=== PATIENT | male | born 1955 | race Caucasian/White ===

== ENCOUNTER 2020-07-06 06:29 | Inpatient (IN) | payer MEDICARE, MEDICAID, SELFPAY ==
[2020-07-06 06:15] VITALS: BP 159/91; PULSE 96; RESP 20; TEMP 37.2; O2SAT 96
--- NOTE | 2020-07-06 07:17 | PM.HP ---
Providers/Chief Complaint Admitting Physician: Meme Puckett MD Primary Care Provider: [facility] Chief Complaint: Generalized Weakness History of Present Illness David Paulino is a 65 year old male who presented as a transfer from [facility] with concerns of frequent falls in the last week, severe hypokalemia, weakness with difficulty with ambulation, and anemia. Patient reports for that for the last several weeks he has been significantly weak, with frequent falls. He denies any significant injuries. No fever. No blood in his stool or black or tarry stools. He reports he stopped drinking about a month ago, and prior to that had fairly regular alcohol intake. He has had no nausea or vomiting, or diarrhea. He denies any fever, history of Covid, significant cough, exposure to Covid or vaccination for Covid. He does note that he has some hoarseness lately. Previously he had some dysphagia many months ago but it is gone away. He has had weight loss of approximately 45 pounds in the last 2 months. He states he just never is hungry. Screening colonoscopy was done 2 months ago at [facility]. Review of Systems General: Reports: 10 or more systems reviewed and unremarkable except in HPI and below Const: Reports: change in weight and malaise; Denies: fever(s) or chills Eyes: Denies: change in vision ENMT: Reports: hoarseness; Denies: throat pain Card: Denies: chest pain Resp: Denies: dyspnea GI: Denies: abdominal pain, nausea, vomiting, hematochezia or melena : Denies: flank pain Musc: Denies: neck pain Skin/Breast: Denies: rash Neuro: Reports: numbness in extremities, weakness in extremities and dizziness; Denies: headache(s) Psych: Denies: anxiety or depression Endo: Denies: polyuria Jeancarlos/Lymph: Denies: easy bruising All/Imm: Denies: urticaria Medications/Allergies Home Medications Medication Instructions Recorded Confirmed Last Taken Type ferrous sulfate 325 mg PO DAILY 07/06/20 07/06/20 Unknown History lisinopril 20 mg PO DAILY 07/06/20 07/06/20 Unknown History metoprolol tartrate 25 mg PO BID 07/06/20 07/06/20 Unknown History potassium chloride 10 meq PO BID 07/06/20 07/06/20 Unknown History Allergies Allergy/AdvReac Type Severity Reaction Status Date / Time No Known Allergies Allergy Unverified 07/06/20 09:18 PFSH Acute PFSH: Medical History (Updated 07/06/20 @ 10:40 by Vasu Johnson MD) Alcohol use disorder Anemia Hypertension Neuropathy Surgical History (Updated 07/06/20 @ 10:40 by Vasu Johnson MD) History of carpal tunnel surgery History of spinal surgery Family History (Updated 07/06/20 @ 10:35 by Vasu Johnson MD) Other CAD (coronary artery disease) Cancer Social History (Updated 07/06/20 @ 10:35 by Vasu Johnson MD) Smoking and tobacco status: never smoked Alcohol intake: former Physical Exam Narrative: EXAM NARRATIVE: General exam is a white male, with a baseline tremor, in no apparent distress HEENT: Pupils equally round. Oropharynx clear. Neck is supple no lymphadenopathy or thyromegaly Cardiovascular mild tachycardia. No obvious murmur Lungs clear no wheezing or crackles Abdomen is soft with positive bowel sounds. No obvious organomegaly exam is deferred Extremities no cyanosis clubbing or edema, cap refill brisk Skin no rash Neuro no obvious focal deficits. Slight horizontal nystagmus. No vertical nystagmus. Strength adequate. Data : 07/06/20 07:25 Other data: EKG demonstrates sinus tachycardia with a rate of 103, left axis deviation, right bundle branch block. Biphasic P wave in V1 indicates likely left atrial enlargement. No ST elevation is noted. INR is 1.2 White blood cell count 8.2, hemoglobin 8.2, MCV 103, RDW 21, platelets 159 Sodium 138, potassium 2.1, chloride 83, bicarb 14, BUN 9, creatinine 0.81, glucose 154, albumin 4.1, bilirubin 2.6, alk phos 81, AST 57, ALT 23, magnesium 2.1. Anion gap was 41 CT head was performed which was negative TSH 3.84 Alcohol level less than 10 Occult blood negative Initial troponin 44 with 2-hour of 50 and 6-hour 42 Repeat electrolytes from July 06(previous from June demonstrated sodium 135, potassium 2.9, chloride 92, bicarb 29, BUN 11 creatinine 0.7 glucose 111 anion gap 14 A&P Assessment and plan (1) Hypokalemia: Severe hypokalemia. Supplement IV Check magnesium level Status: Acute (2) Anemia: Iron studies, B12 and folate studies. Stool Hemoccult. Had a colonoscopy per patient report 2 months ago. Request records. Secondary to history of hoarseness as well as dysphagia and weight loss may be appropriate for EGD. Status: Acute (3) Alcohol use disorder: Reports he quit using alcohol 1 month ago, although per nursing this may have been more recent. [facility] protocol. Monitor for withdrawal Status: Acute (4) Hypomagnesemia: Supplement magnesium Status: Acute (5) Weakness: Physical therapy consultation Status: Acute (6) Hypertension: Continue home medications Status: Acute Additional A&P Information Full code SCDs for DVT prophylaxis. Secondary to significant anemia hold anticoagulation Will need less than 2 midnights for evaluation of weakness, falls, electrolyte abnormality. If significant withdrawal occurs, or weakness and balance issues do not improve with electrolyte supplementation could require transition to full admission. Attestations Medical Necessity Statement*: See statement above under additional 8 assessment and plan Time Spent in Patient Care: Greater than 35 minutes Coding Level of Care Code Acute Manager Intensive Care Unit for Chg Fwd Diagnoses Hypokalemia E87.6 Anemia D64.9 Alcohol use disorder Hypomagnesemia E83.42 Weakness R53.1 Hypertension I10
[2020-07-06 07:24] VITALS: BMI 25.1
--- NOTE | 2020-07-06 07:41 | XR_ITS ---
WS: [id number] PORTABLE CHEST HISTORY: weight loss COMPARISON: None available. Lung volumes are decreased and radiograph is obtained in lordotic positioning. There is some very mil d interstitial thickening in the central RIGHT lung. No pneumonia or mass identified. No pleural effu richar or pneumothorax. Cardiac size: Normal. Mediastinum/Aorta: Mild atherosclerosis aorta. No osseous abnormality seen. XR/XR chest 1V portable [id number] IMPRESSION: 1. Mild ectasia and atherosclerosis aorta. No pneumonia or mass identified. 2. No cardiomegaly.
[2020-07-06] MEDS: potassium chloride ER 20 mEq Tablet PO (07:46)
--- NOTE | 2020-07-06 07:51 | PC.NURSE ---
Patient arrived from [facility] as a direct admit, he is alert and oriented, here for further testing, arrived at 0615, did not get placed in the system until 0630, vital stable, in room resting, Dr notified of his arrival
[2020-07-06 08:00] VITALS: BP 146/88; PULSE 105; RESP 18; TEMP 37.1; O2SAT 97
[2020-07-06 08:13] LABS: Anion Gap 19.5 (5-19); Blood Urea Nitrogen 11 mg/dL (8-23); C Reactive Protein 16.2 mg/L (0.0-4.9); Calcium 8.5 mg/dL (8.5-10.5); Carbon Dioxide 29 mmol/L (22-29); Chloride 91 mmol/L (98-107); Creatine Phosphokinase 210 U/L (39-308); Glomerular Filtration Rate 112.8 mL/min (90-130); Glucose 95 mg/dL (65-115); Osmolality Calculated 283 mOsm/kg (285-295); Sodium 137 mmol/L (136-145); Thyroid Stimulating Hormone 1.42 uIU/mL (0.27-4.20)
[2020-07-06 08:20] LABS: Potassium 2.5 mmol/L (3.5-5.1)
[2020-07-06] MEDS: dextrose 5%-ns + KCl 20 20 MEQ/1,000 ML BAG 75 MEQ IV ×2 (08:45→22:47)
[2020-07-06] MEDS: pantoprazole DR 40 mg Tablet PO ×2 (08:45→16:49)
[2020-07-06] MEDS: thiamine 100 mg Tablet PO (08:45)
[2020-07-06] MEDS: folic acid 1 mg Tablet PO (08:45)
[2020-07-06 08:51] LABS: Phosphorus 1.5 mg/dL (2.5-4.5)
[2020-07-06 08:52] LABS: Iron 207 ug/dL (59-158); Magnesium 1.6 mg/dL (1.7-2.3)
[2020-07-06] MEDS: lidocaine 1% 5 ML in potassium chloride premix 100 ML 25 ML IV ×2 (09:05→13:20)
[2020-07-06 09:06] LABS: Ferritin 1403 ng/mL (30-400); Percent Saturation 92.4 % (20-50); Total Iron Binding Capacity 224 mcg/dl; Unsaturated Iron Binding < 17 ug/dL (112-347)
[2020-07-06 09:08] LABS: Vitamin B12 699 pg/mL (232-1245)
[2020-07-06 09:15] LABS: Folate Level < 2.0 ng/mL (4.5-32.2)
[2020-07-06 11:08] LABS: NT Pro B Type Natriuretic Pept 590 pg/mL (0-125)
[2020-07-06 11:13] VITALS: BP 126/79; PULSE 111; RESP 18; TEMP 37.2; O2SAT 98
[2020-07-06] MEDS: magnesium sulfate premix 2 GM/50 ML PIGGYBACK IV (11:49)
[2020-07-06 13:21] VITALS: PULSE 108; O2SAT 98
[2020-07-06 15:48] VITALS: BP 143/83; PULSE 99; RESP 17; TEMP 37.4; O2SAT 96
[2020-07-06 20:03] VITALS: BP 148/88; PULSE 109; RESP 18; TEMP 36.7; O2SAT 95
[2020-07-06] MEDS: LORazepam 2 mg Tablet PO (21:28)
[2020-07-07] VITALS (16 sets, daily range): BP systolic 122–154; BP diastolic 66–89; PULSE 69–106; RESP 17–19; TEMP 36.3–37.7; O2SAT 95–100
[2020-07-07] MEDS: LORazepam 2 mg Tablet PO (04:17)
[2020-07-07 06:27] LABS: Basophils % 0.3 %; Eosinophils % 0.3 %; Lymphocytes # 0.7 10^3/uL (0.8-4.8); Lymphocytes % 21.5 %; Mean Corpuscular HGB Conc 33.5 g/dL (30.0-36.0); Mean Corpuscular Hemoglobin 33.5 pg (28.0-34.0); Mean Platelet Volume 10.3 fL (7.4-10.4); Monocytes # 0.2 10^3/uL (0.2-0.9); Monocytes % 6.2 %; Neutrophils % 70.8 %; Nucleated Red Blood Cells % 0.6 %; Platelet Count 99 10^3/cmm (130-400); Red Blood Count 1.91 10^6/uL (4.1-5.3); Red Cell Distribution Width 21.2 % (12.1-15.1); White Blood Count 3.3 10^3/uL (4.0-10.0)
[2020-07-07 06:47] LABS: Alanine Aminotransferase 19 U/L (0-41); Albumin Level 3.9 g/dL (3.5-5.2); Alkaline Phosphatase 61 IU/L (40-130); Anion Gap 13.5 (5-19); Aspartate Amino Transferase 39 U/L (0-40); Blood Urea Nitrogen 10 mg/dL (8-23); Calcium 8.1 mg/dL (8.5-10.5); Carbon Dioxide 32 mmol/L (22-29); Chloride 94 mmol/L (98-107); Globulin 1.7 g/dL (1.3-4.6); Glomerular Filtration Rate 134.8 mL/min (90-130); Glucose 95 mg/dL (65-115); Osmolality Calculated 283 mOsm/kg (285-295); Sodium 137 mmol/L (136-145); Total Bilirubin 2.1 mg/dL (0.15-1.2); Total Protein 5.6 g/dL (6.6-8.7)
[2020-07-07 06:53] LABS: Potassium 2.5 mmol/L (3.5-5.1)
[2020-07-07 06:56] LABS: Hematocrit 19.1 % (42.0-52.0); Hemoglobin 6.4 g/dL (11.7-16.6)
[2020-07-07 07:14] LABS: Phosphorus 0.8 mg/dL (2.5-4.5)
[2020-07-07 08:21] LABS: HIV 1 & 2 Antibody Non-Reactive (Non-Reactiv); HIV 1 & 2 Antigen Non-Reactive (Non-Reactiv)
[2020-07-07] MEDS: metoprolol tartrate 25 mg Tablet PO ×2 (08:31→20:35)
[2020-07-07] MEDS: thiamine 100 mg Tablet PO (08:31)
[2020-07-07] MEDS: folic acid 1 mg Tablet PO (08:31)
[2020-07-07] MEDS: pantoprazole DR 40 mg Tablet PO ×2 (08:31→17:39)
[2020-07-07] MEDS: multivitamin therapeutic Tablet 1 TAB PO (08:31)
[2020-07-07 08:50] LABS: Ammonia 27 umol/L (16-60)
--- NOTE | 2020-07-07 09:09 | PM.PN ---
Subjective Subjective: Interval history: David can answer a few questions this morning but he is obviously confused. He last received Ativan this morning a little bit after 4 AM. No complaints of pain. Medications: Reviewed: Yes Vitals/I&O/Wt Last Vital Signs Temp 98.7 F 07/07/20 08:00 Pulse 88 07/07/20 08:00 Resp 19 H 07/07/20 08:00 BP 149/87 07/07/20 08:00 Pulse Ox 95 07/07/20 08:00 07/06/20 07/07/20 07/07/20 22:59 06:59 14:59 Intake Total 1225 / 1616.25 0 / 0 Output Total 100 / 100 Balance 1125 / 1516.25 0 / 0 Weight last 48 hrs Weight 81.647 kg Physical Exam Narrative: EXAM NARRATIVE: General exam is a white male, with a tremor that appears worse than yesterday. HEENT: Pupils equally round. Oropharynx clear. Neck is supple no lymphadenopathy or thyromegaly Cardiovascular mild tachycardia. No obvious murmur Lungs clear no wheezing or crackles Abdomen is soft with positive bowel sounds. No obvious organomegaly Extremities no cyanosis clubbing or edema, cap refill brisk Neuro no obvious focal deficits. Data : 07/07/20 06:14 07/07/20 06:14 A&P Assessment and plan (1) Hypokalemia: Severe hypokalemia. Supplement IV in the form of potassium phosphate Check magnesium level again today. He received magnesium supplementation on July 06. Status: Acute (2) Anemia: Folate found to be significantly low. Stool Hemoccult at outside hospital negative. Had a colonoscopy per patient report 2 months ago. Request records. Secondary to history of hoarseness as well as dysphagia and weight loss may be appropriate for EGD at some point when stabilized or as an outpatient. Transfuse 1 units packed red blood cells today. Haptoglobin level checked this morning and normal. Has evidence of pancytopenia, which could potentially could be bone marrow suppression from alcohol and/or other condition. No evidence of hemolysis with haptoglobin being normal even though bilirubin is slightly elevated. Status: Acute (3) Alcohol use disorder: Reports he quit using alcohol 1 month ago, although per nursing this may have been more recent. [place] protocol. He has some evidence of acute withdrawal, requiring Ativan Status: Acute (4) Hypomagnesemia: Awaiting level today Status: Acute (5) Weakness: Physical therapy consultation Secondary to tremor, encephalopathy MRI has been ordered but may not be able to be obtained today in the patient's current clinical status. This may have to be delayed. Status: Acute (6) Hypertension: Continue home medications Status: Acute Additional A&P Information Acute encephalopathy. May be secondary to alcohol withdrawal or severe electrolyte abnormality. Check ammonia level Full code SCDs for DVT prophylaxis. Secondary to significant anemia hold anticoagulation Attestations Medical Necessity Statement*: Needs continued hospitalization for continued treatment of acute encephalopathy, severe anemia Coding Level of Care Code Acute Street Light Repairer for Chg Fwd Diagnoses Hypokalemia E87.6 Anemia D64.9 Alcohol use disorder Hypomagnesemia E83.42 Weakness R53.1 Hypertension I10
[2020-07-07] MEDS: potassium chloride ER 20 mEq Tablet 40 MEQ PO (11:17)
[2020-07-07] MEDS: sodium chloride 0.9% (100 ml) 100 ML 50 ML (11:22)
[2020-07-07 11:39] LABS: Magnesium 1.6 mg/dL (1.7-2.3)
--- NOTE | 2020-07-07 12:44 | PC.CHAP ---
Pastoral Care Encounter/Spiritual Assessment Type of Contact [] Declined timber buyer visit [] Patient/Family/Request visit [] Outpatient visit [] Follow-up visit [] Physician referral [] Code/Alert [x] Routine visit [] Staff referral [] Actively dying [] Patient sleeping [] Family support [] [] Out of room [] Palliative care [] [] Receiving care in room [] Pre-surgical visit [] Trauma [] Long length of stay [] ICU visit [] Other: Relational/Emotional Strength [] Patient feels connected with others/family/visitors/staff [] Distress [] Loneliness/isolation [] Abandonment Spirituality of Patient [] Person of [place] [] Attends Mormon of their [place] [] Believes in Prayer [] Reads Bible or Jainism materials [] There are Spiritual issues to be addressed Change Release Manager Interventions [] Prayer [] Active listening [] Non-anxious presence [] Spiritual/emotional support [] Crisis/trauma care [] Spiritual counseling [] Bereavement support [] Provided bereavement packet [] Provided Bible/devotional materials [] Provided toy/stuffed animal, coloring book to patient or family member [] Provided Communion [] Anointing/[place] [] Salvation [] Completed spiritual assessment [] Other: Impact on Illness or Injury [] Angry [] Fearful [] Anxious [] Often cries [] Exhaustion [] Unable to work [] Unable to attend rastafari [] Unable to walk/stand [] Unable to read [] Unable to drive [] Unable to eat/drink [] Unable to sleep [] Unable to be with family [] Patient intubated [] Other: Summary I could not tell if this patient was awake. Certainly seemed to be less than alert, yet was 'fidgeting' with their fingers - while their eyes were closed. Time spent with patient 1 minute
[2020-07-07] MEDS: magnesium sulfate premix 2 GM/50 ML PIGGYBACK IV (15:09)
[2020-07-07 15:37] LABS: Glucose Urine UA Norm (Normal); Ketones Urine 1+ (Negative); Protein Urine 1+ (Negative); Urine Appearance Clear (CLEAR); Urine Color Dark Yellow (Yellow); pH Urine 6.5 (5-7)
[2020-07-07 15:38] LABS: Bacteria Urine TRACE /hpf; Bilirubin Urine 1+ (Negative); Blood Urine 2+ (Negative); Leukocyte Esterase Urine Negative (Negative); Nitrate Urine Negative (Negative); RBC Urine 0-4 /hpf (0-2); Squamous Epithelial Cell Urine 0-4 /hpf (0-5); Urobilinogen Urine 4+ mg/dL (Negative); WBC Urine 0-4 /hpf (0-5)
--- NOTE | 2020-07-07 16:14 | PC.OT ---
OT EVALUATION HELD TODAY DUE TO LOW K AND HGB. WILL ATTEMPT AGAIN TOMORROW.
[2020-07-07 16:59] LABS: Hematocrit 22.3 % (42.0-52.0); Hemoglobin 7.4 g/dL (11.7-16.6)
[2020-07-07] MEDS: dextrose 5%-ns + KCl 20 20 MEQ/1,000 ML BAG 75 MEQ IV (17:38)
[2020-07-07 18:49] LABS: Anion Gap 18.9 (5-19); Blood Urea Nitrogen 9 mg/dL (8-23); Calcium 8.1 mg/dL (8.5-10.5); Carbon Dioxide 27 mmol/L (22-29); Chloride 97 mmol/L (98-107); Glomerular Filtration Rate 134.8 mL/min (90-130); Glucose 99 mg/dL (65-115); Magnesium 1.9 mg/dL (1.7-2.3); Osmolality Calculated 289 mOsm/kg (285-295); Phosphorus 2.2 mg/dL (2.5-4.5); Sodium 140 mmol/L (136-145)
[2020-07-07 19:10] LABS: Potassium 2.9 mmol/L (3.5-5.1)
[2020-07-07] MEDS: lidocaine 1% 5 ML in potassium chloride premix 100 ML 25 ML IV (20:35)
[2020-07-07] MEDS: potassium chloride ER 20 mEq Tablet PO (20:35)
[2020-07-08] VITALS (12 sets, daily range): BP systolic 106–159; BP diastolic 66–97; PULSE 66–107; RESP 16–20; TEMP 36.6–37.6; O2SAT 96–99
[2020-07-08] MEDS: sodium chloride 0.9% (100 ml) 100 ML 125 ML (04:45)
[2020-07-08 06:31] LABS: Basophils % 0.5 %; Eosinophils % 0.8 %; Hematocrit 23.7 % (42.0-52.0); Hemoglobin 7.8 g/dL (11.7-16.6); Lymphocytes # 1.1 10^3/uL (0.8-4.8); Lymphocytes % 27.8 %; Mean Corpuscular HGB Conc 32.9 g/dL (30.0-36.0); Mean Corpuscular Hemoglobin 31.6 pg (28.0-34.0); Mean Platelet Volume 9.9 fL (7.4-10.4); Monocytes # 0.4 10^3/uL (0.2-0.9); Monocytes % 9.7 %; Neutrophils # 2.28 10^3/uL (1.8-7.7); Neutrophils % 59.9 %; Nucleated Red Blood Cells # 0.1 /100WBC; Nucleated Red Blood Cells % 2.1 %; Red Blood Count 2.47 10^6/uL (4.1-5.3); Red Cell Distribution Width 22.2 % (12.1-15.1); White Blood Count 3.8 10^3/uL (4.0-10.0)
[2020-07-08 06:51] LABS: Magnesium 1.7 mg/dL (1.7-2.3)
[2020-07-08 06:53] LABS: Alanine Aminotransferase 15 U/L (0-41); Albumin Level 3.3 g/dL (3.5-5.2); Alkaline Phosphatase 56 IU/L (40-130); Anion Gap 12.1 (5-19); Aspartate Amino Transferase 38 U/L (0-40); Blood Urea Nitrogen 7 mg/dL (8-23); Calcium 7.5 mg/dL (8.5-10.5); Carbon Dioxide 29 mmol/L (22-29); Chloride 101 mmol/L (98-107); Globulin 1.8 g/dL (1.3-4.6); Glomerular Filtration Rate 166.4 mL/min (90-130); Glucose 91 mg/dL (65-115); Osmolality Calculated 286 mOsm/kg (285-295); Potassium 3.1 mmol/L (3.5-5.1); Sodium 139 mmol/L (136-145); Total Bilirubin 1.8 mg/dL (0.15-1.2); Total Protein 5.1 g/dL (6.6-8.7)
[2020-07-08 07:19] LABS: Platelet Count 78 10^3/cmm (130-400); Slide Review Slide Review Perform
[2020-07-08] MEDS: lidocaine 1% 5 ML in potassium chloride premix 100 ML 25 ML IV (08:29)
[2020-07-08] MEDS: potassium chloride ER 20 mEq Tablet 40 MEQ PO (08:30)
[2020-07-08] MEDS: pantoprazole DR 40 mg Tablet PO ×2 (08:30→18:01)
[2020-07-08] MEDS: metoprolol tartrate 25 mg Tablet PO ×2 (08:30→20:46)
[2020-07-08] MEDS: folic acid 1 mg Tablet PO (08:30)
[2020-07-08] MEDS: thiamine 100 mg Tablet PO (08:30)
[2020-07-08] MEDS: multivitamin therapeutic Tablet 1 TAB PO (08:30)
[2020-07-08] MEDS: dextrose 5%-ns + KCl 20 20 MEQ/1,000 ML BAG 75 MEQ IV (08:31)
--- NOTE | 2020-07-08 10:45 | CT_ITS ---
WS: [id number] CT HEAD NONCONTRAST HISTORY: imbalance, falls TECHNIQUE: Contiguous axial imaging performed through the brain in 2.5 mm imaging. Bone and soft tiss ue windows. Sagittal and coronal reformats reviewed. All CT scans at [facility] use at ast one of these dose optimization techniques: automated exposure control; mA and/or kV adjustment pe r patient size (includes targeted exams where dose is matched to clinical indication); or iterative r econstruction. DLP: 957.7 mGy.cm COMPARISON: None available. No acute intracranial hemorrhage, midline shift or mass effect. Moderate atrophy is symmetric. Moderate chronic microvascular ischemic disease. Small prior lacunar i nfarcts in the basal ganglia. Mild bilateral cerebral atrophy. Ventricles: Normal size with no hydrocephalus. Paranasal sinuses: Mild mucoperiosteal thickening in the RIGHT maxillary sinus. Mastoid air cells: Well pneumatized. Calvarium and scalp: Skull is intact with no soft tissue edema or swelling. CT/CT head wo con* [id number] IMPRESSION: 1. No acute intracranial hemorrhage or edema. 2. Moderate atrophy and chronic ischemic disease with lacunar infarcts as desc ribed above.
[2020-07-08 11:43] LABS: Rapid Plasma Reagin Syphilis Nonreactive (Nonreactive)
--- NOTE | 2020-07-08 14:43 | PM.PN ---
Subjective Subjective: Interval history: David reports he feels little bit better today. Still very weak. Still feels very imbalanced when he gets. Medications: Reviewed: Yes Vitals/I&O/Wt Last Vital Signs Temp 97.8 F 07/08/20 12:00 Pulse 73 07/08/20 12:00 Resp 16 07/08/20 12:00 BP 133/87 07/08/20 12:00 Pulse Ox 98 07/08/20 12:00 07/07/20 07/08/20 07/08/20 22:59 06:59 14:59 Intake Total 429.0909 / 1727.8409 1260.0 / 2987.8409 343.75 / 343.75 Balance 429.0909 / 1727.8409 1260.0 / 2987.8409 343.75 / 343.75 Physical Exam Narrative: EXAM NARRATIVE: General exam is a white male, find baseline tremor unchanged Neck is supple no lymphadenopathy or thyromegaly Cardiovascular regular rate and rhythm. No obvious murmur Lungs clear no wheezing or crackles Abdomen is soft with positive bowel sounds. No obvious organomegaly Extremities no cyanosis clubbing or edema, cap refill brisk Neuro no obvious focal deficits. Much more conversive today and less confused. Data : 07/08/20 06:22 07/08/20 06:22 A&P Assessment and plan (1) Hypokalemia: Severe hypokalemia. Associated with low magnesium and low phosphorus which have now been corrected Supplement potassium again today. This is improved from admission Status: Acute (2) Anemia: Folate found to be significantly low. Stool Hemoccult at outside hospital negative. Had a colonoscopy per patient report 2 months ago. Request records. Secondary to history of hoarseness as well as dysphagia and weight loss may be appropriate for EGD at some point when stabilized or as an outpatient. 1 units packed red blood cells transfused July 07 Haptoglobin level checked normal Has evidence of pancytopenia, which could potentially could be bone marrow suppression from alcohol and/or other condition. No evidence of hemolysis with haptoglobin being normal even though bilirubin is slightly elevated. Status: Acute (3) Alcohol use disorder: Reports he quit using alcohol 1 month ago, although per nursing this may have been more recent. [facility] protocol. Status: Acute (4) Hypomagnesemia: Supplemented and normal today Status: Acute (5) Weakness: Associated with imbalance.. May be cerebellar degeneration secondary to alcohol intake. Could also be associated with significant nutritional deficiency. Continue to work with physical therapy He is significantly weak and may require skilled placement Secondary to tremor, encephalopathy MRI has been entertained with patient assures me he cannot have this secondary to severe claustrophobia and we will not allow it to be done currently. We will repeat his CT of head, to look for any stroke. Last CT was done 3 to 4 days ago at an outside hospital. RPR checked and nonreactive. Status: Acute (6) Hypertension: Continue home medications Status: Acute Additional A&P Information Acute encephalopathy. May be secondary to alcohol withdrawal or severe electrolyte abnormality. Ammonia level was normal. He seems to be improved significantly today. Full code SCDs for DVT prophylaxis. Secondary to significant anemia hold anticoagulation Attestations Medical Necessity Statement*: Needs continued hospitalization for supplementation of electrolytes and close follow-up of weakness which impairs his ability to go directly home. Coding Level of Care Code Acute Air Traffic Control Operator for Chg Fwd Diagnoses Hypokalemia E87.6 Anemia D64.9 Alcohol use disorder Hypomagnesemia E83.42 Weakness R53.1 Hypertension I10
[2020-07-09] VITALS (14 sets, daily range): BP systolic 108–191; BP diastolic 69–107; PULSE 70–106; RESP 16–20; TEMP 36.8–37.7; O2SAT 97–100
[2020-07-09] MEDS: dextrose 5%-ns + KCl 20 20 MEQ/1,000 ML BAG 75 MEQ IV (01:41)
[2020-07-09 05:27] LABS: Basophils % 0.8 %; Eosinophils % 1.1 %; Hematocrit 22.1 % (42.0-52.0); Hemoglobin 7.2 g/dL (11.7-16.6); Lymphocytes # 1.2 10^3/uL (0.8-4.8); Lymphocytes % 33.8 %; Mean Corpuscular HGB Conc 32.6 g/dL (30.0-36.0); Mean Corpuscular Hemoglobin 32.4 pg (28.0-34.0); Mean Corpuscular Volume 99.5 fL (80-94); Monocytes # 0.4 10^3/uL (0.2-0.9); Monocytes % 11.3 %; Neutrophils # 1.82 10^3/uL (1.8-7.7); Neutrophils % 51.3 %; Nucleated Red Blood Cells # 0.1 /100WBC; Nucleated Red Blood Cells % 1.4 %; Platelet Count 130 10^3/cmm (130-400); Red Blood Count 2.22 10^6/uL (4.1-5.3); Red Cell Distribution Width 23.4 % (12.1-15.1); White Blood Count 3.6 10^3/uL (4.0-10.0)
[2020-07-09 05:43] LABS: Magnesium 1.6 mg/dL (1.7-2.3); Phosphorus 1.9 mg/dL (2.5-4.5)
[2020-07-09 05:49] LABS: Alanine Aminotransferase 16 U/L (0-41); Albumin Level 3.1 g/dL (3.5-5.2); Alkaline Phosphatase 63 IU/L (40-130); Anion Gap 8.4 (5-19); Aspartate Amino Transferase 39 U/L (0-40); Blood Urea Nitrogen 7 mg/dL (8-23); Calcium 7.6 mg/dL (8.5-10.5); Carbon Dioxide 30 mmol/L (22-29); Chloride 103 mmol/L (98-107); Globulin 2.1 g/dL (1.3-4.6); Glomerular Filtration Rate 112.8 mL/min (90-130); Glucose 102 mg/dL (65-115); Osmolality Calculated 284 mOsm/kg (285-295); Potassium 3.4 mmol/L (3.5-5.1); Sodium 138 mmol/L (136-145); Total Bilirubin 1.4 mg/dL (0.15-1.2); Total Protein 5.2 g/dL (6.6-8.7)
[2020-07-09] MEDS: magnesium sulfate premix 2 GM/50 ML PIGGYBACK IV (08:03)
[2020-07-09] MEDS: pantoprazole DR 40 mg Tablet PO ×2 (08:04→17:17)
[2020-07-09] MEDS: metoprolol tartrate 25 mg Tablet PO ×2 (08:04→22:48)
[2020-07-09] MEDS: folic acid 1 mg Tablet PO (08:04)
[2020-07-09] MEDS: thiamine 100 mg Tablet PO (08:04)
[2020-07-09] MEDS: potassium chloride ER 20 mEq Tablet 40 MEQ PO ×2 (08:04→14:07)
[2020-07-09] MEDS: multivitamin therapeutic Tablet 1 TAB PO (08:04)
--- NOTE | 2020-07-09 11:14 | P.PN_ITS ---
Subjective Subjective: Interval history: David reports he feels little bit better currently but still is profoundly weak. He will consider skilled care. Medications: Reviewed: Yes Vitals/I&O/Wt Last Vital Signs Temp 98.2 F 07/09/20 08:00 Pulse 81 07/09/20 08:00 Resp 20 H 07/09/20 08:00 BP 136/88 07/09/20 08:00 Pulse Ox 97 07/09/20 03:30 07/08/20 07/09/20 07/09/20 22:59 06:59 14:59 Intake Total 1480 / 1823.75 30 / 1853.75 1060 / 1060 Output Total 120 / 120 200 / 320 Balance 1360 / 1703.75 -170 / 1533.75 1060 / 1060 Physical Exam Narrative: EXAM NARRATIVE: General exam is a white male, find baseline tremor unchanged Neck is supple no lymphadenopathy or thyromegaly Cardiovascular regular rate and rhythm. No obvious murmur Lungs clear no wheezing or crackles Abdomen is soft with positive bowel sounds. No obvious organomegaly Extremities no cyanosis clubbing or edema, cap refill brisk Neuro no obvious focal deficits. No obvious confusion Data : 07/09/20 05:15 07/09/20 05:15 A&P Assessment and plan (1) Hypokalemia: Severe hypokalemia. Associated with low magnesium and low phosphorus Supplement magnesium today, potassium orally Status: Acute (2) Anemia: Folate found to be significantly low. Stool Hemoccult at outside hospital negative. Had a colonoscopy per patient report 2 months ago. Request records. Secondary to history of hoarseness as well as dysphagia and weight loss may be appropriate for EGD at some point when stabilized or as an outpatient. 1 units packed red blood cells transfused July 07. With hemoglobin of 7.2 will transfuse one more unit today. Haptoglobin level checked normal Has evidence of pancytopenia, which could potentially could be bone marrow suppression from alcohol and/or other condition. No evidence of hemolysis with haptoglobin being normal even though bilirubin is slightly elevated. White blood cell count, and platelet count are recovering. No evidence of active bleeding Status: Acute (3) Alcohol use disorder: Reports he quit using alcohol 1 month ago, although per nursing this may have been more recent. [facility] protocol was used but can be discontinued today. Status: Acute (4) Hypomagnesemia: Supplement today for low level Status: Acute (5) Weakness: Associated with imbalance.. May be cerebellar degeneration secondary to alcohol intake. Could also be associated with significant nutritional deficiency. Continue to work with physical therapy He is significantly weak and may require skilled placement Secondary to tremor, encephalopathy MRI has been entertained with patient assures me he cannot have this secondary to severe claustrophobia and we will not allow it to be done currently. Repeat CT of his head demonstrated no CVA RPR checked and nonreactive. Outpatient neurology evaluation is appropriate. Status: Acute (6) Hypertension: Continue home medications Status: Acute Additional A&P Information Acute encephalopathy. May be secondary to alcohol withdrawal or severe electrolyte abnormality. Ammonia level was normal. He appears back to baseline today. Full code SCDs for DVT prophylaxis. Secondary to significant anemia hold anticoagulation Likely will need skilled placement. Attestations Medical Necessity Statement*: Needs continued hospitalization for close follow-up of pancytopenia, severe weakness, with transfusion of 1 unit packed red blood cells today. Coding Level of Care Code Acute End Touching Machine Operator for Rosa Daily Diagnoses Hypokalemia E87.6 Anemia D64.9 Alcohol use disorder Hypomagnesemia E83.42 Weakness R53.1 Hypertension I10
[2020-07-09] MEDS: sodium chloride 0.9% (100 ml) 100 ML (11:19)
[2020-07-10] VITALS (8 sets, daily range): BP systolic 112–167; BP diastolic 67–94; PULSE 70–120; RESP 16–18; TEMP 36.6–38.2; O2SAT 97–99
[2020-07-10 06:55] LABS: Basophils % 0.3 %; Eosinophils % 1.2 %; Hematocrit 25.3 % (42.0-52.0); Hemoglobin 8.4 g/dL (11.7-16.6); Lymphocytes # 0.8 10^3/uL (0.8-4.8); Lymphocytes % 23.8 %; Mean Corpuscular HGB Conc 33.2 g/dL (30.0-36.0); Mean Corpuscular Hemoglobin 32.4 pg (28.0-34.0); Mean Corpuscular Volume 97.7 fL (80-94); Mean Platelet Volume 10.5 fL (7.4-10.4); Monocytes # 0.4 10^3/uL (0.2-0.9); Monocytes % 11.1 %; Neutrophils # 2.07 10^3/uL (1.8-7.7); Neutrophils % 62.4 %; Nucleated Red Blood Cells % 0.6 %; Platelet Count 130 10^3/cmm (130-400); Red Blood Count 2.59 10^6/uL (4.1-5.3); Red Cell Distribution Width 22.6 % (12.1-15.1); White Blood Count 3.3 10^3/uL (4.0-10.0)
[2020-07-10 07:07] LABS: Blood Urea Nitrogen 7 mg/dL (8-23); Calcium 7.8 mg/dL (8.5-10.5); Carbon Dioxide 25 mmol/L (22-29); Chloride 101 mmol/L (98-107); Glomerular Filtration Rate 134.8 mL/min (90-130); Glucose 92 mg/dL (65-115); Magnesium 1.6 mg/dL (1.7-2.3); Osmolality Calculated 278 mOsm/kg (285-295); Sodium 135 mmol/L (136-145)
[2020-07-10] MEDS: metoprolol tartrate 25 mg Tablet PO ×2 (08:37→21:15)
[2020-07-10] MEDS: magnesium sulfate premix 2 GM/50 ML PIGGYBACK IV (08:37)
[2020-07-10] MEDS: thiamine 100 mg Tablet PO (08:37)
[2020-07-10] MEDS: pantoprazole DR 40 mg Tablet PO ×2 (08:37→17:35)
[2020-07-10] MEDS: folic acid 1 mg Tablet PO (08:37)
[2020-07-10] MEDS: multivitamin therapeutic Tablet 1 TAB PO (08:37)
--- NOTE | 2020-07-10 09:10 | PC.SOCIAL ---
*IMM UPDATE* Gave patient IMM update. Provided copy of page 2. Verbalized understanding. 07/10/20 @ 0901 Initialed, dated, timed and placed in chart.
--- NOTE | 2020-07-10 14:51 | P.DS_ITS ---
Discharge Providers Date of Admission: 07/07/20 10:45 Date of Discharge: July 10, 2020 Attending Provider at Admission: Meme Puckett MD Attending Provider at Discharge: Vasu Johnson MD Diagnoses at Discharge Discharge Diagnosis (1) Hypokalemia: Status: Acute (2) Anemia: Status: Acute (3) Alcohol use disorder: Status: Acute (4) Hypomagnesemia: Status: Acute (5) Weakness: Status: Acute (6) Hypertension: Status: Acute Reason for Visit Reason for Visit: Generalized Weakness 11507 R53.1 Hospital Course Hospital Course David presented to the hospital with weakness and imbalance. He had a long history of alcohol. He was found to have significant electrolyte abnormalities with low phosphorus, magnesium, and potassium. These were heavily supplemented. He was also found to be anemic, and ultimately required 2 units of packed red blood cells. He underwent some alcohol withdrawal at the hospital requiring Ativan.'s was resolved by July 10 and he was doing much better. He was also significantly stronger. It was thought he could benefit from rehabilitation at a skilled facility but he refused. He was offered alcohol rehab, and ultimately given contacts to pursue this should he wish. He was not interested in inpatient alcohol rehab. By time of discharge on July 10 he was able to walk some with a walker. I discussed with him he would need follow-up with primary care provider in the next 3 to 5 days, and repeat lab work at that time. At the end of the hospital stay a Hemoccult stool did come back positive. EGD should be arranged as an outpatient at the primary's discretion. I have discussed this in detail with the patient. Other diagnostic testing included a CT of head which demonstrated no CVA. Physical Exam Narrative: EXAM NARRATIVE: General exam no apparent distress Cardiovascular regular rate and rhythm without murmur Lungs clear Abdomen is soft with positive bowel sounds Extremities no cyanosis clubbing or edema Discharge Data Data Completed and Pending: Completed Studies During Hospitalization Category Date Time Status CT head wo con* 7 0450 Routine Cat Scan 07/08/20 10:45 Completed XR chest 1V slick ble [id number] Routine Exams 07/06/20 07:41 Completed Labs from last 24 hours 07/10/20 07/10/20 06:18 06:18 WBC 3.3 L RBC 2.59 L Hgb 8.4 L Hct 25.3 L MCV 97.7 H MCH 32.4 MCHC 33.2 RDW 22.6 H Plt Count 130 MPV 10.5 H Neut % (Auto) 62.4 Lymph % (Auto) 23.8 [place] % (Auto) 11.1 Eos % (Auto) 1.2 Baso % (Auto) 0.3 Neut # (Auto) 2.07 Lymph # (Auto) 0.8 [place] # (Auto) 0.4 Eos # (Auto) 0.0 Baso # (Auto) 0.0 Nucleated RBC % (a uto) 0.6 Nucleated RBCs # 0.0 Sodium 135 L Potassium 4.0 Chloride 101 Carbon Dioxide 25 Anion Gap 13.0 BUN 7 L Creatinine 0.6 L GFR Calculation 134.8 H Glucose 92 Calculated Osmolal ity 278 L Calcium 7.8 L Magnesium 1.6 L Vitals: Last Vital Signs Temp 99.2 F 07/10/20 11:30 Pulse 80 07/10/20 11:30 Resp 16 07/10/20 11:30 BP 154/84 07/10/20 11:30 Pulse Ox 98 07/10/20 11:30 Discharge Plan Discharge Patient Disposition: Home Health Service Condition: Stable Prescriptions: New thiamine mononitrate (vit B1) [Vitamin B-1 (mononitrate)] 100 mg Tablet 100 mg PO DAILY Qty: 30 RF: 0 folic acid 1 mg Tablet 1 mg PO DAILY Qty: 30 RF: 0 pantoprazole 40 mg Tablet,Delayed Release (Dr/Ec) 40 mg PO BID Qty: 60 RF: 0 multivitamin with folic acid [Thera] 400 mcg Tablet 1 tab PO DAILY Qty: 30 RF: 0 Continued potassium chloride 10 mEq capsule, extended release 10 meq PO BID RF: 0 lisinopril 20 mg tablet 20 mg PO DAILY RF: 0 ferrous sulfate 325 mg (65 mg iron) tablet 325 mg PO DAILY RF: 0 metoprolol tartrate 25 mg tablet 25 mg PO BID RF: 0 Discharge Orders: Discharge Order (Routine); Ordered 07/10/20 Ordered By: Vasu Johnson Referrals: Ernie Pena [Referring] - 4-7 days Discharge Diet: Cardiac Discharge Activity: Increase activity as tolerated Patient Instructions: Opioid Safety Activity Restrictions/Additional Instructions: Follow-up with primary care provider at [place], in the next 3 to 5 days. BMP and CBC on follow-up. Primary care provider to arrange/consider EGD as an outpatient. Avoid all alcohol Home health to be set up prior to discharge Discharge Attestations Time Spent in Discharge Care*: greater than 30 min Quality Metrics Clinical Quality Measures During this hospital stay, did patient experience: None Coding Level of Care Code Acute [facility] note Diagnoses Hypokalemia E87.6 Anemia D64.9 Alcohol use disorder Hypomagnesemia E83.42 Weakness R53.1 Hypertension I10
--- NOTE | 2020-07-10 16:49 | XRR_ITS ---
PROCEDURE INFORMATION: Exam: XR Chest Exam date and time: 07/10/2020 5:32 PM Age: 65 years old Clinical indication: Cough; Additional info: Temp, cough TECHNIQUE: Imaging protocol: XR of the chest. Views: 1 view. Total images: 1 COMPARISON: No relevant prior studies available. FINDINGS: Lungs: No visible active interstitial or alveolar airspace disease. Pleural spaces: No pleural effusion. No pneumothorax. Heart/Mediastinum: Cardiac structures and configuration with left ventricular prominence and arteriosclerosis. Tortuous thoracic aorta which can be seen in hypertensive cardiovascular disease. Bones/joints: Scoliosis. XR/XR chest 1V portable [id number] IMPRESSION: Nonacute.
[2020-07-10] MEDS: acetaminophen 325 mg Tablet 650 MG PO (17:35)
[2020-07-10 18:05] LABS: Urine Appearance Clear (CLEAR); Urine Color Yellow (Yellow); pH Urine 8 (5-7)
[2020-07-10 18:06] LABS: Add Urine Microscopic? YES; Bilirubin Urine Neg (Negative); Blood Urine 3+ (Negative); Glucose Urine UA Norm (Normal); Ketones Urine Negative (Negative); Leukocyte Esterase Urine Negative (Negative); Nitrate Urine Negative (Negative); Protein Urine Neg (Negative); Sulfosalicylic Acid Urine Positive (Negative); Urobilinogen Urine 8 mg/dL (Negative)
[2020-07-10 18:07] LABS: Add Urine Culture? Yes; Amorphous Sediment Urine 3+ /hpf; Bacteria Urine TRACE /hpf; Squamous Epithelial Cell Urine 0-4 /hpf (0-5)
[2020-07-11] VITALS (8 sets, daily range): BP systolic 120–161; BP diastolic 64–91; PULSE 66–91; RESP 17–19; TEMP 36.6–37.7; O2SAT 95–99
[2020-07-11 05:02] LABS: Basophils % 0.5 %; Eosinophils % 0.2 %; Hematocrit 26.5 % (42.0-52.0); Hemoglobin 8.4 g/dL (11.7-16.6); Lymphocytes # 0.6 10^3/uL (0.8-4.8); Mean Corpuscular HGB Conc 31.7 g/dL (30.0-36.0); Mean Corpuscular Hemoglobin 31.6 pg (28.0-34.0); Mean Corpuscular Volume 99.6 fL (80-94); Mean Platelet Volume 10.5 fL (7.4-10.4); Monocytes # 0.5 10^3/uL (0.2-0.9); Monocytes % 10.2 %; Neutrophils # 3.29 10^3/uL (1.8-7.7); Neutrophils % 74.2 %; Nucleated Red Blood Cells % 0 %; Platelet Count 149 10^3/cmm (130-400); Red Blood Count 2.66 10^6/uL (4.1-5.3); Red Cell Distribution Width 22.5 % (12.1-15.1); White Blood Count 4.4 10^3/uL (4.0-10.0)
[2020-07-11 05:28] LABS: Anion Gap 12.2 (5-19); Blood Urea Nitrogen 7 mg/dL (8-23); Carbon Dioxide 25 mmol/L (22-29); Chloride 102 mmol/L (98-107); Glomerular Filtration Rate 96.7 mL/min (90-130); Glucose 96 mg/dL (65-115); Magnesium 1.8 mg/dL (1.7-2.3); Osmolality Calculated 278 mOsm/kg (285-295); Phosphorus 2.6 mg/dL (2.5-4.5); Potassium 4.2 mmol/L (3.5-5.1); Sodium 135 mmol/L (136-145)
[2020-07-11] MEDS: metoprolol tartrate 25 mg Tablet PO ×2 (08:16→20:41)
[2020-07-11] MEDS: thiamine 100 mg Tablet PO (08:16)
[2020-07-11] MEDS: lisinopril 10 mg Tablet PO (08:16)
[2020-07-11] MEDS: pantoprazole DR 40 mg Tablet PO ×2 (08:16→17:45)
[2020-07-11] MEDS: folic acid 1 mg Tablet PO (08:16)
[2020-07-11] MEDS: multivitamin therapeutic Tablet 1 TAB PO (08:16)
--- NOTE | 2020-07-11 19:38 | P.PN_ITS ---
Subjective Subjective: Interval history: Patient was seen and examined this morning, T- max noted to be 100.7, denies any cough shortness of breath, abdominal pain nausea vomiting, difficulty passing urine. Currently saturating well on room air, he is not tachycardic, tachypneic, has maintained good MAP.Tolerating p.o. intake. We will continue to monitor the elevated temperature. We will hold off on antibiotics, will order repeat blood culture, lactic acid pro-Feng, x-ray chest. Medications: Reviewed: Yes Vitals/I&O/Wt Last Vital Signs Temp 99.4 F 07/11/20 16:00 Pulse 69 07/11/20 16:00 Resp 18 07/11/20 16:00 BP 136/64 07/11/20 16:00 Pulse Ox 97 07/11/20 16:00 07/11/20 07/11/20 07/11/20 06:59 14:59 22:59 Intake Total 720 / 720 240 / 960 Output Total 550 / 825 250 / 250 400 / 650 Balance -550 / 185 470 / 470 -160 / 310 Physical Exam Const: COMMON NORMALS: patient oriented x3 HENMT: COMMON NORMALS: normocephalic and atraumatic HEAD & SCALP: normocephalic and atraumatic Chest: CHEST: Yes Symmetrical chest wall rise Resp: COMMON NORMALS: normal respiratory effort and clear to auscultation bilaterally EFFORT & INSPECTION: Yes symmetric chest movement AUSCULTATION: clear to auscultation bilaterally Cardio: COMMON NORMALS: regular rate, regular rhythm, S1 normal heart sound present, S2 normal heart sound present, No gallops present (Cardio), No murmurs present (Cardio), No rub (Cardio) and Peripheral pulses 2+ throughout RATE: regular rate RHYTHM: regular rhythm HEART SOUNDS: S1 normal heart sound present and S2 normal heart sound present PERIPHERAL PULSES: Peripheral pulses 2+ throughout GI: COMMON NORMALS: Normal to inspection, nondistended, normoactive bowel sounds present, Soft to palpation, non-tender, No hepatosplenomegaly present and no masses AUSCULTATION: Yes normoactive bowel sounds PALPATION: Yes Soft to palpation and Yes No hepatosplenomegaly present RECTAL EXAM: Yes deferred Extremity: COMMON NORMALS: no clubbing, cyanosis or edema and no pedal edema Neuro: COMMON NORMALS: patient oriented x3 Data : 07/11/20 04:50 07/11/20 04:50 Micro: Microbiology 07/10/20 20:10 Blood Culture - Preliminary Blood SPECIMEN COLLECTED 07/10/20 20:07 Blood Culture - Preliminary Blood SPECIMEN COLLECTED A&P Assessment and plan (1) Fever: T-max noted to be 100.7, denies any cough shortness of breath, abdominal pain nausea vomiting, difficulty passing urine. Currently saturating well on room air, he is not tachycardic, tachypneic, has maintained good MAP.Tolerating p.o. intake. We will continue to monitor the elevated temperature. We will hold off on antibiotics, will order repeat blood culture, lactic acid pro-Feng, x-ray chest. Status: Acute (2) Hypokalemia: Severe hypokalemia. Associated with low magnesium and low phosphorus Supplement magnesium today, potassium orally Status: Acute (3) Anemia: Folate found to be significantly low.Stool Hemoccult at outside hospital negative. Had a colonoscopy per patient report 2 months ago. Request records. Secondary to history of hoarseness as well as dysphagia and weight loss may be appropriate for EGD at some point when stabilized or as an outpatient. 1 units packed red blood cells transfused July 07. With hemoglobin of 7.2 will transfuse one more unit today. Haptoglobin level checked normal Has evidence of pancytopenia, which could potentially could be bone marrow sup pression from alcohol and/or other condition. No evidence of hemolysis with haptoglobin being normal even though bilirubin is slightly elevated. White blood cell count, and platelet count are recovering. No evidence of active bleeding Status: Acute (4) Alcohol use disorder: Reports he quit using alcohol 1 month ago, although per nursing this may have been more recent. CIWA protocol was used but can be discontinued today. Status: Acute (5) Hypomagnesemia: Supplement today for low level Status: Acute (6) Weakness: Associated with imbalance.. May be cerebellar degeneration secondary to alcohol intake. Could also be associated with significant nutritional deficiency. Continue to work with physical therapy He is significantly weak and may require skilled placement Secondary to tremor, encephalopathy MRI has been entertained with patient assures me he cannot have this secondary to severe claustrophobia and we will not allow it to be done currently. Repeat CT of his head demonstrated no CVA RPR checked and nonreactive. Outpatient neurology evaluation is appropriate. Status: Acute (7) Hypertension: Continue home medications Status: Acute Additional A&P Information Acute encephalopathy. May be secondary to alcohol withdrawal or severe electrolyte abnormality. Ammonia level was normal. He appears back to baseline today. Full code SCDs for DVT prophylaxis. Secondary to significant anemia hold anticoagulation Likely will need skilled placement. Attestations Medical Necessity Statement*: Patient needs to be in hospital for management of above defined problem,and the need for placement to long term. Coding Level of Care Code Acute Excellence Coach for Chg Fwd Diagnoses Fever R50.9 Hypokalemia E87.6 Anemia D64.9 Alcohol use disorder Hypomagnesemia E83.42 Weakness R53.1 Hypertension I10
[2020-07-12] VITALS (8 sets, daily range): BP systolic 97–169; BP diastolic 59–95; PULSE 63–86; RESP 16–20; TEMP 36.6–37.6; O2SAT 97–99
[2020-07-12 00:58] LABS: Bilirubin Urine Neg (Negative); Blood Urine 3+ (Negative); Glucose Urine UA Norm (Normal); Ketones Urine Negative (Negative); Nitrate Urine Positive (Negative); Protein Urine Neg (Negative); Urine Appearance Clear (CLEAR); Urine Color Yellow (Yellow); Urobilinogen Urine 4 mg/dL (Negative); pH Urine 6.5 (5-7)
[2020-07-12 01:00] LABS: Add Urine Microscopic? YES; Leukocyte Esterase Urine Negative (Negative)
[2020-07-12 01:02] LABS: WBC Urine 0-4 /hpf (0-5)
[2020-07-12 01:04] LABS: Add Urine Culture? No; Amorphous Sediment Urine 2+ /hpf; Bacteria Urine 1+ /hpf; Squamous Epithelial Cell Urine 0-4 /hpf (0-5)
[2020-07-12 05:36] LABS: Lactate (Lactic Acid level) 0.8 mmol/L (0.5-2.2)
[2020-07-12 05:46] LABS: Procalcitonin 0.21 ng/mL (0-0.5)
--- NOTE | 2020-07-12 06:00 | XRR_ITS ---
PROCEDURE INFORMATION: Exam: XR Chest Exam date and time: 07/12/2020 7:35 AM Age: 65 years old Clinical indication: Fever TECHNIQUE: Imaging protocol: XR of the chest. Views: 1 view. COMPARISON: CR XR chest 1V portable [id number] 07/10/2020 5:28 PM FINDINGS: Lungs: Streaky left basilar atelectasis noted. Pneumonia should be excluded clinically. Pleural spaces: Unremarkable. No pleural effusion. No pneumothorax. Heart/Mediastinum: Mitral annulus calcification noted. Stable cardiomediastinal silhouette. Vasculature: Aortic arch atherosclerotic calcifications seen. Bones/joints: Degenerative changes of the spine seen. XR/XR chest 1V portable [id number] IMPRESSION: Minimal left basilar atelectasis. Pneumonia should be excluded clinically.
[2020-07-12] MEDS: metoprolol tartrate 25 mg Tablet PO ×2 (08:13→20:37)
[2020-07-12] MEDS: multivitamin therapeutic Tablet 1 TAB PO (08:13)
[2020-07-12] MEDS: folic acid 1 mg Tablet PO (08:13)
[2020-07-12] MEDS: thiamine 100 mg Tablet PO (08:13)
[2020-07-12] MEDS: pantoprazole DR 40 mg Tablet PO ×2 (08:13→17:32)
[2020-07-12] MEDS: lisinopril 10 mg Tablet PO (08:13)
[2020-07-12] MEDS: levoFLOXacin 750 mg Tablet PO (10:25)
--- NOTE | 2020-07-12 10:58 | PC.SOCIAL ---
IMM Updated Updated pt on Pg 2 IMM. No questions voiced. Provided pt a copy. Signed, dated, & timed copy in chart.
--- NOTE | 2020-07-12 14:26 | P.PN_ITS ---
Subjective Subjective: Interval history: No acute event overnight. TMax: Normal.Urine Culture:GNR.Started on PO Levofloxacin . Medications: Reviewed: Yes Vitals/I&O/Wt Last Vital Signs Temp 98.5 F 07/12/20 11:06 Pulse 63 07/12/20 11:06 Resp 18 07/12/20 11:06 BP 97/59 07/12/20 11:06 Pulse Ox 99 07/12/20 11:06 07/11/20 07/12/20 07/12/20 22:59 06:59 14:59 Intake Total 300 / 1020 440 / 1460 Output Total 900 / 1150 600 / 1750 500 / 500 Balance -600 / -130 -160 / -290 -500 / -500 Weight last 48 hrs Weight 86.5 kg Physical Exam Const: COMMON NORMALS: patient oriented x3 HENMT: COMMON NORMALS: normocephalic and atraumatic HEAD & SCALP: normocephalic and atraumatic Chest: CHEST: Yes Symmetrical chest wall rise Resp: COMMON NORMALS: normal respiratory effort and clear to auscultation bilaterally EFFORT & INSPECTION: Yes symmetric chest movement AUSCULTATION: clear to auscultation bilaterally Cardio: COMMON NORMALS: regular rate, regular rhythm, S1 normal heart sound present, S2 normal heart sound present, No gallops present (Cardio), No murmurs present (Cardio), No rub (Cardio) and Peripheral pulses 2+ throughout RATE: regular rate RHYTHM: regular rhythm HEART SOUNDS: S1 normal heart sound present and S2 normal heart sound present PERIPHERAL PULSES: Peripheral pulses 2+ throughout GI: COMMON NORMALS: Normal to inspection, nondistended, normoactive bowel sounds present, Soft to palpation, non-tender, No hepatosplenomegaly present and no masses AUSCULTATION: Yes normoactive bowel sounds PALPATION: Yes Soft to palpation and Yes No hepatosplenomegaly present RECTAL EXAM: Yes deferred Extremity: COMMON NORMALS: no clubbing, cyanosis or edema and no pedal edema Neuro: COMMON NORMALS: patient oriented x3 Data : 07/11/20 04:50 07/11/20 04:50 Micro: Microbiology 07/10/20 17:25 Urine Culture - Preliminary Urine,Clean Catch Gram Negative Rods 07/10/20 20:07 Blood Culture - Preliminary Blood NEGATIVE TO DATE 07/10/20 20:10 Blood Culture - Preliminary Blood NEGATIVE TO DATE A&P Assessment and plan (1) UTI (urinary tract infection): Urine Culture Has grown GNR: Started on Levofloxacin 750 mg po daily Follow Final Culture. Status: Acute (2) Fever: T-max was noted to be 100.7, denies any cough shortness of breath, abdominal pain nausea vomiting, difficulty passing urine. Currently saturating well on room air, he is not tachycardic, tachypneic, has maintained good MAP.Tolerating p.o. intake. We will continue to monitor the elevated temperature. Repeat blood culture:Neagtive Urine Culture :GNR X-ray chest:Normal lactic acid: 0.8 pro-Feng :0.21 Status: Acute (3) Hypokalemia: Severe hypokalemia. Associated with low magnesium and low phosphorus Supplement magnesium today, potassium orally Status: Acute (4) Anemia: Folate found to be significantly low.Stool Hemoccult at outside hospital negative. Had a colonoscopy per patient report 2 months ago. Request records. Secondary to history of hoarseness as well as dysphagia and weight loss may be appropriate for EGD at some point when stabilized or as an outpatient. 1 units packed red blood cells transfused July 07. With hemoglobin of 7.2 will transfuse one more unit today. Haptoglobin level checked normal Has evidence of pancytopenia, which could potentially could be bone marrow suppression from alcohol and/or other condition. No evidence of hemolysis with haptoglobin being normal even though bilirubin is slightly elevated. White blood cell count, and platelet count are recovering. No evidence of active bleeding Status: Acute (5) Alcohol use disorder: Reports he quit using alcohol 1 month ago, although per nursing this may have been more recent. CIWA protocol was used but can be discontinued today. Status: Acute (6) Hypomagnesemia: Supplement today for low level Status: Acute (7) Weakness: Associated with imbalance.. May be cerebellar degeneration secondary to alcohol intake. Could also be associated with significant nutritional deficiency. Continue to work with physical therapy He is significantly weak and may require skilled placement Secondary to tremor, encephalopathy MRI has been entertained with patient assures me he cannot have this secondary to severe claustrophobia and we will not allow it to be done currently. Repeat CT of his head demonstrated no CVA RPR checked and nonreactive. Outpatient neurology evaluation is appropriate. Status: Acute (8) Hypertension: Continue home medications Status: Acute Additional A&P Information Acute encephalopathy. May be secondary to alcohol withdrawal or severe electrolyte abnormality. Ammonia level was normal. He appears back to baseline today. Full code SCDs for DVT prophylaxis. Secondary to significant anemia hold anticoagulation Likely will need skilled placement. Attestations Medical Necessity Statement*: Patient needs to be in hospital for management of above defined problem,and the need for placement to SNF . Coding Level of Care Code Acute Death Claim Examiner for Chg Fwd Diagnoses UTI (urinary tract infection) N39.0 Fever R50.9 Hypokalemia E87.6 Anemia D64.9 Alcohol use disorder Hypomagnesemia E83.42 Weakness R53.1 Hypertension I10
[2020-07-13] VITALS (8 sets, daily range): BP systolic 118–148; BP diastolic 70–80; PULSE 56–88; RESP 16–18; TEMP 36.7–37.6; O2SAT 94–99
[2020-07-13] MEDS: levoFLOXacin 750 mg Tablet PO (05:36)
[2020-07-13 05:52] LABS: Basophils % 0.5 %; Eosinophils % 0.5 %; Hemoglobin 8.5 g/dL (11.7-16.6); Lymphocytes # 0.8 10^3/uL (0.8-4.8); Mean Corpuscular HGB Conc 32.7 g/dL (30.0-36.0); Mean Corpuscular Hemoglobin 32.8 pg (28.0-34.0); Mean Corpuscular Volume 100.4 fL (80-94); Mean Platelet Volume 10.5 fL (7.4-10.4); Monocytes # 0.4 10^3/uL (0.2-0.9); Monocytes % 10.4 %; Neutrophils # 2.92 10^3/uL (1.8-7.7); Neutrophils % 69.1 %; Nucleated Red Blood Cells % 0 %; Platelet Count 175 10^3/cmm (130-400); Red Blood Count 2.59 10^6/uL (4.1-5.3); Red Cell Distribution Width 21.4 % (12.1-15.1); White Blood Count 4.2 10^3/uL (4.0-10.0)
[2020-07-13 06:07] LABS: Anion Gap 12.3 (5-19); Blood Urea Nitrogen 7 mg/dL (8-23); Calcium 8.1 mg/dL (8.5-10.5); Carbon Dioxide 25 mmol/L (22-29); Chloride 102 mmol/L (98-107); Glomerular Filtration Rate 112.8 mL/min (90-130); Glucose 90 mg/dL (65-115); Osmolality Calculated 280 mOsm/kg (285-295); Potassium 3.3 mmol/L (3.5-5.1); Sodium 136 mmol/L (136-145)
[2020-07-13] MEDS: folic acid 1 mg Tablet PO (09:03)
[2020-07-13] MEDS: multivitamin therapeutic Tablet 1 TAB PO (09:03)
[2020-07-13] MEDS: pantoprazole DR 40 mg Tablet PO ×2 (09:03→18:25)
[2020-07-13] MEDS: lisinopril 10 mg Tablet PO (09:03)
[2020-07-13] MEDS: thiamine 100 mg Tablet PO (09:03)
[2020-07-13] MEDS: metoprolol tartrate 25 mg Tablet PO ×2 (09:03→21:50)
--- NOTE | 2020-07-13 18:07 | P.PN_ITS ---
Subjective Subjective: Interval history: No acute interim events. Hemoglobin is stable at 8.5. T-max 99 Fahrenheit. Medications: Reviewed: Yes Vitals/I&O/Wt Last Vital Signs Temp 99.0 F 07/13/20 15:59 Pulse 65 07/13/20 15:59 Resp 17 07/13/20 15:59 BP 118/71 07/13/20 15:59 Pulse Ox 99 07/13/20 15:59 07/13/20 07/13/20 07/13/20 06:59 14:59 22:59 Intake Total 480 / 1220 960 / 960 Output Total 900 / 1725 Balance -420 / -505 960 / 960 Weight last 48 hrs Weight 86.5 kg Physical Exam Narrative: EXAM NARRATIVE: GEN: Awake, alert and oriented, no acute distress CVS: S1S2 N RS: CTA B/L Abd: Soft, nt/nd , bs+ VIDEOTAPE OPERATOR: no focal neuro deficits Data : 07/13/20 05:00 07/13/20 05:00 Micro: Microbiology 07/10/20 17:25 Urine Culture - Final Urine,Clean Catch Escherichia coli A&P Assessment and plan (1) UTI (urinary tract infection): Urine Culture identifies E. coli, susceptible to oral cephalosporins, change antibiotics from levofloxacin to cefuroxime to narrow spectrum. Status: Acute (2) Fever: T-max was noted to be 100.7, denies any cough shortness of breath, abdominal pain nausea vomiting, difficulty passing urine. Currently saturating well on room air, he is not tachycardic, tachypneic, has maintained good MAP.Tolerating p.o. intake. Repeat blood culture:Neagtive Urine Culture :E coli, currently appropriately covered X-ray chest: left basilar atelactasis, encourage spirometry lactic acid: 0.8 pro-Feng :0.21 Status: Acute (3) Hypokalemia: Severe hypokalemia. Associated with low magnesium and low phosphorus Supplement magnesium today, potassium orally Status: Acute (4) Anemia: Folate found to be significantly low.Stool Hemoccult at outside hospital negative. Had a colonoscopy per patient report 2 months ago. Request records. Secondary to history of hoarseness as well as dysphagia and weight loss may be appropriate for EGD at some point when stabilized or as an outpatient. 1 units packed red blood cells transfused July 07. With hemoglobin of 7.2 will transfuse one more unit today. Haptoglobin level checked normal Has evidence of pancytopenia, which could potentially could be bone marrow suppression from alcohol and/or other condition. No evidence of hemolysis with haptoglobin being normal even though bilirubin is slightly elevated. White blood cell count, and platelet count are recovering. No evidence of active bleeding Status: Acute (5) Alcohol use disorder: Reports he quit using alcohol 1 month ago, although per nursing this may have been more recent. CIWA protocol was used but can be discontinued today. Status: Acute (6) Hypomagnesemia: Supplement today for low level Status: Acute (7) Weakness: Associated with imbalance.. May be cerebellar degeneration secondary to alcohol intake. Could also be associated with significant nutritional deficiency. Continue to work with physical therapy He is significantly weak and may require skilled placement Secondary to tremor, encephalopathy MRI has been entertained with patient assures me he cannot have this secondary to severe claustrophobia and we will not allow it to be done currently. Repeat CT of his head demonstrated no CVA RPR checked and nonreactive. Outpatient neurology evaluation is appropriate. Status: Acute (8) Hypertension: Continue home medications Status: Acute Additional A&P Information Acute encephalopathy. May be secondary to alcohol withdrawal or severe electrolyte abnormality. Ammonia level was normal. He appears back to baseline today. Full code SCDs for DVT prophylaxis. Secondary to significant anemia hold anticoagulation Disposition planning ongoing Attestations Medical Necessity Statement*: Change abx from levaquin to cefuroxime to narrow spectrum, monitor for any clincial deterioration , ongoing disposition planning Coding Level of Care Code Acute Tax Compliance Officer for Chg Fwd Diagnoses UTI (urinary tract infection) N39.0 Fever R50.9 Hypokalemia E87.6 Anemia D64.9 Alcohol use disorder Hypomagnesemia E83.42 Weakness R53.1 Hypertension I10
[2020-07-14 00:12] VITALS: BP 122/73; PULSE 60; RESP 20; TEMP 37.9; O2SAT 99
[2020-07-14 05:12] VITALS: BP 153/87; PULSE 66; RESP 18; TEMP 37; O2SAT 99
[2020-07-14 05:39] LABS: Basophils % 0.9 %; Eosinophils % 0.2 %; Hematocrit 28.2 % (42.0-52.0); Lymphocytes # 0.9 10^3/uL (0.8-4.8); Lymphocytes % 20.5 %; Mean Corpuscular HGB Conc 31.9 g/dL (30.0-36.0); Mean Corpuscular Hemoglobin 32.5 pg (28.0-34.0); Mean Corpuscular Volume 101.8 fL (80-94); Mean Platelet Volume 10.6 fL (7.4-10.4); Monocytes # 0.4 10^3/uL (0.2-0.9); Monocytes % 7.9 %; Neutrophils # 3.17 10^3/uL (1.8-7.7); Neutrophils % 69.8 %; Nucleated Red Blood Cells % 0 %; Platelet Count 208 10^3/cmm (130-400); Red Blood Count 2.77 10^6/uL (4.1-5.3); Red Cell Distribution Width 21.2 % (12.1-15.1); White Blood Count 4.5 10^3/uL (4.0-10.0)
[2020-07-14 06:01] LABS: Anion Gap 13.4 (5-19); Blood Urea Nitrogen 7 mg/dL (8-23); Calcium 8.3 mg/dL (8.5-10.5); Carbon Dioxide 25 mmol/L (22-29); Chloride 103 mmol/L (98-107); Glomerular Filtration Rate 96.7 mL/min (90-130); Glucose 93 mg/dL (65-115); Osmolality Calculated 284 mOsm/kg (285-295); Potassium 3.4 mmol/L (3.5-5.1); Sodium 138 mmol/L (136-145)
[2020-07-14 08:00] VITALS: BP 120/74; BP 126/73; BP 127/82; BP 156/78; PULSE 63; PULSE 64; PULSE 70; PULSE 78; RESP 16; TEMP 36.6; O2SAT 95
[2020-07-14] MEDS: cefUROXime 250 mg Tablet 500 MG PO ×2 (09:04→18:07)
[2020-07-14] MEDS: multivitamin therapeutic Tablet 1 TAB PO (09:04)
[2020-07-14] MEDS: pantoprazole DR 40 mg Tablet PO ×2 (09:04→18:08)
[2020-07-14] MEDS: thiamine 100 mg Tablet PO (09:04)
[2020-07-14] MEDS: lisinopril 10 mg Tablet PO (09:04)
[2020-07-14] MEDS: folic acid 1 mg Tablet PO (09:04)
[2020-07-14] MEDS: metoprolol tartrate 25 mg Tablet PO (09:04)
[2020-07-14 11:08] VITALS: BP 118/64; PULSE 64; RESP 18; TEMP 36.9; O2SAT 99
[2020-07-14 11:20] VITALS: PULSE 77; RESP 18; O2SAT 94
--- NOTE | 2020-07-14 15:18 | PM.DCS ---
Discharge Providers Date of Admission: 07/07/20 10:45 Date of Discharge: July 14, 2020 Attending Provider at Admission: Meme Puckett MD Attending Provider at Discharge: Callie Acuña MD Diagnoses at Discharge Discharge Diagnosis (1) UTI (urinary tract infection): Status: Acute (2) Fever: Status: Acute (3) Hypokalemia: Status: Acute (4) Anemia: Status: Acute (5) Alcohol use disorder: Status: Acute (6) Hypomagnesemia: Status: Acute (7) Weakness: Status: Acute (8) Hypertension: Status: Acute Reason for Visit Reason for Visit: Generalized Weakness 83433 R53.1 Hospital Course Hospital Course David presented to the hospital with weakness and imbalance. He had a long history of alcohol. He was found to have significant electrolyte abnormalities with low phosphorus, magnesium, and potassium. These were heavily supplemented. He was also found to be anemic, and ultimately required 2 units of packed red blood cells. He underwent some alcohol withdrawal at the hospital requiring Ativan.'s was resolved by July 10 and he was doing much better. He was also significantly stronger. It was thought he could benefit from rehabilitation at a skilled facility but he refused intially, then subsequently agreed on July 10. He was offered alcohol rehab, and ultimately given contacts to pursue this should he wish. He was not interested in inpatient alcohol rehab. By time of discharge he is able to walk some with a walker. At the end of the hospital stay a Hemoccult stool did come back positive. Hb is currently stable. EGD should be arranged as an outpatient at the primary's discretion. This was discussed this in detail with the patient. Other diagnostic testing included a CT of head which demonstrated no CVA. On July 11 he developed a low-grade fever, T-max of 0.7, possible sources include UTI, urine culture showed E. coli for which she is currently on treatment with cefuroxime. X-ray chest showed atelectasis which improved with incentive spirometry. He is afebrile for over 24 hours at the time of discharge. Recommend to continue antibiotic for 5 days. Physical Exam Narrative: EXAM NARRATIVE: GEN: Awake, alert and oriented, no acute distress CVS: S1S2 N RS: CTA B/L Abd: Soft, nt/nd , bs+ TECHNICAL ADJUSTER: no focal neuro deficits Discharge Data Data Completed and Pending: Completed Studies During Hospitalization Category Date Time Status CT head wo con* 7 0450 Routine Cat Scan 07/08/20 10:45 Completed XR chest 1V slick ble [id number] Routine Exams 07/06/20 07:41 Completed XR chest 1V slick ble [id number] Routine Exams 07/10/20 16:49 Completed XR chest 1V slikc ble [id number] Routine Exams 07/12/20 06:00 Completed Pending at discharge Category Date Time Status Blood Culture Sta t Lab 07/10/20 20:10 Results SARS Covid-2 Anti gen Stat Lab 07/14/20 14:50 Received Labs from last 24 hours 07/14/20 07/14/20 07/14/20 14:50 05:30 05:30 WBC 4.5 RBC 2.77 L Hgb 9.0 L Hct 28.2 L MCV 101.8 H MCH 32.5 MCHC 31.9 RDW 21.2 H Plt Count 208 MPV 10.6 H Neut % (Auto) 69.8 Lymph % (Auto) 20.5 [place] % (Auto) 7.9 Eos % (Auto) 0.2 Baso % (Auto) 0.9 Neut # (Auto) 3.17 Lymph # (Auto) 0.9 [place] # (Auto) 0.4 Eos # (Auto) 0.0 Baso # (Auto) 0.0 Nucleated RBC % (a uto) 0 Nucleated RBCs # 0.0 Sodium 138 Potassium 3.4 L Chloride 103 Carbon Dioxide 25 Anion Gap 13.4 BUN 7 L Creatinine 0.8 GFR Calculation 96.7 Glucose 93 Calculated Osmolal ity 284 L Calcium 8.3 L SARS-CoV-2 Ag (Rap id) Pending Vitals: Last Vital Signs Temp 98.4 F 07/14/20 11:08 Pulse 77 07/14/20 11:20 Resp 18 07/14/20 11:20 BP 118/64 07/14/20 11:08 Pulse Ox 94 07/14/20 11:20 Discharge Plan Discharge Patient Disposition: Xfer SNF Condition: Stable Prescriptions: New thiamine mononitrate (vit B1) [Vitamin B-1 (mononitrate)] 100 mg Tablet 100 mg PO DAILY Qty: 30 RF: 0 folic acid 1 mg Tablet 1 mg PO DAILY Qty: 30 RF: 0 pantoprazole 40 mg Tablet,Delayed Release (Dr/Ec) 40 mg PO BID Qty: 60 RF: 0 multivitamin with folic acid [Thera] 400 mcg Tablet 1 tab PO DAILY Qty: 30 RF: 0 cefuroxime axetil 250 mg Tablet 500 mg PO BID 5 Days Qty: 20 RF: 0 Continued potassium chloride 10 mEq capsule, extended release 10 meq PO BID RF: 0 lisinopril 20 mg tablet 20 mg PO DAILY RF: 0 ferrous sulfate 325 mg (65 mg iron) tablet 325 mg PO DAILY RF: 0 metoprolol tartrate 25 mg tablet 25 mg PO BID RF: 0 Discharge Orders: Discharge Order (Routine); Ordered 07/14/20 Ordered By: Callie Acuña Referrals: Ernie Pena [Referring] - 07/15/20 8:20 am Discharge Diet: Cardiac Discharge Activity: Increase activity as tolerated Activity Restrictions/Additional Instructions: Follow-up with primary care provider at [facility], in the next 3 to 5 days. BMP and CBC on follow-up. Primary care provider to arrange/consider EGD as an outpatient. Avoid all alcohol Discharge Attestations Time Spent in Discharge Care*: less than 30 min Quality Metrics Clinical Quality Measures During this hospital stay, did patient experience: None Coding Level of Care Code Acute Chg FW DC note Diagnoses UTI (urinary tract infection) N39.0 Fever R50.9 Hypokalemia E87.6 Anemia D64.9 Alcohol use disorder Hypomagnesemia E83.42 Weakness R53.1 Hypertension I10
[2020-07-14 15:43] VITALS: BP 131/83; PULSE 80; RESP 17; TEMP 37.2; O2SAT 98
[2020-07-14 15:59] LABS: SARS Covid-2 Antigen Negative (Negative)
--- NOTE | 2020-07-14 17:10 | DCPLANNER ---
Pg 2 of IM updated and reviewed with pt. He is being d/c'd today and he is ready. Copy provided.
[2020-07-15 01:16] VITALS: BP 131/83; PULSE 80; RESP 17; TEMP 37.2; O2SAT 98
== END 2020-07-14 19:30 | disposition home or self-care (01) | DRG 812 ==
PROVIDERS: Internal Medicine; Admitting Provider Internal Medicine; Visit Provider Student in an Organized Health Care Education/Training Program
DX: D64.9 Anemia, unspecified (principal); G93.40 Encephalopathy, unspecified; F10.139 Alcohol abuse with withdrawal, unspecified; N39.0 Urinary tract infection, site not specified; E87.6 Hypokalemia; D61.818 Other pancytopenia; I10 Essential (primary) hypertension; G62.9 Polyneuropathy, unspecified; R13.10 Dysphagia, unspecified; E83.42 Hypomagnesemia; F40.240 Claustrophobia; B96.20 Unspecified Escherichia coli [E. coli] as the cause of diseases classified elsewhere; R53.1 Weakness; R19.5 Other fecal abnormalities
CPT/HCPCS: 36415; 36430; 70450; 71045; 80048; 80053; 81001; 82140; 82274; 82550; 82607; 82728; 82746; 83010; 83540; 83550; 83605; 83735; 83880; 84100; 84145; 84443; 85014; 85018; 85025; 86140; 86592; 86850; 86900; 86920; 87040; 87077; 87086; 87186; 87426; 87806; 97110; 97116; 97162; 97167; 97530; 97535; G0378; G0379; J3475; J3480; P9016; P9040

== ENCOUNTER 2020-10-27 15:13 | Inpatient (IN) | payer MEDICARE, MEDICAID, SELFPAY ==
[2020-10-27] VITALS (10 sets, daily range): BP systolic 135–192; BP diastolic 91–119; PULSE 98–125; RESP 20–27; TEMP 37.2–38.1; O2SAT 97–100; BMI 26.6
--- NOTE | 2020-10-27 15:30 | XRR_ITS ---
PROCEDURE INFORMATION: Exam: XR Chest Exam date and time: 10/27/2020 3:30 PM Age: 65 years old Clinical indication: Pain; Angina pectoris; Additional info: Chest pain TECHNIQUE: Imaging protocol: XR of the chest. Views: 1 view. Total images: 1 COMPARISON: CR (CHEST, ) 07/12/2020 8:16 AM FINDINGS: Lungs: No visible active interstitial or alveolar airspace disease. Pleural spaces: Unremarkable. No pleural effusion. No pneumothorax. Heart/Mediastinum: Cardiac structures and configuration with arteriosclerosis. Tortuous thoracic aorta which is often seen in hypertensive cardiovascular disease. Calcified mitral annulus. Left ventricular prominence. Bones/joints: Scoliosis. XR/XR chest 1V portable [id number] IMPRESSION: Nonacute.
--- NOTE | 2020-10-27 15:30 | ECG_ITS ---
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1955 Requested By: Ronald Bonilla Order Number: [id number] Reading MD: MICHAELA CHONG Measurements Intervals [place] Rate: 125 P: 226 DC: 229 QRS: -82 QRSD: 134 T: 34 QT: 347 QTc: 500 Interpretive Statements ECTOPIC ATRIAL TACHYCARDIA WITH FIRST DEGREE AV BLOCK WITH OCCASIONAL VENTRICULAR PREMATURE COMPLEXES RIGHT BUNDLE BRANCH BLOCK [120+ ms QRS DURATION, UPRIGHT V1, 40+ ms S IN I/aVL/V4/V5/V6] LEFT ANTERIOR FASCICULAR BLOCK [QRS AXIS <= -45, QR IN I, RS IN II] No previous ECG available for comparison Electronically Signed On 10-27-2020 21:01:26 CDT by MICHAELA CHONG [id number]
[2020-10-27 15:39] LABS: Basophils % 0.3 %; Hematocrit 38.5 % (42.0-52.0); Hemoglobin 13.5 g/dL (11.7-16.6); Lymphocytes # 0.4 10^3/uL (0.8-4.8); Lymphocytes % 5.8 %; Mean Corpuscular HGB Conc 35.1 g/dL (30.0-36.0); Mean Corpuscular Volume 99.7 fl (80-94); Monocytes # 0.5 10^3/uL (0.2-0.9); Monocytes % 7.5 %; Neutrophils # 6.16 10^3/uL (1.8-7.7); Neutrophils % 85.6 %; Nucleated Red Blood Cells % 0 %; Platelet Count 147 10^3/cmm (130-400); Red Blood Count 3.86 10^6/uL (4.1-5.3); Red Cell Distribution Width 14.6 % (12.1-15.1); White Blood Count 7.2 10^3/uL (4.0-10.0)
[2020-10-27 15:52] LABS: Anion Gap 31.4 (5-19); Blood Urea Nitrogen 7 mg/dL (8-23); Calcium 9.8 mg/dL (8.5-10.5); Carbon Dioxide 20 mmol/L (22-29); Chloride 91 mmol/L (98-107); Glomerular Filtration Rate 96.7 mL/min (90-130); Glucose 101 mg/dL (65-115); Osmolality Calculated 286 mOsm/kg (285-295); Potassium 3.4 mmol/L (3.5-5.1); Sodium 139 mmol/L (136-145)
[2020-10-27 15:53] LABS: Troponin(5th) Baseline 46 ng/L (0-15)
--- NOTE | 2020-10-27 15:53 | ED_ITS ---
HPI - Seizure General: Chief Complaint: Seizure Stated Complaint: SEIZURE Time Seen by Provider: 10/27/20 15:14 History of Present Illness: HPI Narrative: 65-year-old male presents emergency room reporting that he had 2-3 seizures at home today. He is tachycardic and in atrial fibrillation on arrival here EMS reported when I first encountered him he was postictal. He was able to recognize where he was at. He denies any chest pain, denies any chest pain or abdominal pain. MD complaint: possible seizure Onset (ago): minute(s) Description of Episode: loss of consciousness and tonic-clonic movement Witnessed: Yes - by Bystander Trauma: No Seizure History: No Place: Home Possible Precipitating Event: none Associated symptoms: Deny chest pain, chills, confusion, cough, diaphoresis, fever(s), anorexia, malaise, rash, short of breath, syncope or weakness Treatments prior to arrival: none Review of Systems Const: Denies: fever(s), chills, malaise or diaphoresis ENMT: Denies: throat pain, ear or mastoid pain, nasal discharge or nasal congestion Card: Denies: chest pain or syncope Resp: Denies: dyspnea, productive cough or non-productive cough GI: Denies: abdominal pain, nausea, vomiting, hematemesis, coffee ground emesis, diarrhea, constipation, bloating, hematochezia or melena : Denies: flank pain, dysuria, urinary frequency or urinary urgency Skin/Breast: Denies: rash or pruritus Neuro: Denies: confusion PFSH ED PFSH: Medical History Alcohol use disorder Anemia Atrial fibrillation GERD (gastroesophageal reflux disease) Hypertension Hypokalemia Hypomagnesemia Neuropathy Happened after my back surgery Surgical History History of carpal tunnel surgery Bilateral History of spinal surgery x 2 Hx of cataract surgery Bilateral Family History Other CAD (coronary artery disease) Cancer Social History Smoking and tobacco status: never smoked Alcohol intake: former Year of sobriety/quit date alcohol: 2020 Former alcohol use details: Has drank wine for years, quit between 1990, quit 2020 Physical Exam 2 Const: COMMON NORMALS: no acute distress GENERAL APPEARANCE: cooperative and comfortable ORIENTATION/CONSCIOUSNESS: Yes awake, Yes oriented to person, Yes oriented to place and Yes oriented to time HENMT: COMMON NORMALS: normocephalic, atraumatic and hearing grossly normal bilaterally HEAD & SCALP: normocephalic and atraumatic Neck/C-Spine: COMMON NORMALS: no JVD Resp: COMMON NORMALS: normal respiratory effort, No retractions, No use of accessory muscles and clear to auscultation bilaterally AUSCULTATION: clear to auscultation bilaterally Cardio: COMMON NORMALS: no JVD, regular rate, regular rhythm and No murmurs present (Cardio) RATE: regular rate RHYTHM: regular rhythm GI: COMMON NORMALS: Soft to palpation and No hepatosplenomegaly present AUSCULTATION: Yes normoactive bowel sounds PALPATION: Yes Soft to palpation, No Tenderness to palpation present (GI), No Guarding due to palpation present (GI) and Yes No hepatosplenomegaly present Extremity: COMMON NORMALS: normal to inspection, capillary refill normal, no clubbing, cyanosis or edema, no calf tenderness and no pedal edema Neuro: SENSORIUM/ORIENTATION: Yes oriented to person, Yes oriented to place and Yes oriented to time Skin: COMMON NORMALS: no rashes or lesions noted GENERAL SKIN EXAM: no rashes or lesions noted Course Vital Signs: Vital signs: Vital Signs Temperature 98.3 F 11/04/20 13:42 Pulse Rate 18 L 11/04/20 13:42 Respiratory Rate 18 11/04/20 13:42 Blood Pressure 135/70 11/04/20 13:42 Pulse Oximetry 100 11/04/20 13:42 MDM - Seizure MDM Narrative: Medical decision making narrative: Started on a Cardizem drip. His troponin is elevated as his seizure. Discussed with hospitalist will admit. Reviewed labs and imaging in the chart. Lab Data: Labs: Lab Results 10/27/20 10/27/20 10/27/20 Range/Units 15:20 15:20 15:20 WBC 7.2 (4.0-10.0) 10^3/ uL RBC 3.86 L (4.1-5.3) 10^6/u L Hgb 13.5 (11.7-16.6) g/dL Hct 38.5 L (42.0-52.0) % MCV 99.7 H (80-94) fl MCH 35.0 H (28.0-34.0) pg MCHC 35.1 (30.0-36.0) g/dL RDW 14.6 (12.1-15.1) % Plt Count 147 (130-400) 10^3/c mm MPV 10.0 (7.4-10.4) fL Neut % (Auto) 85.6 % Lymph % (Auto) 5.8 % [place] % (Auto) 7.5 % Eos % (Auto) 0.0 % Baso % (Auto) 0.3 % Neut # (Auto) 6.16 (1.8-7.7) 10^3/u L Lymph # (Auto) 0.4 L (0.8-4.8) 10^3/u L [place] # (Auto) 0.5 (0.2-0.9) 10^3/u L Eos # (Auto) 0.0 (0.0-0.8) 10^3/u L Baso # (Auto) 0.0 (0.0-0.1) 10^3/u L Nucleated RBC % (a uto) 0 % Nucleated RBCs # 0.0 /100WBC Sodium 139 (136-145) mmol/L Potassium 3.4 L (3.5-5.1) mmol/L Chloride 91 L (98-107) mmol/L Carbon Dioxide 20 L (22-29) mmol/L Anion Gap 31.4 H (5-19) BUN 7 L (8-23) mg/dL Creatinine 0.8 (0.7-1.2) mg/dL GFR Calculation 96.7 (90-130) mL/min Glucose 101 (65-115) mg/dL POC Glucose (70-110) mg/dL Calculated Osmolal ity 286 (285-295) mOsm/k g Lactate (0.5-2.2) mmol/L Calcium 9.8 (8.5-10.5) mg/dL Creatine Kinase 581 H* (39-308) U/L Troponin T Baselin e 46 H (0-15) ng/L Ethyl Alcohol < 10 (0-10) mg/dL 10/27/20 10/27/20 Range/Units 15:20 17:16 WBC (4.0-10.0) 10^3/ uL RBC (4.1-5.3) 10^6/u L Hgb (11.7-16.6) g/dL Hct (42.0-52.0) % MCV (80-94) fl MCH (28.0-34.0) pg MCHC (30.0-36.0) g/dL RDW (12.1-15.1) % Plt Count (130-400) 10^3/c mm MPV (7.4-10.4) fL Neut % (Auto) % Lymph % (Auto) % [place] % (Auto) % Eos % (Auto) % Baso % (Auto) % Neut # (Auto) (1.8-7.7) 10^3/u L Lymph # (Auto) (0.8-4.8) 10^3/u L [place] # (Auto) (0.2-0.9) 10^3/u L Eos # (Auto) (0.0-0.8) 10^3/u L Baso # (Auto) (0.0-0.1) 10^3/u L Nucleated RBC % (a uto) % Nucleated RBCs # /100WBC Sodium (136-145) mmol/L Potassium (3.5-5.1) mmol/L Chloride (98-107) mmol/L Carbon Dioxide (22-29) mmol/L Anion Gap (5-19) BUN (8-23) mg/dL Creatinine (0.7-1.2) mg/dL GFR Calculation (90-130) mL/min Glucose (65-115) mg/dL POC Glucose 119 H (70-110) mg/dL Calculated Osmolal ity (285-295) mOsm/k g Lactate 10.0 H* (0.5-2.2) mmol/L Calcium (8.5-10.5) mg/dL Creatine Kinase (39-308) U/L Troponin T Baselin e (0-15) ng/L Ethyl Alcohol (0-10) mg/dL Discharge Plan Discharge Patient Disposition: Admitted As Inpatient Admit Provider: Usha Morrison Clinical Impression: New onset seizure, Alcohol use disorder, Acute hypokalemia, Rhabdomyolysis, Atrial fibrillation with rapid ventricular response Condition: Stable Coding Level of Care Code ED Forming Yardage Control Operator for Rosa Daily
--- NOTE | 2020-10-27 15:54 | PC.PHAR ---
PT IS UNABLE TO CONFIRM HIS MEDICATIONS. HE STATES THE ONLY THINK HE TAKES IS DILANTIN, BUT IT IS NOT ON HIS PHARMACY LIST OF HIS MEDICATION HISTORY. PT STATES HE HAS BEEN OUT OF ALL OF HIS MEDICATIONS FOR ABOUT 2 WEEKS. HE COULDN'T CONFIRM ANY OF THE MEDICATION AND I ASKED HIM ABOUT EACH ONE.
[2020-10-27 16:07] LABS: Alcohol Level < 10 mg/dL (0-10); Creatine Phosphokinase 581 U/L (39-308)
--- NOTE | 2020-10-27 16:09 | PC.NURSE ---
CK [address] Gonzalez, no new orders received.
[2020-10-27] MEDS: sodium chloride 0.9% 500 ML 999 ML IV (16:16)
[2020-10-27] MEDS: LORazepam 2 mg/mL INJ 1 mL IVP ×3 (17:09→21:59)
--- NOTE | 2020-10-27 17:13 | CTR_ITS ---
PROCEDURE INFORMATION: Exam: CT Head Without Contrast Exam date and time: 10/27/2020 5:13 PM Age: 65 years old Clinical indication: Condition or disease; Convulsions or seizures; Additional info: Ams/ fever TECHNIQUE: Imaging protocol: Computed tomography of the head without contrast. Total images: 208 Radiation optimization: All CT scans at this facility use at least one of these dose optimization techniques: automated exposure control; mA and/or kV adjustment per patient size (includes targeted exams where dose is matched to clinical indication); or iterative reconstruction. COMPARISON: CT head wo con* [id number] 07/08/2020 2:40 PM RADIATION DOSE METRICS: Total DLP (mGy-cm): 755.68 FINDINGS: Brain: No evidence of active or acute intracranial pathologic process, hemorrhage, or trauma. No visible evidence of diffuse cerebral edema or generalized demyelination. No hyperdense MCA or insular ribbon sign. Mild small vessel ischemic disease with senile periventricular leukomalacia. Cerebral arteriosclerosis. No mass effect. No midline shift. Atrophic changes considered greater than that anticipated for patient's chronological age. Cerebral ventricles: No ventriculomegaly. Paranasal sinuses: No visible evidence of active paranasal sinus disease. Mild chronic right maxillary sinusitis. Mastoid air cells: Visualized mastoid air cells are well aerated. Bones/joints: Unremarkable. No acute fracture. Soft tissues: Unremarkable. CT/CT head wo con* [id number] IMPRESSION: No evidence of active or acute intracranial pathologic process, hemorrhage, or trauma. Radiation Dose CTDIVOL = (mGy): DLP = 755.68 (mGy-cm)
--- NOTE | 2020-10-27 17:16 | PM.HP ---
Providers/Chief Complaint Chief Complaint: SEIZURE History of Present Illness David Paulino is a 65 year old male presented to the emergency room with 2-3 seizures at home today. Patient has a history of alcohol use. On arrival he was noted to be postictal. Also was in A. fib with RVR. Patient was also found to have fever. In the ER he was started on Cardizem drip. A CT of the head was ordered. Patient was also cultured. Noted to be on metoprolol at home. He reports that he has taken Phenytoin in the past ETOH intake 1 pint per day reported Review of Systems General: Reports: 10 or more systems reviewed and unremarkable except in HPI and below Const: Reports: fever(s) ENMT: Denies: throat pain Card: Reports: palpitations; Denies: chest pain Neuro: Reports: lack of coordination Medications/Allergies Home Medications Medication Instructions Recorded Confirmed Last Taken Type ferrous sulfate 325 mg PO DAILY 07/06/20 10/27/20 Unknown History lisinopril 20 mg PO DAILY 07/06/20 10/27/20 Unknown History potassium chloride 10 meq PO BID 07/06/20 10/27/20 Unknown History folic acid 1 mg PO DAILY #30 tab 07/10/20 10/27/20 Unknown Rx pantoprazole 40 mg PO BID #60 tab 07/10/20 10/27/20 Unknown Rx metoprolol tartrate 50 mg PO BID 10/27/20 10/27/20 Unknown History Allergies Allergy/AdvReac Type Severity Reaction Status Date / Time No Known Allergies Allergy Unverified 07/06/20 09:18 PFSH Acute PFSH: Medical History (Updated 10/28/20 @ 02:15 by Nissa Haas MD) Alcohol use disorder Anemia Hypertension Neuropathy Surgical History (Updated 07/06/20 @ 10:40 by Vasu Johnson MD) History of carpal tunnel surgery History of spinal surgery Family History (Updated 07/06/20 @ 10:35 by Vasu Johnson MD) Other CAD (coronary artery disease) Cancer Social History (Updated 07/06/20 @ 10:35 by Vasu Johnson MD) Smoking and tobacco status: never smoked Alcohol intake: former Vitals/I&O/Wt Last Vital Signs Temp 99.0 F 10/27/20 15:20 Pulse 125 H 10/27/20 15:20 Resp 20 H 10/27/20 15:20 BP 192/119 10/27/20 15:20 Pulse Ox 97 10/27/20 15:20 Weight last 48 hrs Weight 186 lb Physical Exam Const: GENERAL APPEARANCE: disheveled and ill appearing Chest: COMMONS NORMALS: normal inspection of the chest Resp: COMMON NORMALS: normal respiratory effort, No retractions and clear to auscultation bilaterally Cardio: RATE: tachycardic and Other GI: COMMON NORMALS: Soft to palpation and non-tender Extremity: OTHER: no swelling, tremor Neuro: COMMON NORMALS: moves all extremities OTHER: tremor slightly delayed speech follows commands Psych: COMMON NORMALS: cooperative Data : 10/28/20 05:25 10/28/20 05:25 A&P Assessment and plan (1) Alcohol use disorder: Status: Acute (2) Hypokalemia: Status: Acute (3) Seizure: Status: Acute (4) Elevated CPK: Status: Acute (5) Troponin level elevated: Status: Acute (6) Atrial fibrillation: Status: Acute Additional A&P Information #seizures --seizure precuations --check EEG --load with Keppra --reports he has taken Phenytoin in the past #ETOH abuse --place on [facility] protocol --check UDS #Atrial fibrillation with RVR --continue cardizem gtt --check ECHO --not on anticoagulation #elevated troponin --trend --check ECHO #high CK --IVF, repeat #HTN --continue cardizem gtt --PRN hyralyzine #fevers --cuevas culture --levaquin given in ED #diarrhea --check stool studies DVT: Lovenox Attestations Medical Necessity Statement*: David Paulino's hospital stay will require greater than 2 midnights for afib Coding Level of Care Code Acute Auto Body Repair Teacher for Chg Fwd Exam Detailed Diagnoses Alcohol use disorder Hypokalemia E87.6 Seizure R56.9 Elevated CPK R74.8 Troponin level elevated R77.8 Atrial fibrillation I48.91
[2020-10-27 17:19] LABS: Glucose Point of Care 119 mg/dL (70-110)
--- NOTE | 2020-10-27 17:30 | ECG_ITS ---
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1955 Requested By: Ronald Bonilla Order Number: [id number] Reading MD: MICHAELA CHONG Measurements Intervals [place] Rate: 115 P: 47 TN: 143 QRS: -72 QRSD: 134 T: 31 QT: 349 QTc: 483 Interpretive Statements SINUS TACHYCARDIA POSSIBLE LEFT ATRIAL ENLARGEMENT [-0.1mV P-WAVE IN V1/V2] RIGHT BUNDLE BRANCH BLOCK [120+ ms QRS DURATION, UPRIGHT V1, 40+ ms S IN I/aVL/V4/V5/V6] LEFT ANTERIOR FASCICULAR BLOCK [QRS AXIS <= -45, QR IN I, RS IN II] Compared to ECG 10/27/2020 15:23:00 First degree AV block no longer present Ventricular premature complex(es) no longer present Electronically Signed On 10-27-2020 21:12:18 CDT by MICHAELA CHONG [id number]
[2020-10-27] MEDS: sodium chloride 0.9% 1,000 ML 999 ML IV ×2 (17:34→18:54)
[2020-10-27] MEDS: ketorolac 30 mg/mL INJ 15 MG IVP (17:35)
[2020-10-27 17:52] LABS: Troponin 5 2HR 46.08 ng/L (0-15); Troponin 5 2HR Delta 0.08 ABS# (0-10)
[2020-10-27 17:54] LABS: Magnesium 1.4 mg/dL (1.7-2.3)
--- NOTE | 2020-10-27 17:54 | PC.NURSE ---
Lactic acid [address] Gonzalez, no orders received.
[2020-10-27] MEDS: levofloxacin-dextrose 5 % 750 MG/150 ML PREMIX 100 MG IV (17:57)
[2020-10-27 18:17] LABS: Phosphorus 1.8 mg/dL (2.5-4.5)
--- NOTE | 2020-10-27 18:34 | PC.NURSE ---
Rate below 100, Cardizem paused. Pt appears to be getting restless again, Dr. Valero notified, order received for 2mg Ativan.
[2020-10-27 19:07] LABS: Amphetamines Screen Urine Negative (Negative); Barbiturates Screen Urine Negative (Negative); Benzodiazepines Screen Urine Negative (Negative); Cocaine Screen Urine Negative (Negative); Opiate Screen Urine Negative (Negative); PCP Screen Urine Negative (Negative); THC Screen Urine Negative (Negative)
[2020-10-27] MEDS: acetaminophen 1,000 MG/100 ML PIGGYBACK 400 MG IV (19:19)
--- NOTE | 2020-10-27 20:19 | PC.NURSE ---
patient bedding and clothes changed due to being soiled.
--- NOTE | 2020-10-27 21:05 | ECG_ITS ---
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 Measurements Intervals [place] Rate: 103 P: 37 TX: 134 QRS: -64 QRSD: 143 T: 22 QT: 404 QTc: 530 Interpretive Statements SINUS TACHYCARDIA RIGHT BUNDLE BRANCH BLOCK [120+ ms QRS DURATION, UPRIGHT V1, 40+ ms S IN I/aVL/V4/V5/V6] LEFT ANTERIOR FASCICULAR BLOCK [QRS AXIS <= -45, QR IN I, RS IN II] Compared to ECG 10/27/2020 17:12:59 No significant changes Electronically Signed On 10-28-2020 19:40:57 CDT by Pallavi Mendez M.D. [id number]
[2020-10-27 21:30] LABS: Troponin 5 6HR 46.62 ng/L (0-15); Troponin 5 6HR Delta 0.62 ng/L (0-12)
[2020-10-27] MEDS: enoxaparin 40 mg/0.4 mL Syringe SUBCUT (21:43)
[2020-10-27] MEDS: sodium chloride 0.9% 1,000 ML 75 ML IV (21:46)
[2020-10-28] VITALS (26 sets, daily range): BP systolic 95–151; BP diastolic 60–92; PULSE 65–97; RESP 12–33; TEMP 36.9–37.1; O2SAT 76–100
[2020-10-28] MEDS: LORazepam 2 mg/mL INJ 1 mL IVP ×7 (01:26→23:20)
[2020-10-28] MEDS: magnesium sulfate premix 2 GM/50 ML PIGGYBACK IV (02:35)
[2020-10-28] MEDS: PHENobarbital 130 mg/mL SDV 1 mL 60 MG IV (02:36)
[2020-10-28 03:11] LABS: Add Urine Microscopic? YES; Bilirubin Urine 1+ (Negative); Blood Urine 3+ (Negative); Glucose Urine UA Norm (Normal); Ketones Urine 1+ (Negative); Leukocyte Esterase Urine Negative (Negative); Nitrate Urine Negative (Negative); Protein Urine 1+ (Negative); RBC Urine 50-80 /hpf (0-2); Urine Appearance Clear (CLEAR); Urine Color Amber (Yellow); Urobilinogen Urine 1 mg/dL (Negative); WBC Urine 0-4 /hpf (0-5); pH Urine 6 (5-7)
[2020-10-28 03:12] LABS: Add Urine Culture? Yes; Bacteria Urine TRACE /hpf; Mucus Urine 1+ /hpf; Squamous Epithelial Cell Urine 0-4 /hpf (0-5)
[2020-10-28 04:53] LABS: ABG PCO2 31.9 mmHg (35-45); Arterial Blood Gas Hematocrit 33.9 % (42-52); Base Excess ABG 1.7 mmol/L (-2.0-2.0); Blood Gas Allen Test Pos; Blood Gas Sample Type Arterial; HCO3 ABG 24.6 mmol/L (22-26)
[2020-10-28 04:54] LABS: Blood Gas Operator Identificat HARKR; Blood Gas Sample Site Brachial, right; Oxygen Device ROOM AIR
[2020-10-28 05:47] LABS: Basophils % 0.5 %; Eosinophils % 0.2 %; Hematocrit 32.1 % (42.0-52.0); Hemoglobin 11.1 g/dL (11.7-16.6); Lymphocytes # 1.5 10^3/uL (0.8-4.8); Lymphocytes % 26.1 %; Mean Corpuscular HGB Conc 34.6 g/dL (30.0-36.0); Mean Corpuscular Hemoglobin 34.7 pg (28.0-34.0); Mean Corpuscular Volume 100.3 fl (80-94); Monocytes # 0.7 10^3/uL (0.2-0.9); Monocytes % 13.3 %; Neutrophils # 3.32 10^3/uL (1.8-7.7); Neutrophils % 59.7 %; Nucleated Red Blood Cells % 0 %; Platelet Count 106 10^3/cmm (130-400); Red Cell Distribution Width 14.6 % (12.1-15.1); White Blood Count 5.6 10^3/uL (4.0-10.0)
[2020-10-28 06:05] LABS: Lactate (Lactic Acid level) 1.1 mmol/L (0.5-2.2)
[2020-10-28 06:06] LABS: Chol HDL Ratio 1.79 mg/dL (1.0-5.00); Cholesterol 192 mg/dL (0-200); HDL Cholesterol 107 mg/dL (60-100); LDL Cholesterol Calculated 60 mg/dL (50-129); LDL HDL Ratio 0.56 RATIO (0.00-3.22); Magnesium 1.6 mg/dL (1.7-2.3); Phosphorus 1.6 mg/dL (2.5-4.5); Triglycerides 127 mg/dL (0-150)
[2020-10-28 06:14] LABS: Alanine Aminotransferase 40 U/L (0-41); Albumin Level 3.7 g/dL (3.5-5.2); Alkaline Phosphatase 63 IU/L (40-130); Aspartate Amino Transferase 68 U/L (0-40); Blood Urea Nitrogen 11 mg/dL (8-23); Carbon Dioxide 23 mmol/L (22-29); Chloride 98 mmol/L (98-107); Globulin 2.5 g/dL (1.3-4.6); Glomerular Filtration Rate 112.8 mL/min (90-130); Glucose 68 mg/dL (65-115); Osmolality Calculated 282 mOsm/kg (285-295); Sodium 137 mmol/L (136-145); Thyroid Stimulating Hormone 2.77 uIU/mL (0.27-4.20); Total Protein 6.2 g/dL (6.6-8.7)
[2020-10-28 07:38] LABS: Glucose Point of Care 77 mg/dL (70-110)
[2020-10-28] MEDS: multivitamin therapeutic Tablet 1 TAB PO (08:42)
[2020-10-28] MEDS: folic acid 1 mg Tablet PO (08:42)
[2020-10-28] MEDS: thiamine 100 mg Tablet PO (08:42)
[2020-10-28] MEDS: magnesium oxide 400 mg tablet PO ×2 (08:42→18:29)
--- NOTE | 2020-10-28 08:55 | PC.CHAP ---
Pastoral Care Encounter/Spiritual Assessment Type of Contact [] Declined load manager visit [] Patient/Family/Request visit [] Outpatient visit [] Follow-up visit [] Physician referral [] Code/Alert [x] Routine visit [] Staff referral [] Actively dying [] Patient sleeping [] Family support [] [] Out of room [] Palliative care [] [] Receiving care in room [] Pre-surgical visit [] Trauma [] Long length of stay [x] ICU visit [] Other: Relational/Emotional Strength [] Patient feels connected with others/family/visitors/staff [] Distress [] Loneliness/isolation [] Abandonment Spirituality of Patient [] Person of [place] [] Attends Religion of their [place] [] Believes in Prayer [] Reads Bible or Gnosticist materials [] There are Spiritual issues to be addressed Fitness Assistant Interventions [x] Prayer [] Active listening [] Non-anxious presence [] Spiritual/emotional support [] Crisis/trauma care [] Spiritual counseling [] Bereavement support [] Provided bereavement packet [] Provided Bible/devotional materials [] Provided toy/stuffed animal, coloring book to patient or family member [] Provided Communion [] Anointing/[place] [] Salvation [x] Completed spiritual assessment [] Other: Impact on Illness or Injury [] Angry [] Fearful [] Anxious [] Often cries [] Exhaustion [] Unable to work [] Unable to attend adventism [] Unable to walk/stand [] Unable to read [] Unable to drive [] Unable to eat/drink [] Unable to sleep [] Unable to be with family [] Patient intubated [] Other: Summary Time spent with patient
[2020-10-28] MEDS: cefTRIAXone 2,000 MG in sodium chloride 0.9% (plus) 100 ML 100 MG IV (10:03)
[2020-10-28] MEDS: sodium chloride 0.9% 1,000 ML 75 ML IV ×2 (10:03→21:58)
--- NOTE | 2020-10-28 14:36 | P.PN_ITS ---
Subjective Subjective: Interval history: This is a 65-year-old male who presented to the emergency room with 2-3 seizures at home. He has a history of alcohol abuse. He reports previously on phenytoin. Not on his current med list. On arrival he was noted to be postictal. Patient also had A. fib with RVR. Cardizem drip was initiated. A CT of the head was also completed. His alcohol intake he reports as 1 pint per day. The patient will also had fevers. He has been incontinent. He was given Levaquin in the ER. Overnight patient increasingly agitated. A dose of phenobarbital was given. Heart rate has been better. Continues to be showing signs of withdrawal. No seizures. Medications: Reviewed: Yes Vitals/I&O/Wt Last Vital Signs Temp 98.7 F 10/28/20 11:30 Pulse 69 10/28/20 14:00 Resp 14 10/28/20 14:00 BP 95/60 10/28/20 14:00 Pulse Ox 90 10/28/20 11:30 10/27/20 10/28/20 10/28/20 22:59 06:59 14:59 Intake Total 2785.083 / 2785.083 249.917 / 3035.000 1676.25 / 1676.25 Output Total 3 / 3 Balance 2785.083 / 2785.083 246.917 / 3032.000 1676.25 / 1676.25 Weight last 48 hrs Weight 186 lb Physical Exam Const: GENERAL APPEARANCE: disheveled and lethargic ORIENTATION/CONSCIOU SNESS: Yes lethargic Chest: COMMONS NORMALS: normal inspection of the chest Resp: COMMON NORMALS: No retractions, No use of accessory muscles and clear to auscultation bilaterally AUSCULTATION: clear to auscultation bilaterally Cardio: COMMON NORMALS: regular rate RATE: regular rate GI: COMMON NORMALS: Soft to palpation and non-tender PALPATION: Yes Soft to palpation Extremity: COMMON NORMALS: no pedal edema OTHER: No edema Neuro: SENSORIUM/ORIENTATION: Yes lethargic OTHER: moves all extremities, tremor Data : 10/28/20 05:25 10/28/20 05:25 Micro: Microbiology 10/27/20 17:30 Blood Culture - Preliminary Blood SPECIMEN COLLECTED 08/31/21 17:15 Blood Culture - Preliminary Blood SPECIMEN COLLECTED A&P Assessment and plan (1) Atrial fibrillation: Status: Acute (2) Troponin level elevated: Status: Acute (3) Elevated CPK: Status: Acute (4) Seizure: Status: Acute (5) Fever: Status: Acute (6) Weakness: Status: Acute (7) Hypomagnesemia: Status: Acute (8) Lactic acidosis: Status: Acute (9) Hypokalemia: Status: Acute (10) Alcohol use disorder: Status: Acute (11) Thrombocytopenia: Status: Acute Additional A&P Information #seizures --?ETOH induced --seizure precautions --EEG ordered but unable to complete this week. will need to to do as outpatient, limited beds to transfer due to panedemic --CT head negative --loaded with Keppra, and now 500mg BID --reports he has taken Phenytoin in the past #ETOH abuse --place on [facility] protocol --check UDS pending --continue PRN ativan, add Librium --phenobarb given overnight --continue nutrition supplementation thiamine #Atrial fibrillation with RVR --rate controlled --check ECHO , report pending --not on anticoagulation --dc cardizem gtt, start PO #elevated troponin --trend --check ECHO #high CK --IVF, repeat #HTN --BP on lower end now --continue cardizem --PRN hyralyzine #fevers --cuevas culture --levaquin given in ED --start Rocephin --UA and stool studies pending #diarrhea --check stool studies DVT: Lovenox Attestations Medical Necessity Statement*: David Paulino's hospital stay will require greater than 2 midnights for atrial fibrillation Coding Level of Care Code Acute Substance Addiction Coordinator for Chg Fwd Diagnoses Atrial fibrillation I48.91 Troponin level elevated R77.8 Elevated CPK R74.8 Seizure R56.9 Fever R50.9 Weakness R53.1 Hypomagnesemia E83.42 Lactic acidosis E87.2 Hypokalemia E87.6 Alcohol use disorder Thrombocytopenia D69.6
[2020-10-28] MEDS: potassium chloride premix 100 ML 50 MEQ IV (15:03)
[2020-10-28 15:18] LABS: Creatine Phosphokinase 716 U/L (39-308)
[2020-10-28] MEDS: potassium chloride oral liq 20 mEq/15 mL UDC 40 MEQ PO (16:49)
[2020-10-28] MEDS: phosphorus 250 mg Tablet PO (18:28)
[2020-10-28 18:37] LABS: Troponin T (5th) Once 31 ng/L (0-15)
[2020-10-28 18:38] LABS: Blood Urea Nitrogen 13 mg/dL (8-23); Calcium 7.9 mg/dL (8.5-10.5); Carbon Dioxide 21 mmol/L (22-29); Chloride 99 mmol/L (98-107); Glomerular Filtration Rate 134.8 mL/min (90-130); Glucose 78 mg/dL (65-115); Osmolality Calculated 281 mOsm/kg (285-295); Sodium 136 mmol/L (136-145)
[2020-10-28 18:40] LABS: Ammonia 39 umol/L (16-60)
[2020-10-28 18:42] LABS: Anion Gap 19.7 (5-19); Potassium 3.7 mmol/L (3.5-5.1)
--- NOTE | 2020-10-28 19:03 | PC.NURSE ---
1100 Reported K level to Dr. Morrison [address] Morrison to report increased agitation. Orders for PRN Ativan 1350 Clarified order for Cardizem gtt. Reported vital signs and K level. 1510 Reported that patient was unable to swallow K pills, orders to change to liquid. Reported elevated CK level. Orders to increase IVF rate and repeat labs at 1800
--- NOTE | 2020-10-28 19:09 | PC.NURSE ---
[address] Morrison that patient is incontinent and was are unable to collect UA. Patient had UA collectd this AM.
[2020-10-28] MEDS: dilTIAZem ER (12HR) 60 mg Capsule PO (19:27)
--- NOTE | 2020-10-28 21:05 | USCV_ITS ---
David Paulino Age: 65 Gender: M : 1955 Exam Date: 10/28/2020 06:36 Ordering Phys: Usha Morrison MD Technologist: Exam Location: [facility] [place] Indication: SOB BP: 132 / 82 HR: 104 Rhythm: Sinus Technical Quality: Adequate MEASUREMENTS (Male / Female) Normal Values 2D ECHO LV Diastolic Diameter PLAX 4.4 cm 4.2 - 5.9 / 3.9 - 5.3 cm LV Systolic Diameter PLAX 2.9 cm IVS Diastolic Thickness 1.3 cm 0.6 - 1.0 / 0.6 - 0.9 cm IVS Systolic Thickness 1.4 cm LVPW Diastolic Thickness 1.2 cm 0.6 - 1.0 / 0.6 - 0.9 cm LVPW Systolic Thickness 1.2 cm LVOT Diameter 2.0 cm LV Ejection Fraction 2D Teich 64.2 % LV Ejection Fraction MOD 2C 60.8 % LV Ejection Fraction 2C AL 61.1 % LA Diameter 3.0 cm LA Width 4.2 cm LA Height 5.2 cm RA Width 3.8 cm RA Height 4.4 cm M-MODE MV E Point Septal Separation 3.1 cm DOPPLER AV Peak Velocity 288.7 cm/s LVOT Peak Velocity 129.0 cm/s AV Area Cont Eq vti 1.6 cm squared AV Area Cont Eq pk 1.4 cm squared MV Area PHT 5.0 cm squared Mitral E to A Ratio 0.8 MV E' Velocity 98.0 cm/s TR Peak Velocity 227.7 cm/s TR Peak Gradient 20.7 mmHg TV Peak E Velocity 93.0 cm/s Right Atrial Pressure 3.0 mmHg Pulmonary Artery Systolic Pressu 23.7 mmHg FINDINGS Left Ventricle Normal left ventricular size, systolic function and increased wall thickness, with no regional wall motion abnormalities. Mild concentric left ventricular hypertrophy. Left ventricular ejection fraction is estimated at 70 %. Grade I diastolic dysfunction (abnormal relaxation filling pattern), normal to mildly elevated filling pressures. Right Ventricle Normal right ventricular size and systolic function. Right ventricular systolic pressure 27 mmHg. Right Atrium Normal right atrial size. Aneurysmal interatrial septum. Left Atrium Mildly increased left atrial size. Mitral Valve Moderate mitral annular calcification. Moderately thickened mitral valve. No mitral valve stenosis. Trace mitral valve regurgitation. Aortic Valve Markedly thickened and calcified aortic valve. Aortic valve visually appears to be at least moderately stenotic. Mild aortic valve stenosis, peak velocity 2.9 m/s, peak gradient 34 mmHg, mean gradient 16.2 mmHg, ALICIA 1.6 cm squared by continuity equation. No aortic valve regurgitation. Tricuspid Valve Structurally normal tricuspid valve. Mild tricuspid valve regurgitation. Pulmonic Valve Structurally normal pulmonic valve. No pulmonary valve stenosis. No pulmonary valve stenosis. Pericardium No pericardial effusion. Aorta Normal-sized aortic root. CONCLUSIONS 1. Normal left ventricular size, systolic function and increased wall thickness, with no regional wall motion abnormalities. Mild concentric left ventricular hypertrophy. Left ventricular ejection fraction is estimated at 70 %. Grade I diastolic dysfunction (abnormal relaxation filling pattern), normal to mildly elevated filling pressures. 2. Normal right ventricular size and systolic function. 3. Markedly thickened and calcified aortic valve. Aortic valve visually appears to be at least moderately stenotic. Mild aortic valve stenosis, peak velocity 2.9 m/s, peak gradient 34 mmHg, mean gradient 16.2 mmHg, ALICIA 1.6 cm squared by continuity equation. 4. Mild tricuspid valve regurgitation. 5. No prior similar studies to compare. Aleah Bonilla MD (Electronically Signed) Final Date: 28 October 2020 18:51 S
[2020-10-28] MEDS: enoxaparin 40 mg/0.4 mL Syringe SUBCUT (21:57)
[2020-10-29] VITALS (26 sets, daily range): BP systolic 109–162; BP diastolic 64–109; PULSE 63–132; RESP 13–29; TEMP 37–37.6; O2SAT 90–100
[2020-10-29] MEDS: LORazepam 2 mg/mL INJ 1 mL IVP (03:20)
[2020-10-29 05:16] LABS: Basophils % 0.5 %; Eosinophils % 0.5 %; Hematocrit 27.6 % (42.0-52.0); Hemoglobin 9.5 g/dL (11.7-16.6); Lymphocytes # 1.2 10^3/uL (0.8-4.8); Lymphocytes % 29.3 %; Mean Corpuscular HGB Conc 34.4 g/dL (30.0-36.0); Mean Corpuscular Hemoglobin 35.7 pg (28.0-34.0); Mean Corpuscular Volume 103.8 fl (80-94); Mean Platelet Volume 10.7 fL (7.4-10.4); Monocytes # 0.4 10^3/uL (0.2-0.9); Neutrophils # 2.29 10^3/uL (1.8-7.7); Neutrophils % 58.4 %; Nucleated Red Blood Cells % 0 %; Platelet Count 83 10^3/cmm (130-400); Red Blood Count 2.66 10^6/uL (4.1-5.3); Red Cell Distribution Width 14.6 % (12.1-15.1); White Blood Count 3.9 10^3/uL (4.0-10.0)
[2020-10-29 05:52] LABS: Alanine Aminotransferase 31 U/L (0-41); Albumin Level 3.3 g/dL (3.5-5.2); Alkaline Phosphatase 54 IU/L (40-130); Aspartate Amino Transferase 50 U/L (0-40); Blood Urea Nitrogen 11 mg/dL (8-23); Carbon Dioxide 20 mmol/L (22-29); Chloride 100 mmol/L (98-107); Globulin 2.1 g/dL (1.3-4.6); Glomerular Filtration Rate 134.8 mL/min (90-130); Glucose 62 mg/dL (65-115); Magnesium 1.5 mg/dL (1.7-2.3); Osmolality Calculated 281 mOsm/kg (285-295); Phosphorus 1.6 mg/dL (2.5-4.5); Sodium 137 mmol/L (136-145); Total Bilirubin 1.2 mg/dL (0.15-1.2); Total Protein 5.4 g/dL (6.6-8.7)
[2020-10-29 06:14] LABS: Troponin T (5th) Once 29 ng/L (0-15)
[2020-10-29 06:23] LABS: Creatine Phosphokinase 493 U/L (39-308)
--- NOTE | 2020-10-29 06:38 | PC.NURSE ---
Shift Note Frequent safety and comfort rounds continue. Orders and/or nursing care completed as indicated. Patient monitored for response to intervention and treatment(s). Education provided includes[]. Patient and/or medical service representative [ResponseToTeaching]. Will continue to monitor. Patient during the shift was constantly anxious and moving around in his bed. He pulled off his oxygen saturation probe about 4 times and was given his prn Ativan 2mg, twice during the shift. He is alert and only oriented to self and place. His vitals remained within normal limits during the shift. The patient is on room air and oxygenating in the mid to upper 90's. The patient has voided about 4 times. The brown urine has a foul and strong order. The IV's bilaterally remain in place.
[2020-10-29] MEDS: magnesium sulfate premix 2 GM/50 ML PIGGYBACK IV (07:13)
[2020-10-29] MEDS: magnesium oxide 400 mg tablet PO ×2 (08:38→17:27)
[2020-10-29] MEDS: phosphorus 250 mg Tablet PO ×2 (08:38→17:27)
[2020-10-29] MEDS: multivitamin therapeutic Tablet 1 TAB PO (08:38)
[2020-10-29] MEDS: dilTIAZem ER (12HR) 60 mg Capsule PO ×2 (08:38→17:27)
[2020-10-29] MEDS: folic acid 1 mg Tablet PO (08:39)
[2020-10-29] MEDS: thiamine 100 mg Tablet PO (08:39)
[2020-10-29] MEDS: cefTRIAXone 2,000 MG in sodium chloride 0.9% (plus) 50 ML 100 MG IV (09:27)
--- NOTE | 2020-10-29 11:57 | P.PN_ITS ---
Subjective Subjective: Interval history: No new clinical events. patient remained agitated. req sitter. Medications: Reviewed: Yes Vitals/I&O/Wt Last Vital Signs Temp 99.0 F 10/29/20 16:00 Pulse 79 10/29/20 16:00 Resp 23 H 10/29/20 16:00 BP 147/89 10/29/20 16:00 Pulse Ox 95 10/29/20 16:00 10/29/20 10/29/20 10/29/20 06:59 14:59 22:59 Intake Total 200 / 3209.417 1435 / 1435 Balance 200 / 3209.417 1435 / 1435 Physical Exam Const: GENERAL APPEARANCE: disheveled Chest: COMMONS NORMALS: normal inspection of the chest Resp: COMMON NORMALS: clear to auscultation bilaterally AUSCULTATION: clear to auscultation bilaterally GI: COMMON NORMALS: Soft to palpation and non-tender PALPATION: Yes Soft to palpation Extremity: OTHER: no swelling, tremor Neuro: OTHER: tremor slightly delayed speech follows commands Data : 10/29/20 04:10 10/29/20 04:10 Micro: Microbiology 10/28/20 02:45 Urine Culture - Preliminary Urine,Clean Catch 10/27/20 17:30 Blood Culture - Preliminary Blood NEGATIVE TO DATE 10/27/20 17:15 Blood Culture - Preliminary Blood NEGATIVE TO DATE A&P Assessment and plan (1) Atrial fibrillation: Status: Acute (2) Troponin level elevated: Status: Acute (3) Elevated CPK: Status: Acute (4) Seizure: Status: Acute (5) Fever: Status: Acute (6) Weakness: Status: Acute (7) Hypomagnesemia: Status: Acute (8) Lactic acidosis: Status: Acute (9) Hypokalemia: Status: Acute (10) Alcohol use disorder: Status: Acute (11) Thrombocytopenia: Status: Acute Additional A&P Information #seizures --?ETOH induced --seizure precautions --EEG ordered but unable to complete this week. will need to to do as outpatient, limited beds to transfer due to panedemic --CT head negative --loaded with Keppra, and now 500mg BID --reports he has taken Phenytoin in the past --No further seizures #ETOH abuse --place on [facility] protocol --continue PRN ativan, add Librium --continue nutrition supplementation thiamine --seizures precautions #Atrial fibrillation with RVR --rate controlled --echo pending --not on anticoagulation --cardizem #elevated troponin --trend --echo pending #high CK --IVF, repeat --labs in am #HTN --BP on lower end now --continue cardizem --PRN hyralyzine #fevers --cuevas culture --levaquin given in ED --continuieRocephin #hypokalemia --K3.0- replace. --bmp aleksandra #diarrhea --f/u stool studies DVT: Lovenox Attestations Medical Necessity Statement*: continue hospitalization for management of withdrawal seizures Time Spent in Patient Care: Greater than 35 minutes (>than 50% of time s pent in counselling and/or direct pt care on unit) . Coding Level of Care Code Acute Intelligence Engineer for g Fwd Diagnoses Atrial fibrillation I48.91 Troponin level elevated R77.8 Elevated CPK R74.8 Seizure R56.9 Fever R50.9 Weakness R53.1 Hypomagnesemia E83.42 Lactic acidosis E87.2 Hypokalemia E87.6 Alcohol use disorder Thrombocytopenia D69.6
--- NOTE | 2020-10-29 14:11 | PC.NURSE ---
Pt does have tremors, documented as none because this is patient's baseline per patient.
[2020-10-29] MEDS: sodium chloride 0.9% 1,000 ML 75 ML IV (14:31)
[2020-10-29 15:38] LABS: Osmolality Serum 281 mOsm/kg (278-305)
--- NOTE | 2020-10-29 18:05 | PC.NURSE ---
Shift Note Frequent safety and comfort rounds continue. Orders and nursing care completed as indicated. Patient noted to have increased confusion this shift, pulling Rrght AC 18g IV out and spilling drink all over self, and stating he was in [place]. A bedside sitter order was placed per Dr. Khan. Pt has orders to be transferred to [facility], currently no rooms are available. Patient monitored for response to intervention and treatments. Unable to educate patient at this time due to pt being oriented only to self. Pt continued to pull off pulse ox and scratch at skin. Patient received bed bath from this nurse and with the help of other ICU staff members. Pt received multiple bed changes due to incontinence. This nurse updated patient's family on patient status. Patient's son came to visit this evening. Will continue to monitor.
[2020-10-29] MEDS: enoxaparin 40 mg/0.4 mL Syringe SUBCUT (20:54)
[2020-10-30] VITALS (11 sets, daily range): BP systolic 132–178; BP diastolic 84–116; PULSE 85–137; RESP 13–25; TEMP 37.1–37.6; O2SAT 91–98
[2020-10-30] MEDS: LORazepam 2 mg/mL INJ 1 mL IVP ×2 (00:50→21:37)
--- NOTE | 2020-10-30 06:16 | PC.NURSE ---
Addendum entered by Partha Fowler RN 10/30/20 07:00: Sinai was the nurse who I gave shift report to. Original Note: Shift report given to the CSU nurse at 0614.
--- NOTE | 2020-10-30 07:01 | PC.NURSE ---
After shift report at 0614, the patient pulled out his right forearm IV and was refusing to take and medications to help calm him down. After about 15 minutes he slowly calmed down and we were able to clean him up and get him ready to be transferred. The patient was transferred with a die presser. I left the patient in the care of Julien at 0645. There were no complications in the transfer and the patient seemed to be more compliant before leaving.
[2020-10-30] MEDS: magnesium oxide 400 mg tablet PO ×2 (09:16→18:50)
[2020-10-30] MEDS: multivitamin therapeutic Tablet 1 TAB PO (09:16)
[2020-10-30] MEDS: phosphorus 250 mg Tablet PO ×2 (09:16→18:50)
[2020-10-30] MEDS: folic acid 1 mg Tablet PO (09:16)
[2020-10-30] MEDS: dilTIAZem ER (12HR) 60 mg Capsule PO ×2 (09:16→18:50)
[2020-10-30] MEDS: thiamine 100 mg Tablet PO (09:16)
--- NOTE | 2020-10-30 09:27 | PC.SOCIAL ---
IMM Update Discussed medicare rights with patient. Verbalized understanding. Provided pt with a copy and placed initialed, dated, timed copy in pt's chart.
[2020-10-30] MEDS: cefTRIAXone 2,000 MG in sodium chloride 0.9% (plus) 50 ML 100 MG IV (11:30)
--- NOTE | 2020-10-30 14:43 | PC.CHAP ---
Pastoral Care Encounter/Spiritual Assessment Type of Contact [] Declined dog show judge visit [] Patient/Family/Request visit [] Outpatient visit [XX] Follow-up visit [] Physician referral [] Code/Alert [] Routine visit [] Staff referral [] Actively dying [XX] Patient sleeping [] Family support [] [] Out of room [] Palliative care [] [] Receiving care in room [] Pre-surgical visit [] Trauma [] Long length of stay [] ICU visit [] Other: Relational/Emotional Strength [] Patient feels connected with others/family/visitors/staff [] Distress [] Loneliness/isolation [] Abandonment Spirituality of Patient [] Person of [place] [] Attends Spiritism of their [place] [] Believes in Prayer [] Reads Bible or Hinduism materials [] There are Spiritual issues to be addressed [employer] Interventions [] Prayer [] Active listening [] Non-anxious presence [] Spiritual/emotional support [] Crisis/trauma care [] Spiritual counseling [] Bereavement support [] Provided bereavement packet [] Provided Bible/devotional materials [] Provided toy/stuffed animal, coloring book to patient or family member [] Provided Communion [] Anointing/[place] [] Salvation [] Completed spiritual assessment [] Other: Impact on Illness or Injury [] Angry [] Fearful [] Anxious [] Often cries [] Exhaustion [] Unable to work [] Unable to attend uatsdin [] Unable to walk/stand [] Unable to read [] Unable to drive [] Unable to eat/drink [] Unable to sleep [] Unable to be with family [] Patient intubated [] Other: Summary Follow up needed later. Time spent with patient
--- NOTE | 2020-10-30 16:24 | PC.NURSE ---
Shift Note Frequent safety and comfort rounds continue. Orders and/or nursing care completed as indicated. Patient monitored for response to intervention and treatment(s). Education provided includes medications and monitoring. Patient and/or abrasives sales representative resistant to learning. Will continue to monitor.
--- NOTE | 2020-10-30 17:01 | PM.PN ---
Subjective Subjective: Interval history: Patient was not in any distress at the time of my evaluation. No seizure-like activity overnight. Medications: Reviewed: Yes Vitals/I&O/Wt Last Vital Signs Temp 99.7 F H 10/30/20 04:00 Pulse 92 10/30/20 14:00 Resp 15 10/30/20 14:00 BP 132/84 10/30/20 14:00 Pulse Ox 98 10/30/20 03:00 10/30/20 10/30/20 10/30/20 06:59 14:59 22:59 Intake Total 200 / 1740 815 / 815 Balance 200 / 1740 815 / 815 Physical Exam Const: GENERAL APPEARANCE: disheveled Chest: COMMONS NORMALS: normal inspection of the chest Resp: COMMON NORMALS: clear to auscultation bilaterally AUSCULTATION: clear to auscultation bilaterally GI: COMMON NORMALS: Soft to palpation and non-tender PALPATION: Yes Soft to palpation Extremity: OTHER: no swelling, tremor Neuro: OTHER: Moving all extremities Data : 10/29/20 04:10 10/29/20 04:10 Micro: Microbiology 10/28/20 02:45 Urine Culture - Final Urine,Clean Catch A&P Assessment and plan (1) Atrial fibrillation: Status: Acute (2) Troponin level elevated: Status: Acute (3) Elevated CPK: Status: Acute (4) Seizure: Status: Acute (5) Fever: Status: Acute (6) Weakness: Status: Acute (7) Hypomagnesemia: Status: Acute (8) Lactic acidosis: Status: Acute (9) Hypokalemia: Status: Acute (10) Alcohol use disorder: Status: Acute (11) Thrombocytopenia: Status: Acute Additional A&P Information #seizures --?ETOH induced --seizure precautions --EEG ordered but unable to complete this week. will need to to do as outpatient, limited beds to transfer due to panedemic --CT head negative --loaded with Keppra, and now Keppra 500mg BID --reports he has taken Phenytoin in the past --No further seizures #ETOH abuse --place on [facility] protocol --continue PRN ativan, add Librium --continue nutrition supplementation thiamine --seizures precautions #Atrial fibrillation --rate controlled --echo 70%, grade 1 DD, mild --not on anticoagulation --cardizem #elevated troponin --trend --echo - no regional wall motion abnormality #high CK --IVF, repeat --labs in am #HTN --BP on lower end now --continue cardizem --PRN hyralyzine #fevers --cuevas culture - negative --chest xray -negative --levaquin given in ED --d/c rocephin --monitor off abx #hypokalemia --K3.0- replace. --check k now #diarrhea --resolved. --f/u stool studies DVT: Lovenox Attestations Medical Necessity Statement*: Continue hospitalization for management of alcohol withdrawal seizures Time Spent in Patient Care: Greater than 35 minutes (>than 50% of time spent in counselling and/or direct pt care on unit). Coding Level of Care Code Acute Air Force Senior Officer for [facility] Fwd Diagnoses Atrial fibrillation I48.91 Troponin level elevated R77.8 Elevated CPK R74.8 Seizure R56.9 Fever R50.9 Weakness R53.1 Hypomagnesemia E83.42 Lactic acidosis E87.2 Hypokalemia E87.6 Alcohol use disorder Thrombocytopenia D69.6
[2020-10-30 19:17] LABS: Potassium 2.8 mmol/L (3.5-5.1)
--- NOTE | 2020-10-30 20:12 | PC.NURSE ---
Received bedside report from SREE Corado. Patient resting in bed. Cleaned patient x2 assist due to incontinence. Patient tolerated well. Denies pain or other needs presently. No distress observed.
--- NOTE | 2020-10-30 20:13 | PC.NURSE ---
19:50 Patient bed alarm sounding. Observed patient attempting to get out of bed. Patient stated, I need to use the bathroom. Assisted patient with max assist to ambulate to bathroom. Patient has brief in place and was noted patient to have spell of incontinence. Assisted patient back to bed. Patient weak, minimally shaky but tolerated ambulation well. Patient assisted back to bed, cleaned, positioned for comfort. Patient resting with eyes closed at this time. No distress observed.
[2020-10-30] MEDS: enoxaparin 40 mg/0.4 mL Syringe SUBCUT (21:03)
[2020-10-30] MEDS: lidocaine 1% 5 ML in potassium chloride premix 100 ML 25 ML IV (21:04)
--- NOTE | 2020-10-30 23:08 | PC.NURSE ---
Found patient's IV removed intact lying in his bed. Patient reports getting restless while sleeping due to night terrors . No bleeding observed to site. Obtained new IV access per protocol to left inner forearm. Patient tolerated very well. Patient is pleasant and cooperative at this time. Tremors of earlier CIWA assessment appear to be improved presently.
[2020-10-31] VITALS (9 sets, daily range): BP systolic 118–140; BP diastolic 80–89; PULSE 76–107; RESP 15–28; TEMP 37.1; O2SAT 98
[2020-10-31 05:58] LABS: Basophils % 0.9 %; Eosinophils # 0.1 10^3/uL (0.0-0.8); Eosinophils % 1.7 %; Hematocrit 32.5 % (42.0-52.0); Hemoglobin 11.3 g/dL (11.7-16.6); Lymphocytes # 1.1 10^3/uL (0.8-4.8); Lymphocytes % 24.5 %; Mean Corpuscular HGB Conc 34.8 g/dL (30.0-36.0); Mean Corpuscular Hemoglobin 35.6 pg (28.0-34.0); Mean Corpuscular Volume 102.5 fl (80-94); Mean Platelet Volume 9.9 fL (7.4-10.4); Monocytes # 0.6 10^3/uL (0.2-0.9); Monocytes % 12.9 %; Neutrophils # 2.75 10^3/uL (1.8-7.7); Neutrophils % 59.1 %; Nucleated Red Blood Cells % 0 %; Platelet Count 121 10^3/cmm (130-400); Red Blood Count 3.17 10^6/uL (4.1-5.3); Red Cell Distribution Width 14.6 % (12.1-15.1); White Blood Count 4.7 10^3/uL (4.0-10.0)
--- NOTE | 2020-10-31 06:45 | PC.NURSE ---
Shift Note Frequent safety and comfort rounds continue. Orders and/or nursing care completed as indicated. Patient monitored for response to intervention and treatment(s). Education provided includes potassium. Patient patient expressed understanding however will need reinforcement. Assisted patient up to bathroom a couple times this night with max contact assist. Patient weak but tolerated well. Patient's mentation continues to improve slightly. Is more aware of time and place. Will continue to monitor.
[2020-10-31 07:05] LABS: Alanine Aminotransferase 26 U/L (0-41); Albumin Level 3.5 g/dL (3.5-5.2); Alkaline Phosphatase 82 IU/L (40-130); Anion Gap 13.8 (5-19); Aspartate Amino Transferase 34 U/L (0-40); Blood Urea Nitrogen 11 mg/dL (8-23); Calcium 8.6 mg/dL (8.5-10.5); Carbon Dioxide 29 mmol/L (22-29); Chloride 100 mmol/L (98-107); Globulin 2.5 g/dL (1.3-4.6); Glomerular Filtration Rate 112.8 mL/min (90-130); Glucose 95 mg/dL (65-115); Magnesium 1.8 mg/dL (1.7-2.3); Osmolality Calculated 289 mOsm/kg (285-295); Sodium 140 mmol/L (136-145); Total Bilirubin 0.8 mg/dL (0.15-1.2)
[2020-10-31 07:22] LABS: Potassium 2.8 mmol/L (3.5-5.1)
[2020-10-31 08:18] LABS: Procalcitonin 0.22 ng/mL (0-0.5)
[2020-10-31] MEDS: dilTIAZem ER (12HR) 60 mg Capsule PO ×2 (10:04→18:15)
[2020-10-31] MEDS: thiamine 100 mg Tablet PO (10:04)
[2020-10-31] MEDS: phosphorus 250 mg Tablet PO ×2 (10:04→18:15)
[2020-10-31] MEDS: magnesium oxide 400 mg tablet PO ×2 (10:04→18:15)
[2020-10-31] MEDS: folic acid 1 mg Tablet PO (10:04)
[2020-10-31] MEDS: multivitamin therapeutic Tablet 1 TAB PO (10:04)
--- NOTE | 2020-10-31 10:40 | PC.NURSE ---
upon Dr. Khan's rounding with patient notified him of Patient's Potassium level of 2.8 this am verbal instructions to give 40 meq IVPB potassium x 1 now
[2020-10-31] MEDS: lidocaine 1% 5 ML in potassium chloride premix 100 ML 25 ML IV (11:35)
--- NOTE | 2020-10-31 12:52 | PM.PN ---
Subjective Subjective: Interval history: No new clinical events overnight Awake alert tolerating oral intake Medications: Reviewed: Yes Vitals/I&O/Wt Last Vital Signs Temp 99.1 F 10/30/20 19:07 Pulse 84 10/31/20 06:31 Resp 15 10/31/20 06:31 BP 140/89 10/31/20 06:31 Pulse Ox 98 10/30/20 03:00 10/30/20 10/31/20 10/31/20 22:59 06:59 14:59 Intake Total 110 / 1919 465 / 465 Balance 110 / 1919 465 / 465 Physical Exam Const: GENERAL APPEARANCE: disheveled Chest: COMMONS NORMALS: normal inspection of the chest Resp: COMMON NORMALS: clear to auscultation bilaterally AUSCULTATION: clear to auscultation bilaterally GI: COMMON NORMALS: Soft to palpation and non-tender PALPATION: Yes Soft to palpation Extremity: OTHER: no swelling, tremor Neuro: OTHER: Moving all extremities Data : 10/31/20 05:38 10/31/20 05:38 Micro: Microbiology 10/28/20 02:45 Urine Culture - Final Urine,Clean Catch A&P Assessment and plan (1) Atrial fibrillation: Status: Acute (2) Troponin level elevated: Status: Acute (3) Elevated CPK: Status: Acute (4) Seizure: Status: Acute (5) Fever: Status: Acute (6) Weakness: Status: Acute (7) Hypomagnesemia: Status: Acute (8) Lactic acidosis: Status: Acute (9) Hypokalemia: Status: Acute (10) Alcohol use disorder: Status: Acute (11) Thrombocytopenia: Status: Acute Additional A&P Information #Hypokalemia --K2.8 --KCL 40 Meq IV x 1 --Repeat in am #seizures --?ETOH induced --seizure precautions --EEG ordered but unable to complete this week. will need to to do as outpatient, limited beds to transfer due to panedemic --CT head negative --loaded with Keppra, and now Keppra 500mg BID --reports he has taken Phenytoin in the past --No further seizures #ETOH abuse --place on [facility] protocol --continue PRN ativan, add Librium --continue nutrition supplementation thiamine --seizures precautions #Atrial fibrillation --rate controlled --echo 70%, grade 1 DD, mild --not on anticoagulation --cardizem #elevated troponin --trend --echo - no regional wall motion abnormality #high CK --IVF, repeat --labs in am #HTN --BP on lower end now --continue cardizem --PRN hyralyzine #fevers - resolved --cuevas culture - negative --chest xray -negative --levaquin given in ED --d/c rocephin --monitor off abx #diarrhea --resolved. --f/u stool studies DVT: Lovenox Attestations Medical Necessity Statement*: Require further hospitalization for management of ETOH withdrawal seizures, hypokalemia requiring IV replacement and placement arrangement Time Spent in Patient Care: Greater than 35 minutes (>than 50% of time spent in counselling and/or direct pt care on unit). Coding Level of Care Code Acute Library Services Assistant for uziel Daily Diagnoses Atrial fibrillation I48.91 Troponin level elevated R77.8 Elevated CPK R74.8 Seizure R56.9 Fever R50.9 Weakness R53.1 Hypomagnesemia E83.42 Lactic acidosis E87.2 Hypokalemia E87.6 Alcohol use disorder Thrombocytopenia D69.6
--- NOTE | 2020-10-31 19:29 | PC.NURSE ---
Shift Note Frequent safety and comfort rounds continue. Orders and/or nursing care completed as indicated. Patient monitored for response to intervention and treatment(s). Education provided includes use of urinal incontinence care. Patient and/or community health representative verbalized understanding although reinforcement needed. Will continue to monitor.
[2020-10-31] MEDS: enoxaparin 40 mg/0.4 mL Syringe SUBCUT (19:56)
[2020-11-01] VITALS (10 sets, daily range): BP systolic 122–151; BP diastolic 75–93; PULSE 66–90; RESP 16–22; TEMP 36.6–37.6; O2SAT 96–98
--- NOTE | 2020-11-01 06:30 | PC.NURSE ---
Patient's linens are currently clean and dry. Patient had one incontinent episode last night and got up to bedside commode with assist once and used the urinal once.
--- NOTE | 2020-11-01 06:31 | PC.NURSE ---
Shift Note Frequent safety and comfort rounds continue. Orders and/or nursing care completed as indicated. Patient monitored for response to intervention and treatment(s). Education provided includes fall risk and call light. Patient and/or outside sales representative verbalized understanding, but needs reinforcement. Will continue to monitor.
[2020-11-01 07:02] LABS: Basophils % 0.6 %; Eosinophils # 0.1 10^3/uL (0.0-0.8); Eosinophils % 2.4 %; Hematocrit 33.5 % (42.0-52.0); Hemoglobin 11.3 g/dL (11.7-16.6); Lymphocytes # 1.7 10^3/uL (0.8-4.8); Lymphocytes % 30.5 %; Mean Corpuscular HGB Conc 33.7 g/dL (30.0-36.0); Mean Corpuscular Hemoglobin 35.4 pg (28.0-34.0); Monocytes # 0.7 10^3/uL (0.2-0.9); Monocytes % 13.4 %; Neutrophils # 2.85 10^3/uL (1.8-7.7); Neutrophils % 52.2 %; Nucleated Red Blood Cells % 0 %; Platelet Count 149 10^3/cmm (130-400); Red Blood Count 3.19 10^6/uL (4.1-5.3); Red Cell Distribution Width 15.1 % (12.1-15.1); White Blood Count 5.5 10^3/uL (4.0-10.0)
[2020-11-01 07:38] LABS: Alanine Aminotransferase 22 U/L (0-41); Albumin Level 3.3 g/dL (3.5-5.2); Alkaline Phosphatase 83 IU/L (40-130); Anion Gap 12.1 (5-19); Aspartate Amino Transferase 28 U/L (0-40); Blood Urea Nitrogen 10 mg/dL (8-23); Carbon Dioxide 30 mmol/L (22-29); Chloride 100 mmol/L (98-107); Creatine Phosphokinase 135 U/L (39-308); Globulin 2.5 g/dL (1.3-4.6); Glomerular Filtration Rate 112.8 mL/min (90-130); Glucose 95 mg/dL (65-115); Osmolality Calculated 287 mOsm/kg (285-295); Potassium 3.1 mmol/L (3.5-5.1); Sodium 139 mmol/L (136-145); Total Bilirubin 0.9 mg/dL (0.15-1.2); Total Protein 5.8 g/dL (6.6-8.7)
[2020-11-01 07:46] LABS: Procalcitonin 0.13 ng/mL (0-0.5)
[2020-11-01] MEDS: magnesium oxide 400 mg tablet PO ×2 (08:27→18:01)
[2020-11-01] MEDS: phosphorus 250 mg Tablet PO ×2 (08:27→18:00)
[2020-11-01] MEDS: dilTIAZem ER (12HR) 60 mg Capsule PO ×2 (08:27→18:01)
[2020-11-01] MEDS: thiamine 100 mg Tablet PO (08:27)
[2020-11-01] MEDS: folic acid 1 mg Tablet PO (08:27)
[2020-11-01] MEDS: multivitamin therapeutic Tablet 1 TAB PO (08:28)
--- NOTE | 2020-11-01 09:00 | PC.NURSE ---
call placed to Dr. hu in regards to patients Keppra IV dosing instructions to change route to po Keppra 500mg PO BID
[2020-11-01] MEDS: levETIRAcetam 500 mg Tablet PO ×2 (09:10→18:01)
--- NOTE | 2020-11-01 09:20 | PC.SOCIAL ---
IMM Update Pg. 2 of IMM updated and reviewed with patient, who verbalized understanding. Copy provided. Initialed, dated, and timed copy in chart.
[2020-11-01 11:45] LABS: Add Urine Microscopic? YES; Bacteria Urine 1+ /hpf; Bilirubin Urine 1+ (Negative); Blood Urine 3+ (Negative); Glucose Urine UA Norm (Normal); Ketones Urine Negative (Negative); Leukocyte Esterase Urine Negative (Negative); Mucus Urine 1+ /hpf; Nitrate Urine Negative (Negative); Protein Urine Trace (Negative); Urine Appearance Clear (CLEAR); Urine Color Yellow (Yellow); Urobilinogen Urine 4 mg/dL (Negative); WBC Urine 0-4 /hpf (0-5); pH Urine 5 (5-7)
[2020-11-01 11:46] LABS: Add Urine Culture? No
--- NOTE | 2020-11-01 13:58 | PC.CHAP ---
Pastoral Care Encounter/Spiritual Assessment Type of Contact [] Declined oven stripper visit [] Patient/Family/Request visit [] Outpatient visit [] Follow-up visit [] Physician referral [] Code/Alert [XX] Routine visit [] Staff referral [] Actively dying [] Patient sleeping [] Family support [] [] Out of room [] Palliative care [] [] Receiving care in room [] Pre-surgical visit [] Trauma [] Long length of stay [] ICU visit [] Other: Relational/Emotional Strength [XX] Patient feels connected with others/family/visitors/staff [XX] Distress [] Loneliness/isolation [] Abandonment Spirituality of Patient [] Person of [place] [] Attends Sikh of their [place] [] Believes in Prayer [] Reads Bible or Sikhism materials [XX] There are Spiritual issues to be addressed Candle Molder Hand Interventions [] Prayer [XX] Active listening [XX] Non-anxious presence [] Spiritual/emotional support [] Crisis/trauma care [] Spiritual counseling [] Bereavement support [] Provided bereavement packet [] Provided Bible/devotional materials [] Provided toy/stuffed animal, coloring book to patient or family member [] Provided Communion [] Anointing/[place] [] Salvation [XX] Completed spiritual assessment [] Other: Impact on Illness or Injury [] Angry [] Fearful [] Anxious [] Often cries [] Exhaustion [XX] Unable to work [] Unable to attend christian [] Unable to walk/stand [] Unable to read [] Unable to drive [] Unable to eat/drink [] Unable to sleep [] Unable to be with family [] Patient intubated [] Other: Summary: Pt welcomed oven stripper visit but declined prayer. Pt has no information yet on underlying cause of the seizure / passing out episode. Pt works at [employer] to supplement [email or web address] income, but may not be able to return to work given neuropathy in his feet and whatever is going on neurologically. Pt has girlfriend of 35 years. Time spent with patient: 7 mins
--- NOTE | 2020-11-01 14:18 | P.PN_ITS ---
Subjective Subjective: Interval history: 65-year-old with a past medical history significant for hypertension, peripheral neuropathy, folate deficiency, cerebellar ataxia, anemia, EtOH abuse drinking up to 1 pt of alcohol per day who presented to ER after multiple seizure episodes. Suspected to be due to Etoh withdrawal however it appear patient was previously on phenytoin.Laboratory workup arrival showed a WBC of 7.2, hemoglobin of 13.5, hematocrit of 38.5 and a platelet count of 175. Sodium 136, potassium 3.3, chloride 102, bicarb 25, BUN 7 and creatinine 0.7. COVID-19 negative. Chest x-ray showed non-acute. CT Head w/o contrast was negative. Patient was admitted to the hospital and started on CIWA protocol with PRN Ativan in addition Librium. Also started on folate plus thiamine. Mental status returned to baseline. Patient was loaded with Keppra and continued on Keppra 500 mg IV BID. Transitioned to PO. Patient was also found to have atrial fibrillation with RVR for which he was started on Cardizem gtt. Which was transitioned to Diltiazem 60 mg PO BID. Echocardiogram showed EF 70%, Grade 1 diastolic dysfunction and aneurysmal intraatrial septum, mild aortic stenosis. 11/01/2020 No reported seizure since admission. Tolerating oral intake. C/o difficulty ambulation due to b/l lower extremity neuropathy leading to decrease sensation and ataxia. Not a new complaint however acutely worsening. PT consulted. Patient is awaiting placement to fdc facility. Medications: Reviewed: Yes Vitals/I&O/Wt Last Vital Signs Temp 99.7 F H 11/01/20 19:16 Pulse 80 11/01/20 19:16 Resp 18 11/01/20 19:16 BP 124/75 11/01/20 19:16 Pulse Ox 97 11/01/20 19:16 11/01/20 11/01/20 11/01/20 06:59 14:59 22:59 Intake Total 200 / 2195 720 / 720 120 / 840 Output Total 125 / 250 300 / 300 Balance 75 / 1945 420 / 420 120 / 540 Physical Exam Narrative: EXAM NARRATIVE: General : Alert, Awake, oriented x 3 HEENT: Grossly Unremarkable CVS: NSR Chest: Non-Labored respiration Abd: Non-distended Ext: No edema, decrease sensation, MS 5/5 Data : 11/01/20 06:35 11/01/20 06:35 Micro: Microbiology 10/27/20 17:30 Blood Culture - Final Blood NO GROWTH AFTER 5 DAYS 10/27/20 17:15 Blood Culture - Final Blood NO GROWTH AFTER 5 DAYS A&P Assessment and plan (1) Atrial fibrillation: Status: Acute (2) Troponin level elevated: Status: Acute (3) Elevated CPK: Status: Acute (4) Seizure: Status: Acute (5) Fever: Status: Acute (6) Weakness: Status: Acute (7) Hypomagnesemia: Status: Acute (8) Lactic acidosis: Status: Acute (9) Hypokalemia: Status: Acute (10) Alcohol use disorder: Status: Acute (11) Thrombocytopenia: Status: Acute Additional A&P Information #Hypokalemia --K 3.2 --KCL replaced. --Repeat in am #Seizures --Likely ETOH induced --Seizure precautions --EEG ordered but unable to complete this week. will need to to do as outpatient, limited beds to transfer due to panedemic --CT head negative --Keppra 500mg BID --Reports he has taken Phenytoin in the past --No further seizures #ETOH abuse --Place on CIWA protocol --Continue PRN ativan --Continue nutrition supplementation thiamine --Seizures precautions #Atrial fibrillation --Rate controlled --Echo 70%, grade 1 DD, mild --Not on anticoagulation - risk of bleeding --Diltizem 60 mg PO BID #Elevated Troponin --Echo - no regional wall motion abnormality --Not consistent with acute ischemia --Outpatient nuclear stress #Mild Rhabdomyolysis --Improved #HTN --BP on lower end now --continue cardizem --PRN hyralyzine #Fevers - resolved --[place] culture - negative --Chest xray -negative --Levaquin given in ED --Monitor off abx #Peripheral Neuropathy / Gait Ataxia --PT consult --Plan for d/c to SNF DVT: Lovenox Attestations Medical Necessity Statement*: Continued hospitalization for placement arrangement. Time Spent in Patient Care: Greater than 35 minutes (>than 50% of time spent in counselling and/or direct pt care on unit) . Coding Level of Care Code Acute Air Conditioning Service Technician for [facility] Diagnoses Atrial fibrillation I48.91 Troponin level elevated R77.8 Elevated CPK R74.8 Seizure R56.9 Fever R50.9 Weakness R53.1 Hypomagnesemia E83.42 Lactic acidosis E87.2 Hypokalemia E87.6 Alcohol use disorder Thrombocytopenia D69.6
[2020-11-01] MEDS: potassium chloride ER 20 mEq Tablet 40 MEQ PO (14:58)
--- NOTE | 2020-11-01 18:00 | PC.NURSE ---
Shift Note Frequent safety and comfort rounds continue. Orders and/or nursing care completed as indicated. Patient monitored for response to intervention and treatment(s). Education provided includes[]. Patient and/or sales and marketing representative [ResponseToTeaching]. Will continue to monitor.
[2020-11-01] MEDS: enoxaparin 40 mg/0.4 mL Syringe SUBCUT (19:22)
[2020-11-02] VITALS (9 sets, daily range): BP systolic 113–164; BP diastolic 64–91; PULSE 59–82; RESP 14–26; TEMP 36.6–37; O2SAT 96–100
--- NOTE | 2020-11-02 04:11 | PC.NURSE ---
Shift Note Frequent safety and comfort rounds continue. Orders and/or nursing care completed as indicated. Patient monitored for response to intervention and treatment(s). Will continue to monitor.
--- NOTE | 2020-11-02 04:12 | PC.NURSE ---
Patient did not have any incontinent episodes throughout shift. Patient used urinal x2 and BSC x1 with assist. Bed alarm is set, however patient has used call light each time.
[2020-11-02 05:22] LABS: Basophils % 0.9 %; Eosinophils # 0.1 10^3/uL (0.0-0.8); Eosinophils % 2.6 %; Hematocrit 30.1 % (42.0-52.0); Hemoglobin 10.2 g/dL (11.7-16.6); Lymphocytes # 1.4 10^3/uL (0.8-4.8); Lymphocytes % 30.6 %; Mean Corpuscular HGB Conc 33.9 g/dL (30.0-36.0); Mean Corpuscular Hemoglobin 35.1 pg (28.0-34.0); Mean Corpuscular Volume 103.4 fl (80-94); Mean Platelet Volume 10.1 fL (7.4-10.4); Monocytes # 0.7 10^3/uL (0.2-0.9); Monocytes % 14.8 %; Neutrophils # 2.32 10^3/uL (1.8-7.7); Neutrophils % 50.2 %; Nucleated Red Blood Cells % 0 %; Platelet Count 149 10^3/cmm (130-400); Red Blood Count 2.91 10^6/uL (4.1-5.3); Red Cell Distribution Width 14.6 % (12.1-15.1); White Blood Count 4.6 10^3/uL (4.0-10.0)
[2020-11-02 05:48] LABS: Anion Gap 11.5 (5-19); Blood Urea Nitrogen 11 mg/dL (8-23); Calcium 8.6 mg/dL (8.5-10.5); Carbon Dioxide 29 mmol/L (22-29); Chloride 102 mmol/L (98-107); Glomerular Filtration Rate 112.8 mL/min (90-130); Glucose 92 mg/dL (65-115); Magnesium 1.9 mg/dL (1.7-2.3); Osmolality Calculated 287 mOsm/kg (285-295); Potassium 3.5 mmol/L (3.5-5.1); Sodium 139 mmol/L (136-145)
--- NOTE | 2020-11-02 08:22 | PM.PN ---
Subjective Subjective: Interval history: Hospital course, labs appreciated. Exam patient lying comfortably in bed. Denies any active complaints. Denies any nausea, vomiting, headache, dizziness, hallucination, headache. States lower limb pain is better now. Medications: Reviewed: Yes Vitals/I&O/Wt Last Vital Signs Temp 98.4 F 11/02/20 07:46 Pulse 59 L 11/02/20 07:46 Resp 14 11/02/20 07:46 BP 136/91 11/02/20 07:46 Pulse Ox 98 11/02/20 07:46 11/01/20 11/02/20 11/02/20 22:59 06:59 14:59 Intake Total 120 / 840 200 / 1040 Output Total 450 / 750 180 / 180 Balance 120 / 540 -250 / 290 -180 / -180 Physical Exam Narrative: EXAM NARRATIVE: General: No acute distress, AO x3 HEENT: PERRLA, pupils bilaterally equal and reactive Chest: Normal vesicular breath sounds, no added sounds, equal good air entry bilaterally CVS: S1-S2 regular, no murmurs, no tachycardia, no gallops, no rubs Abdomen: Soft, nontender, no organomegaly, bowel sounds present Neuro: No focal deficits, no facial deformity, AO x3, power 5/5 in all limbs, decrease sensation in lower limbs bilaterally. Data : 11/02/20 05:10 11/02/20 04:26 Micro: Microbiology 10/27/20 17:30 Blood Culture - Final Blood NO GROWTH AFTER 5 DAYS 10/27/20 17:15 Blood Culture - Final Blood NO GROWTH AFTER 5 DAYS A&P Assessment and plan (1) Atrial fibrillation: Status: Acute (2) Troponin level elevated: Status: Acute (3) Elevated CPK: Status: Acute (4) Seizure: Status: Acute (5) Fever: Status: Acute (6) Weakness: Status: Acute (7) Hypomagnesemia: Status: Acute (8) Lactic acidosis: Status: Acute (9) Hypokalemia: Status: Acute (10) Alcohol use disorder: Status: Acute (11) Thrombocytopenia: Status: Acute Additional A&P Information Atrial fibrillation: Rate controlled. Continue with Cardizem 60 mg twice daily. For now hold off on home dose of metoprolol. Echocardiogram done earlier in the admission shows an EF of 70% with grade 1 diastolic dysfunction, mild . Currently not on antiplatelet because of history of GI bleed. No EGD in the system. Anemia: Chronic. Most likely could be because of alcohol abuse. Patient does have history of positive occult blood. Continue with Protonix 40 mg twice daily. Continue with oral folic acid. Folate level. Vitamin B12 and iron panel recently done 4 months ago within normal limits. Seizures: Most likely secondary to alcohol intoxication. Seizure precautions. CT head negative. Continue with Keppra 500 mg twice daily. Does have history of being on phenytoin in the past. ETOH abuse: Continue with CIWA protocol Ativan. Oral thiamine and folic acid. #Mild Rhabdomyolysis --Improved #HTN --BP on lower end now --continue cardizem --PRN hyralyzine #Fevers - resolved --[place] culture - negative --Chest xray -negative --Levaquin given in ED --Monitor off abx #Peripheral Neuropathy / Gait Ataxia Cardiac diet. Lovenox for DVT prophylaxis Protonix for PUD prophylaxis Discharge planning: Plan to discharge to SNF given severe physical deconditioning. PT evaluation appreciated. Attestations Medical Necessity Statement*: Patient requires further hospitalization for evaluation of ongoing anemia, management of atrial fibrillation with anticoagulation, seizure disorder and history of alcohol abuse while safe discharge planning is sought. Time Spent in Patient Care: Greater than 35 minutes (>than 50% of time spent in counselling and/or direct pt care on unit). Coding Level of Care Code Acute Oil Burner for [facility] Fwd Diagnoses Atrial fibrillation I48.91 Troponin level elevated R77.8 Elevated CPK R74.8 Seizure R56.9 Fever R50.9 Weakness R53.1 Hypomagnesemia E83.42 Lactic acidosis E87.2 Hypokalemia E87.6 Alcohol use disorder Thrombocytopenia D69.6
[2020-11-02] MEDS: dilTIAZem ER (12HR) 60 mg Capsule PO ×2 (09:17→17:35)
[2020-11-02] MEDS: levETIRAcetam 500 mg Tablet PO ×2 (09:18→17:35)
[2020-11-02] MEDS: multivitamin therapeutic Tablet 1 TAB PO (09:18)
[2020-11-02] MEDS: folic acid 1 mg Tablet PO (09:18)
[2020-11-02] MEDS: magnesium oxide 400 mg tablet PO ×2 (09:18→17:36)
[2020-11-02] MEDS: phosphorus 250 mg Tablet PO ×2 (09:18→17:35)
[2020-11-02] MEDS: thiamine 100 mg Tablet PO (09:18)
[2020-11-02] MEDS: potassium chloride ER 10 mEq Tablet PO ×2 (09:18→17:36)
[2020-11-02] MEDS: pantoprazole DR 40 mg Tablet PO ×2 (09:18→17:36)
[2020-11-02] MEDS: lisinopril 10 mg Tablet PO (09:18)
[2020-11-02 09:25] LABS: Iron 60 ug/dL (59-158); Percent Saturation 34.6 % (20-50); Total Iron Binding Capacity 173 mcg/dl; Unsaturated Iron Binding 113 ug/dL (112-347)
[2020-11-02 12:00] LABS: Folate Level 11.5 ng/mL (4.5-32.2)
--- NOTE | 2020-11-02 18:08 | PC.NURSE ---
Shift Note Frequent safety and comfort rounds continue. Orders and/or nursing care completed as indicated. Patient monitored for response to intervention and treatment(s). Education provided includes[medicine regimen, activity level, bed alram and safety measures.]. Patient and/or ambulatory service representative [states understanding]. Will continue to monitor.
--- NOTE | 2020-11-02 19:13 | PM.CONSULT ---
Providers/Reason For Consult Consulting Physician/Specialty*: Chinmay Rincon, DO- General Surgery- [facility] Reason for Consult*: need for colonoscopy and EGD Attending Physician: Yinka Payne MD History of Present Illness History of Present Illness David Paulino is a 65 year old male who presented to the ER on 27 October status post seizure at home. Patient has a long history of alcohol abuse. He was also found to be in A. fib with RVR. It is now well controlled with Cardizem. Patient does have a history of a GI bleed without an EGD or colonoscopy. Patient also has history of anemia which is more likely related to his alcohol abuse however he has had a history of occult blood positive stools. I have been consulted for evaluation for possible EGD and colonoscopy to rule out any source of bleeding prior to initiation of patient on anticoagulation. Patient notes a 70 pound weight loss over the last 2 and half years. He denies blood in his stools however he does have black tarry stools occasionally. He denies a family history of colon cancer or any GI cancers. He has not had any issues with anesthesia in the past. Review of Systems General: Reports: 10 or more systems reviewed and unremarkable except in HPI and below Meds/Allergies Home Medications and Allergies Home Medications Medication Instructions Recorded Confirmed Last Taken Type ferrous sulfate 325 mg PO DAILY 07/06/20 10/27/20 Unknown History lisinopril 20 mg PO DAILY 07/06/20 10/27/20 Unknown History potassium chloride 10 meq PO BID 07/06/20 10/27/20 Unknown History folic acid 1 mg PO DAILY #30 tab 07/10/20 10/27/20 Unknown Rx pantoprazole 40 mg PO BID #60 tab 07/10/20 10/27/20 Unknown Rx metoprolol tartrate 50 mg PO BID 10/27/20 10/27/20 Unknown History Allergies Allergy/AdvReac Type Severity Reaction Status Date / Time No Known Allergies Allergy Unverified 07/06/20 09:18 Current Medications Current Medications Generic Name Dose Route Start Last Admin Trade Name Freq PRN Reason Stop Dose Admin Diltiazem HCl 60 mg 10/28/20 18:00 11/02/20 17:35 Diltiazem Er (12hr) 60 Mg Capsule PO 60 mg BID GERONIMO Administration Enoxaparin Sodium 40 mg 10/27/20 21:05 11/01/20 19:22 Enoxaparin 40 Mg/0.4 Ml Syringe SUBCUT 40 mg Q24H GERONIMO Administration Folic Acid 1 mg 10/28/20 09:00 11/02/20 09:18 Folic Acid 1 Mg Tablet PO 1 mg DAILY GERONIMO Administration Levetiracetam 500 mg 11/01/20 09:00 11/02/20 17:35 Levetiracetam 500 Mg Tablet PO 500 mg BID GERONIMO Administration Lisinopril 10 mg 11/02/20 09:00 11/02/20 09:18 Lisinopril 10 Mg Tablet PO 10 mg DAILY GERONIMO Administration Magnesium Oxide 400 mg 10/28/20 09:00 11/02/20 17:36 Magnesium Oxide 400 Mg Tablet PO 400 mg BID GERONIMO Administration Multivitamins Therapeutic 1 tab 10/28/20 09:00 11/02/20 09:18 Multivitamin Therapeutic Tablet PO 1 tab DAILY GERONIMO Administration Pantoprazole Sodium 40 mg 11/02/20 09:00 11/02/20 17:[address] 40 Mg Tablet PO 40 mg BID GERONIMO Administration Potassium Chloride 10 meq 11/02/20 09:00 11/02/20 17:36 Potassium Chloride Er 10 Meq Tablet PO 10 meq BID GERONIMO Administration Potassium Phosphate 250 mg 10/28/20 18:00 11/02/20 17:35 Phosphorus 250 Mg Tablet PO 250 mg BID GERONIMO Administration Thiamine Mononitrate 100 mg 10/28/20 09:00 11/02/20 09:18 Thiamine 100 Mg Tablet PO 100 mg DAILY GERONIMO Administration PFSH Acute PFSH: Medical History (Updated 10/28/20 @ 14:47 by Usha Morrison MD) Alcohol use disorder Anemia Hypertension Neuropathy Surgical History (Updated 07/06/20 @ 10:40 by Vasu Johnson MD) History of carpal tunnel surgery History of spinal surgery Family History (Updated 07/06/20 @ 10:35 by aVsu Johnson MD) Other CAD (coronary artery disease) Cancer Social History (Updated 07/06/20 @ 10:35 by Vasu Johnson MD) Smoking and tobacco status: never smoked Alcohol intake: former Vitals/I&O/Wt Last Vital Signs Temp 98.6 F 11/02/20 15:56 Pulse 82 11/02/20 15:56 Resp 20 H 11/02/20 15:56 BP 146/83 09/06/21 15:56 Pulse Ox 100 11/02/20 15:56 11/02/20 11/02/20 11/02/20 06:59 14:59 22:59 Intake Total 200 / 1040 350 / 350 240 / 590 Output Total 450 / 750 320 / 320 640 / 960 Balance -250 / 290 30 / 30 -400 / -370 Physical Exam Const: COMMON NORMALS: no acute distress and patient oriented x3 Eye: COMMON NORMALS: conjunctivae normal and no scleral icterus CONJUNCTIVA: Yes conjunctivae normal Chest: COMMONS NORMALS: normal inspection of the chest Resp: COMMON NORMALS: normal respiratory effort Cardio: COMMON NORMALS: regular rate and regular rhythm RATE: regular rate RHYTHM: regular rhythm GI: COMMON NORMALS: Normal to inspection, nondistended, normoactive bowel sounds present RECTAL EXAM: Yes deferred : COMMON NORMALS: Yes no CVA tenderness BLADDER/KIDNEY EXAM: Yes no CVA tenderness Back/Pelvis: COMMON NORMALS: no CVA tenderness Extremity: COMMON NORMALS: normal to inspection Neuro: COMMON NORMALS: patient oriented x3 Psych: COMMON NORMALS: mental status grossly normal and Normal thought process present THOUGHT PROCESS: Normal thought process present Data Micro: Micro: Microbiology 10/27/20 17:30 Blood Culture - Fi nal Blood NO GROWTH AFTER 5 DAYS 10/27/20 17:15 Blood Culture - Fi nal Blood NO GROWTH AFTER 5 DAYS A&P Assessment and plan (1) Anemia: 65year-old male with anemia and atrial fibrillation with need for anticoagulation. Need to rule out possible GI bleed source prior to initiation of therapy. We will plan to do colonoscopy and EGD sometime this week. I am going off service and will handoff to the oncoming doctor tomorrow. Status: Acute Coding Level of Care Code Acute Embedded Software Design Engineer for [facility] Fwd Diagnoses Anemia D64.9
[2020-11-02] MEDS: enoxaparin 40 mg/0.4 mL Syringe SUBCUT (19:27)
--- NOTE | 2020-11-02 23:31 | PC.NURSE ---
Patient has skin tear x2 to right forearm and skin tear x1 to left forearm. Old optifoams removed and new applied.
[2020-11-03] VITALS (11 sets, daily range): BP systolic 89–147; BP diastolic 47–86; PULSE 55–89; RESP 14–24; TEMP 36.1–36.8; O2SAT 95–100
--- NOTE | 2020-11-03 00:51 | PC.NURSE ---
Patient c/o urinary frequency and still feeling the need to go after voiding. Patient voids 100-200 mL at a time, typically. Bladder scan showed 70 mL after voided. Will continue to monitor.
[2020-11-03 04:52] LABS: Basophils % 0.4 %; Eosinophils # 0.1 10^3/uL (0.0-0.8); Eosinophils % 2.2 %; Hemoglobin 10.1 g/dL (11.7-16.6); Lymphocytes # 1.2 10^3/uL (0.8-4.8); Mean Corpuscular HGB Conc 33.7 g/dL (30.0-36.0); Mean Corpuscular Hemoglobin 35.9 pg (28.0-34.0); Mean Corpuscular Volume 106.8 fl (80-94); Mean Platelet Volume 10.5 fL (7.4-10.4); Monocytes # 0.7 10^3/uL (0.2-0.9); Monocytes % 15.3 %; Neutrophils # 2.46 10^3/uL (1.8-7.7); Neutrophils % 54.4 %; Nucleated Red Blood Cells % 0 %; Platelet Count 163 10^3/cmm (130-400); Red Blood Count 2.81 10^6/uL (4.1-5.3); Red Cell Distribution Width 14.6 % (12.1-15.1); White Blood Count 4.5 10^3/uL (4.0-10.0)
[2020-11-03 05:11] LABS: Alanine Aminotransferase 19 U/L (0-41); Alkaline Phosphatase 82 IU/L (40-130); Anion Gap 10.5 (5-19); Aspartate Amino Transferase 22 U/L (0-40); Blood Urea Nitrogen 10 mg/dL (8-23); Calcium 8.5 mg/dL (8.5-10.5); Carbon Dioxide 28 mmol/L (22-29); Chloride 102 mmol/L (98-107); Globulin 2.5 g/dL (1.3-4.6); Glomerular Filtration Rate 96.7 mL/min (90-130); Glucose 105 mg/dL (65-115); Osmolality Calculated 283 mOsm/kg (285-295); Potassium 3.5 mmol/L (3.5-5.1); Sodium 137 mmol/L (136-145); Total Bilirubin 0.6 mg/dL (0.15-1.2); Total Protein 5.5 g/dL (6.6-8.7)
[2020-11-03] MEDS: multivitamin therapeutic Tablet 1 TAB PO (08:18)
[2020-11-03] MEDS: pantoprazole DR 40 mg Tablet PO ×2 (08:18→17:39)
[2020-11-03] MEDS: thiamine 100 mg Tablet PO (08:19)
[2020-11-03] MEDS: folic acid 1 mg Tablet PO (08:19)
[2020-11-03] MEDS: lisinopril 10 mg Tablet PO (08:19)
[2020-11-03] MEDS: potassium chloride ER 10 mEq Tablet PO ×2 (08:20→17:39)
[2020-11-03] MEDS: dilTIAZem ER (12HR) 60 mg Capsule PO ×2 (08:20→17:39)
[2020-11-03] MEDS: levETIRAcetam 500 mg Tablet PO ×2 (08:22→17:38)
[2020-11-03] MEDS: magnesium oxide 400 mg tablet PO ×2 (08:22→17:39)
[2020-11-03] MEDS: phosphorus 250 mg Tablet PO ×2 (08:22→17:39)
--- NOTE | 2020-11-03 09:55 | PC.SOCIAL ---
IMM update: pg 2 of IMM updated and reviewed w/ patient. Copy provided.
--- NOTE | 2020-11-03 13:01 | PM.PN ---
Subjective Subjective: Interval history: No acute events overnight. Denies any new symptoms. On room air, hemodynamically stable. Working with PT Medications: Reviewed: Yes Vitals/I&O/Wt Last Vital Signs Temp 97.9 F 11/03/20 03:45 Pulse 66 11/03/20 08:00 Resp 18 11/03/20 08:00 BP 122/73 11/03/20 08:00 Pulse Ox 95 11/03/20 08:00 11/02/20 11/03/20 11/03/20 22:59 06:59 14:59 Intake Total 240 / 590 200 / 790 360 / 360 Output Total 940 / 1260 450 / 1710 140 / 140 Balance -700 / -670 -250 / -920 220 / 220 Physical Exam Narrative: EXAM NARRATIVE: General: No acute distress, AO x3 HEENT: PERRLA, pupils bilaterally equal and reactive Chest: Normal vesicular breath sounds, no added sounds, equal good air entry bilaterally CVS: S1-S2 regular, no murmurs, no tachycardia, no gallops, no rubs Abdomen: Soft, nontender, no organomegaly, bowel sounds present Neuro: No focal deficits, no facial deformity, AO x3, power 5/5 in all limbs, decrease sensation in lower limbs bilaterally. Data : 11/03/20 04:10 11/03/20 04:10 A&P Assessment and plan (1) Atrial fibrillation: Status: Acute (2) Troponin level elevated: Status: Acute (3) Elevated CPK: Status: Acute (4) Seizure: Status: Acute (5) Fever: Status: Acute (6) Weakness: Status: Acute (7) Hypomagnesemia: Status: Acute (8) Lactic acidosis: Status: Acute (9) Hypokalemia: Status: Acute (10) Alcohol use disorder: Status: Acute (11) Thrombocytopenia: Status: Acute Additional A&P Information Atrial fibrillation: Rate controlled. Continue with Cardizem 60 mg twice daily. For now hold off on home dose of metoprolol. Echocardiogram done earlier in the admission shows an EF of 70% with grade 1 diastolic dysfunction, mild . Currently not on AC because of history of GI bleed. No EGD in the system. Anemia: Chronic. Most likely could be because of alcohol abuse. Patient does have history of positive occult blood. Continue with Protonix 40 mg twice daily. Continue with oral folic acid. Folate level. Vitamin B12 and iron panel recently done 4 months ago within normal limits. Surgery consulted. Plan for EGD/colonoscopy. Started on colon prep. Seizures: Most likely secondary to alcohol intoxication. Seizure precautions. CT head negative. Continue with Keppra 500 mg twice daily. Does have history of being on phenytoin in the past. ETOH abuse: Continue with CIWA protocol Ativan. Oral thiamine and folic acid. Mild Rhabdomyolysis --Improved #HTN --BP on lower end now --continue cardizem --PRN hyralyzine #Fevers - resolved --[place] culture - negative --Chest xray -negative --Levaquin given in ED --Monitor off abx #Peripheral Neuropathy / Gait Ataxia Cardiac diet. Lovenox for DVT prophylaxis Protonix for PUD prophylaxis Discharge planning: Plan to discharge to SNF given severe physical deconditioning. PT evaluation appreciated. Attestations Medical Necessity Statement*: Requires further hospitalization for management of afib, chronic anemia due to GI bleed, physical de conditioning while safe dc planing is sought. Time Spent in Patient Care: Greater than 35 minutes (>than 50% of time spent in counselling and/or direct pt care on unit). Coding Level of Care Code Acute Traffic Personnel Supervisor for [facility] Fwd Diagnoses Atrial fibrillation I48.91 Troponin level elevated R77.8 Elevated CPK R74.8 Seizure R56.9 Fever R50.9 Weakness R53.1 Hypomagnesemia E83.42 Lactic acidosis E87.2 Hypokalemia E87.6 Alcohol use disorder Thrombocytopenia D69.6
[2020-11-03] MEDS: peg /e-lyte soln 4,000 mL Btl 1500 ML PO (13:12)
--- NOTE | 2020-11-03 17:01 | PM.CONSULT ---
Providers/Reason For Consult Consulting Physician/Specialty*: General Surgery Aquilino Dempsey MD Reason for Consult*: Anemia, in need of chronic anticoagulation. Attending Physician: Yinka Payne MD History of Present Illness History of Present Illness David Paulino is a 65 year old male admitted recently following some type of a seizure episode at home. He was found to be in atrial fibrillation with RVR. His heart rate is now well controlled. He has a history of anemia and was apparently scheduled to follow-up for endoscopy as an outpatient, but lives a good distance away from [place] and never did do this. He denies any evidence of hematochezia. He says his stool turned dark in color but only after he was started on iron tablets for his anemia. He has had a significant weight loss of 70 pounds over the last 2 to 3 years. He denies any history of peptic ulcer disease, but does mention a history of GERD which does not really bother me much anymore. I see that he has Protonix listed on his home medications, however. He denies any family history of upper or lower GI neoplasia. He has never had upper or lower endoscopy in the past. The patient was seen in consultation by Dr. Rincon yesterday, who had the intention of turning the patient over to someone this week for endoscopy. Dr. Augustine called me this morning and asked if I would be involved. Review of Systems General: Reports: 10 or more systems reviewed and unremarkable except in HPI and below Const: Denies: fever(s) GI: Reports: melena ( Only after I started taking iron ); Denies: abdominal pain, vomiting or change in bowel habits Meds/Allergies Home Medications and Allergies Home Medications Medication Instructions Recorded Confirmed Last Taken Type ferrous sulfate 325 mg PO DAILY 07/06/20 10/27/20 Unknown History lisinopril 20 mg PO DAILY 07/06/20 10/27/20 Unknown History potassium chloride 10 meq PO BID 07/06/20 10/27/20 Unknown History folic acid 1 mg PO DAILY #30 tab 07/10/20 10/27/20 Unknown Rx pantoprazole 40 mg PO BID #60 tab 07/10/20 10/27/20 Unknown Rx metoprolol tartrate 50 mg PO BID 10/27/20 10/27/20 Unknown History Allergies Allergy/AdvReac Type Severity Reaction Status Date / Time No Known Allergies Allergy Unverified 07/06/20 09:18 Current Medications Current Medications Generic Name Dose Route Start Last Admin Trade Name Billq PRN Reason Stop Dose Admin Diltiazem HCl 60 mg 10/28/20 18:00 11/03/20 08:20 Diltiazem Er (12hr) 60 Mg Capsule PO 60 mg BID GERONIMO Administration Enoxaparin Sodium 40 mg 10/27/20 21:05 11/02/20 19:27 Enoxaparin 40 Mg/0.4 Ml Syringe SUBCUT 40 mg Q24H GERONIMO Administration Folic Acid 1 mg 10/28/20 09:00 11/03/20 08:19 Folic Acid 1 Mg Tablet PO 1 mg DAILY GERONIMO Administration Levetiracetam 500 mg 11/01/20 09:00 11/03/20 08:22 Levetiracetam 500 Mg Tablet PO 500 mg BID GERONIMO Administration Lisinopril 10 mg 11/02/20 09:00 11/03/20 08:19 Lisinopril 10 Mg Tablet PO 10 mg DAILY GERONIMO Administration Magnesium Oxide 400 mg 10/28/20 09:00 11/03/20 08:22 Magnesium Oxide 400 Mg Tablet PO 400 mg BID GERONIMO Administration Multivitamins Therapeutic 1 tab 10/28/20 09:00 11/03/20 08:18 Multivitamin Therapeutic Tablet PO 1 tab DAILY GERONIMO Administration Pantoprazole Sodium 40 mg 11/02/20 09:00 11/03/20 08:[address] 40 Mg Tablet PO 40 mg BID GERONIMO Administration Potassium Chloride 10 meq 11/02/20 09:00 11/03/20 08:20 Potassium Chloride Er 10 Meq Tablet PO 10 meq BID GERONIMO Administration Potassium Phosphate 250 mg 10/28/20 18:00 11/03/20 08:22 Phosphorus 250 Mg Tablet PO 250 mg BID GERONIMO Administration Thiamine Mononitrate 100 mg 10/28/20 09:00 11/03/20 08:19 Thiamine 100 Mg Tablet PO 100 mg DAILY GERONIMO Administration PFSH Acute PFSH: Medical History (Updated 11/03/20 @ 17:10 by Aquilino Dempsey MD) Alcohol use disorder Anemia Atrial fibrillation GERD (gastroesophageal reflux disease) Hypertension Neuropathy Happened after my back surgery Surgical History (Updated 11/03/20 @ 17:05 by Aquilino Dempsey MD) History of carpal tunnel surgery Bilateral History of spinal surgery x 2 Hx of cataract surgery Bilateral Family History Other CAD (coronary artery disease) Cancer Social History (Updated 11/03/20 @ 17:06 by Aquilino Dempsey MD) Smoking and tobacco status: never smoked Alcohol intake: former Year of sobriety/quit date alcohol: 2020 Former alcohol use details: Has drank wine for years, quit between 1990 - 1996, quit 2020 Vitals/I&O/Wt Last Vital Signs Temp 98.1 F 11/03/20 12:00 Pulse 65 11/03/20 14:00 Resp 15 11/03/20 12:00 BP 123/79 11/03/20 12:00 Pulse Ox 97 11/03/20 12:00 11/03/20 11/03/20 11/03/20 06:59 14:59 22:59 Intake Total 200 / 790 360 / 360 Output Total 450 / 1710 140 / 140 Balance -250 / -920 220 / 220 Physical Exam Narrative: EXAM NARRATIVE: The patient was encountered in his hospital room. He does not appear to be in any distress. He is started his GoLYTELY prep and says he has had a couple bowel movement so far. His pupils are equal. No carotid bruits are heard. The lungs are clear anteriorly. The heart seems regular. The abdomen reveals bowel sounds and is soft. He is mildly obese but has no obvious masses or areas of tenderness. The extremities reveal no edema. Neurologically the patient appears to be grossly intact. A&P Assessment and plan (1) Anemia: This is a patient with a history of anemia and now with atrial fibrillation and recent RVR. The patient is in need of chronic anticoagulation and an upper and lower endoscopy have been requested. The patient has already started his GoLYTELY prep. I discussed the procedures with him in some detail this afternoon including the rare risks of bleeding, perforation, possible need for surgical intervention, etc. The patient seems to understand and is agreeable to proceeding. I see that the patient is on Lovenox, and is due to get this around 9 PM this tonight. His procedures probably will not occur until early afternoon tomorrow by all indications from the GI lab the day, so I am going to leave him on his scheduled Lovenox. He is on a clear liquid diet and will be kept on this until midnight, at which time we will make him n.p.o., just in case we are able to do his procedures a little earlier tomorrow. Status: Acute Consult Attestations Medical Necessity Statement: See admitting service's notation. Coding Level of Care Code Acute Diamond Selector for [facility] Daily Diagnoses Anemia D64.9
--- NOTE | 2020-11-03 18:31 | PC.NURSE ---
Shift Note Frequent safety and comfort rounds continue. Orders and/or nursing care completed as indicated. Patient monitored for response to intervention and treatment(s). Education provided includes[colonoscopy, go-lytely, ]. Patient and/or customer loyalty representative [states understanding]. Will continue to monitor.
--- NOTE | 2020-11-03 19:53 | PC.NURSE ---
Received report from SREE Christine. Patient resting in bed watching tv. Patient denies pain at this time. Discussed plan for EGD/colonoscopy scheduled for 11/04/20. Patient has Golytely at bedside. Refilled patient's cup per his request. Patient acknowledge need to have 1/2 of his Golytely done overnight and completing second have tomorrow before procedure. Patient verbalized complete understanding. Ice refilled per patient request. Denies other needs presently. No distress observed. Will continue to monitor.
[2020-11-03] MEDS: enoxaparin 40 mg/0.4 mL Syringe SUBCUT (22:04)
[2020-11-04 03:27] VITALS: BP 123/64; PULSE 63; RESP 17; TEMP 36.8; O2SAT 98
[2020-11-04 06:00] VITALS: PULSE 64
--- NOTE | 2020-11-04 06:16 | PC.NURSE ---
Shift Note Frequent safety and comfort rounds continue. Orders and/or nursing care completed as indicated. Patient monitored for response to intervention and treatment(s). Education provided includes Golytely. Patient verbalized understanding. Patient is currently working on . Tolerating fair. Patient denies pain or needs presently. No distress observed. Will continue to monitor.
--- NOTE | 2020-11-04 08:25 | P.PN_ITS ---
Subjective Subjective: Interval history: The patient says he got a little over half of his GoLYTELY down yesterday. His bowel movements have been very watery and have very little color to them. Vitals/I&O/Wt Last Vital Signs Temp 98.3 F 11/04/20 03:27 Pulse 64 11/04/20 06:00 Resp 17 11/04/20 03:27 BP 123/64 11/04/20 03:27 Pulse Ox 98 11/04/20 03:27 11/03/20 11/04/20 11/04/20 22:59 06:59 14:59 Intake Total 680 / 1040 Output Total 592 / 952 Balance 88 / 88 Physical Exam Narrative: EXAM NARRATIVE: Abdomen remains soft. Data : 11/03/20 04:10 11/03/20 04:10 A&P Assessment and plan (1) Anemia: Scheduled for EGD and colonoscopy later today. I have instructed the patient to remain n.p.o. until after his procedures. Status: Acute Attestations Medical Necessity Statement*: See admitting service's notation. Coding Level of Care Code Acute Research Instructor for [facility] Daily Diagnoses Anemia D64.9
[2020-11-04] MEDS: multivitamin therapeutic Tablet 1 TAB PO (09:48)
[2020-11-04] MEDS: potassium chloride ER 10 mEq Tablet PO ×2 (09:48→17:33)
[2020-11-04] MEDS: folic acid 1 mg Tablet PO (09:48)
[2020-11-04] MEDS: lisinopril 10 mg Tablet PO (09:48)
[2020-11-04] MEDS: levETIRAcetam 500 mg Tablet PO ×2 (09:48→17:33)
[2020-11-04] MEDS: pantoprazole DR 40 mg Tablet PO ×2 (09:48→17:33)
[2020-11-04] MEDS: magnesium oxide 400 mg tablet PO ×2 (09:48→17:33)
[2020-11-04] MEDS: phosphorus 250 mg Tablet PO ×2 (09:48→17:33)
[2020-11-04] MEDS: thiamine 100 mg Tablet PO (09:48)
[2020-11-04] MEDS: dilTIAZem ER (12HR) 60 mg Capsule PO ×2 (09:49→17:33)
--- NOTE | 2020-11-04 13:00 | P.ANESASSM_ITS ---
Pre-Anesthetic Assessment Pre-Anesthetic Assessment: Height/Weight: Height 1.78 m Weight 84.368 kg Temp Pulse Resp BP Pulse Ox 98.3 F 64 17 123/64 98 11/04/20 03:27 11/04/20 06:00 11/04/20 03:27 11/04/20 03:27 11/04/20 03:27 Preop Diagnosis: anemia Proposed Procedure: Operation Date: 11/04/20 14:00 Proposed Procedures p EGD(Not Applicable) - Aquilino Dempsey MD s Colonoscopy(Not Applicable) - Aquilino Dempsey MD Familial anesthetic complications: None Was Beta Sharon taken within 24 hours: N/A Was Clonidine taken within 24 hours: N/A Last intake: > 8 hrs Social: Social History: No alcohol and No tobacco Comment: former ETOH - quit 2020 Exam: Pre-Anes Outpt Exam: alert, oriented x 3, clear to auscultation bila terally and regular rate & rhythm Airway: MP: 3 Dentition: Chipped and Loose CV/HEM: CV/HEM: Afib, Anemia and HTN GI: GI: GERD and PUD Anesthetic Plan: ASA status: 3 Anesthesia: MAC Risk of > 500 ml blood loss (7ml/kg in children): No Meds/Allergies Current Medications: Current Medications Generic Name Dose Route Start Last Admin Trade Name Billq PRN Reason Stop Dose Admin Diltiazem HCl 60 mg 10/28/20 18:00 11/04/20 09:49 Diltiazem Er (12 hr) 60 Mg Capsule PO 60 mg BID GERONIMO Administration Enoxaparin Sodium 40 mg 10/27/20 21:05 11/03/20 22:04 Enoxaparin 40 Mg /0.4 Ml Syringe SUBCUT 40 mg Q24H GERONIMO Administration Folic Acid 1 mg 10/28/20 09:00 11/04/20 09:48 Folic Acid 1 Mg Tablet PO 1 mg DAILY GERONIMO Administration Levetiracetam 500 mg 11/01/20 09:00 11/04/20 09:48 Levetiracetam 50 0 Mg Tablet PO 500 mg BID GERONIMO Administration Lisinopril 10 mg 11/02/20 09:00 11/04/20 09:48 Lisinopril 10 Mg Tablet PO 10 mg DAILY GERONIMO Administration Magnesium Oxide 400 mg 10/28/20 09:00 11/04/20 09:48 Magnesium Oxide 400 Mg Tablet PO 400 mg BID GERONIMO Administration Multivitamins Ther apeutic 1 tab 10/28/20 09:00 11/04/20 09:48 Multivitamin The rapeutic Tablet PO 1 tab DAILY GERONIMO Administration Pantoprazole Sodiu m 40 mg 11/02/20 09:00 11/04/20 09:[address] 40 Mg Tablet PO 40 mg BID GERONIMO Administration Potassium Chloride 10 meq 11/02/20 09:00 11/04/20 09:48 Potassium Chlori de Er 10 Meq Table t PO 10 meq BID GERONIMO Administration Potassium Phosphat e 250 mg 10/28/20 18:00 11/04/20 09:48 Phosphorus 250 M g Tablet PO 250 mg BID GERONIMO Administration Thiamine Mononitra te 100 mg 10/28/20 09:00 11/04/20 09:48 Thiamine 100 Mg Tablet PO 100 mg DAILY GERONIMO Administration PFSH Anesthesia PFSH: Medical History (Updated 11/03/20 @ 17:10 by Aquilino Dempsey MD) Alcohol use disorder Anemia Atrial fibrillation GERD (gastroesophageal reflux disease) Hypertension Neuropathy Happened after my back surgery Surgical History (Updated 11/03/20 @ 17:05 by Aquilino Dempsey MD) History of carpal tunnel surgery Bilateral History of spinal surgery x 2 Hx of cataract surgery Bilateral Family History Other CAD (coronary artery disease) Cancer Social History (Updated 11/03/20 @ 17:06 by Aquilino Dempsey MD) Smoking and tobacco status: never smoked Alcohol intake: former Year of sobriety/quit date alcohol: 2020 Former alcohol use details: Has drank wine for years, quit between 1990 - 1996, quit 2020 Data Anesthesia CBC & Chem 7: 11/03/20 04:10 11/03/20 04:10 Other Labs: Laboratory Results - last 48 hr 11/03/20 11/03/20 04:10 04:10 WBC 4.5 RBC 2.81 L Hgb 10.1 L Hct 30.0 L MCV 106.8 H MCH 35.9 H MCHC 33.7 RDW 14.6 Plt Count 163 MPV 10.5 H Neut % (Auto) 54.4 Lymph % (Auto) 27.0 [place] % (Auto) 15.3 Eos % (Auto) 2.2 Baso % (Auto) 0.4 Neut # (Auto) 2.46 Lymph # (Auto) 1.2 [place] # (Auto) 0.7 Eos # (Auto) 0.1 Baso # (Auto) 0.0 Nucleated RBC % (auto) 0 Nucleated RBCs # 0.0 Sodium 137 Potassium 3.5 Chloride 102 Carbon Dioxide 28 Anion Gap 10.5 BUN 10 Creatinine 0.8 GFR Calculation 96.7 Glucose 105 Calculated Osmolality 283 L Calcium 8.5 Total Bilirubin 0.6 AST 22 ALT 19 Alkaline Phosphatase 82 Total Protein 5.5 L Albumin 3.0 L Globulin 2.5 Cardiac Studies: Echocardiogram 10/28/20
[2020-11-04 13:42] VITALS: BP 135/70; PULSE 18; RESP 18; TEMP 36.8; O2SAT 100
[2020-11-04] MEDS: sodium chloride 0.9% 1,000 ML 30 ML IV (14:02)
--- NOTE | 2020-11-04 14:04 | P.PN_ITS ---
Subjective Subjective: Interval history: No acute events overnight. Patient has remained hemodynamically stable and afebrile. Continue taking GoLYTELY and has had multiple watery clear bowel movements. Plan for EGD and colonoscopy later in the day today. Medications: Reviewed: Yes Vitals/I&O/Wt Last Vital Signs Temp 98.3 F 11/04/20 13:42 Pulse 18 L 11/04/20 13:42 Resp 18 11/04/20 13:42 BP 135/70 11/04/20 13:42 Pulse Ox 100 11/04/20 13:42 11/03/20 11/04/20 11/04/20 22:59 06:59 14:59 Intake Total 680 / 1040 Output Total 592 / 952 Balance 88 / 88 Physical Exam Narrative: EXAM NARRATIVE: General: No acute distress, AO x3 HEENT: PERRLA, pupils bilaterally equal and reactive Chest: Normal vesicular breath sounds, no added sounds, equal good air entry bilaterally CVS: S1-S2 regular, no murmurs, no tachycardia, no gallops, no rubs Abdomen: Soft, nontender, no organomegaly, bowel sounds present Neuro: No focal deficits, no facial deformity, AO x3, power 5/5 in all limbs, decrease sensation in lower limbs bilaterally. Data : 11/03/20 04:10 11/03/20 04:10 A&P Assessment and plan (1) Atrial fibrillation: Status: Acute (2) Seizure: Status: Acute (3) Weakness: Status: Acute (4) Anemia: Status: Acute (5) Thrombocytopenia: Status: Acute (6) Alcohol use disorder: Status: Acute (7) Hypokalemia: Status: Inactive (8) Lactic acidosis: Status: Acute (9) Hypomagnesemia: Status: Inactive Additional A&P Information Atrial fibrillation: Rate controlled. Continue with Cardizem 60 mg twice daily. For now hold off on home dose of metoprolol. Echocardiogram done earlier in the admission shows an EF of 70% with grade 1 diastolic dysfunction, mild . Currently not on AC because of history of GI bleed. EGD and colonoscopy today. Will plan for anticoagulation as per the results. Anemia: Chronic. Most likely could be because of alcohol abuse. Patient does have history of positive occult blood. Continue with Protonix 40 mg twice daily. Continue with oral folic acid. Folate level. Vitamin B12 and iron panel recently done 4 months ago within normal limits. Surgery consulted. EGD and colonoscopy today. Seizures: Most likely secondary to alcohol intoxication. Seizure precautions. CT head negative. Continue with Keppra 500 mg twice daily. Does have history of being on phenytoin in the past. ETOH abuse: Continue with [facility] protocol Ativan. Oral thiamine and folic acid. Mild Rhabdomyolysis --Improved #HTN --BP on lower end now --continue cardizem --PRN hyralyzine #Fevers - resolved --[place] culture - negative --Chest xray -negative --Levaquin given in ED --Monitor off abx #Peripheral Neuropathy / Gait Ataxia Cardiac diet. Lovenox for DVT prophylaxis Protonix for PUD prophylaxis Discharge planning: Patient has been accepted at [facility]. Awaiting authorization. PT evaluation appreciated. Attestations Medical Necessity Statement*: Requires further hospitalization for management of atrial fibrillation, chronic anemia, possible GI bleed while EGD and c olonoscopy is planned for initiation of anticoagulation and safe discharge planning is sought. Time Spent in Patient Care: Greater than 35 minutes (>than 50% of time spent in counselling and/or direct pt care on unit) . Coding Level of Care Code Acute Aircraft Maintenance Manager for [facility] Fwd Diagnoses Atrial fibrillation I48.91 Seizure R56.9 Weakness R53.1 Anemia D64.9 Thrombocytopenia D69.6 Alcohol use disorder Hypokalemia E87.6 Lactic acidosis E87.2 Hypomagnesemia E83.42
--- NOTE | 2020-11-04 15:02 | ANE.PACU2 ---
Inpatient post-anesthesia follow up: Airway intact: Yes Vital signs: Temperature 98.3 F Pulse Rate [Left R adial] 125 Pulse Rate 18 Respiratory Rate 18 Blood Pressure [Ri ght Arm] 192/119 Blood Pressure 135/70 Pulse Oximetry 100 Oxygen Delivery Me thod [ Room Air Current Rate & Del maricruz] Oxygen Delivery Me thod Room Air Oxygen Flow Rate 4 Fraction of Inspir ed Oxygen Hydration adequate: Yes Nausea and vomiting: No Pain level: 2 Mental status: Baseline
[2020-11-04 19:11] VITALS: BP 118/74; PULSE 71; RESP 17; TEMP 36.8; O2SAT 98
--- NOTE | 2020-11-04 19:53 | PC.NURSE ---
Shift Note Frequent safety and comfort rounds continue. Orders and/or nursing care completed as indicated. Patient monitored for response to intervention and treatment(s). Education provided includes procedures and Plans for Discharge . Patient and/or labor union business representative verbalized understanding. Will continue to monitor.
[2020-11-04] MEDS: enoxaparin 40 mg/0.4 mL Syringe SUBCUT (20:40)
[2020-11-04 22:52] VITALS: PULSE 71
[2020-11-04 23:38] VITALS: BP 92/50; PULSE 64; RESP 22; TEMP 36.8; O2SAT 98
[2020-11-05] VITALS (9 sets, daily range): BP systolic 93–144; BP diastolic 51–82; PULSE 57–67; RESP 19–26; TEMP 36.6–37.1; O2SAT 97–100
[2020-11-05 04:53] LABS: Basophils # 0.1 10^3/uL (0.0-0.1); Basophils % 0.9 %; Eosinophils # 0.1 10^3/uL (0.0-0.8); Eosinophils % 2.1 %; Hematocrit 32.1 % (42.0-52.0); Hemoglobin 10.5 g/dL (11.7-16.6); Lymphocytes # 1.3 10^3/uL (0.8-4.8); Lymphocytes % 24.5 %; Mean Corpuscular HGB Conc 32.7 g/dL (30.0-36.0); Mean Corpuscular Hemoglobin 34.7 pg (28.0-34.0); Mean Corpuscular Volume 105.9 fl (80-94); Mean Platelet Volume 10.3 fL (7.4-10.4); Monocytes # 0.6 10^3/uL (0.2-0.9); Monocytes % 11.9 %; Neutrophils # 3.18 10^3/uL (1.8-7.7); Nucleated Red Blood Cells % 0 %; Platelet Count 247 10^3/cmm (130-400); Red Blood Count 3.03 10^6/uL (4.1-5.3); Red Cell Distribution Width 14.3 % (12.1-15.1); White Blood Count 5.3 10^3/uL (4.0-10.0)
[2020-11-05 05:34] LABS: Alanine Aminotransferase 17 U/L (0-41); Albumin Level 3.3 g/dL (3.5-5.2); Alkaline Phosphatase 74 IU/L (40-130); Anion Gap 10.4 (5-19); Aspartate Amino Transferase 17 U/L (0-40); Blood Urea Nitrogen 7 mg/dL (8-23); Calcium 8.8 mg/dL (8.5-10.5); Carbon Dioxide 29 mmol/L (22-29); Chloride 104 mmol/L (98-107); Globulin 2.4 g/dL (1.3-4.6); Glomerular Filtration Rate 84.4 mL/min (90-130); Glucose 98 mg/dL (65-115); Osmolality Calculated 286 mOsm/kg (285-295); Potassium 4.4 mmol/L (3.5-5.1); Sodium 139 mmol/L (136-145); Total Bilirubin 0.5 mg/dL (0.15-1.2); Total Protein 5.7 g/dL (6.6-8.7)
--- NOTE | 2020-11-05 06:03 | PC.NURSE ---
Shift Note Frequent safety and comfort rounds continue. Orders and/or nursing care completed as indicated. Patient monitored for response to intervention and treatment(s). Education provided includes Lovenox. Patient verbalized complete understanding. Discussed possible discharge to SNF for rehab. Patient a little concerned regarding having to be quarantined for 2 weeks when he gets to SNF. He reports that is 2weeks wasted that I have to lie around again without any rehab. Will continue to monitor.
[2020-11-05] MEDS: multivitamin therapeutic Tablet 1 TAB PO (08:23)
[2020-11-05] MEDS: pantoprazole DR 40 mg Tablet PO ×2 (08:24→17:37)
[2020-11-05] MEDS: levETIRAcetam 500 mg Tablet PO ×2 (08:24→17:37)
[2020-11-05] MEDS: lisinopril 10 mg Tablet PO (08:24)
[2020-11-05] MEDS: phosphorus 250 mg Tablet PO ×2 (08:24→17:37)
[2020-11-05] MEDS: dilTIAZem ER (12HR) 60 mg Capsule PO ×2 (08:24→17:37)
[2020-11-05] MEDS: potassium chloride ER 10 mEq Tablet PO ×2 (08:24→17:37)
[2020-11-05] MEDS: thiamine 100 mg Tablet PO (08:24)
[2020-11-05] MEDS: folic acid 1 mg Tablet PO (08:24)
[2020-11-05] MEDS: magnesium oxide 400 mg tablet PO ×2 (08:24→17:37)
--- NOTE | 2020-11-05 11:25 | PC.SOCIAL ---
IMM Updated Updated pt on IMM. No questions voiced. Provided pt a copy. Initialed, dated, & timed copy in chart.
--- NOTE | 2020-11-05 13:04 | PM.PN ---
Subjective Subjective: Interval history: no acute events overnight. Tolerated EGD/colonoscopy well yesterday. Status Quo. Hemodynamically stable. Asking if he is not accepted at SNF if he can go home as he would like to that and he thinks he can do the same. Agrees to start on AC. Medications: Reviewed: Yes Vitals/I&O/Wt Last Vital Signs Temp 98.2 F 11/05/20 08:00 Pulse 58 L 11/05/20 08:00 Resp 19 H 11/05/20 08:00 BP 117/67 11/05/20 08:00 Pulse Ox 100 11/05/20 08:00 11/04/20 11/05/20 11/05/20 22:59 06:59 14:59 Intake Total 480 / 680 150 / 830 Output Total 275 / 1075 450 / 1525 200 / 200 Balance 205 / -395 -300 / -695 -200 / -200 Physical Exam Narrative: EXAM NARRATIVE: General: No acute distress, AO x3 HEENT: PERRLA, pupils bilaterally equal and reactive Chest: Normal vesicular breath sounds, no added sounds, equal good air entry bilaterally CVS: S1-S2 regular, no murmurs, no tachycardia, no gallops, no rubs Abdomen: Soft, nontender, no organomegaly, bowel sounds present Neuro: No focal deficits, no facial deformity, AO x3, power 5/5 in all limbs, decrease sensation in lower limbs bilaterally. Data : 11/05/20 04:25 11/05/20 04:25 A&P Assessment and plan (1) Atrial fibrillation: Status: Acute (2) Seizure: Status: Acute (3) Weakness: Status: Acute (4) Anemia: Status: Acute (5) Thrombocytopenia: Status: Acute (6) Alcohol use disorder: Status: Acute (7) Hypokalemia: Status: Inactive (8) Lactic acidosis: Status: Acute (9) Hypomagnesemia: Status: Inactive Additional A&P Information Atrial fibrillation: Rate controlled. Continue with Cardizem 60 mg twice daily. For now hold off on home dose of metoprolol. Echocardiogram done earlier in the admission shows an EF of 70% with grade 1 diastolic dysfunction, mild . Currently not on AC because of history of GI bleed. EGD and colonoscopy negative for any source of bleeding. Start on Xarelto 20 mg PO QD. Anemia: Chronic. Most likely could be because of alcohol abuse. Hb stable. Appreciate EGD, colonoscopy. Continue with Protonix 40 mg twice daily. Continue with oral folic acid. Seizures: Most likely secondary to alcohol intoxication. Seizure precautions. CT head negative. Continue with Keppra 500 mg twice daily. Does have history of being on phenytoin in the past. ETOH abuse: Continue with [facility] protocol Ativan. Oral thiamine and folic acid. HTN: Goal BP less than 140/90 mmhg. C/w home dose of lisinopril Peripheral Neuropathy / Gait Ataxia Cardiac diet. Lovenox for DVT prophylaxis Protonix for PUD prophylaxis Discharge planning: Patient has been accepted at [facility]. Awaiting authorization. Patient ambulating in room independently. PT evaluation appreciated. Attestations Medical Necessity Statement*: requires further hospitalization for safe discharge planning. Time Spent in Patient Care: Greater than 35 minutes (>than 50% of time spent in counselling and/or direct pt care on unit). 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
[2020-11-05 13:33] LABS: H. Pylori / CLO Test Negative
[2020-11-05] MEDS: rivaroxaban 10 mg Tablet 20 MG PO (13:38)
[2020-11-06] VITALS (8 sets, daily range): BP systolic 114–140; BP diastolic 58–94; PULSE 58–85; RESP 3–21; TEMP 36.5–36.8; O2SAT 94–100
[2020-11-06 05:00] LABS: Basophils # 0.1 10^3/uL (0.0-0.1); Basophils % 0.9 %; Eosinophils # 0.1 10^3/uL (0.0-0.8); Eosinophils % 2.4 %; Hematocrit 31.8 % (42.0-52.0); Hemoglobin 10.3 g/dL (11.7-16.6); Lymphocytes # 1.8 10^3/uL (0.8-4.8); Lymphocytes % 32.8 %; Mean Corpuscular HGB Conc 32.4 g/dL (30.0-36.0); Mean Corpuscular Hemoglobin 35.2 pg (28.0-34.0); Mean Corpuscular Volume 108.5 fl (80-94); Mean Platelet Volume 10.1 fL (7.4-10.4); Monocytes # 0.7 10^3/uL (0.2-0.9); Monocytes % 12.8 %; Neutrophils # 2.75 10^3/uL (1.8-7.7); Neutrophils % 50.2 %; Nucleated Red Blood Cells % 0 %; Platelet Count 249 10^3/cmm (130-400); Red Blood Count 2.93 10^6/uL (4.1-5.3); Red Cell Distribution Width 14.1 % (12.1-15.1); White Blood Count 5.5 10^3/uL (4.0-10.0)
--- NOTE | 2020-11-06 05:49 | PC.NURSE ---
Shift Note Frequent safety and comfort rounds continue. Orders and/or nursing care completed as indicated. Patient monitored for response to intervention and treatment(s). Education provided includes Phani. Patient verbalized complete understanding. Discussed plan for home health. Patient agreeable to this plan. Patient had uneventful night reports sleeping well. Denies pain or needs. No distress observed. Will continue to monitor.
[2020-11-06] MEDS: folic acid 1 mg Tablet PO (09:35)
[2020-11-06] MEDS: dilTIAZem ER (12HR) 60 mg Capsule PO (09:35)
[2020-11-06] MEDS: rivaroxaban 10 mg Tablet 20 MG PO (09:35)
[2020-11-06] MEDS: lisinopril 10 mg Tablet PO (09:35)
[2020-11-06] MEDS: magnesium oxide 400 mg tablet PO (09:35)
[2020-11-06] MEDS: multivitamin therapeutic Tablet 1 TAB PO (09:35)
[2020-11-06] MEDS: phosphorus 250 mg Tablet PO (09:35)
[2020-11-06] MEDS: levETIRAcetam 500 mg Tablet PO (09:35)
[2020-11-06] MEDS: thiamine 100 mg Tablet PO (09:36)
[2020-11-06] MEDS: pantoprazole DR 40 mg Tablet PO (09:36)
[2020-11-06] MEDS: potassium chloride ER 10 mEq Tablet PO (09:36)
--- NOTE | 2020-11-06 11:04 | PM.DCS ---
Discharge Providers Date of Admission: 10/27/20 17:17 Date of Discharge: November 06, 2020 Attending Provider at Admission: Usha Morrison MD Attending Provider at Discharge: Yinka Payne MD Consults: Surgery: Dr. Dempsey Diagnoses at Discharge Discharge Diagnosis (1) Atrial fibrillation: Status: Acute (2) Seizure: Status: Acute (3) Weakness: Status: Acute (4) Anemia: Status: Acute (5) Thrombocytopenia: Status: Acute (6) Alcohol use disorder: Status: Acute (7) Hypokalemia: Status: Inactive (8) Lactic acidosis: Status: Acute (9) Hypomagnesemia: Status: Inactive Reason for Visit Reason for Visit: SEIZURE Hospital Course Hospital Course David Paulino is a 65 year old male with past medical history of alcohol abuse, hypertension, anemia due to GI bleed, neuropathy, seizure not on medication recently, atrial fibrillation with RVR present to the ER with episodes of 2-3 episodes of seizure at home. Patient was admitted to the hospital for management of atrial fibrillation and possible seizure at home and started on Cardizem drip which helped with rate control and was later transitioned to oral Cardizem. Seizure was thought to be secondary to alcohol abuse. He was started on Keppra load and then was transitioned over to oral Keppra. Patient stated history of taking phenytoin in the past which was stopped over few months ago. Patient did not have any further seizure activity while in the hospital. On admission patient was found to have few left lower abnormalities which were repleted. Because of patient's past medical history of anemia with new atrial fibrillation and need for anticoagulation surgery was consulted for EGD and colonoscopy. Patient's hemoglobin remained stable during hospitalization. EGD and colonoscopy for negative for any active source of bleeding. He was started on anticoagulation. Physical therapy evaluated the patient and advised patient to have SNF placement along with continuous exercise program. While being in the hospital awaiting SNF placement patient continued to improve. While patient was waiting for SNF approval and placement he started feeling better and is been discharged home with home health. Patient is more ambulatory during hospitalization. Physical Exam Const: GENERAL APPEARANCE: cooperative, comfortable and well developed Chest: COMMONS NORMALS: normal inspection of the chest Resp: COMMON NORMALS: normal respiratory effort, No retractions, No use of accessory muscles and clear to auscultation bilaterally AUSCULTATION: clear to auscultation bilaterally Cardio: COMMON NORMALS: regular rate RATE: regular rate, tachycardic and Other GI: COMMON NORMALS: Soft to palpation and non-tender PALPATION: Yes Soft to palpation Extremity: COMMON NORMALS: no pedal edema Neuro: COMMON NORMALS: moves all extremities Psych: COMMON NORMALS: cooperative Discharge Data Data Completed and Pending: Completed Studies During Hospitalization Category Date Time Status CT head wo con* [id number] Stat Cat Scan 10/27/20 17:13 Completed XR chest 1V [place] ble [id number] Stat Exams 10/27/20 15:30 Completed CV. echo complete * [id number] Routine Ultrasound 10/28/20 21:05 Completed Pending at discharge Category Date Time Status EEG electroenceph alogram Routine Exams 10/27/20 21:05 Ordered Pathology: Surgic al [PTH] Routine Pth 11/04/20 14:41 Received Labs from last 24 hours 11/06/20 11/04/20 04:36 14:22 WBC 5.5 RBC 2.93 L Hgb 10.3 L Hct 31.8 L MCV 108.5 H MCH 35.2 H MCHC 32.4 RDW 14.1 Plt Count 249 MPV 10.1 Neut % (Auto) 50.2 Lymph % (Auto) 32.8 [place] % (Auto) 12.8 Eos % (Auto) 2.4 Baso % (Auto) 0.9 Neut # (Auto) 2.75 Lymph # (Auto) 1.8 [place] # (Auto) 0.7 Eos # (Auto) 0.1 Baso # (Auto) 0.1 Nucleated RBC % (a uto) 0 Nucleated RBCs # 0.0 H. pylori IgG Anti body Negative Addt'l Data from Hospital Stay: Laboratory Results WBC 5.5 10^3/uL (4.0- 10.0) 11/06/20 04:36 RBC 2.93 10^6/uL (4.1 -5.3) L 11/06/20 04:36 Hgb 10.3 g/dL (11.7-1 6.6) L 11/06/20 04:36 Hct 31.8 % (42.0-52.0 ) L 11/06/20 04:36 MCV 108.5 fl (80-94) H 11/06/20 04:36 MCH 35.2 pg (28.0-34. 0) H 11/06/20 04:36 MCHC 32.4 g/dL (30.0-3 6.0) 11/06/20 04:36 RDW 14.1 % (12.1-15.1 ) 11/06/20 04:36 Plt Count 249 10^3/cmm (130 -400) 11/06/20 04:36 MPV 10.1 fL (7.4-10.4 ) 11/06/20 04:36 Neut % (Auto) 50.2 % 11/06/20 04:36 Lymph % (Auto) 32.8 % 11/06/20 04:36 [place] % (Auto) 12.8 % 11/06/20 04:36 Eos % (Auto) 2.4 % 11/06/20 04:36 Baso % (Auto) 0.9 % 11/06/20 04:36 Neut # (Auto) 2.75 10^3/uL (1.8 -7.7) 11/06/20 04:36 Lymph # (Auto) 1.8 10^3/uL (0.8- 4.8) 11/06/20 04:36 [place] # (Auto) 0.7 10^3/uL (0.2- 0.9) 11/06/20 04:36 Eos # (Auto) 0.1 10^3/uL (0.0- 0.8) 11/06/20 04:36 Baso # (Auto) 0.1 10^3/uL (0.0- 0.1) 11/06/20 04:36 Nucleated RBC % (a uto) 0 % 11/06/20 04:36 Nucleated RBCs # 0.0 /100WBC 11/06/20 04:36 Specimen Type Arterial 10/28/20 04:40 Sample Site Brachial, right 10/28/20 04:40 ABG pH 7.50 (7.35-7.45) H 10/28/20 04:40 ABG pCO2 31.9 mmHg (35-45) L 10/28/20 04:40 ABG pO2 107.0 mmHg (80.0- 100.0) H 10/28/20 04:40 ABG HCO3 24.6 mmol/L (22-2 6) 10/28/20 04:40 ABG Base Excess 1.7 mmol/L (-2.0- 2.0) 10/28/20 04:40 Dev Test Pos 10/28/20 04:40 Hematocrit 33.9 % (42-52) L 10/28/20 04:40 O2 Delivery Device Room air 10/28/20 04:40 Clinic Administrator ID Jackykr 10/28/20 04:40 Sodium 139 mmol/L (136-1 45) 11/05/20 04:25 Potassium 4.4 mmol/L (3.5-5 .1) 11/05/20 04:25 Chloride 104 mmol/L (98-10 7) 11/05/20 04:25 Carbon Dioxide 29 mmol/L (22-29) 11/05/20 04:25 Anion Gap 10.4 (5-19) 11/05/20 04:25 BUN 7 mg/dL (8-23) L 11/05/20 04:25 Creatinine 0.9 mg/dL (0.7-1. 2) 11/05/20 04:25 GFR Calculation 84.4 mL/min (90-1 30) L 11/05/20 04:25 Glucose 98 mg/dL (65-115) 11/05/20 04:25 POC Glucose 77 mg/dL (70-110) 10/28/20 07:35 Serum Osmolality 281 mOsm/kg (278- 305) 10/28/20 05:25 Calculated Osmolal ity 286 mOsm/kg (285- 295) 11/05/20 04:25 Lactate 1.1 mmol/L (0.5-2 .2) 10/28/20 05:25 Calcium 8.8 mg/dL (8.5-10 .5) 11/05/20 04:25 Phosphorus 1.6 mg/dL (2.5-4. 5) L 10/29/20 04:10 Magnesium 1.9 mg/dL (1.7-2. 3) 11/02/20 04:26 Iron 60 ug/dL (59-158) 11/02/20 04:25 TIBC 173 mcg/dl 11/02/20 04:25 % Saturation 34.6 % (20-50) 11/02/20 04:25 Unsat Iron Binding 113 ug/dL (112-34 7) 11/02/20 04:25 Total Bilirubin 0.5 mg/dL (0.15-1 .2) 11/05/20 04:25 AST 17 U/L (0-40) 11/05/20 04:25 ALT 17 U/L (0-41) 11/05/20 04:25 Alkaline Phosphata se 74 IU/L (40-130) 11/05/20 04:25 Ammonia 39 umol/L (16-60) 10/28/20 18:10 Creatine Kinase 135 U/L (39-308) 11/01/20 06:35 Troponin T Gen 5 n g/L 29 ng/L (0-15) H 10/29/20 04:10 Troponin T Baselin e 46 ng/L (0-15) H 10/27/20 15:20 Troponin T 120 Min jay 46.08 ng/L (0-15) H 10/27/20 17:18 Delta Troponin T 0.08 ABS# (0-10) 10/27/20 17:18 Troponin T Hi Sens 6Hr 46.62 ng/L (0-15) H 10/27/20 21:09 Troponin T Hi Sens 6Hr Delta 0.62 ng/L (0-12) 10/27/20 21:09 Total Protein 5.7 g/dL (6.6-8.7 ) L 11/05/20 04:25 Albumin 3.3 g/dL (3.5-5.2 ) L 11/05/20 04:25 Globulin 2.4 g/dL (1.3-4.6 ) 11/05/20 04:25 Triglycerides 127 mg/dL (0-150) 10/28/20 05:25 Cholesterol 192 mg/dL (0-200) 10/28/20 05:25 LDL Cholesterol, C alc 60 mg/dL (50-129) 10/28/20 05:25 HDL Cholesterol 107 mg/dL (60-100 ) H 10/28/20 05:25 LDL/HDL Ratio 0.56 RATIO (0.00- 3.22) 10/28/20 05:25 Cholesterol/HDL Ra sadi 1.79 mg/dL (1.0-5 .00) 10/28/20 05:25 Folate 11.5 ng/mL (4.5-3 2.2) 11/02/20 04:26 Procalcitonin 0.13 ng/mL (0-0.5 ) 11/01/20 06:35 TSH 2.77 uIU/mL (0.27 -4.20) 10/28/20 05:25 Urine Color Yellow (Yellow) 11/01/20 10:50 Urine Appearance Clear (CLEAR) 11/01/20 10:50 Urine pH 5 (5-7) 11/01/20 10:50 Ur Specific Gravit y 1.020 (1.005-1.0 30) 11/01/20 10:50 Urine Protein Trace (Negative) 11/01/20 10:50 Urine Glucose (UA) Norm (Normal) 11/01/20 10:50 Urine Ketones Negative (Negati ve) 11/01/20 10:50 Urine Blood 3+ (Negative) H 11/01/20 10:50 Urine Nitrate Negative (Negati ve) 11/01/20 10:50 Urine Bilirubin 1+ (Negative) H 11/01/20 10:50 Urine Urobilinogen 4 mg/dL (Negative ) H 11/01/20 10:50 Ur Leukocyte Sonia ase Negative (Negati ve) 11/01/20 10:50 Urine RBC 5-10 /hpf (0-2) H 11/01/20 10:50 Urine WBC 0-4 /hpf (0-5) H 11/01/20 10:50 Ur Squamous Epith Cells None /hpf (0-5) 11/01/20 10:50 Amorphous Sediment Not Reportable 11/01/20 10:50 Urine Bacteria 1+ /hpf (NONE) H 11/01/20 10:50 Urine Mucus 1+ /hpf 11/01/20 10:50 Urine Opiates Scre en Negative ng/mL (N egative) 10/27/20 17:36 Ur Barbiturates Sc reen Negative ng/mL (N egative) 10/27/20 17:36 Ur Phencyclidine S crn Negative ng/mL (N egative) 10/27/20 17:36 Ur Amphetamines Sc reen Negative ng/mL (N egative) 10/27/20 17:36 U Benzodiazepines Scrn Negative ng/mL (N egative) 10/27/20 17:36 Urine Cocaine Scre en Negative ng/mL (N egative) 10/27/20 17:36 U Marijuana (THC) Screen Negative ng/mL (N egative) 10/27/20 17:36 Ethyl Alcohol < 10 mg/dL (0-10) 10/27/20 15:20 H. pylori IgG Anti body Negative 11/04/20 14:22 Impressions Chest X-Ray 10/27/20 15:30 IMPRESSION: Nonacute. Head CT 10/27/20 17:13 IMPRESSION: No evidence of active or acute intracranial pathologic process, hemorrhage, or trauma. Radiation Dose CTDIVOL = (mGy): DLP = 755.68 (mGy-cm) Vitals: Last Vital Signs Temp 98.2 F 11/06/20 03:27 Pulse 58 L 11/06/20 08:00 Resp 18 11/06/20 08:00 BP 122/75 11/06/20 08:00 Pulse Ox 100 11/06/20 07:49 Discharge Plan Discharge Patient Disposition: Home Health Service Condition: Stable Prescriptions: New levetiracetam 500 mg Tablet 500 mg PO BID 30 Days Qty: 60 RF: 0 diltiazem HCl 60 mg Capsule,Extended Release 12 Hr 60 mg PO BID 30 Days Qty: 60 RF: 0 Xarelto 10 mg Tablet 20 mg PO DAILY 30 Days Qty: 60 RF: 0 Continued potassium chloride 10 mEq capsule, extended release 10 meq PO BID RF: 0 ferrous sulfate 325 mg (65 mg iron) tablet 325 mg PO DAILY RF: 0 folic acid 1 mg Tablet 1 mg PO DAILY Qty: 30 RF: 0 pantoprazole 40 mg Tablet,Delayed Release (Dr/Ec) 40 mg PO BID Qty: 60 RF: 0 Changed lisinopril 20 mg tablet 10 mg PO DAILY Qty: 0 RF: 0 Discontinued metoprolol tartrate 50 mg tablet 50 mg PO BID RF: 0 Discharge Orders: Discharge Order (Routine); Ordered 11/06/20 Ordered By: Yinka Payne Discharge Diet: Cardiac Discharge Activity: Resume usual activity Patient Instructions: Opioid Safety Activity Restrictions/Additional Instructions: Cardizem 60 mg twice daily. Xarelto as a blood thinner. Keppra 500 mg twice daily Please follow-up with a primary care provider within next 1 week for repeat CBC. Discharge Attestations Time Spent in Discharge Care*: greater than 30 min Specific Discharge Activities: educating patient, discussing with pcp/other providers, discussing with spring encaser/social workers/dc planners, documenting/other paperwork and evaluating patient/reviewing data Status at Discharge: Cognitive status at discharge: cognitively intact, Behavioral status at discharge: cooperative, Functional status at discharge: independent ambulation Overall status at discharge: patient is back to baseline Quality Metrics Clinical Quality Measures During this hospital stay, did patient experience: None Coding Level of Care Code Acute Chg FW DC note Diagnoses Atrial fibrillation I48.91 Seizure R56.9 Weakness R53.1 Anemia D64.9 Thrombocytopenia D69.6 Alcohol use disorder Hypokalemia E87.6 Lactic acidosis E87.2 Hypomagnesemia E83.42
--- NOTE | 2020-11-06 12:49 | PC.SOCIAL ---
[facility] didn't have xarelto or the correct dose of diltiazem. medications cancelled at [facility] and called into [facility] pharmacy and they will deliver prior to pt being discharged. primary care nurse updated.
--- NOTE | 2020-11-06 14:04 | PC.CHAP ---
Pastoral Care Encounter/Spiritual Assessment Type of Contact [] Declined software educator visit [] Patient/Family/Request visit [] Outpatient visit [xx] Follow-up visit [] Physician referral [] Code/Alert [xx] Routine visit [] Staff referral [] Actively dying [] Patient sleeping [] Family support [] [] Out of room [] Palliative care [] [] Receiving care in room [] Pre-surgical visit [] Trauma [xx] Long length of stay [] ICU visit [] Other: Relational/Emotional Strength [ Patient feels connected with others/family/visitors/staff [] Distress [] Loneliness/isolation [] Abandonment Spirituality of Patient [xx] Person of [place] [] Attends Latter Day of their [place] [xx] Believes in Prayer [xx] Reads Bible or Yazidi materials [] There are Spiritual issues to be addressed Registered Nurse Cardiovascular Icu Interventions [xx] Prayer [xx] Active listening [xx] Non-anxious presence [] Spiritual/emotional support [] Crisis/trauma care [] Spiritual counseling [] Bereavement support [] Provided bereavement packet [] Provided Bible/devotional materials [] Provided toy/stuffed animal, coloring book to patient or family member [] Provided Communion [] Anointing/[place] [] Salvation [xx] Completed spiritual assessment [] Other: Impact on Illness or Injury [] Angry [] Fearful [] Anxious [] Often cries [] Exhaustion [] Unable to work [] Unable to attend oriental orthodox [] Unable to walk/stand [] Unable to read [] Unable to drive [] Unable to eat/drink [] Unable to sleep [] Unable to be with family [] Patient intubated [] Other: Summary Patient stated he has lost all feeling in his feet and therefore losses his balance and falls. He has walker and canes for assistance. He will have in-home care daily when he returns home. Patient stated he lost his mother, brother and sister all this year and that weighs heavy on him as he misses them very much. Time spent with patient 6 minutes
--- NOTE | 2020-11-09 13:21 | PC.SOCIAL ---
discharge follow up call made. patient is feeling better. received medications in the hospital prior to discharge. patient is taking medications as prescribed. patient has follow up appointment with pcp tomorrow he is aware and has transportation.
== END 2020-11-06 19:46 | disposition home health service (06) | DRG 309 ==
LOC: ER 15:24 → ICU 20:59 → CSU 10-30 06:53
PROVIDERS: Hospitalist; Surgery; Admitting Provider Internal Medicine; Emergency Provider Family Medicine; Visit Provider Student in an Organized Health Care Education/Training Program
PROC: 0DJ08ZZ Inspection of Upper Intestinal Tract, Via Natural or Artificial Opening Endoscopic (ICD-10-PCS; CPT 43235; principal; 2020-11-04 14:00)
PROC: 0DJD8ZZ Inspection of Lower Intestinal Tract, Via Natural or Artificial Opening Endoscopic (ICD-10-PCS; CPT 45378; 2020-11-04 14:00)
DX: I48.91 Unspecified atrial fibrillation (principal); F10.139 Alcohol abuse with withdrawal, unspecified; M62.82 Rhabdomyolysis; E87.2 Acidosis; G11.9 Hereditary ataxia, unspecified; D64.89 Other specified anemias; K21.9 Gastro-esophageal reflux disease without esophagitis; I10 Essential (primary) hypertension; E87.6 Hypokalemia; E83.42 Hypomagnesemia; G62.9 Polyneuropathy, unspecified; R19.7 Diarrhea, unspecified; D69.59 Other secondary thrombocytopenia; E53.8 Deficiency of other specified B group vitamins; K64.8 Other hemorrhoids; K63.5 Polyp of colon; K62.1 Rectal polyp; K57.30 Diverticulosis of large intestine without perforation or abscess without bleeding
CPT/HCPCS: 36415; 36416; 36592; 36600; 43239; 45385; 51702; 51798; 70450; 71045; 80048; 80053; 80061; 80306; 80307; 81001; 82140; 82550; 82746; 82803; 82962; 83540; 83550; 83605; 83735; 83930; 84100; 84132; 84145; 84443; 84484; 85025; 87040; 87077; 87086; 88305; 88309; 93005; 93306; 96365; 96366; 96367; 96372; 96375; 97116; 97163; 97165; 97530; 99291; J0696; J1650; J1885; J1953; J1956; J2060; J2704; J3411; J3475; J3480; J3490; J7030; J7040

== ENCOUNTER 2021-05-19 14:22 | Emergency (ER) | payer MEDICARE, MEDICAID, SELFPAY ==
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
[2021-05-19 14:25] VITALS: BP 173/98; PULSE 116; RESP 21; TEMP 36.6; O2SAT 99; BMI 26.4
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
[2021-05-19 14:35] VITALS: BP 173/98; RESP 18; O2SAT 95
[2021-05-19 14:41] LABS: Basophils # 0.1 10^3/uL (0.0-0.1); Basophils % 1.2 %; Hematocrit 36.4 % (42.0-52.0); Hemoglobin 12.5 g/dL (11.7-16.6); Lymphocytes # 1.7 10^3/uL (0.8-4.8); Lymphocytes % 20.6 %; Mean Corpuscular HGB Conc 34.3 g/dL (30.0-36.0); Mean Corpuscular Hemoglobin 37.8 pg (28.0-34.0); Mean Platelet Volume 10.3 fL (7.4-10.4); Monocytes # 0.6 10^3/uL (0.2-0.9); Monocytes % 7.6 %; Neutrophils # 5.76 10^3/uL (1.8-7.7); Neutrophils % 69.9 %; Nucleated Red Blood Cells % 0 %; Platelet Count 155 10^3/cmm (130-400); Red Blood Count 3.31 10^6/uL (4.1-5.3); Red Cell Distribution Width 14.6 % (12.1-15.1); White Blood Count 8.3 10^3/uL (4.0-10.0)
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
[2021-05-19 15:07] LABS: Alanine Aminotransferase 110 U/L (0-41); Albumin Level 4.9 g/dL (3.5-5.2); Alkaline Phosphatase 79 IU/L (40-130); Anion Gap 34.8 (5-19); Aspartate Amino Transferase 210 U/L (0-40); Blood Urea Nitrogen 16 mg/dL (8-23); Calcium 9.6 mg/dL (8.5-10.5); Carbon Dioxide 15 mmol/L (22-29); Chloride 92 mmol/L (98-107); Glomerular Filtration Rate 74.5 mL/min (90-130); Glucose 42 mg/dL (65-115); Osmolality Calculated 284 mOsm/kg (285-295); Potassium 3.8 mmol/L (3.5-5.1); Sodium 138 mmol/L (136-145); Total Bilirubin 1.3 mg/dL (0.15-1.2); Total Protein 7.9 g/dL (6.6-8.7)
[2021-05-19] MEDS: iodixanol 320 mg/mL 100mL Btl IV (15:33)
[2021-05-19 16:10] VITALS: BP 118/78; PULSE 104; RESP 18; O2SAT 98
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
[2021-05-19] MEDS: sodium chloride 0.9% 1,000 ML 999 ML IV (17:06)
[2021-05-19] MEDS: mupirocin oint 22 gm 1 APPLIC TOPICAL (17:06)
[2021-05-19 17:26] LABS: Alcohol Level 548 mg/dL (0-10)
[2021-05-19] MEDS: dextrose 50% syringe 50 mL IVP (17:57)
[2021-05-19] MEDS: dextrose 10% 250 ML 70 ML (17:59)
[2021-05-19] MEDS: lactated ringers 1,000 ML 999 ML IV (18:02)
[2021-05-19] MEDS: folic acid 1 MG, multivitamin inj 10 ML, thiamine 100 MG in sodium chloride 0.9% 1,000 ML 252.8 MG IV (18:45)
[2021-05-19 19:35] LABS: Glucose Point of Care 42 mg/dL (70-110)
[2021-05-19 19:35] LABS: Glucose Point of Care 119 mg/dL (70-110)
[2021-05-19 19:51] VITALS: BP 140/87; PULSE 102; O2SAT 99
[2021-05-19 20:09] LABS: Anion Gap 23.9 (5-19); Blood Urea Nitrogen 15 mg/dL (8-23); Calcium 8.2 mg/dL (8.5-10.5); Carbon Dioxide 19 mmol/L (22-29); Chloride 99 mmol/L (98-107); Glomerular Filtration Rate 84.2 mL/min (90-130); Glucose 67 mg/dL (65-115); Osmolality Calculated 285 mOsm/kg (285-295); Potassium 3.9 mmol/L (3.5-5.1); Sodium 138 mmol/L (136-145)
[2021-05-19 23:24] VITALS: RESP 17; O2SAT 95
== END 2021-05-19 22:30 | disposition home or self-care (01) ==
PROVIDERS: Family Medicine; Emergency Provider Emergency Medicine
DX: F10.129 Alcohol abuse with intoxication, unspecified (principal); Y90.8 Blood alcohol level of 240 mg/100 ml or more; V86.99XA Unspecified occupant of other special all-terrain or other off-road motor vehicle injured in nontraffic accident, initial encounter; I10 Essential (primary) hypertension; Z79.899 Other long term (current) drug therapy
CPT/HCPCS: 36416; 70450; 71260; 72040; 72125; 74177; 80048; 80053; 80307; 82962; 85025; 96361; 96374; 99284; J3411; J3490; J7030; J7799; Q9967

== ENCOUNTER 2021-08-01 22:34 | Emergency (ER) | payer MEDICARE, MEDICAID, SELFPAY ==
[2021-08-01 22:40] VITALS: BMI 26.4
[2021-08-01 22:43] VITALS: BP 185/114; PULSE 88; RESP 16; TEMP 36.9; O2SAT 99
--- NOTE | 2021-08-01 23:19 | ECG_ITS ---
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 Measurements Intervals [place] Rate: 64 P: 1 CT: 132 QRS: -54 QRSD: 154 T: 19 QT: 424 QTc: 440 Interpretive Statements SINUS RHYTHM WITH MARKED SINUS ARRHYTHMIA LEFT AXIS DEVIATION [QRS AXIS < -30] RIGHT BUNDLE BRANCH BLOCK [120+ ms QRS DURATION, UPRIGHT V1, 40+ ms S IN I/aVL/V4/V5/V6] Compared to ECG 10/27/2020 21:52:22 Left-axis deviation now present Sinus tachycardia no longer present Left anterior fascicular block no longer present Electronically Signed On 08-02-2021 16:22:20 CDT by Alberto Gonzalez M.D. [id number]
[2021-08-01] MEDS: amlodipine 10 mg Tablet PO (23:49)
[2021-08-01] MEDS: labetalol 5 mg/mL SDV 20mL 10 MG IVP (23:49)
[2021-08-01 23:53] VITALS: BP 171/108; PULSE 88; RESP 18; O2SAT 99
[2021-08-02 00:19] VITALS: BP 135/83; PULSE 63; RESP 16; TEMP 36.7; O2SAT 99
[2021-08-02 00:41] VITALS: BP 142/86; PULSE 68; RESP 18; O2SAT 100
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
== END 2021-08-02 00:42 | disposition home or self-care (01) ==
PROVIDERS: Emergency Provider Emergency Medicine
DX: I10 Essential (primary) hypertension (principal)
CPT/HCPCS: 93005; 96374; 99283; J3490

== ENCOUNTER 2021-11-17 01:58 | Inpatient (IN) | payer MEDICARE, MEDICAID, SELFPAY ==
[2021-11-17] VITALS (23 sets, daily range): BP systolic 128–149; BP diastolic 72–92; PULSE 48–137; RESP 10–24; TEMP 36.2–37.4; O2SAT 93–100; BMI 25.7; BMI 25.0
--- NOTE | 2021-11-17 02:05 | ECG_ITS ---
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 Measurements Intervals [place] Rate: 136 P: ME: QRS: -74 QRSD: 146 T: 23 QT: 330 QTc: 498 Interpretive Statements ATRIAL FIBRILLATION WITH RAPID VENTRICULAR RESPONSE RIGHT BUNDLE BRANCH BLOCK [120+ ms QRS DURATION, UPRIGHT V1, 40+ ms S IN I/aVL/V4/V5/V6] LEFT ANTERIOR FASCICULAR BLOCK [QRS AXIS <= -45, QR IN I, RS IN II] Compared to ECG 08/01/2021 23:58:07 Left anterior fascicular block now present Sinus rhythm no longer present Sinus arrhythmia no longer present Left-axis deviation no longer present Electronically Signed On 11-18-2021 20:46:16 CDT by Pallavi Mendez M.D. [id number]
[2021-11-17] MEDS: fentaNYL 50 mcg/mL INJ 2mL 25 MCG IVP ×2 (02:09→05:26)
[2021-11-17] MEDS: lactated ringers 1,000 ML 999 ML IV (02:09)
[2021-11-17 02:15] LABS: Basophils # 0.1 10^3/uL (0.0-0.1); Basophils % 0.5 %; Hematocrit 50.5 % (42.0-52.0); Hemoglobin 17.4 g/dL (11.7-16.6); Lymphocytes # 1.3 10^3/uL (0.8-4.8); Lymphocytes % 11.8 %; Mean Corpuscular HGB Conc 34.5 g/dL (30.0-36.0); Mean Corpuscular Hemoglobin 33.7 pg (28.0-34.0); Mean Corpuscular Volume 97.7 fl (80-94); Mean Platelet Volume 10.6 fL (7.4-10.4); Monocytes # 0.6 10^3/uL (0.2-0.9); Monocytes % 4.9 %; Neutrophils # 9.33 10^3/uL (1.8-7.7); Neutrophils % 82.4 %; Nucleated Red Blood Cells % 0 %; Platelet Count 240 10^3/cmm (130-400); Red Blood Count 5.17 10^6/uL (4.1-5.3); Red Cell Distribution Width 15.4 % (12.1-15.1); White Blood Count 11.3 10^3/uL (4.0-10.0)
--- NOTE | 2021-11-17 02:21 | W.ED.ABDPA2 ---
HPI - Abdominal Pain General: Chief Complaint: Abdominal Pain Stated Complaint: ABD PAIN Time Seen by Provider: 11/17/21 02:00 History of Present Illness: 66-year-old male presents with abdominal pain. He reports that started on Monday and is just gotten worse. Was in the lower abdomen mainly to the left but now is just in the mid suprapubic region. He denies any flank pain, urinary symptoms. He denies any nausea vomiting diarrhea fever chills. Patient just complains of severe pain in the lower belly. Reports that it comes and goes. Associated Symptoms: Denies chills, constipation, diarrhea, dysuria, fever(s), nausea and vomiting Review of Systems Const: Denies: fever(s) or chills Eyes: Denies: blurry vision ENMT: Denies: throat pain Resp: Denies: dyspnea or productive cough GI: Reports: abdominal pain; Denies: nausea, vomiting, diarrhea or constipation : Denies: flank pain, dysuria or urinary urgency Musc: Denies: neck pain or back pain Skin/Breast: Denies: rash or pruritus Neuro: Denies: headache(s) or dizziness PFSH ED PFSH: Medical History (Updated 11/17/21 @ 18:40 by Raf Holland DO) Alcohol use disorder Anemia Atrial fibrillation GERD (gastroesophageal reflux disease) Hypertension Hypokalemia Hypomagnesemia Neuropathy Happened after my back surgery New onset seizure Seizure Thrombocytopenia Surgical History History of carpal tunnel surgery Bilateral History of spinal surgery x 2 Hx of cataract surgery Bilateral Family History Other CAD (coronary artery disease) Cancer Social History Smoking and tobacco status: never smoked Alcohol intake: former Year of sobriety/quit date alcohol: 2020 Former alcohol use details: Has drank wine for years, quit between 1990 - 1996, quit 2020 Physical Exam Const: COMMON NORMALS: patient oriented x3 and alert GENERAL APPEARANCE: in distress (Obvious pain) HENMT: COMMON NORMALS: hearing grossly normal bilaterally and moist oral mucous membranes Resp: COMMON NORMALS: normal respiratory effort, No use of accessory muscles and clear to auscultation bilaterally AUSCULTATION: clear to auscultation bilaterally Cardio: COMMON NORMALS: regular rhythm RATE: tachycardic RHYTHM: regular rhythm GI: INSPECTION: Yes normal to inspection PALPATION: Yes Tenderness to palpation present (GI) Details: other (Suprapubic) and Yes Bladder palpation abnormal : COMMON NORMALS: Yes no CVA tenderness BLADDER/KIDNEY EXAM: Yes no CVA tenderness and Yes Bladder palpation abnormal Bladder abnormal details: tender Back/Pelvis: COMMON NORMALS: no CVA tenderness Extremity: COMMON NORMALS: full ROM and capillary refill normal Neuro: COMMON NORMALS: patient oriented x3, moves all extremities and no focal motor deficits SENSORIUM/ORIENTATION: Yes alert Psych: COMMON NORMALS: mental status grossly normal and cooperative APPEARANCE: Yes grossly normal Course Vital Signs: Vital signs: Vital Signs Temperature 98.3 F 11/17/21 16:00 Pulse Rate 89 11/17/21 16:00 Respiratory Rate 18 11/17/21 16:00 Blood Pressure 134/72 11/17/21 16:00 Pulse Oximetry 95 11/17/21 16:00 Oxygen Delivery Me thod 11/17/21 16:00 Oxygen Flow Rate 6 11/17/21 10:00 MDM - Abdominal Pain Medical Decision Making Patient with bowel obstruction. Patient to be admitted to Dr. Espinoza with consulting Dr. Weinstein. Patient 2 OR initially diagnostic laparotomy with possible open. Patient last meal was on Monday. Patient is not on any blood thinners due to his A. fib, in fact he reports he did not know he had A. fib despite it being in his chart and having initial A. fib rhythm. Patient was stable upon transfer. Lab Data : 11/17/21 16:37 11/17/21 16:37 Labs/Radiology: Radiology Impressions Abdomen/Pelvis CT 11/17/21 03:02 IMPRESSION: U shaped small bowel loop in the lower mid left abdomen with beaking of approximating limbs suggest closed loop obstruction. Small amount of edema seen within adjacent mesentery. More proximal small bowel distended as well. ADDENDUM: 11/17/21 0521 THIS REPORT CONTAINS FINDINGS THAT MAY BE CRITICAL TO PATIENT CARE. The findings were verbally communicated via telephone conference at 5:19 AM CDT on 11/17/2021 with [facility] HO[place]AND. The findings were acknowledged and understood. Laboratory Results WBC 11.3 10^3/uL (4.0-10.0) H 11/17/21 02:08 RBC 5.17 10^6/uL (4.1-5.3) 11/17/21 02:08 Hgb 17.4 g/dL (11.7-16.6) H 11/17/21 02:08 Hct 50.5 % (42.0-52.0) 11/17/21 02:08 MCV 97.7 fl (80-94) H 11/17/21 02:08 MCH 33.7 pg (28.0-34.0) 11/17/21 02:08 MCHC 34.5 g/dL (30.0-36.0) 11/17/21 02:08 RDW 15.4 % (12.1-15.1) H 11/17/21 02:08 Plt Count 240 10^3/cmm (130-400) 11/17/21 02:08 MPV 10.6 fL (7.4-10.4) H 11/17/21 02:08 Neut % (Auto) 82.4 % 11/17/21 02:08 Lymph % (Auto) 11.8 % 11/17/21 02:08 [place] % (Auto) 4.9 % 11/17/21 02:08 Eos % (Auto) 0.0 % 11/17/21 02:08 Baso % (Auto) 0.5 % 11/17/21 02:08 Neut # (Auto) 9.33 10^3/uL (1.8-7.7) H 11/17/21 02:08 Lymph # (Auto) 1.3 10^3/uL (0.8-4.8) 11/17/21 02:08 [place] # (Auto) 0.6 10^3/uL (0.2-0.9) 11/17/21 02:08 Eos # (Auto) 0.0 10^3/uL (0.0-0.8) 11/17/21 02:08 Baso # (Auto) 0.1 10^3/uL (0.0-0.1) 11/17/21 02:08 Nucleated RBC % (auto) 0 % 11/17/21 02:08 Nucleated RBCs # 0.0 /100WBC 11/17/21 02:08 PT 13.30 SECONDS (12.1-14.9) 11/17/21 06:20 INR 0.98 (0.8-1.2) 11/17/21 06:20 Sodium 140 mmol/L (136-145) 11/17/21 02:08 Potassium 4.2 mmol/L (3.5-5.1) 11/17/21 02:08 Chloride 97 mmol/L (98-107) L 11/17/21 02:08 Carbon Dioxide 17 mmol/L (22-29) L 11/17/21 02:08 Anion Gap 30.2 (5-19) H 11/17/21 02:08 BUN 16 mg/dL (8-23) 11/17/21 02:08 Creatinine 1.5 mg/dL (0.7-1.2) H 11/17/21 02:08 GFR Calculation 46.7 mL/min (90-130) L 11/17/21 02:08 Glucose 93 mg/dL (65-115) 11/17/21 02:08 Calculated Osmolality 291 mOsm/kg (285-295) 11/17/21 02:08 Lactate 4.2 mmol/L (0.5-2.2) H* 11/17/21 05:40 Calcium 10.8 mg/dL (8.5-10.5) H 11/17/21 02:08 Magnesium 1.6 mg/dL (1.7-2.3) L 11/17/21 02:08 Total Bilirubin 1.3 mg/dL (0.15-1.2) H 11/17/21 02:08 AST 26 U/L (0-40) 11/17/21 02:08 ALT 18 U/L (0-41) 11/17/21 02:08 Alkaline Phosphatase 102 U/L (40-130) 11/17/21 02:08 C-Reactive Protein 7.2 mg/L (0.0-4.9) H 11/17/21 02:08 NT-Pro-B Natriuret Pep 164 pg/mL (0-125) H 11/17/21 02:08 Total Protein 8.3 g/dL (6.6-8.7) 11/17/21 02:08 Albumin 4.7 g/dL (3.5-5.2) 11/17/21 02:08 Globulin 3.6 g/dL (1.3-4.6) 11/17/21 02:08 Lipase 19 U/L (13-60) 11/17/21 02:08 TSH 1.44 uIU/mL (0.27-4.20) 11/17/21 02:08 Urine Color Yellow (Yellow) 11/17/21 03:06 Urine Appearance Clear (CLEAR) 11/17/21 03:06 Urine pH 5 (5-7) 11/17/21 03:06 Ur Specific [place] 1.020 (1.005-1.030) 11/17/21 03:06 Urine Protein 1+ (Negative) H 11/17/21 03:06 Urine Glucose (UA) Norm (Normal) 11/17/21 03:06 Urine Ketones 2+ (Negative) H 11/17/21 03:06 Urine Blood 3+ (Negative) H 11/17/21 03:06 Urine Nitrate Negative (Negative) 11/17/21 03:06 Urine Bilirubin Neg (Negative) 11/17/21 03:06 Urine Urobilinogen Norm mg/dL (Negative) 11/17/21 03:06 Ur Leukocyte Esterase Negative (Negative) 11/17/21 03:06 Urine RBC 40-50 /hpf (0-2) H 11/17/21 03:06 Urine WBC 0-4 /hpf (0-5) H 11/17/21 03:06 Ur Squamous Epith Cells 0-4 /hpf (0-5) H 11/17/21 03:06 Amorphous Sediment 1+ /hpf 11/17/21 03:06 Urine Bacteria Trace /hpf (NONE) 11/17/21 03:06 Hyaline Casts 5-10 /lpf H 11/17/21 03:06 Urine Mucus 1+ /hpf 11/17/21 03:06 Ethyl Alcohol 87 mg/dL (0-10) H 11/17/21 02:08 Discharge Plan Discharge Patient Disposition: Admitted As Inpatient Admit Provider: Callie Acuña Clinical Impression: Bowel obstruction Condition: Stable Coding Level of Care Code ED Assistant Professor Of Chemistry for Chg Fwd Exam Comprehensive
[2021-11-17 02:52] LABS: Alanine Aminotransferase 18 U/L (0-41); Albumin Level 4.7 g/dL (3.5-5.2); Alkaline Phosphatase 102 U/L (40-130); Anion Gap 30.2 (5-19); Aspartate Amino Transferase 26 U/L (0-40); Blood Urea Nitrogen 16 mg/dL (8-23); C Reactive Protein 7.2 mg/L (0.0-4.9); Calcium 10.8 mg/dL (8.5-10.5); Carbon Dioxide 17 mmol/L (22-29); Chloride 97 mmol/L (98-107); Globulin 3.6 g/dL (1.3-4.6); Glomerular Filtration Rate 46.7 mL/min (90-130); Glucose 93 mg/dL (65-115); Osmolality Calculated 291 mOsm/kg (285-295); Potassium 4.2 mmol/L (3.5-5.1); Sodium 140 mmol/L (136-145); Total Bilirubin 1.3 mg/dL (0.15-1.2); Total Protein 8.3 g/dL (6.6-8.7)
--- NOTE | 2021-11-17 03:02 | CTR_ITS ---
PROCEDURE INFORMATION: Exam: CT Abdomen And Pelvis With Contrast Exam date and time: 11/17/2021 3:14 AM Age: 66 years old Clinical indication: Abdominal pain; Generalized; Prior surgery; Surgery type: Lumbar; Patient HX: Diffuse abd pain with nausea x 3 days. TECHNIQUE: Imaging protocol: Computed tomography of the abdomen and pelvis with contrast. Total images: 516 Radiation optimization: All CT scans at this facility use at least one of these dose optimization techniques: automated exposure control; mA and/or kV adjustment per patient size (includes targeted exams where dose is matched to clinical indication); or iterative reconstruction. Contrast material: OMNI 350; Contrast volume: 80 ml; Contrast route: INTRAVENOUS (IV); COMPARISON: CT chest abd pel w con* 05/19/2021 3:20 PM RADIATION DOSE METRICS: Total DLP (mGy-cm): 601.52 FINDINGS: Heart: Exuberant mitral annular calcifications are noted. Liver: Normal. No mass. Gallbladder and bile ducts: Normal. No calcified stones. No ductal dilation. Pancreas: Normal. No ductal dilation. Spleen: Incidental splenic granuloma. Adrenal glands: Normal. No mass. Kidneys and ureters: Nonobstructive right sided kidney stone measures 7 mm. Stomach and bowel: U shaped small bowel loop in the lower mid left abdomen with beaking of approximating limbs suggest closed loop obstruction. Small amount of edema seen within adjacent mesentery. More proximal small bowel distended as well. Appendix: No evidence of appendicitis. Intraperitoneal space: See Stomach and bowel finding. Vasculature: Mild atherosclerotic disease is evident. Lymph nodes: Unremarkable. No enlarged lymph nodes. Urinary bladder: Unremarkable as visualized. Reproductive: Unremarkable as visualized. Bones/joints: Multilevel degenerative disc disease is noted with vacuum phenomenon. Osteophytes are noted extending from the vertebrae. No acute spinal pathology is detected. Chronic mild compression fracture noted at L1. L2-L3 Degenerative posterior osseous ridging. Soft tissues: Unremarkable. CT/CT abdomen pelvis w con* [id number] IMPRESSION: U shaped small bowel loop in the lower mid left abdomen with beaking of approximating limbs suggest closed loop obstruction. Small amount of edema seen within adjacent mesentery. More proximal small bowel distended as well.
[2021-11-17 03:25] LABS: Blood Urine 3+ (Negative); Glucose Urine UA Norm (Normal); Ketones Urine 2+ (Negative); Protein Urine 1+ (Negative); Urine Appearance Clear (CLEAR); Urine Color Yellow (Yellow); pH Urine 5 (5-7)
[2021-11-17] MEDS: iohexol 350 mg/mL 100 mL Btl IV (03:25)
[2021-11-17 03:26] LABS: Add Urine Microscopic? YES; Bilirubin Urine Neg (Negative); Leukocyte Esterase Urine Negative (Negative); Nitrate Urine Negative (Negative); Urobilinogen Urine Norm (Negative)
[2021-11-17 03:27] LABS: Add Urine Culture? No; Amorphous Sediment Urine 1+ /hpf; Bacteria Urine TRACE /hpf; Mucus Urine 1+ /hpf; RBC Urine 40-50 /hpf (0-2); Squamous Epithelial Cell Urine 0-4 /hpf (0-5); WBC Urine 0-4 /hpf (0-5)
--- NOTE | 2021-11-17 05:32 | PC.NURSE ---
Pt noted to have episodes of bradycardia on the monitor. Rate between 42-60. Strip printed and MD notified. Pt is awake, alert, oriented. Only c/o is abdominal pain. Denies CP. Denies SOB.
[2021-11-17] MEDS: piperacillin-tazobactam 3.375 GM in sodium chloride 0.9% (plus) 50 ML IV ×3 (05:46→23:36)
--- NOTE | 2021-11-17 05:47 | PC.NURSE ---
fahad begun in prep for OR, per JOSTIN BRANHAM.
--- NOTE | 2021-11-17 05:57 | PM.CONSULT ---
Providers/Reason For Consult Consulting Physician/Specialty*: Marlon Weinstein MD Reason for Consult*: Abdominal pain Requesting Physician: ER Attending Physician: Marlon Weinstein MD History of Present Illness History of Present Illness David Paulino is a pleasant 66 year old male with history of hypertension, anemia due to GI bleed, neuropathy, seizure, atrial fibrillation with RVR .presented to the emergency department with worsening abdominal pain describes it more as sharp located around the center and the upper abdomen has been going on since last Monday and is not being referred, likely the pain medication made him feel better and initial thought that the patient may have a kidney stone because he was pointing more at the suprapubic area per ED description that the patient ended up by having a CT of the abdomen pelvis as shown below; CT of the abdomen pelvis IMPRESSION: U shaped small bowel loop in the lower mid left abdomen with beaking of approximating limbs suggest closed loop obstruction. Small amount of edema seen within adjacent mesentery. More proximal small bowel distended as well. Patient reports history of nausea and vomiting once he did pass gas yesterday morning. Never had abdominal surgeries and he is a recovering alcoholic and currently is in a program as an outpatient. Patient reports that he had a previous EGD and colonoscopy and they found a small ulcer in the stomach per his description and the polyps were removed from the colon that was done few years ago. Is currently receiving medicine that he is not aware of and he should be on Xarelto but patient does not recall that he is taking it on regular basis. Patient was seen and examined in room 4 in the emergency department Review of Systems General: Reports: 10 or more systems reviewed and unremarkable except in HPI and below Medications/Allergies Home Medications Medication Instructions Recorded Confirmed Last Taken Type potassium chloride 10 mEq 10 meq PO DAILY 07/06/20 05/19/21 05/19/21 History capsule,extended release levetiracetam 500 mg tablet 500 mg PO BID 05/19/21 05/19/21 05/19/21 History lisinopril 20 mg tablet 20 mg PO DAILY 05/19/21 05/19/21 05/19/21 History amlodipine 10 mg tablet 10 mg PO DAILY #30 tabs 08/01/21 Unknown Rx lisinopril 40 mg tablet 40 mg PO DAILY #30 tabs 08/01/21 Unknown Rx Allergies Allergy/AdvReac Type Severity Reaction Status Date / Time No Known Allergies Allergy Verified 11/17/21 06:12 Current Medications Generic Name Dose Route Start Last Admin Trade Name Freq PRN Reason Stop Dose Admin Piperacillin Sod/Tazobactam 50 mls @ 100 mls/hr 11/17/21 05:34 11/17/21 05:46 Sod 3.375 gm/ Sodium Chloride IV 11/17/21 06:03 100 mls/hr RELAY DISPATCHER ONE Administration Protocol PFSH Acute PFSH: Medical History Alcohol use disorder Anemia Atrial fibrillation GERD (gastroesophageal reflux disease) Hypertension Hypokalemia Hypomagnesemia Neuropathy Happened after my back surgery New onset seizure Seizure Thrombocytopenia Surgical History History of carpal tunnel surgery Bilateral History of spinal surgery x 2 Hx of cataract surgery Bilateral Family History Other CAD (coronary artery disease) Cancer Social History Smoking and tobacco status: never smoked Alcohol intake: former Year of sobriety/quit date alcohol: 2020 Former alcohol use details: Has drank wine for years, quit between 1990 - 1996, quit 2020 Vitals/I&O/Wt Last Vital Signs Temp 97.2 F L 11/17/21 02:00 Pulse 85 11/17/21 05:48 Resp 18 11/17/21 05:48 BP 142/86 11/17/21 05:48 Pulse Ox 95 11/17/21 05:48 O2 Del Method 11/17/21 05:48 O2 Flow Rate 2 11/17/21 03:53 11/16/21 11/16/21 11/17/21 14:59 22:59 06:59 Intake Total 1000 / 1000 Balance 1000 / 1000 Weight last 48 hrs Weight 185 lb Physical Exam Const: COMMON NORMALS: no acute distress and patient oriented x3 GENERAL APPEARANCE: cooperative ORIENTATION/CONSCIOUSNESS: Yes awake, Yes oriented to person, Yes oriented to place and Yes oriented to time HENMT: COMMON NORMALS: normocephalic HEAD & SCALP: normocephalic Eye: COMMON NORMALS: Equal, round and reactive pupils present and no scleral icterus PUPIL: Yes Equal, round and reactive pupils present Lymph: LYMPHATIC: no lymphadenopathy noted Chest: COMMONS NORMALS: normal inspection of the chest Resp: COMMON NORMALS: normal respiratory effort and clear to auscultation bilaterally AUSCULTATION: clear to auscultation bilaterally Cardio: COMMON NORMALS: S1 normal heart sound present and S2 normal heart sound present; negative for No murmurs present (Cardio) HEART SOUNDS: S1 normal heart sound present and S2 normal heart sound present GI: COMMON NORMALS: Soft to palpation; negative for No hepatosplenomegaly present INSPECTION: Yes normal to inspection PALPATION: Yes Soft to palpation, No Firmness to palpation present (GI), Yes Tenderness to palpation present (GI) (Tenderness mostly central part of the abdomen), No Guarding due to palpation present (GI), No Rigid due to palpation and No No hepatosplenomegaly present Neuro: COMMON NORMALS: patient oriented x3 SENSORIUM/ORIENTATION: Yes oriented to person, Yes oriented to place and Yes oriented to time Psych: COMMON NORMALS: mental status grossly normal Skin: COMMON NORMALS: no rashes or lesions noted GENERAL SKIN EXAM: no rashes or lesions noted Data : 11/17/21 02:08 11/17/21 02:08 A&P Assessment and plan (1) Bowel obstruction: After thorough history after thorough history physical examination and reviewing the chart and of the CT scan of the abdomen and pelvis with my personal interpretation, I agree it is concerning for a closed small bowel loop obstruction and in the presence of patient's abdominal pain and tenderness and the lactic acid came back as 4.2, we will proceed with diagnostic laparoscopy possible laparotomy with possible bowel resection. As there is a questionable history of being on Xarelto and after talking with hospitalist service patient will be given reversal agent prior to surgery to minimize the risk of bleeding. I did financial aid counselor the patient about the indications, risks, benefits and alternatives and he did agree to proceed accordingly. And informed consent per chart I did also inform the patient because of his cardiac status he may end up in the intensive care unit Status: Acute Consult Attestations Medical Necessity Statement: Patient require hospitalization passing 2 midnights Time Spent in Patient Care: 16 - 35 minutes Coding Level of Care Code Acute Nutrition Coordinator for [facility] [place] Diagnoses Bowel obstruction K56.609
--- NOTE | 2021-11-17 06:03 | PC.NURSE ---
Surgeon at bedside.
[2021-11-17 06:14] LABS: Lactate (Lactic Acid level) 4.2 mmol/L (0.5-2.2)
--- NOTE | 2021-11-17 06:28 | PM.HP ---
Providers/Chief Complaint Chief Complaint: ABD PAIN History of Present Illness David Paulino is a 66 year old male with a past medical history of alcohol abuse, anemia due to GI bleed, neuropathy, seizures, history of A. fib with RVR on Xarelto, history of EGD colonoscopy without any source of bleeding, who presents [facility] for abdominal pain for the last few days as. He tells her that abdominal pain started on Monday, associate with nausea, vomiting, decreased appetite, the last time he ate something was on Monday. He tells me that he has had no bowel movements since Monday morning, in terms of his atrial fibrillation, he is not sure if if he is taking Xarelto, he tells me that he was originally at [facility], and they managed his medications, but he is not sure if he is taking any blood thinners or not. When he was here in 2020 he was diagnosed with A. fib with RVR and discharged on Xarelto he does not remember taking any blood thinner. Patient was found to have a closed-loop bowel obstruction, urgent surgery is required, no INR was ordered, lactic acid 4.2, hemoglobin 17.4, urgent surgery is required. Review of Systems Card: Denies: chest pain GI: Reports: abdominal pain and nausea Medications/Allergies Home Medications Medication Instructions Recorded Confirmed Last Taken Type potassium chloride 10 mEq 10 meq PO DAILY 07/06/20 05/19/21 05/19/21 History capsule,extended release levetiracetam 500 mg tablet 500 mg PO BID 05/19/21 05/19/21 05/19/21 History lisinopril 20 mg tablet 20 mg PO DAILY 05/19/21 05/19/21 05/19/21 History amlodipine 10 mg tablet 10 mg PO DAILY #30 tabs 08/01/21 Unknown Rx lisinopril 40 mg tablet 40 mg PO DAILY #30 tabs 08/01/21 Unknown Rx Allergies Allergy/AdvReac Type Severity Reaction Status Date / Time No Known Allergies Allergy Verified 11/17/21 06:12 PFSH Acute PFSH: Medical History (Updated 11/17/21 @ 06:32 by Monster Espinoza MD) Alcohol use disorder Anemia Atrial fibrillation GERD (gastroesophageal reflux disease) Hypertension Hypokalemia Hypomagnesemia Neuropathy Happened after my back surgery New onset seizure Seizure Thrombocytopenia Surgical History History of carpal tunnel surgery Bilateral History of spinal surgery x 2 Hx of cataract surgery Bilateral Family History Other CAD (coronary artery disease) Cancer Social History Smoking and tobacco status: never smoked Alcohol intake: former Year of sobriety/quit date alcohol: 2020 Former alcohol use details: Has drank wine for years, quit between 1990 - 1996, quit 2020 Vitals/I&O/Wt Last Vital Signs Temp 97.2 F L 11/17/21 02:00 Pulse 85 11/17/21 05:48 Resp 18 11/17/21 05:48 BP 142/86 11/17/21 05:48 Pulse Ox 95 11/17/21 05:48 O2 Del Method 11/17/21 05:48 O2 Flow Rate 2 11/17/21 03:53 11/16/21 11/16/21 11/17/21 14:59 22:59 06:59 Intake Total 1050 / 1050 Balance 1050 / 1050 Weight last 48 hrs Weight 83.915 kg Physical Exam Const: COMMON NORMALS: no acute distress and patient oriented x3 HENMT: COMMON NORMALS: normocephalic HEAD & SCALP: normocephalic Neck/C-Spine: COMMON NORMALS: no JVD Resp: COMMON NORMALS: normal respiratory effort, No retractions, No use of accessory muscles and clear to auscultation bilaterally AUSCULTATION: clear to auscultation bilaterally Cardio: COMMON NORMALS: no JVD, regular rate, regular rhythm, S1 normal heart sound present and S2 normal heart sound present RATE: regular rate RHYTHM: regular rhythm HEART SOUNDS: S1 normal heart sound present and S2 normal heart sound present GI: INSPECTION: Yes normal to inspection AUSCULTATION: Yes Hypoactive bowel sounds present PALPATION: Yes Soft to palpation, Yes Tenderness to palpation present (GI) (Diffuse tenderness), No Guarding due to palpation present (GI) and No Rigid due to palpation Extremity: COMMON NORMALS: capillary refill normal, no clubbing, cyanosis or edema, no calf tenderness and no pedal edema Neuro: COMMON NORMALS: patient oriented x3, CN's II-XII intact bilaterally, moves all extremities and no focal motor deficits Psych: COMMON NORMALS: mental status grossly normal Data : 11/17/21 02:08 11/17/21 02:08 A&P Assessment and plan (1) Bowel obstruction: Status: Acute (2) Atrial fibrillation: Status: Acute (3) Alcohol use disorder: Status: Acute (4) Anemia: Status: Acute (5) Hypertension: Status: Acute Plan Small bowel obstruction U shaped small bowel loop in the lower mid left abdomen with beaking of approximating limbs suggest closed loop obstruction. Small amount of edema seen within adjacent mesentery. More proximal small bowel distended as well. -Lactic acid 4.2 -In terms of his anticoagulation, he was discharged on Xarelto on his last hospital admission?roughly a year ago, he was at [facility] he was managing his medications, he does not know if he is taking his blood thinners, he does not know which medications he takes, as [facility] manages medication -As patient has of life-threatening diagnosis, requiring urgent surgery, INR has not been ordered, we need to do urgent surgery -Waiting for pharmacy is open at 8 AM to confirm if he is taking medication would take too long, there is urgent need to do surgery, as patient does remember the medications he takes -After discussing the risks and benefits, agreed to proceed with Kcentra reversal agent on presumed Xarelto use Atrial fibrillation, currently in A. fib, heart rates well controlled, hold anticoagulant therapy Hypertension hold medications Alcohol abuse, CIWA score monitor for alcohol withdrawal closely History of GI bleed, recent history of EGD and colonoscopy within the last year, no active source of bleeding Full code SCDs for DVT prophylaxis Attestations Medical Necessity Statement*: Patient requires hospitalization, inpatient, greater than 2 midnights, for bowel obstruction Coding Level of Care Code Acute Enterprise Services Manager for g Fwd Diagnoses Bowel obstruction K56.609 Atrial fibrillation I48.91 Alcohol use disorder Anemia D64.9 Hypertension I10
--- NOTE | 2021-11-17 06:38 | PC.PHAR ---
pt states he takes care of his own medications-pt states he only takes levetiracetam 500mg qam ext med history shows last filled 07/02/21 90d/s for 500mg bid-pt states his amlodipine 10mg daily was dced last filled 09/15/21 90d/s-
--- NOTE | 2021-11-17 06:51 | P.ANESASSM_ITS ---
Pre-Anesthetic Assessment Height/Weight: Height 1.8 m Weight 83.915 kg Temp Pulse Resp BP Pulse Ox O2 Del Method O2 Flow Rate 99.3 F 97 18 137/84 97 2 11/17/21 06:44 11/17/21 06:44 11/17/21 06:44 11/17/21 06:44 11/17/21 06:44 11/17/21 06:44 11/17/21 06:44 Preop Diagnosis: Bowel obstruction Operation Date: 11/17/21 08:30 Proposed Procedures p Laparoscopy(Not Applicable) - Marlon Weinstein MD Familial anesthetic complications: None Was Beta Sharon taken within 24 hours: N/A Was Clonidine taken within 24 hours: N/A Last intake: Intake Last Liquid Date 11/16/21 Last Liquid Time 20:00 Last Solid Date 11/15/21 Last Solid Time 18:00 Social No alcohol and No tobacco ETOH abuse 25 years ago - 2 relapses, last one in april Airway Mallampati: Class III Dentition: other (missing) Comments: Comments: full doty CV/HEM Atrial Fibrillation and Hypertension GI Gastroesophageal Reflux Disease Neuropsych Seizure Anesthetic Plan ASA status: 3E Anesthesia: General Risk of > 500 ml blood loss (7ml/kg in children): No Medications/Allergies Home Medications Medication Instructions Recorded Confirmed Last Taken Type potassium chloride 10 mEq 10 meq PO DAILY 07/06/20 11/17/21 1 Week Ago History capsule,extended release ~11/10/21 acamprosate 333 mg tablet,delayed 666 mg PO TID 11/17/21 11/17/21 11/16/21 History release folic acid 1 mg tablet 1 mg PO QAM 11/17/21 11/17/21 11/16/21 History gabapentin 100 mg capsule 200 mg PO TID 11/17/21 11/17/21 11/16/21 History levetiracetam 500 mg tablet 500 mg PO QAM 11/17/21 11/17/21 11/16/21 History lisinopril 20 1 tab PO QAM 11/17/21 11/17/21 11/16/21 History mg-hydrochlorothiazide 25 mg tablet omeprazole 20 mg capsule,delayed 20 mg PO BID PRN Heartburn 11/17/21 11/17/21 Unknown History release sertraline 25 mg tablet 25 mg PO QAM 0911/17/21 11/16/21 History Allergies Allergy/AdvReac Type Severity Reaction Status Date / Time No Known Allergies Allergy Verified 11/17/21 06:38 [facility] Anesthesia Medical History (Updated 11/17/21 @ 06:32 by Monster Espinoza MD) Alcohol use disorder Anemia Atrial fibrillation GERD (gastroesophageal reflux disease) Hypertension Hypokalemia Hypomagnesemia Neuropathy Happened after my back surgery New onset seizure Seizure Thrombocytopenia Surgical History History of carpal tunnel surgery Bilateral History of spinal surgery x 2 Hx of cataract surgery Bilateral Family History Other CAD (coronary artery disease) Cancer Social History Smoking and tobacco status: never smoked Alcohol intake: former Year of sobriety/quit date alcohol: 2020 Former alcohol use details: Has drank wine for years, quit between 1990 - 1996, quit 2020 Data Anesthesia : 11/17/21 02:08 11/17/21 02:08 Short CBC 11/17/21 Range/Units 02:08 WBC 11.3 H (4.0-10.0) 10^3/uL Hgb 17.4 H (11.7-16.6) g/dL Hct 50.5 (42.0-52.0) % MCV 97.7 H (80-94) fl Plt Count 240 (130-400) 10^3/cmm Neut % (Auto) 82.4 % Neut # (Auto) 9.33 H (1.8-7.7) 10^3/uL BMP 11/17/21 02:08 Sodium 140 Potassium 4.2 Chloride 97 L Carbon Dioxide 17 L BUN 16 Creatinine 1.5 H Glucose 93 Calcium 10.8 H Liver Function 11/17/21 Range/Units 02:08 Total Bilirubin 1.3 H (0.15-1.2) mg/dL AST 26 (0-40) U/L ALT 18 (0-41) U/L Alkaline Phosphatase 102 (40-130) U/L Albumin 4.7 (3.5-5.2) g/dL Urine 11/17/21 Range/Units 03:06 Urine Color Yellow (Yellow) Urine Appearance Clear (CLEAR) Urine pH 5 (5-7) Ur Specific [place] 1.020 (1.005-1.030) Urine Protein 1+ H (Negative) Urine Glucose (UA) Norm (Normal) Urine Ketones 2+ H (Negative) Urine Nitrate Negative (Negative) Urine Bilirubin Neg (Negative) Ur Leukocyte Esterase Negative (Negative) Urine RBC 40-50 H (0-2) /hpf Urine WBC 0-4 H (0-5) /hpf Coags 11/17/21 02:08 C-Reactive Protein 7.2 H Cardiac Studies: Echocardiogram 10/28/20
[2021-11-17 07:12] LABS: INR 0.98 (0.8-1.2)
[2021-11-17] MEDS: sodium chloride 0.9% 1,000 ML 30 ML IV (07:15)
[2021-11-17] MEDS: ondansetron 2 mg/ML SDV 2 mL 4 MG IVP (07:15)
[2021-11-17] MEDS: hum prothrombin cplx(pcc)4fact 2,000 UNIT in empty flexible container 1 EACH 600 UNIT IV (07:31)
[2021-11-17] MEDS: acetaminophen 1,000 MG/100 ML PIGGYBACK 400 MG IV (08:15)
--- NOTE | 2021-11-17 09:44 | PM.OP ---
Operative Report Date of procedure: November 17, 2021 Pre-op diagnosis: Preop Diagnosis Bowel obstruction Post-op diagnosis: Ischemic small bowel 220 cm from the ligament of Treitz Post-op findings: 8 inches of ischemic bowel nonviable Procedure done: Diagnostic laparoscopy with small bowel resection with functional [id number]-[id number] anastomosis Open umbilical hernia repair without mesh placed Implants: Small piece of Surgicel Specimens removed/disposition: Umbilical hernia Small bowel segment with sutures marked proximal Staple line Surgeon: Marlon Weinstein MD Actuary: Surgical techs Sakina Circulating nurses Lilly and Brandi Anesthesia: General (Alma CUT OFF SAW SET UP OPERATOR) Estimated blood loss (mL): 25 IV fluids (mL): 1,700 Urine output (mL): 450 Brief History: Reversal of Xarelto was given prior to surgery with pharmacy consult on board Procedure: After identifying the patient in the holding area, was taken to the operating room, placed in supine position, intubated by anesthesia, prophylactic IV antibiotics were given per protocol.Malave catheter was inserted by the circulating nurse revealing clear urine,time-out was done verifying the patient's name/date of /planned procedure and destination after the procedure, all were in agreement. Anesthesia was asked to introduce an orogastric tube for stomach decompression Patient was appropriately secured to the table, all pressure points were padded, both arms were tucked. Prep and drape of the abdomen was done under the usual sterile technique, a Mahajan trocar technique was used through an infraumbilical skin incision, to stay sutures were applied to the fascia, and safe entrance to the abdominal cavity was achieved, low flow followed by high flow of CO2 gas, started by 0 scope 10 mm, no injuries were detected, followed by that a 30? millimeter scope was inserted a. A 5 mm trocar was inserted under direct vision in the right upper quadrant, followed by a right lower quadrant, and another two 5 mm trocars were inserted as a mirror image from the first 2 but on the left side, to enable running the small bowel, from each side of the operating table. There was evidence of internal herniation with ischemic bowel around the lower part of the abdomen Position of the patient was done in T Saucedo and reversed T Saucedo so I was able to inspect the whole abdominal cavity safely I was able to check on the entire colon didn't show any pathological changes except for some distention of the sigmoid colon with evidence of uncomplicated diverticulosis no evidence of volvulus,the remaining of the viscera looked normal.there was a ischemic bowel segment about 7 to 8 inches in length with internally herniating through a band connected between the mesentery of the colon and the anterior abdominal wall and encircled the small bowel with a closed-loop obstruction coinciding with the CT scan findings. showed to be a potential transition point, showing proximal mild to moderate dilated small bowel loops, and distal collapse. I did use the laparoscopic Enseal device to take down the adhesive band and I was able to identify the small bowel segment better. At this point I did run the bowel from the ligament of Treitz and the ischemic bowel was about 220 cm from that point and also I did run the bowel from the ileocecal junction and the rest of the bowel looked to be viable and normal except for the above segment. And a midline skin incision was created and a bowel grasper was held onto the nonviable bowel segment a GelPort device was placed for wound protection and I was able to deliver that segment of bowel where 55 mm blue load was used after creating mesenteric windows to divide the small bowel distally and proximally and Enseal device was used to control the mesentery, a suture was placed onto the the bowel identifying proximal portion and was sent for permanent pathology. Proximal and distal small bowel segments down were came to [id number] after application of 3-0 silk sutures enterotomy then was created in a [id number] 55 mm blue load was applied and a xzrj-oa-nrdg anastomosis was then created followed by enterotomy site was held by Allis clamps and another fire was applied and the staple line was sent for permanent pathology, mesenteric defect was then closed by interrupted 3-0 silk suture as well as the staple line was invaginated using interrupted 3-0 silk suture. A crotch stitch was applied as well. Appropriate and patent anastomosis was created and the bowel segment was dropped to the abdominal cavity. I was able to insufflate the abdomen again after placement of the trochars under direct visualization the remaining of the bowel looked viable there was no other pathological signs inside the abdomen suction irrigation was obtained. And a small piece of Surgicel was applied onto the mesenteric closure of the bowel as there was mild oozing but there was no active bleeding. Now the trochars were taken out and the fascia of the midline was closed using continuous #1 PDS suture followed by copious irrigation of the wound followed by skin skyler The orogastric tube was and Malave catheter was kept in place Patient tolerated the procedure well and got extubated, was taken to the recovery area in stable condition Count of instruments, needles and sponges were completed at the end of the procedure I was present for the whole entire procedure
[2021-11-17 14:21] LABS: NT Pro B Type Natriuretic Pept 164 pg/mL (0-125)
[2021-11-17 14:45] LABS: Alcohol Level 87 mg/dL (0-10); Lipase 19 U/L (13-60); Magnesium 1.6 mg/dL (1.7-2.3); Thyroid Stimulating Hormone 1.44 uIU/mL (0.27-4.20)
--- NOTE | 2021-11-17 15:06 | ANE.PACU2 ---
Inpatient post-anesthesia follow up: Airway intact: Yes Vital signs: Temperature 98.0 F Pulse Rate 86 Respiratory Rate 18 Blood Pressure 132/79 Pulse Oximetry 95 Oxygen Delivery Me thod Room Air Oxygen Flow Rate 6 Fraction of Inspir ed Oxygen Hydration adequate: Yes Nausea and vomiting: No Pain level: 1 Mental status: Baseline
--- NOTE | 2021-11-17 16:04 | PM.MISC ---
Miscellaneous Note Note: Patient seen and examined after returning from the operating room. He underwent diagnostic laparoscopy, noted to have internal irrigation of the jejunum and underwent resection with [id number]-[id number] anastomosis. Not thought to be thromboembolic in nature. Patient is currently comfortable at the time of exam. Pain is well controlled. Plan to continue IV antibiotics, n.p.o. status. Repeat lactate.
[2021-11-17] MEDS: sodium chloride 0.9% 1,000 ML 75 ML IV (16:25)
[2021-11-17] MEDS: levETIRAcetam 500 mg Tablet PO ×2 (16:38→20:54)
[2021-11-17] MEDS: thiamine 100 mg Tablet PO ×2 (16:38→16:50)
[2021-11-17] MEDS: multivitamin therapeutic Tablet 1 TAB PO (16:38)
[2021-11-17] MEDS: folic acid 1 mg Tablet PO (16:38)
[2021-11-17] MEDS: famotidine 20 mg/2 mL INJ IVP ×2 (16:40→23:35)
[2021-11-17 16:47] LABS: Basophils % 0.1 %; Hematocrit 41.8 % (42.0-52.0); Hemoglobin 14.4 g/dL (11.7-16.6); Lymphocytes # 0.6 10^3/uL (0.8-4.8); Lymphocytes % 5.1 %; Mean Corpuscular HGB Conc 34.4 g/dL (30.0-36.0); Mean Corpuscular Hemoglobin 33.8 pg (28.0-34.0); Mean Corpuscular Volume 98.1 fl (80-94); Mean Platelet Volume 10.4 fL (7.4-10.4); Monocytes # 0.6 10^3/uL (0.2-0.9); Monocytes % 5.4 %; Neutrophils # 10.61 10^3/uL (1.8-7.7); Nucleated Red Blood Cells % 0 %; Platelet Count 192 10^3/cmm (130-400); Red Blood Count 4.26 10^6/uL (4.1-5.3); Red Cell Distribution Width 15.7 % (12.1-15.1); White Blood Count 11.9 10^3/uL (4.0-10.0)
[2021-11-17 17:11] LABS: Alanine Aminotransferase 13 U/L (0-41); Albumin Level 3.6 g/dL (3.5-5.2); Alkaline Phosphatase 73 U/L (40-130); Aspartate Amino Transferase 18 U/L (0-40); Blood Urea Nitrogen 20 mg/dL (8-23); Calcium 8.7 mg/dL (8.5-10.5); Carbon Dioxide 23 mmol/L (22-29); Chloride 100 mmol/L (98-107); Globulin 2.8 g/dL (1.3-4.6); Glomerular Filtration Rate 55.1 mL/min (90-130); Glucose 142 mg/dL (65-115); Osmolality Calculated 287 mOsm/kg (285-295); Sodium 136 mmol/L (136-145); Total Protein 6.4 g/dL (6.6-8.7)
[2021-11-17 17:20] LABS: Lactate (Lactic Acid level) 1.3 mmol/L (0.5-2.2)
[2021-11-17 18:48] LABS: Estmated Average Glucose 85; Hemoglobin A1C 4.6 % (4.0-6.0)
[2021-11-17] MEDS: pantoprazole 40 mg SDV IVP (20:36)
[2021-11-17] MEDS: acetaminophen 325 mg Tablet 650 MG PO (20:42)
[2021-11-17] MEDS: sodium chloride 0.9% 1,000 ML 100 ML IV (20:54)
[2021-11-18] VITALS (7 sets, daily range): BP systolic 136–160; BP diastolic 78–89; PULSE 61–72; RESP 16–18; TEMP 36.4–37.1; O2SAT 95–98
[2021-11-18] MEDS: sodium chloride 0.9% 1,000 ML 100 ML IV ×3 (03:07→23:54)
[2021-11-18] MEDS: heparin 5,000 unit/mL INJ 1 mL 5000 UNIT SUBCUT ×3 (06:08→21:52)
[2021-11-18] MEDS: ondansetron 2 mg/ML SDV 2 mL 4 MG IVP ×2 (06:16→15:26)
--- NOTE | 2021-11-18 07:17 | PM.PN ---
Subjective Subjective: Patient overall has been doing well and feels better. Normalization of lactic acid. Did not pass gas yet. Medications: Reviewed: Yes Vitals/I&O/Wt Last Vital Signs Temp 98.5 F 11/18/21 04:00 Pulse 69 11/18/21 04:00 Resp 17 11/18/21 04:00 BP 151/88 11/18/21 04:00 Pulse Ox 97 11/18/21 04:00 O2 Del Method 11/18/21 04:00 O2 Flow Rate 6 11/17/21 10:00 11/17/21 11/18/21 11/18/21 22:59 06:59 14:59 Intake Total 50 / 1940 1170 / 3110 Balance 50 / 465 1170 / 1635 Weight last 48 hrs Weight 179 lb Weight 185 lb Physical Exam Narrative: Patient is conscious alert oriented X3 No apparent distress BMI 25 Head and neck examination PERRLA no masses no cervical lymphadenopathy no jaundice Cardiac examination audible S1-S2 no murmurs no gallops no arrhythmias Chest is clear bilateral,abscence of Rhonchi or wheezes,no surgical emphysema Abdomen nontender except at the incision sites and dressing in place nondistended soft no organomegaly guarding or rigidity/no signs of peritonitis Fully catheter in place with clear urine Extremities no cyanosis no clubbing no edema Urinary Catheter Management: Malave: Cath Placed During This Visit: yes Reason for Continuing Indwelling Catheter: Perioperative Use in Selected Surgeries Urinary Catheter Date of Insertion: 11/17/21 Data : 11/18/21 07:11 11/18/21 07:11 A&P Assessment and plan (1) Bowel obstruction: Assessment 66 years old gentleman status post diagnostic laparoscopy and bowel resection for closed-loop obstruction with ischemic segment of small bowel. 11/17/2021 Plan Encourage ambulation Can DC Malave catheter from surgical standpoint of view yet patient wants to keep it for a while. Risks benefits were explained for the patient. Incentive spirometer every hour We will follow on a.m. lab Continue pharmacologic DVT prophylaxis Awaiting bowel functions, once patient starts passing gas we will start him slowly on clear liquid diet and protein shakes Assurance and education All questions have been answered and all concerns have been addressed to patient's satisfaction. Status: Resolved Attestations Medical Necessity Statement*: Per admitting service Coding Level of Care Code Acute Typesetters Printer for Chg Fwd Diagnoses Bowel obstruction K56.609
[2021-11-18 07:25] LABS: Basophils % 0.2 %; Hematocrit 42.9 % (42.0-52.0); Hemoglobin 14.4 g/dL (11.7-16.6); Lymphocytes # 1.4 10^3/uL (0.8-4.8); Lymphocytes % 11.7 %; Mean Corpuscular HGB Conc 33.6 g/dL (30.0-36.0); Mean Corpuscular Hemoglobin 33.9 pg (28.0-34.0); Mean Corpuscular Volume 100.9 fl (80-94); Mean Platelet Volume 10.5 fL (7.4-10.4); Monocytes % 8.2 %; Neutrophils # 9.77 10^3/uL (1.8-7.7); Neutrophils % 79.7 %; Nucleated Red Blood Cells % 0 %; Platelet Count 188 10^3/cmm (130-400); Red Blood Count 4.25 10^6/uL (4.1-5.3); Red Cell Distribution Width 15.8 % (12.1-15.1); White Blood Count 12.3 10^3/uL (4.0-10.0)
[2021-11-18 07:39] LABS: Anion Gap 14.8 (5-19); Blood Urea Nitrogen 18 mg/dL (8-23); Calcium 8.5 mg/dL (8.5-10.5); Carbon Dioxide 23 mmol/L (22-29); Chloride 100 mmol/L (98-107); Glomerular Filtration Rate 66.8 mL/min (90-130); Glucose 117 mg/dL (65-115); Osmolality Calculated 281 mOsm/kg (285-295); Potassium 3.8 mmol/L (3.5-5.1); Sodium 134 mmol/L (136-145)
[2021-11-18] MEDS: pantoprazole 40 mg SDV IVP ×2 (09:05→21:27)
[2021-11-18] MEDS: piperacillin-tazobactam 3.375 GM in sodium chloride 0.9% (plus) 50 ML IV ×3 (09:05→23:53)
[2021-11-18] MEDS: levETIRAcetam 500 mg Tablet PO ×2 (09:07→21:52)
[2021-11-18] MEDS: multivitamin therapeutic Tablet 1 TAB PO (09:07)
[2021-11-18] MEDS: folic acid 1 mg Tablet PO (09:07)
[2021-11-18] MEDS: famotidine 20 mg/2 mL INJ IVP (10:10)
[2021-11-18 10:55] LABS: Amphetamines Screen Urine Negative (Negative); Barbiturates Screen Urine Negative (Negative); Benzodiazepines Screen Urine Negative (Negative); Cocaine Screen Urine Negative (Negative); Opiate Screen Urine Negative (Negative); PCP Screen Urine Negative (Negative); THC Screen Urine Negative (Negative)
--- NOTE | 2021-11-18 11:02 | PC.NURSE ---
pt reported small amount of flatulence.
--- NOTE | 2021-11-18 12:24 | PC.CHAP ---
Pastoral Care Encounter/Spiritual Assessment Type of Contact [] Declined field clinical engineer visit [] Patient/Family/Request visit [] Outpatient visit [] Follow-up visit [] Physician referral [] Code/Alert [x] Routine visit [] Staff referral [] Actively dying [] Patient sleeping [] Family support [] [] Out of room [] Palliative care [] [x] Receiving care in room [] Pre-surgical visit [] Trauma [] Long length of stay [] ICU visit [] Other: Relational/Emotional Strength [x] Patient feels connected with others/family/visitors/staff [] Distress [] Loneliness/isolation [] Abandonment Spirituality of Patient [x] Person of Samanta [] Attends Hindu of their Samanta [x] Believes in Prayer [] Reads Bible or Anabaptist materials [] There are Spiritual issues to be addressed Canvas Goods Maker Interventions [x] Prayer [x] Active listening [x] Non-anxious presence [x] Spiritual/emotional support [] Crisis/trauma care [x] Spiritual counseling [] Bereavement support [] Provided bereavement packet [] Provided Bible/devotional materials [] Provided toy/stuffed animal, coloring book to patient or family member [] Provided Communion [] Anointing/[place] [] Salvation [x] Completed spiritual assessment [] Other: Impact on Illness or Injury [] Angry [] Fearful [x] Anxious [] Often cries [] Exhaustion [] Unable to work [] Unable to attend bahai [] Unable to walk/stand [] Unable to read [] Unable to drive [] Unable to eat/drink [] Unable to sleep [] Unable to be with family [] Patient intubated [] Other: Summary had surgery on Migel has agood attitude well go home Time spent with patient 10 mins
--- NOTE | 2021-11-18 14:52 | P.PN_ITS ---
Subjective Subjective: Pain is currently well controlled. No acute events overnight. Has not passed flatus or feces yet. Medications: Reviewed: Yes Vitals/I&O/Wt Last Vital Signs Temp 97.8 F 11/18/21 11:00 Pulse 62 11/18/21 11:00 Resp 16 11/18/21 11:00 BP 143/83 11/18/21 11:00 Pulse Ox 97 11/18/21 11:00 O2 Del Method 11/18/21 11:00 O2 Flow Rate 6 11/17/21 10:00 11/17/21 11/18/21 11/18/21 22:59 06:59 14:59 Intake Total 50 / 1940 1170 / 3110 3050 / 3050 Balance 50 / 465 1170 / 1635 3050 / 3050 Weight last 48 hrs Weight 81.193 kg Weight 83.915 kg Physical Exam Narrative: General: No acute distress, AO x3 HEENT: PERRLA, pupils bilaterally equal and reactive, pallors not present Chest: Normal vesicular breath sounds, no added sounds, equal good air entry bilaterally CVS: S1-S2 regular, no murmurs, no tachycardia, no gallops, no rubs Abdomen: Soft, nontender, no organomegaly, bowel sounds present. Noted laparoscopic entry sites. Neuro: No focal deficits, no facial deformity, AO x3, power 5/5 in all limbs . Urinary Catheter Management: Mlaave: Cath Placed During This Visit: yes Reason for Continuing Indwelling Catheter: Perioperative Use in Selected Surgeries Urinary Catheter Date of Insertion: 11/17/21 Data : 11/18/21 07:11 11/18/21 07:11 A&P Assessment and plan (1) Bowel obstruction: Status: Acute (2) Atrial fibrillation: Status: Acute (3) Alcohol use disorder: Status: Acute (4) Anemia: Status: Acute (5) Hypertension: Status: Acute Plan Small bowel obstruction status postsurgical intervention, small bowel resection with end-to-end anastomosis. Patient has not passed flatus yet, however hearing bowel sounds today. Patient reports that he has been off anticoagulation at least since August of this year. States that after he left turning if he followed up with his primary care provider at the [facility] in [place] and was recommended to stop his anticoagulation and iron supplementation. I asked him as to the reason why this was discontinued and he states that he was told it is no longer needed. Heart rate is currently well controlled. Has a history of A. fib. Currently heart rate is ranging between 48 to 62. He is not currently on any AV carolynn blocking agents. Hypertension hold medications Alcohol abuse, CIWA score monitor for alcohol withdrawal closely History of GI bleed, recent history of EGD and colonoscopy within the last year, no active source of bleeding Full code SCDs for DVT prophylaxis Attestations Medical Necessity Statement*: Awaiting return of bowel function Coding Level of Care Code Acute Orthopedic Mechanic for Chg Fwd Diagnoses Bowel obstruction K56.609 Atrial fibrillation I48.91 Alcohol use disorder Anemia D64.9 Hypertension I10
[2021-11-18] MEDS: acetaminophen 325 mg Tablet 650 MG PO (21:52)
[2021-11-19] VITALS (11 sets, daily range): BP systolic 128–149; BP diastolic 76–90; PULSE 55–89; RESP 15–18; TEMP 36.5–36.8; O2SAT 93–97
[2021-11-19] MEDS: heparin 5,000 unit/mL INJ 1 mL 5000 UNIT SUBCUT ×3 (05:48→21:45)
[2021-11-19] MEDS: morphine 4 mg/mL SDV 1 mL 2 MG IVP (05:52)
--- NOTE | 2021-11-19 07:27 | PM.PN ---
Subjective Subjective: Patient overall is tolerating p.o. intake but he said that he is hurting. Passing a lot of gas. Malave catheter was taken out yesterday and patient is voiding liberally Medications: Reviewed: Yes Vitals/I&O/Wt Last Vital Signs Temp 98.2 F 11/19/21 03:51 Pulse 69 11/19/21 03:51 Resp 16 11/19/21 05:52 BP 148/86 11/19/21 03:51 Pulse Ox 94 11/19/21 03:51 O2 Del Method 11/19/21 03:51 O2 Flow Rate 6 11/17/21 10:00 11/18/21 11/19/21 11/19/21 22:59 06:59 14:59 Intake Total 290 / 3340 1050 / 4390 Output Total 300 / 300 425 / 725 Balance -0 625 / 3665 Weight last 48 hrs Weight 179 lb Physical Exam Narrative: Patient is conscious alert oriented X3 No apparent distress BMI 25 Head and neck examination PERRLA no masses no cervical lymphadenopathy no jaundice Abdomen nontender except at the incision sites and dressing was taken down and incisions are clean dry and intact, skin skyler in place. Otherwise nondistended soft no organomegaly guarding or rigidity/no signs of peritonitis Extremities no cyanosis no clubbing no edema Urinary Catheter Management: Malave: Cath Placed During This Visit: yes, but has since been removed by the nurse Reason for Continuing Indwelling Catheter: Decision to DC Catheter Urinary Catheter Date of Insertion: 11/17/21 Date Urinary Catheter Removed: 11/18/21 Time Urinary Catheter Discontinued: 18:33 Data : 11/18/21 07:11 11/18/21 07:11 A&P Assessment and plan (1) Bowel obstruction: Assessment 66 years old gentleman status post diagnostic laparoscopy and bowel resection for closed-loop obstruction with ischemic segment of small bowel. 11/17/2021 Plan Encourage ambulation with assistance and physical therapy guidance Limitations not to exceed lifting more than 5 to 10 pounds We will switch patient to hydrocodone 10/325 mg every 6 hours as needed p.o. to help with pain control We will switch PPI to p.o. form of Pepcid 20 mg twice daily Drop IV fluids to 50 ml/h Incentive spirometer every hour We will follow on a.m. lab Continue pharmacologic DVT prophylaxis Physical therapy consultation as patient feels weak particularly he did have peripheral neuropathies as he reports. From surgical standpoint of view patient is getting closer to be discharged home yet we will follow on physical therapy recommendations and coordinate care with hospitalist and social media sr strategy manager. To optimize safe discharge. Assurance and education All questions have been answered and all concerns have been addressed to patient's satisfaction. Status: Resolved Attestations Medical Necessity Statement*: Patient requiring inpatient hospitalization for perioperative care status post bowel resection Coding Level of Care Code Acute Garage Door Opener Installer for g Fwd Diagnoses Bowel obstruction K56.609
[2021-11-19] MEDS: HYDROcodone-acetaminophen 10-325 mg Tablet 1 TAB PO ×2 (08:42→21:51)
[2021-11-19] MEDS: multivitamin therapeutic Tablet 1 TAB PO (08:53)
[2021-11-19] MEDS: levETIRAcetam 500 mg Tablet PO ×2 (08:53→21:45)
[2021-11-19] MEDS: thiamine 100 mg Tablet PO (08:53)
[2021-11-19] MEDS: folic acid 1 mg Tablet PO (08:53)
[2021-11-19] MEDS: piperacillin-tazobactam 3.375 GM in sodium chloride 0.9% (plus) 50 ML IV (08:54)
[2021-11-19] MEDS: famotidine 20 mg Tablet PO ×2 (09:07→17:09)
[2021-11-19 09:32] LABS: Basophils # 0.1 10^3/uL (0.0-0.1); Basophils % 0.5 %; Eosinophils % 0.4 %; Hemoglobin 16.1 g/dL (11.7-16.6); Lymphocytes # 2.4 10^3/uL (0.8-4.8); Lymphocytes % 24.7 %; Mean Corpuscular HGB Conc 34.3 g/dL (30.0-36.0); Mean Corpuscular Hemoglobin 34.3 pg (28.0-34.0); Mean Corpuscular Volume 100.2 fl (80-94); Monocytes # 0.9 10^3/uL (0.2-0.9); Monocytes % 8.7 %; Neutrophils # 6.38 10^3/uL (1.8-7.7); Neutrophils % 65.3 %; Nucleated Red Blood Cells % 0 %; Platelet Count 189 10^3/cmm (130-400); Red Blood Count 4.69 10^6/uL (4.1-5.3); Red Cell Distribution Width 15.3 % (12.1-15.1); White Blood Count 9.8 10^3/uL (4.0-10.0)
[2021-11-19 09:51] LABS: Anion Gap 17.5 (5-19); Blood Urea Nitrogen 11 mg/dL (8-23); Calcium 9.2 mg/dL (8.5-10.5); Carbon Dioxide 21 mmol/L (22-29); Chloride 98 mmol/L (98-107); Creatinine Clr Calc Pharmacy 78.7358; Glomerular Filtration Rate 74.5 mL/min (90-130); Glucose 90 mg/dL (65-115); Osmolality Calculated 275 mOsm/kg (285-295); Potassium 3.5 mmol/L (3.5-5.1); Sodium 133 mmol/L (136-145)
--- NOTE | 2021-11-19 11:59 | P.PN_ITS ---
Subjective Subjective: Patient is passing some flatus today. He has not had a bowel movement yet. Started on clears today. States he has some abdominal discomfort. Medications: Reviewed: Yes Vitals/I&O/Wt Last Vital Signs Temp 98.0 F 11/19/21 11:35 Pulse 89 11/19/21 11:35 Resp 16 11/19/21 11:35 BP 133/90 11/19/21 11:35 Pulse Ox 93 11/19/21 11:35 O2 Del Method 11/19/21 11:35 O2 Flow Rate 6 11/19/21 08:00 11/18/21 11/19/21 11/19/21 22:59 06:59 14:59 Intake Total 290 / 3340 1050 / 4390 1000 / 1000 Output Total 300 / 300 425 / 725 400 / 400 Balance -10 / 3040 625 / 3665 600 / 600 Weight last 48 hrs Weight 81.193 kg Physical Exam Narrative: General: No acute distress, AO x3 HEENT: PERRLA, pupils bilaterally equal and reactive, pallors not present Chest: Normal vesicular breath sounds, no added sounds, equal good air entry bilaterally CVS: S1-S2 regular, no murmurs, no tachycardia, no gallops, no rubs Abdomen: Soft, nontender, no organomegaly, bowel sounds present. Noted laparoscopic entry sites. Neuro: No focal deficits, no facial deformity, AO x3, power 5/5 in all limbs . Urinary Catheter Management: Malave: Cath Placed During This Visit: yes, but has since been removed by the nurse Reason for Continuing Indwelling Catheter: Decision to DC Catheter Urinary Catheter Date of Insertion: 11/17/21 Date Urinary Catheter Removed: 11/18/21 Time Urinary Catheter Discontinued: 18:33 Data : 11/19/21 08:56 11/19/21 08:56 A&P Assessment and plan (1) Bowel obstruction: Status: Acute (2) Atrial fibrillation: Status: Acute (3) Alcohol use disorder: Status: Acute (4) Anemia: Status: Acute (5) Hypertension: Status: Acute Plan Small bowel obstruction status postsurgical intervention, small bowel resection with end-to-end anastomosis on 11/17. Patient has started to pass flatus, no bowel movement yet. Started on clears today per surgery recommendation. Patient reports that he has been off anticoagulation at least since August of this year. States that after he left turning if he followed up with his primary care provider at the [facility] in [place] and was recommended to stop his anticoagulation and iron supplementation. I asked him as to the reason why this was discontinued and he states that he was told it is no longer needed. Heart rate is currently well controlled. Has a history of A. fib. Currently heart rate is ranging between 65-89. He is not currently on any AV carolynn blocking agents. BP 160s towards evening hours- resume lisinopril Alcohol abuse, last consumed alcohol in June 2021, resports being sober since leaving [place]. History of GI bleed, recent history of EGD and colonoscopy within the last year, no active source of bleeding Full code SCDs for DVT prophylaxis Attestations Medical Necessity Statement*: post surgical care, PT/OT assesment Coding Level of Care Code Acute Jar Capper for Chg Fwd Diagnoses Bowel obstruction K56.609 Atrial fibrillation I48.91 Alcohol use disorder Anemia D64.9 Hypertension I10
[2021-11-19] MEDS: sodium chloride 0.9% 1,000 ML 50 ML IV (17:10)
[2021-11-20] VITALS (7 sets, daily range): BP systolic 103–135; BP diastolic 65–79; PULSE 50–62; RESP 16–20; TEMP 36.6–36.9; O2SAT 95–99
[2021-11-20] MEDS: heparin 5,000 unit/mL INJ 1 mL 5000 UNIT SUBCUT ×3 (05:32→21:32)
--- NOTE | 2021-11-20 07:36 | PM.PN ---
Subjective Subjective: Patient had an appropriate uneventful night. Tolerating p.o. intake and pain is under better control and has been ambulating with a walker. Was seen and evaluated by physical therapy yesterday. Continues to pass gas but no bowel movements yet. Adequate urine output and appropriate lab values Medications: Reviewed: Yes Vitals/I&O/Wt Last Vital Signs Temp 98.0 F 11/20/21 04:00 Pulse 50 L 11/20/21 04:00 Resp 16 11/20/21 04:00 BP 135/79 11/20/21 04:00 Pulse Ox 95 11/20/21 07:28 O2 Del Method 11/20/21 07:28 O2 Flow Rate 6 11/19/21 08:00 FiO2 21 11/20/21 07:28 11/19/21 11/20/21 11/20/21 22:59 06:59 14:59 Intake Total 120 / 1290 1053.333 / 2343.333 Output Total 200 / 800 650 / 1450 Balance -80 / 490 403.333 / 893.333 Weight last 48 hrs Weight 176 lb 8 oz Physical Exam Narrative: Patient is conscious alert oriented X3 No apparent distress BMI 25 Head and neck examination PERRLA no masses no cervical lymphadenopathy no jaundice Abdomen nontender except at the incision sites and dressing was taken down and incisions are clean dry and intact, skin skyler in place. Otherwise nondistended soft no organomegaly guarding or rigidity/no signs of peritonitis Extremities no cyanosis no clubbing no edema Urinary Catheter Management: Malave: Cath Placed During This Visit: yes, but has since been removed by the nurse Reason for Continuing Indwelling Catheter: Decision to DC Catheter Urinary Catheter Date of Insertion: 11/17/21 Date Urinary Catheter Removed: 11/18/21 Time Urinary Catheter Discontinued: 18:33 Data : 11/19/21 08:56 11/19/21 08:56 A&P Assessment and plan (1) Bowel obstruction: Assessment 66 years old gentleman status post diagnostic laparoscopy and bowel resection for closed-loop obstruction with ischemic segment of small bowel. 11/17/2021 Plan Will advance to full liquid diet and protein shakes with every meal Hep-Lock IV fluid Continue incentive spirometer every hour From surgical standpoint of view patient can resume Xarelto Once patient is tolerating full liquid diet can be discharged home and can be on full liquid diet for the coming 48 hours then advance to soft GI diet,till he comes in see me back in 1 week in the office. Education about avoiding constipation and patient was informed about the incidental finding of the diverticulosis of the sigmoid colon intraoperatively. I will defer the timing of discharge to Dr. Acuña Please call for any questions or concerns Assurance and education All questions have been answered and all concerns have been addressed to patient's satisfaction. 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
[2021-11-20 08:13] LABS: Basophils % 0.7 %; Eosinophils # 0.2 10^3/uL (0.0-0.8); Hematocrit 40.7 % (42.0-52.0); Hemoglobin 13.9 g/dL (11.7-16.6); Lymphocytes # 2.1 10^3/uL (0.8-4.8); Mean Corpuscular HGB Conc 34.2 g/dL (30.0-36.0); Mean Corpuscular Hemoglobin 34.6 pg (28.0-34.0); Mean Corpuscular Volume 101.2 fl (80-94); Mean Platelet Volume 10.7 fL (7.4-10.4); Monocytes # 0.6 10^3/uL (0.2-0.9); Monocytes % 9.6 %; Neutrophils % 50.4 %; Nucleated Red Blood Cells % 0 %; Platelet Count 148 10^3/cmm (130-400); Red Blood Count 4.02 10^6/uL (4.1-5.3); Red Cell Distribution Width 15.3 % (12.1-15.1)
[2021-11-20 09:10] LABS: Anion Gap 10.4 (5-19); Blood Urea Nitrogen 9 mg/dL (8-23); Calcium 8.8 mg/dL (8.5-10.5); Carbon Dioxide 27 mmol/L (22-29); Chloride 101 mmol/L (98-107); Glomerular Filtration Rate 74.5 mL/min (90-130); Glucose 90 mg/dL (65-115); Osmolality Calculated 278 mOsm/kg (285-295); Potassium 3.4 mmol/L (3.5-5.1); Sodium 135 mmol/L (136-145)
[2021-11-20] MEDS: multivitamin therapeutic Tablet 1 TAB PO (10:14)
[2021-11-20] MEDS: famotidine 20 mg Tablet PO ×2 (10:15→18:02)
[2021-11-20] MEDS: lisinopril 5 mg Tablet PO (10:15)
[2021-11-20] MEDS: levETIRAcetam 500 mg Tablet PO ×2 (10:15→20:44)
[2021-11-20] MEDS: folic acid 1 mg Tablet PO (10:16)
--- NOTE | 2021-11-20 13:41 | PC.NURSE ---
Patient ambulated in hallway, making 3 laps around [facility] but then reported pain began to reoccur and he returned to his room. Offered acetaminophen but patient refused, instead he just wanted to lie down and rest. No bowel movement reported yet.
--- NOTE | 2021-11-20 13:59 | P.PN_ITS ---
Subjective Subjective: Patient tolerated a clear liquid diet yesterday. States pain is better today. Rates it at 6 out of 10 and is against 8 out of 10 on previous days. He has continued to pass gas but has not had a bowel movement yet. Blood pressure better controlled after addition of lisinopril 5 mg daily. Medications: Reviewed: Yes Vitals/I&O/Wt Last Vital Signs Temp 98.4 F 11/20/21 11:00 Pulse 54 L 11/20/21 11:00 Resp 16 11/20/21 11:00 BP 116/72 11/20/21 11:00 Pulse Ox 97 11/20/21 11:00 O2 Del Method 11/20/21 11:00 O2 Flow Rate 6 11/19/21 08:00 FiO2 21 11/20/21 07:28 11/19/21 11/20/21 11/20/21 22:59 06:59 14:59 Intake Total 120 / 1290 1053.333 / 2343.333 600 / 600 Output Total 200 / 800 650 / 1450 240 / 240 Balance -80 / 490 403.333 / 893.333 360 / 360 Weight last 48 hrs Weight 80.059 kg Physical Exam Narrative: General: No acute distress, AO x3 HEENT: PERRLA, pupils bilaterally equal and reactive, pallors not present Chest: Normal vesicular breath sounds, no added sounds, equal good air entry bilaterally CVS: S1-S2 regular, no murmurs, no tachycardia, no gallops, no rubs Abdomen: Soft, nontender, no organomegaly, bowel sounds present. Noted laparoscopic entry sites. Neuro: No focal deficits, no facial deformity, AO x3, power 5/5 in all limbs . Urinary Catheter Management: Malave: Cath Placed During This Visit: yes, but has since been removed by the nurse Reason for Continuing Indwelling Catheter: Decision to DC Catheter Urinary Catheter Date of Insertion: 11/17/21 Date Urinary Catheter Removed: 11/18/21 Time Urinary Catheter Discontinued: 18:33 Data : 11/20/21 07:45 11/20/21 07:45 A&P Assessment and plan (1) Bowel obstruction: (2) Atrial fibrillation: (3) Alcohol use disorder: (4) Anemia: (5) Hypertension: Plan #Small bowel obstruction status postsurgical intervention, small bowel resection with end-to-end anastomosis on 11/17. Patient has started to pass flatus, no bowel movement yet. Abdominal pain is much improved. Tolerated a clear liquid diet all day on 923, advance to full liquid diet today. Currently on pain management with hydrocodone APAP 11/29/2024 every 6 hours as needed and as needed IV morphine. #History of atrial fibrillation, currently heart rate ranges between 54-76 of of any AV carolynn blockers. No runs of rapid A. fib RVR. Patient used to be on anticoagulation with Xarelto, however after discussion with his PCP this was taken out sometime in July of this year. #Hypertension: Blood pressure now better controlled after addition of lisinopril 5 mg p.o. daily. #Alcohol abuse, last consumed alcohol in June 2021, reports being sober since leaving turning [employer]. No current signs of alcohol withdrawal. #Patient reports overall deconditioning and generalized malaise. Was evaluated by physical therapy yesterday, recommended home exercise program. #Dispo: Plan to be discharged home, anticipate in the next 24 to 48 hours. Full code DVT prophylaxis: Heparin 5000 subcu every 8 hours Attestations Medical Necessity Statement*: Slowly improving, advancing diet, assess for tolerability, bowel movement. 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
[2021-11-20] MEDS: potassium chloride ER 20 mEq Tablet 40 MEQ PO (14:15)
[2021-11-20] MEDS: ondansetron 2 mg/ML SDV 2 mL 4 MG IVP (16:55)
--- NOTE | 2021-11-20 19:11 | PC.NURSE ---
End of shift report given at bedside to Rox Taylor LPN
[2021-11-20] MEDS: acetaminophen 325 mg Tablet 650 MG PO (23:50)
[2021-11-21] VITALS: BP 114/70; PULSE 53; RESP 17; TEMP 36.7; O2SAT 97
[2021-11-21 04:00] VITALS: BP 112/69; PULSE 49; RESP 18; TEMP 36.4; O2SAT 98
[2021-11-21] MEDS: heparin 5,000 unit/mL INJ 1 mL 5000 UNIT SUBCUT ×2 (05:38→21:10)
--- NOTE | 2021-11-21 07:48 | PM.PN ---
Subjective Subjective: Patient tolerating p.o. intake and maintains to have adequate urine output and stable vital signs. Pain is adequately controlled. No acute events overnight. Patient have a feeding to have a bowel movement but not yet but he continues to pass gas. Medications: Reviewed: Yes Vitals/I&O/Wt Last Vital Signs Temp 97.5 F L 11/21/21 04:00 Pulse 49 L 11/21/21 04:00 Resp 18 11/21/21 04:00 BP 112/69 11/21/21 04:00 Pulse Ox 98 11/21/21 04:00 O2 Del Method 11/20/21 15:55 O2 Flow Rate 6 11/19/21 08:00 FiO2 21 11/20/21 07:28 11/20/21 11/21/21 11/21/21 22:59 06:59 14:59 Intake Total 240 / 840 120 / 960 Output Total 400 / 640 Balance 240 / 600 -280 / 320 Weight last 48 hrs Weight 172 lb 1.6 oz Weight 176 lb 8 oz Physical Exam Narrative: Patient is conscious alert oriented X3 No apparent distress BMI 25 Head and neck examination PERRLA no masses no cervical lymphadenopathy no jaundice Abdomen nontender except at the incision sites and dressing was taken down and incisions are clean dry and intact, skin skyler in place. Otherwise nondistended soft no organomegaly guarding or rigidity/no signs of peritonitis Extremities no cyanosis no clubbing no edema Urinary Catheter Management: Malave: Cath Placed During This Visit: yes, but has since been removed by the nurse Reason for Continuing Indwelling Catheter: Decision to DC Catheter Urinary Catheter Date of Insertion: 11/17/21 Date Urinary Catheter Removed: 11/18/21 Time Urinary Catheter Discontinued: 18:33 Data : 11/20/21 07:45 11/20/21 07:45 A&P Assessment and plan (1) Bowel obstruction: Assessment 66 years old gentleman status post diagnostic laparoscopy and bowel resection for closed-loop obstruction with ischemic segment of small bowel. 11/17/2021 Plan Continue full liquid diet and protein shakes with every meal Glycerin suppository 1 time Metamucil twice daily Continue incentive spirometer every hour From surgical standpoint of view patient can resume Xarelto Encourage ambulation We will follow on pathology Please call for any questions or concerns Assurance and education All questions have been answered and all concerns have been addressed to patient's satisfaction. 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
[2021-11-21 07:52] VITALS: BP 132/82; PULSE 52; RESP 16; TEMP 36.7; O2SAT 93
[2021-11-21] MEDS: folic acid 1 mg Tablet PO (10:47)
[2021-11-21] MEDS: famotidine 20 mg Tablet PO ×2 (10:47→17:36)
[2021-11-21] MEDS: glycerin adult supp 1 EACH PR (10:48)
[2021-11-21] MEDS: multivitamin therapeutic Tablet 1 TAB PO (10:48)
[2021-11-21] MEDS: levETIRAcetam 500 mg Tablet PO ×2 (10:48→21:09)
[2021-11-21] MEDS: lisinopril 5 mg Tablet PO (10:48)
[2021-11-21] MEDS: psyllium powder Pkt 1 PACKET PO ×2 (10:48→17:36)
[2021-11-21 11:55] VITALS: BP 117/68; PULSE 62; RESP 16; O2SAT 96
--- NOTE | 2021-11-21 14:42 | P.PN_ITS ---
Subjective Subjective: Continues to tolerate his full liquid diet. Passing flatus. No bowel movement yet. Abdominal pain is much improved. Medications: Reviewed: Yes Vitals/I&O/Wt Last Vital Signs Temp 98.1 F 11/21/21 07:52 Pulse 62 11/21/21 11:55 Resp 16 11/21/21 11:55 BP 117/68 11/21/21 11:55 Pulse Ox 96 11/21/21 11:55 O2 Del Method 11/21/21 11:55 O2 Flow Rate 6 11/19/21 08:00 FiO2 21 11/20/21 07:28 11/20/21 11/21/21 11/21/21 22:59 06:59 14:59 Intake Total 240 / 840 120 / 960 600 / 600 Output Total 400 / 640 Balance 240 / 600 -280 / 320 600 / 600 Weight last 48 hrs Weight 78.063 kg Weight 80.059 kg Physical Exam Narrative: General: No acute distress, AO x3 HEENT: PERRLA, pupils bilaterally equal and reactive, pallors not present Chest: Normal vesicular breath sounds, no added sounds, equal good air entry bilaterally CVS: S1-S2 regular, no murmurs, no tachycardia, no gallops, no rubs Abdomen: Soft, nontender, no organomegaly, bowel sounds present. Noted laparoscopic entry sites. Neuro: No focal deficits, no facial deformity, AO x3, power 5/5 in all limbs . Urinary Catheter Management: Malave: Cath Placed During This Visit: yes, but has since been removed by the nurse Reason for Continuing Indwelling Catheter: Decision to DC Catheter Urinary Catheter Date of Insertion: 11/17/21 Date Urinary Catheter Removed: 11/18/21 Time Urinary Catheter Discontinued: 18:33 Data : 11/20/21 07:45 11/20/21 07:45 A&P Assessment and plan (1) Bowel obstruction: (2) Atrial fibrillation: (3) Alcohol use disorder: (4) Anemia: (5) Hypertension: Plan #Small bowel obstruction status postsurgical intervention, small bowel resection with end-to-end anastomosis on 11/17. Patient has started to pass flatus, no bowel movement yet. Abdominal pain is much improved. Continues to tolerate a liquid diet Currently on pain management with hydrocodone APAP 11/29/2024 every 6 hours as needed and as needed IV morphine. #History of atrial fibrillation, currently heart rate ranges between 54-76 of of any AV carolynn blockers. No runs of rapid A. fib RVR. Patient used to be on anticoagulation with Xarelto, however he states that after discussion with his PCP this was taken out sometime in July of this year. He reports his PCP told him that he does not need this anymore. I am uncertain as to the circumstances of stopping Xarelto, however patient prefers to follow-up regarding this with his primary care physician. #Hypertension: Blood pressure now better controlled after addition of lisinopril 5 mg p.o. daily. #Alcohol abuse, last consumed alcohol in June 2021, reports being sober since leaving [facility]. No current signs of alcohol withdrawal. #Patient reports overall deconditioning and generalized malaise. Was evaluated by physical therapy yesterday, recommended home exercise program. #Dispo: Overall patient is stable to be discharged home from a medical and surgical standpoint, however he does not have a ride for today and there is nobody at home to receive him. We are unable to arrange for transport as it appears Medicaid does not pay for transport. He requests to discharge tomorrow when his significant other is able to pick him up from the hospital and arrange the home for his arrival. Full code DVT prophylaxis: Heparin 5000 subcu every 8 hours Attestations Medical Necessity Statement*: Stable for discharge, however due to transport issues will likely discharge in the upcoming 24 hours. Coding Level of Care Code Acute [facility] Service [facility] Diagnoses Bowel obstruction K56.609 Atrial fibrillation I48.91 Alcohol use disorder Anemia D64.9 Hypertension I10
[2021-11-21 15:30] VITALS: BP 131/78; PULSE 55; RESP 16; TEMP 36.8; O2SAT 97
[2021-11-21 20:00] VITALS: BP 122/72; PULSE 63; RESP 17; TEMP 36.7; O2SAT 97
[2021-11-21] MEDS: acetaminophen 325 mg Tablet 650 MG PO (21:11)
[2021-11-22] VITALS: BP 133/76; PULSE 52; RESP 16; TEMP 36.6; O2SAT 98
[2021-11-22 04:00] VITALS: BP 113/67; PULSE 48; RESP 16; TEMP 36.6; O2SAT 97
[2021-11-22] MEDS: heparin 5,000 unit/mL INJ 1 mL 5000 UNIT SUBCUT (06:23)
[2021-11-22 07:44] VITALS: BP 135/83; PULSE 51; RESP 16; TEMP 36.3; O2SAT 97
[2021-11-22] MEDS: glycerin adult supp 1 EACH PR (10:13)
[2021-11-22] MEDS: folic acid 1 mg Tablet PO (10:14)
[2021-11-22] MEDS: famotidine 20 mg Tablet PO (10:14)
[2021-11-22] MEDS: multivitamin therapeutic Tablet 1 TAB PO (10:14)
[2021-11-22] MEDS: levETIRAcetam 500 mg Tablet PO (10:14)
[2021-11-22] MEDS: psyllium powder Pkt 1 PACKET PO (10:14)
[2021-11-22] MEDS: lisinopril 5 mg Tablet PO (10:15)
[2021-11-22 11:00] VITALS: BP 137/79; PULSE 51; RESP 16; TEMP 36.7; O2SAT 98
--- NOTE | 2021-11-22 11:22 | PC.SOCIAL ---
IMM Update pg 2 of IMM updated and reviewed w/ patient. Copy provided and Copy dated, initialed and placed in chart.
--- NOTE | 2021-11-22 12:01 | P.DS_ITS ---
Discharge Providers Date of Admission: 11/17/21 05:46 Date of Discharge: November 22, 2021 Attending Provider at Admission: Callie Acuña MD Attending Provider at Discharge: Woodrow Syed Diagnoses at Discharge Discharge Diagnosis (1) Bowel obstruction: Status: Acute (2) Atrial fibrillation: Status: Acute (3) Alcohol use disorder: Status: Acute (4) Anemia: Status: Acute (5) Hypertension: Status: Acute Reason for Visit Reason for Visit: ABD PAIN Hospital Course Hospital Course Pleasant 66-year-old gentleman with history of alcohol use disorder, anemia, A. fib, GERD, HTN, hypokalemia, neuropathy, seizure, thrombocytopenia, was hospitalized for this management due to small bowel obstruction, incarcerated hernia, underwent diagnostic laparoscopy with small bowel resection with finding of ischemic small bowel segment 220 cm from ligament of Treitz with functional [id number] anastomosis. On periumbilical hernia repair without mesh placement on 11/17. Postoperatively uncomplicated course, bowel sounds resumed, he is passing flatus, has not yet had a bowel movement. Tolerating full liquid diet. Has a past medical history of atrial fibrillation, on Xarelto in the past, however, reports was not to take Xarelto anymore since about July, he prefers to follow with primary care provider and discuss this further rather than starting currently. Please revisit with him at next visit given history of atrial fibrillation, age, hypertension, stroke risk. He is asked to follow-up with surgery in office in 1 week, continue Metamucil. Continue home exercise program. Continue to support cessation from alcohol and reevaluate his chronic medical problems. Physical Exam Const: COMMON NORMALS: patient oriented x3 and alert GENERAL APPEARANCE: cooperative ORIENTATION/CONSCIOUSNESS: Yes awake HENMT: COMMON NORMALS: oropharynx normal Eye: OTHER: Chronic anisocoria, left pupil dilated, chronic blindness left eye Neck/C-Spine: COMMON NORMALS: no JVD Resp: COMMON NORMALS: normal respiratory effort and clear to auscultation bilaterally AUSCULTATION: clear to auscultation bilaterally Cardio: COMMON NORMALS: no JVD, regular rhythm, S1 normal heart sound present, S2 normal heart sound present and No murmurs present (Cardio) RHYTHM: regular rhythm HEART SOUNDS: S1 normal heart sound present and S2 normal heart sound present GI: COMMON NORMALS: Normal to inspection, nondistended, normoactive bowel sounds present, Soft to palpation and non-tender PALPATION: Yes Soft to palpation Extremity: COMMON NORMALS: no joint enlargement and no pedal edema Neuro: COMMON NORMALS: patient oriented x3 and moves all extremities SENSORIUM/ORIENTATION: Yes alert Skin: COMMON NORMALS: no rashes or lesions noted GENERAL SKIN EXAM: no rashes or lesions noted Urinary Catheter Management: Malave: Cath Placed During This Visit: yes, but has since been removed by the nurse Reason for Continuing Indwelling Catheter: Decision to DC Catheter Urinary Catheter Date of Insertion: 11/17/21 Date Urinary Catheter Removed: 11/18/21 Time Urinary Catheter Discontinued: 18:33 Discharge Data Studies Completed and Pending Completed Studies During Hospitalization Category Date Time Status CT abdomen pelvis w con* [id number] Stat Cat Scan 11/17/21 03:02 Completed Pathology: Surgical [PTH] Routine Pth 11/17/21 09:50 Completed Radiology Impressions Abdomen/Pelvis CT 11/17/21 03:02 IMPRESSION: U shaped small bowel loop in the lower mid left abdomen with beaking of approximating limbs suggest closed loop obstruction. Small amount of edema seen within adjacent mesentery. More proximal small bowel distended as well. ADDENDUM: 11/17/21 0521 THIS REPORT CONTAINS FINDINGS THAT MAY BE CRITICAL TO PATIENT CARE. The findings were verbally communicated via telephone conference at 5:19 AM CDT on 11/17/2021 with LA HOLLAND. The findings were acknowledged and understood. Laboratory Results WBC 6.0 10^3/uL (4.0-10.0) 11/20/21 07:45 RBC 4.02 10^6/uL (4.1-5.3) L 11/20/21 07:45 Hgb 13.9 g/dL (11.7-16.6) 11/20/21 07:45 Hct 40.7 % (42.0-52.0) L 11/20/21 07:45 MCV 101.2 fl (80-94) H 11/20/21 07:45 MCH 34.6 pg (28.0-34.0) H 11/20/21 07:45 MCHC 34.2 g/dL (30.0-36.0) 11/20/21 07:45 RDW 15.3 % (12.1-15.1) H 11/20/21 07:45 Plt Count 148 10^3/cmm (130-400) 11/20/21 07:45 MPV 10.7 fL (7.4-10.4) H 11/20/21 07:45 Neut % (Auto) 50.4 % 11/20/21 07:45 Lymph % (Auto) 36.0 % 11/20/21 07:45 [place] % (Auto) 9.6 % 11/20/21 07:45 Eos % (Auto) 3.0 % 11/20/21 07:45 Baso % (Auto) 0.7 % 11/20/21 07:45 Neut # (Auto) 3.00 10^3/uL (1.8-7.7) 11/20/21 07:45 Lymph # (Auto) 2.1 10^3/uL (0.8-4.8) 11/20/21 07:45 [place] # (Auto) 0.6 10^3/uL (0.2-0.9) 11/20/21 07:45 Eos # (Auto) 0.2 10^3/uL (0.0-0.8) 11/20/21 07:45 Baso # (Auto) 0.0 10^3/uL (0.0-0.1) 11/20/21 07:45 Nucleated RBC % (auto) 0 % 11/20/21 07:45 Nucleated RBCs # 0.0 /100WBC 11/20/21 07:45 PT 13.30 SECONDS (12.1-14.9) 11/17/21 06:20 INR 0.98 (0.8-1.2) 11/17/21 06:20 Sodium 135 mmol/L (136-145) L 11/20/21 07:45 Potassium 3.4 mmol/L (3.5-5.1) L 11/20/21 07:45 Chloride 101 mmol/L (98-107) 11/20/21 07:45 Carbon Dioxide 27 mmol/L (22-29) 11/20/21 07:45 Anion Gap 10.4 (5-19) 11/20/21 07:45 BUN 9 mg/dL (8-23) 11/20/21 07:45 Creatinine 1.0 mg/dL (0.7-1.2) 11/20/21 07:45 GFR Calculation 74.5 mL/min (90-130) L 11/20/21 07:45 Glucose 90 mg/dL (65-115) 11/20/21 07:45 Estimat Average Glucose 85 11/17/21 02:08 Hemoglobin A1c 4.6 % (4.0-6.0) 11/17/21 02:08 Calculated Osmolality 278 mOsm/kg (285-295) L 11/20/21 07:45 Lactate 1.3 mmol/L (0.5-2.2) 11/17/21 16:37 Calcium 8.8 mg/dL (8.5-10.5) 11/20/21 07:45 Magnesium 1.6 mg/dL (1.7-2.3) L 11/17/21 02:08 Total Bilirubin 1.0 mg/dL (0.15-1.2) 11/17/21 16:37 AST 18 U/L (0-40) 11/17/21 16:37 ALT 13 U/L (0-41) 11/17/21 16:37 Alkaline Phosphatase 73 U/L (40-130) 11/17/21 16:37 C-Reactive Protein 7.2 mg/L (0.0-4.9) H 11/17/21 02:08 NT-Pro-B Natriuret Pep 164 pg/mL (0-125) H 11/17/21 02:08 Total Protein 6.4 g/dL (6.6-8.7) L D 11/17/21 16:37 Albumin 3.6 g/dL (3.5-5.2) 11/17/21 16:37 Globulin 2.8 g/dL (1.3-4.6) 11/17/21 16:37 Lipase 19 U/L (13-60) 11/17/21 02:08 TSH 1.44 uIU/mL (0.27-4.20) 11/17/21 02:08 Urine Color Yellow (Yellow) 11/17/21 03:06 Urine Appearance Clear (CLEAR) 11/17/21 03:06 Urine pH 5 (5-7) 11/17/21 03:06 Ur Specific [place] 1.020 (1.005-1.030) 11/17/21 03:06 Urine Protein 1+ (Negative) H 11/17/21 03:06 Urine Glucose (UA) Norm (Normal) 11/17/21 03:06 Urine Ketones 2+ (Negative) H 11/17/21 03:06 Urine Blood 3+ (Negative) H 11/17/21 03:06 Urine Nitrate Negative (Negative) 11/17/21 03:06 Urine Bilirubin Neg (Negative) 11/17/21 03:06 Urine Urobilinogen Norm mg/dL (Negative) 11/17/21 03:06 Ur Leukocyte Esterase Negative (Negative) 11/17/21 03:06 Urine RBC 40-50 /hpf (0-2) H 11/17/21 03:06 Urine WBC 0-4 /hpf (0-5) H 11/17/21 03:06 Ur Squamous Epith Cells 0-4 /hpf (0-5) H 11/17/21 03:06 Amorphous Sediment 1+ /hpf 11/17/21 03:06 Urine Bacteria Trace /hpf (NONE) 11/17/21 03:06 Hyaline Casts 5-10 /lpf H 11/17/21 03:06 Urine Mucus 1+ /hpf 11/17/21 03:06 Urine Opiates Screen Negative ng/mL (Negative) 11/17/21 10:35 Ur Barbiturates Screen Negative ng/mL (Negative) 11/17/21 10:35 Ur Phencyclidine Scrn Negative ng/mL (Negative) 11/17/21 10:35 Ur Amphetamines Screen Negative ng/mL (Negative) 11/17/21 10:35 U Benzodiazepines Scrn Negative ng/mL (Negative) 11/17/21 10:35 Urine Cocaine Screen Negative ng/mL (Negative) 11/17/21 10:35 U Marijuana (THC) Screen Negative ng/mL (Negative) 11/17/21 10:35 Ethyl Alcohol 87 mg/dL (0-10) H 11/17/21 02:08 Vitals Last Vital Signs Temp 98.1 F 11/22/21 11:00 Pulse 51 L 11/22/21 11:00 Resp 16 11/22/21 11:00 BP 137/79 11/22/21 11:00 Pulse Ox 98 11/22/21 11:00 O2 Del Method 11/22/21 11:00 O2 Flow Rate 6 11/19/21 08:00 FiO2 21 11/20/21 07:28 Discharge Plan Discharge Patient Disposition: Home Condition: Stable Prescriptions: New acetaminophen 325 mg Tablet 650 mg PO Q6H PRN (Reason: Mild/Mod Pain Or Temp >/= 101) Qty: 14 0RF Metamucil (with sugar) 3.4 gram Powder In Packet 1 packet PO BID Qty: 180 0RF lisinopril 5 mg Tablet 5 mg PO DAILY Qty: 30 0RF thiamine HCl (vitamin B1) 100 mg tablet 100 mg PO DAILY Qty: 90 0RF Continued potassium chloride 10 mEq capsule, extended release 10 meq PO DAILY levetiracetam 500 mg tablet 500 mg PO QAM sertraline 25 mg tablet 25 mg PO QAM omeprazole 20 mg capsule,delayed release(DR/EC) 20 mg PO BID PRN (Reason: Heartburn) folic acid 1 mg tablet 1 mg PO QAM gabapentin 100 mg capsule 200 mg PO TID acamprosate 333 mg tablet,delayed release (DR/EC) 666 mg PO TID Discontinued lisinopril-hydrochlorothiazide 20-25 mg tablet 1 tab PO QAM Discharge Orders: Discharge Order (Routine); Ordered 11/22/21 Ordered By: Woodrow Syed Referrals: Marlon Weinstein MD [Physician] - 12/01/21 11:30 am (Return to surgery office in 1 week) Jaden Goff [Referring] - 11/26/21 10:00 am Discharge Diet: As Directed Discharge Activity: Limit activity as instructed Patient Instructions: Thiamine (By mouth), Laxative, Stool Softeners (By mouth), Constipation (GEN), Diverticulosis (GEN), Colectomy (GEN), Opioid Safety Activity Restrictions/Additional Instructions: 1. Patient can shower after 48 hours from surgery 2. Avoid constipation 3. Up and walking as tolerated 4. Do lift more than 5 pounds first 2 weeks after surgery and not more than 25 pounds 6 to 8 weeks after surgery. 5. Do not operate heavy machinery or drive while using pain medications. 6.Contact the office or return to the ER for worsening nausea vomiting fevers or chills, or noticing any redness around incision sites or discharge. General recommendations regarding diverticulosis: Plan of care; Review the pathology with the patient Return to primary care provider Avoid constipation Avoid seeds nuts and popcorn High Fiber diet; As Fiber softens the stool and helps prevent constipation. It also can help decrease pressure in the colon and help prevent flare-ups of diverticulitis. High-fiber foods include: ? Beans and legumes ? Bran, whole wheat bread and whole grain cereals such as oatmeal ? Brown and wild rice ? Fruits such as apples, bananas and pears ? Vegetables such as broccoli, carrots, corn and squash ? Whole wheat pasta The target is to eat 25 to 30 grams of fiber daily. Drink at least 8 cups of fluid daily. Fluid will help soften your stool.Exercise also promotes bowel movement and helps prevent constipation. Weight management Assurance and education All questions have been answered Full liquid diet for the first 48 hours upon discharge then advance to soft GI diet till the patient follow-up with me at the office. Discharge Attestations Time Spent in Discharge Care*: greater than 30 min Status at Discharge: Cognitive status at discharge: cognitively intact , Behavioral status at discharge: cooperative , Quality Metrics Clinical Quality Measures [ No reported AMI, CVA or VTE this stay] Coding Level of Care Code Acute Chg [facility] note Diagnoses Bowel obstruction K56.609 Atrial fibrillation I48.91 Alcohol use disorder Anemia D64.9 Hypertension I10
[2021-11-22 12:16] VITALS: BP 137/79; PULSE 51; RESP 16; TEMP 36.7; O2SAT 98
== END 2021-11-22 14:55 | disposition home or self-care (01) | DRG 331 ==
LOC: ER 02:26 → OR 05:43 → MEDSURG 12:41
PROVIDERS: Family Medicine; Surgery; Admitting Provider Student in an Organized Health Care Education/Training Program; Emergency Provider Student in an Organized Health Care Education/Training Program; Visit Provider Internal Medicine
PROC: 0DB84ZZ Excision of Small Intestine, Percutaneous Endoscopic Approach (ICD-10-PCS; CPT 49320; principal; 2021-11-17 08:10)
PROC: 0DT84ZZ Resection of Small Intestine, Percutaneous Endoscopic Approach (ICD-10-PCS; CPT 44202; 2021-11-17 08:10)
DX: K56.609 Unspecified intestinal obstruction, unspecified as to partial versus complete obstruction (principal); I10 Essential (primary) hypertension; D64.9 Anemia, unspecified; G62.9 Polyneuropathy, unspecified; R56.9 Unspecified convulsions; I48.91 Unspecified atrial fibrillation; F10.10 Alcohol abuse, uncomplicated; K21.9 Gastro-esophageal reflux disease without esophagitis; E87.6 Hypokalemia
CPT/HCPCS: 36415; 74177; 80048; 80053; 80306; 80307; 81001; 83036; 83605; 83690; 83735; 83880; 84443; 85025; 85610; 86140; 88302; 88307; 93005; 94664; 96365; 96372; 96375; 96376; 97110; 97161; 97530; 99285; C9113; C9290; J0330; J1100; J1170; J1644; J2270; J2405; J2543; J2704; J2710; J3010; J3411; J3490; J7030; J7168; P9041; Q9967

== ENCOUNTER → 2021-12-01 11:24 | Outpatient (BNVA) | payer MEDICARE, MEDICAID, SELFPAY | PROVIDERS: Visit Provider Surgery | DX: Z09 Encounter for follow-up examination after completed treatment for conditions other than malignant neoplasm (principal) | CPT/HCPCS: 99024 ==

== ENCOUNTER → 2021-12-22 10:42 | Outpatient (BNVA) | payer MEDICARE, MEDICAID, SELFPAY | PROVIDERS: Visit Provider Surgery | DX: Z09 Encounter for follow-up examination after completed treatment for conditions other than malignant neoplasm (principal) | CPT/HCPCS: 99024 ==

== ENCOUNTER 2022-05-09 17:22 | Inpatient (IN) | payer MEDICARE, MEDICAID, SELFPAY ==
[2022-05-09] VITALS (18 sets, daily range): BP systolic 149–178; BP diastolic 99–109; PULSE 97–122; RESP 15–29; TEMP 36.8–37.2; O2SAT 98–100; BMI 24.4
--- NOTE | 2022-05-09 17:31 | CTR_ITS ---
PROCEDURE INFORMATION: Exam: CT Head Without Contrast Exam date and time: 05/09/2022 5:27 PM Age: 67 years old Clinical indication: Stroke-like symptoms; Right facial droop; Additional info: Symptoms of acute stroke. RT sided facial droop. Fall last night woke up this with symptoms. TECHNIQUE: Imaging protocol: Computed tomography of the head without contrast. Radiation optimization: All CT scans at this facility use at least one of these dose optimization techniques: automated exposure control; mA and/or kV adjustment per patient size (includes targeted exams where dose is matched to clinical indication); or iterative reconstruction. Other technique: STROKE PROTOCOL was implemented. REPORTING DATA: Count of CT and Cardiac NM exams in prior 12 months: This patient has received 4 known CTs and 0 known cardiac nuclear medicine studies in the 12 months prior to the current study. COMPARISON: CT head wo con* [id number] 05/19/2021 3:13 PM RADIATION DOSE METRICS: Total DLP (mGy-cm): 1105.24 FINDINGS: Brain: No hemorrhage. No edema. Moderate diffuse cerebral atrophy. Old lacunar infarcts noted in the basal ganglia. No mass effect. Cerebral ventricles: No ventriculomegaly. Paranasal sinuses: Mucosal thickening of the right maxillary sinus. The rest of the paranasal sinuses are well pneumatized. Mastoid air cells: Visualized mastoid air cells are well aerated. Bones/joints: Unremarkable. No acute fracture. Soft tissues: Unremarkable. CT/CT head thrombolytic [id number] IMPRESSION: 1. No acute intracranial abnormality. 2. Old lacunar infarcts noted in the basal ganglia. ASSESSMENT: ASPECTS ([place] Stroke Program Early CT Score) is 10.
--- NOTE | 2022-05-09 17:32 | ECG_ITS ---
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 Measurements Intervals [place] Rate: 107 P: 31 MI: 136 QRS: -71 QRSD: 138 T: 30 QT: 356 QTc: 476 Interpretive Statements SINUS TACHYCARDIA POSSIBLE LEFT ATRIAL ENLARGEMENT [-0.1mV P-WAVE IN V1/V2] RIGHT BUNDLE BRANCH BLOCK [120+ ms QRS DURATION, UPRIGHT V1, 40+ ms S IN I/aVL/V4/V5/V6] LEFT ANTERIOR FASCICULAR BLOCK [QRS AXIS <= -45, QR IN I, RS IN II] Compared to ECG 11/17/2021 02:03:07 Atrial fibrillation no longer present Electronically Signed On 05-10-2022 0:19:15 CDT by Pallavi Mendez M.D. [id number]
[2022-05-09 18:00] LABS: Basophils # 0.1 10^3/uL (0.0-0.1); Basophils % 0.6 %; Eosinophils % 0.1 %; Hematocrit 37.7 % (42.0-52.0); Hemoglobin 13.1 g/dL (11.7-16.6); Lymphocytes # 1.2 10^3/uL (0.8-4.8); Lymphocytes % 14.6 %; Mean Corpuscular HGB Conc 34.7 g/dL (30.0-36.0); Mean Corpuscular Hemoglobin 36.1 pg (28.0-34.0); Mean Corpuscular Volume 103.9 fl (80-94); Mean Platelet Volume 10.1 fL (7.4-10.4); Monocytes # 0.7 10^3/uL (0.2-0.9); Monocytes % 8.2 %; Neutrophils # 6.22 10^3/uL (1.8-7.7); Neutrophils % 76.1 %; Nucleated Red Blood Cells % 0 %; Platelet Count 144 10^3/cmm (130-400); Red Blood Count 3.63 10^6/uL (4.1-5.3); Red Cell Distribution Width 13.4 % (12.1-15.1); White Blood Count 8.2 10^3/uL (4.0-10.0)
--- NOTE | 2022-05-09 18:07 | ED_ITS ---
Documented by User: Ronald Gonzalez DO 05/10/22 08:29 HPI - Neuro Symptoms/Deficit General: Chief Complaint: Neuro Symptoms/Deficit Stated Complaint: FALL, RT SIDED FACIAL DROOP Time Seen by Provider: 05/09/22 17:27 Source: patient Mode of arrival: EMS History of Present Illness: 67-year-old male presents emergency room complaining of left-sided weakness. Patient states yesterday he slid off of his bed onto the floor and he thinks he hit his head. There was no loss consciousness. He states since then he has had tremors in his arms and his legs. This morning he felt there was a little bit of a right-sided facial droop. He had reported to EMS that he did not hit his head he shows me he may have hit his head. He has not had any vomiting. Does have a history of heavy drinking and has some peripheral neuropathy tells me the peripheral neuropathy is due to 2 previous back surgeries he has. Patient reports slight weakness in his left leg. Patient admits to formally being a heavy drinker. He states he quit nearly a year ago. Onset (ago): day(s) Relieving factors: none Exacerbating factors: none Associated symptoms: Deny chest pain, cough, diaphoresis, fevers/chills, headache(s), anorexia, malaise, nausea, seizures, short of breath, syncope, tingling, vertigo, vomiting or weakness Treatments Prior to Arrival: none Review of Systems Const: Denies: fever(s), chills, fatigue, malaise or diaphoresis ENMT: Denies: throat pain, ear or mastoid pain, nasal discharge or nasal congestion Card: Denies: chest pain or syncope Resp: Denies: dyspnea, productive cough or non-productive cough GI: Denies: nausea or vomiting : Denies: flank pain, dysuria, urinary frequency or urinary urgency Skin/Breast: Denies: rash or pruritus Neuro: Denies: headache(s) or vertigo PFS ED PFSH: Medical History (Updated 05/10/22 @ 08:29 by Ronald Gonzalez DO) Alcohol use disorder Anemia Atrial fibrillation Bowel obstruction GERD (gastroesophageal reflux disease) History of umbilical hernia open, without mesh placed Hypertension Hypokalemia Hypomagnesemia Neuropathy Happened after my back surgery New onset seizure Seizure Thrombocytopenia Surgical History (Updated 05/09/22 @ 22:34 by Woodrow Syed MD) History of carpal tunnel surgery Bilateral History of laparoscopy With small bowel resection with functional side to side anastomosis History of spinal surgery x 2 Hx of cataract surgery Bilateral Hx of colonoscopy with polypectomy Family History Other CAD (coronary artery disease) Cancer Social History Smoking and tobacco status: never smoked Alcohol intake: former Year of sobriety/quit date alcohol: 2020 Former alcohol use details: Has drank wine for years, quit between 1990 - 1996, quit 2020 Substance/Drug Use: never Lives independently: Yes Household members: significant other Marital status: Life Partner NIH stroke score NIHSS: Level Of Consciousness - 1a: 0 Level Of Consciousness Questions - 1b: Both Correct Level Of Consciousness Commands - 1c: Both Correct Best Gaze - 2: Normal Visual Neri - 3: No Visual Loss Facial Palsy - 4: Normal Motor Arm Right - 5: No Drift Motor Arm Left - 5: No Drift Motor Leg Right - 6: No Drift Motor Leg Left - 6: No Drift Limb Ataxia - 7: Absent Sensory - 8: Normal Best Language - 9: No Aphasia Dysarthia - 10: Normal Extinction And Inattention - 11: 0 Score: Total Score: 0 Physical Exam Const: COMMON NORMALS: no acute distress GENERAL APPEARANCE: cooperative and comfortable ORIENTATION/CONSCIOUSNESS: Yes awake, Yes oriented to person, Yes oriented to place and Yes oriented to time HENMT: COMMON NORMALS: normocephalic, atraumatic and hearing grossly normal bilaterally HEAD & SCALP: normocephalic and atraumatic Resp: COMMON NORMALS: normal respiratory effort, No retractions, No use of accessory muscles and clear to auscultation bilaterally AUSCULTATION: clear to auscultation bilaterally Cardio: COMMON NORMALS: regular rate, regular rhythm and No murmurs present (Cardio) RATE: regular rate RHYTHM: regular rhythm GI: COMMON NORMALS: Soft to palpation and No hepatosplenomegaly present AUSCULTATION: Yes normoactive bowel sounds PALPATION: Yes Soft to palpation, No Tenderness to palpation present (GI), No Guarding due to palpation present (GI) and Yes No hepatosplenomegaly present Extremity: COMMON NORMALS: normal to inspection, capillary refill normal, no clubbing, cyanosis or edema, no calf tenderness and no pedal edema Neuro: SENSORIUM/ORIENTATION: Yes oriented to person, Yes oriented to place and Yes oriented to time OTHER: NIH 0 patient has no sensation below the knees but he still Extending above the knees he feels equal bilaterally in anterior thighs and in the hands and forearms. No facial droop at time of exam speech normal face symmetrical. Bilateral upper and lower extremity tremor present Skin: COMMON NORMALS: no rashes or lesions noted GENERAL SKIN EXAM: no rashes or lesions noted Course Vital Signs: Vital signs: Vital Signs Temperature 98.8 F 05/10/22 08:00 Pulse Rate 69 05/10/22 22:00 Respiratory Rate 18 05/10/22 22:58 Blood Pressure 90/61 05/10/22 22:00 Pulse Oximetry 100 05/10/22 22:58 Oxygen Delivery Me thod 05/10/22 10:00 Fraction of Inspir ed Oxygen 25 05/11/22 00:00 MDM - Neuro Symptoms/Deficit Medical Decision Making Significant anion gap. Question if patient may be has begun to drink again despite his claims that he has stopped nearly a year ago. This would explain his tremors as well as his metabolic acidosis. CTs cervical spine thoracic and lumbar spine are pending. Care signed out to Dr. Nguyen at change of shift. See final notes for diagnosis and disposition. 59-year-old male came in via EMS as a stroke alert on arrival that his face is symmetrical the stroke score is 0. He has some peripheral neuropathy which she states is chronic he usually walks with a cane. He is complaining of his new tremor he states that began after he slid out of his bed CT cervical thoracic and lumbar spine has been ordered care signed out to Dr. Nguyen at change of shift. See final notes for diagnosis and disposition. Patient care handed off from Dr. Gonzalez pending completion of ED evaluation. Laboratory studies and imaging reviewed. Patient has significant multilevel degenerative disc disease as well as multiple compression fractures though not appear acute and given patient's physical exam I do not believe that these are the explanation for bilateral upper and lower extremity shakiness. Patient received IV fluids and D5 NS and repeat BMP only minimally improved. I discussed results of ED evaluation with the patient. We will admit for likely alcoholic patient ketosis with evidence of metabolic derangement and SAVANNA The results of ED evaluation were discussed with the patient including plan for admission due to requirement for level of care not available if discharged to prevent significant worsening/deterioration. Patient agreeable with plan. Discussed with hospitalist service who was agreeable to admit patient. Medical Records I reviewed the patient's medical records. Lab Data I reviewed the patient's lab results. 05/09/22 17:48 05/09/22 17:[address] 05/09/22 17:31 IMPRESSION: 1. No acute intracranial abnormality. 2. Old lacunar infarcts noted in the basal ganglia. ASSESSMENT: ASPECTS (Noemi Stroke Program Early CT Score) is 10. Cervical Spine CT 05/09/22 18:17 IMPRESSION: No acute findings. Lumbar Spine CT 05/09/22 18:17 IMPRESSION: 1. L1 vertebral body superior endplate compression fracture without retropulsion of bony fragments, age indeterminate. 2. Bilateral punctate non-obstructing calyceal stones. 3. L2-L3 broad-based disc bulge with moderate spinal canal and mild bilateral foraminal narrowing. 4. L3-L4 broad-based disc bulge with moderate spinal canal and moderate bilateral foraminal narrowing. 5. L4-L5 broad-based posterior disc bulge with productive degenerative changes with mild spinal canal and severe bilateral foraminal narrowing. 6. L5/S1 broad-based posterior disc bulge with mild spinal canal and severe bilateral foraminal narrowing. 7. Hepatic steatosis. Thoracic Spine CT 05/09/22 18:17 IMPRESSION: 1. L1 vertebral body compression fracture without retropulsion of bony fragments. 2. Coronary artery atherosclerotic calcifications. 3. Cardiomegaly. 4. Bilateral punctate nonobstructing renal calyceal stones. 5. Multilevel productive degenerative endplate changes [id number] disc space narrowing throughout the cervical spine. Chest X-Ray 05/10/22 04:38 IMPRESSION: 1. Endotracheal tube and orogastric tube, as noted above. 2. Mildly decreased lung volumes with mild accentuation of the perihilar pulmonary vascularity. No airspace opacities in the lungs. Head/Neck CTA 05/10/22 04:59 IMPRESSION: 1. No large vessel stenosis or occlusion. 2. Small bilateral vertebral arteries and basilar artery. origin bilateral posterior cerebral arteries. IMPRESSION: No stenosis or occlusion. REFERENCES: NASCET CRITERIA. The degree of stenosis in the cervical segment of the internal carotid artery is based on NASCET criteria. Normal is no stenosis. Mild is less than 50% stenosis. Moderate is 50-69% stenosis. Severe is 70% to 99% stenosis. Total occlusion is no detectable patent lumen. Laboratory Results WBC 17.1 10^3/uL (4.0-10.0) H 05/10/22 03:29 RBC 3.86 10^6/uL (4.1-5.3) L 05/10/22 03:29 Hgb 14.3 g/dL (11.7-16.6) 05/10/22 03:29 Hct 42.2 % (42.0-52.0) 05/10/22 03:29 MCV 109.3 fl (80-94) H D 05/10/22 03:29 MCH 37.0 pg (28.0-34.0) H 05/10/22 03:29 MCHC 33.9 g/dL (30.0-36.0) 05/10/22 03:29 RDW 13.3 % (12.1-15.1) 05/10/22 03:29 Plt Count 209 10^3/cmm (130-400) D 05/10/22 03:29 MPV 10.1 fL (7.4-10.4) 05/10/22 03:29 Neut % (Auto) 76.1 % 05/09/22 17:48 Lymph % (Auto) Not Reportable 05/10/22 03:29 [place] % (Auto) Not Reportable 05/10/22 03:29 Eos % (Auto) 0.1 % 05/09/22 17:48 Baso % (Auto) 0.6 % 05/09/22 17:48 Neut # (Auto) 6.22 10^3/uL (1.8-7.7) 05/09/22 17:48 Lymph # (Auto) Not Reportable 05/10/22 03:29 [place] # (Auto) Not Reportable 05/10/22 03:29 Eos # (Auto) 0.0 10^3/uL (0.0-0.8) 05/09/22 17:48 Baso # (Auto) 0.1 10^3/uL (0.0-0.1) 05/09/22 17:48 Nucleated RBC % (auto) 0 % 05/09/22 17:48 Total Counted 100 (0-100) 05/10/22 03:29 Atypical Lymphs % 4.0 % (0-5) 05/10/22 03:29 Absolute Neutrophils 9.1 10^3/cmm (1.4-6.5) H 05/10/22 03:29 Segmented Neutrophils 52 % 05/10/22 03:29 Abs Segm Neuts (Man) 8.9 10/cmm (1.6-7.1) H 05/10/22 03:29 Band Neutrophils 1.0 % 05/10/22 03:29 Abs Band Neuts (Man) 0.2 10^3/cmm (0.0-1.2) 05/10/22 03:29 Absolute Lymphocytes 6.5 10^3/cmm (1.2-3.4) H 05/10/22 03:29 Lymphocytes (Manual) 34 % 05/10/22 03:29 Monocytes (Manual) 6.0 % 05/10/22 03:29 Absolute Monocytes 1.0 10^3/cmm (0.1-0.6) H 05/10/22 03:29 Eosinophils (Manual) 0 % 05/10/22 03:29 Absolute Eosinophils 0.0 10^3/cmm (0.0-0.7) 05/10/22 03:29 Basophils (Manual) 0.0 % 05/10/22 03:29 Absolute Basophils 0.0 10^3/cmm (0.0-0.2) 05/10/22 03:29 Metamyelocytes 3.0 % 05/10/22 03:29 Nucleated RBCs # 0.0 /100WBC 05/09/22 17:48 Platelet Estimate Normal (Normal) 05/10/22 03:29 PT 12.40 SECONDS (12.1-14.9) 05/09/22 17:48 INR 0.90 (0.8-1.2) 05/09/22 17:48 APTT 25.3 SECONDS (23.9-36.7) 05/09/22 17:48 Specimen Type Arterial 05/10/22 04:39 Sample Site Radial, right 05/10/22 04:39 ABG pH 7.34 (7.35-7.45) L 05/10/22 04:39 ABG pCO2 43.7 mmHg (35-45) 05/10/22 04:39 ABG pO2 123.0 mmHg (80.0-100.0) H 05/10/22 04:39 ABG HCO3 23.7 mmol/L (22-26) 05/10/22 04:39 ABG O2 Saturation 99.1 05/10/22 04:39 ABG Base Excess -2.1 mmol/L (-2.0-2.0) L 05/10/22 04:39 Dev Test Pos 05/10/22 04:39 A-a O2 Gradient 4.8 mmHg (5-10) L 05/10/22 04:39 Hematocrit 42.6 % (42-52) 05/10/22 04:39 Hgb O2 Saturation 96.8 % (95-100) 05/10/22 04:39 Carboxyhemoglobin 1.3 %THgb (0.4-20.1) 05/10/22 04:39 Methemoglobin 1.0 % (0.4-1.5) 05/10/22 04:39 Total Hemoglobin 13.9 g/dL (14-18) L 05/10/22 04:39 Sodium 137.0 mmol/L (131-143) 05/10/22 04:39 Potassium 4.3 mmol/L (3.5-5.0) 05/10/22 04:39 Glucose 188.0 mg/dL (70-115) H 05/10/22 04:39 Ionized Calcium 1.1 mmol/L (1.1-1.4) 05/10/22 04:39 O2 Delivery Device Vent 05/10/22 04:39 FiO2 30.0 % 05/10/22 04:39 PEEP 10.0 cmH20 05/10/22 04:39 Lining Machine Operator ID [email or web address] 05/10/22 04:39 Sodium 137 mmol/L (136-145) 05/10/22 03:29 Potassium 3.9 mmol/L (3.5-5.1) 05/10/22 03:29 Chloride 92 mmol/L (98-107) L 05/10/22 03:29 Carbon Dioxide 19 mmol/L (22-29) L 05/10/22 03:29 Anion Gap 29.9 (5-19) H 05/10/22 03:29 BUN 23 mg/dL (8-23) 05/10/22 03:29 Creatinine 1.8 mg/dL (0.7-1.2) H 05/10/22 03:29 GFR Calculation 37.7 mL/min (90-130) L 05/10/22 03:29 Glucose 163 mg/dL (65-115) H 05/10/22 03:29 Estimat Average Glucose 71 05/10/22 03:29 Hemoglobin A1c 4.1 % (4.0-6.0) 05/10/22 03:29 Calculated Osmolality 291 mOsm/kg (285-295) 05/10/22 03:29 Calcium 9.2 mg/dL (8.5-10.5) 05/10/22 03:29 Magnesium 0.2 mg/dL (1.7-2.3) L* 05/10/22 03:29 Total Bilirubin 1.5 mg/dL (0.15-1.2) H 05/10/22 03:29 AST 80 U/L (0-40) H 05/10/22 03:29 ALT 47 U/L (0-41) H 05/10/22 03:29 Alkaline Phosphatase 100 U/L (40-130) 05/10/22 03:29 Ammonia 14 umol/L (16-60) L 05/09/22 18:25 Total Protein 7.7 g/dL (6.6-8.7) 05/10/22 03:29 Albumin 4.4 g/dL (3.5-5.2) 05/10/22 03:29 Globulin 3.3 g/dL (1.3-4.6) 05/10/22 03:29 Lipase 20 U/L (13-60) 05/09/22 18:25 TSH 4.20 uIU/mL (0.27-4.20) 05/10/22 03:29 Urine Color Yellow (Yellow) 05/09/22 20:23 Urine Appearance Clear (CLEAR) 05/09/22 20:23 Urine pH 6 (5-7) 05/09/22 20:23 Ur Specific [place] 1.015 (1.005-1.030) 05/09/22 20: Urine Protein 2+ (Negative) H 05/09/22 20:23 Urine Glucose (UA) 2+ (Normal) H 05/09/22 20: Urine Ketones 1+ (Negative) H 05/09/22 20: Urine Blood 3+ (Negative) H 05/09/22 20:23 Urine Nitrate Negative (Negative) 05/09/22 20: Urine Bilirubin Neg (Negative) 05/09/22 20: Urine Urobilinogen Norm mg/dL (Negative) 05/09/22 20: Ur Leukocyte Esterase Negative (Negative) 05/09/22 20: Urine RBC 5-10 /hpf (0-2) H 05/09/22 20: Urine WBC 0-4 /hpf (0-5) H 05/09/22 20: Ur Squamous Epith Cells 0-4 /hpf (0-5) H 05/09/22 20: Amorphous Sediment Not Reportable 05/09/22 20: Urine Bacteria Trace /hpf (NONE) 05/09/22 20: Urine Mucus Trace /hpf 05/09/22 20: Acetaminophen < 5.0 ug/mL (10-30) L 05/09/22 18:25 Ethyl Alcohol 19 mg/dL (0-10) H 05/09/22 18:25 Discharge Plan Discharge Patient Disposition: Placed in Observation Admit Provider: Woodrow Syed Clinical Impression: Alcohol withdrawal, Acute kidney injury, Metabolic acidosis, increased anion gap Sign Out Sign Out Data: Patient Sign Out occurred on 05/09/22 at 18:39. Patient's care was discussed, and care was transferred from to Eliot Nguyen MD. Coding Level of Care Code ED Toolmaker Grade Three for Chg Fwd Documented by User: Eliot Nguyen MD 05/11/22 02:21 HPI - Neuro Symptoms/Deficit General: Chief Complaint: Neuro Symptoms/Deficit Stated Complaint: FALL, RT SIDED FACIAL DROOP Time Seen by Provider: 05/09/22 17:27 [facility] ED PFSH: Medical History (Updated 05/10/22 @ 08:29 by Ronald Gonzalez DO) Alcohol use disorder Anemia Atrial fibrillation Bowel obstruction GERD (gastroesophageal reflux disease) History of umbilical hernia open, without mesh placed Hypertension Hypokalemia Hypomagnesemia Neuropathy Happened after my back surgery New onset seizure Seizure Thrombocytopenia Surgical History (Updated 05/09/22 @ 22:34 by Woodrow Syed MD) History of carpal tunnel surgery Bilateral History of laparoscopy With small bowel resection with functional side to side anastomosis History of spinal surgery x 2 Hx of cataract surgery Bilateral Hx of colonoscopy with polypectomy Family History Other CAD (coronary artery disease) Cancer Social History Smoking and tobacco status: never smoked Alcohol intake: former Year of sobriety/quit date alcohol: 2020 Former alcohol use details: Has drank wine for years, quit between 1990 - 1996, quit 2020 Substance/Drug Use: never Lives independently: Yes Household members: significant other Marital status: Life Partner NIH stroke score Score: Total Score: 0 Course Vital Signs: Vital signs: Vital Signs Temperature 98.8 F 05/10/22 08:00 Pulse Rate 69 05/10/22 22:00 Respiratory Rate 18 05/10/22 22:58 Blood Pressure 90/61 05/10/22 22:00 Pulse Oximetry 100 05/10/22 22:58 Oxygen Delivery Ok thod 05/10/22 10:00 Fraction of Inspir ed Oxygen 25 05/11/22 00:00 MDM - Neuro Symptoms/Deficit Medical Decision Making 59-year-old male came in via EMS as a stroke alert on arrival that his face is symmetrical the stroke score is 0. He has some peripheral neuropathy which she states is chronic he usually walks with a cane. He is complaining of his new tremor he states that began after he slid out of his bed CT cervical thoracic and lumbar spine has been ordered care signed out to Dr. Nguyen at change of shift. See final notes for diagnosis and disposition. Patient care handed off from Dr. Gonzalez pending completion of ED evaluation. Laboratory studies and imaging reviewed. Patient has significant multilevel degenerative disc disease as well as multiple compression fractures though not appear acute and given patient's physical exam I do not believe that these are the explanation for bilateral upper and lower extremity shakiness. Patient received IV fluids and D5 NS and repeat BMP only minimally improved. I discussed results of ED evaluation with the patient. We will admit for likely alcoholic patient ketosis with evidence of metabolic derangement and SAVANNA The results of ED evaluation were discussed with the patient including plan for admission due to requirement for level of care not available if discharged to prevent significant worsening/deterioration. Patient agreeable with plan. Discussed with hospitalist service who was agreeable to admit patient. Lab Data 05/09/22 17:48 05/09/22 17:[address] 05/09/22 17:31 IMPRESSION: 1. No acute intracranial abnormality. 2. Old lacunar infarcts noted in the basal ganglia. ASSESSMENT: ASPECTS (Noemi Stroke Program Early CT Score) is 10. Cervical Spine CT 05/09/22 18:17 IMPRESSION: No acute findings. Lumbar Spine CT 05/09/22 18:17 IMPRESSION: 1. L1 vertebral body superior endplate compression fracture without retropulsion of bony fragments, age indeterminate. 2. Bilateral punctate non-obstructing calyceal stones. 3. L2-L3 broad-based disc bulge with moderate spinal canal and mild bilateral foraminal narrowing. 4. L3-L4 broad-based disc bulge with moderate spinal canal and moderate bilateral foraminal narrowing. 5. L4-L5 broad-based posterior disc bulge with productive degenerative changes with mild spinal canal and severe bilateral foraminal narrowing. 6. L5/S1 broad-based posterior disc bulge with mild spinal canal and severe bilateral foraminal narrowing. 7. Hepatic steatosis. Thoracic Spine CT 05/09/22 18:17 IMPRESSION: 1. L1 vertebral body compression fracture without retropulsion of bony fragments. 2. Coronary artery atherosclerotic calcifications. 3. Cardiomegaly. 4. Bilateral punctate nonobstructing renal calyceal stones. 5. Multilevel productive degenerative endplate changes [id number] disc space narrowing throughout the cervical spine. Chest X-Ray 05/10/22 04:38 IMPRESSION: 1. Endotracheal tube and orogastric tube, as noted above. 2. Mildly decreased lung volumes with mild accentuation of the perihilar pulmonary vascularity. No airspace opacities in the lungs. Head/Neck CTA 05/10/22 04:59 IMPRESSION: 1. No large vessel stenosis or occlusion. 2. Small bilateral vertebral arteries and basilar artery. origin bilateral posterior cerebral arteries. IMPRESSION: No stenosis or occlusion. REFERENCES: NASCET CRITERIA. The degree of stenosis in the cervical segment of the internal carotid artery is based on NASCET criteria. Normal is no stenosis. Mild is less than 50% stenosis. Moderate is 50-69% stenosis. Severe is 70% to 99% stenosis. Total occlusion is no detectable patent lumen. Laboratory Results WBC 17.1 10^3/uL (4.0-10.0) H 05/10/22 03:29 RBC 3.86 10^6/uL (4.1-5.3) L 05/10/22 03:29 Hgb 14.3 g/dL (11.7-16.6) 05/10/22 03:29 Hct 42.2 % (42.0-52.0) 05/10/22 03:29 MCV 109.3 fl (80-94) H D 05/10/22 03:29 MCH 37.0 pg (28.0-34.0) H 05/10/22 03:29 MCHC 33.9 g/dL (30.0-36.0) 05/10/22 03:29 RDW 13.3 % (12.1-15.1) 05/10/22 03:29 Plt Count 209 10^3/cmm (130-400) D 05/10/22 03:29 MPV 10.1 fL (7.4-10.4) 05/10/22 03:29 Neut % (Auto) 76.1 % 05/09/22 17:48 Lymph % (Auto) Not Reportable 05/10/22 03:29 [place] % (Auto) Not Reportable 05/10/22 03:29 Eos % (Auto) 0.1 % 05/09/22 17:48 Baso % (Auto) 0.6 % 05/09/22 17:48 Neut # (Auto) 6.22 10^3/uL (1.8-7.7) 05/09/22 17:48 Lymph # (Auto) Not Reportable 05/10/22 03:29 [place] # (Auto) Not Reportable 05/10/22 03:29 Eos # (Auto) 0.0 10^3/uL (0.0-0.8) 05/09/22 17:48 Baso # (Auto) 0.1 10^3/uL (0.0-0.1) 05/09/22 17:48 Nucleated RBC % (auto) 0 % 05/09/22 17:48 Total Counted 100 (0-100) 05/10/22 03:29 Atypical Lymphs % 4.0 % (0-5) 05/10/22 03:29 Absolute Neutrophils 9.1 10^3/cmm (1.4-6.5) H 05/10/22 03:29 Segmented Neutrophils 52 % 05/10/22 03:29 Abs Segm Neuts (Man) 8.9 10/cmm (1.6-7.1) H 05/10/22 03:29 Band Neutrophils 1.0 % 05/10/22 03:29 Abs Band Neuts (Man) 0.2 10^3/cmm (0.0-1.2) 05/10/22 03:29 Absolute Lymphocytes 6.5 10^3/cmm (1.2-3.4) H 05/10/22 03:29 Lymphocytes (Manual) 34 % 05/10/22 03:29 Monocytes (Manual) 6.0 % 05/10/22 03:29 Absolute Monocytes 1.0 10^3/cmm (0.1-0.6) H 05/10/22 03:29 Eosinophils (Manual) 0 % 05/10/22 03:29 Absolute Eosinophils 0.0 10^3/cmm (0.0-0.7) 05/10/22 03:29 Basophils (Manual) 0.0 % 05/10/22 03:29 Absolute Basophils 0.0 10^3/cmm (0.0-0.2) 05/10/22 03:29 Metamyelocytes 3.0 % 05/10/22 03:29 Nucleated RBCs # 0.0 /100WBC 05/09/22 17:48 Platelet Estimate Normal (Normal) 05/10/22 03:29 PT 12.40 SECONDS (12.1-14.9) 05/09/22 17:48 INR 0.90 (0.8-1.2) 05/09/22 17:48 APTT 25.3 SECONDS (23.9-36.7) 05/09/22 17:48 Specimen Type Arterial 05/10/22 04:39 Sample Site Radial, right 05/10/22 04:39 ABG pH 7.34 (7.35-7.45) L 05/10/22 04:39 ABG pCO2 43.7 mmHg (35-45) 05/10/22 04:39 ABG pO2 123.0 mmHg (80.0-100.0) H 05/10/22 04:39 ABG HCO3 23.7 mmol/L (22-26) 05/10/22 04:39 ABG O2 Saturation 99.1 05/10/22 04:39 ABG Base Excess -2.1 mmol/L (-2.0-2.0) L 05/10/22 04:39 Dev Test Pos 05/10/22 04:39 A-a O2 Gradient 4.8 mmHg (5-10) L 05/10/22 04:39 Hematocrit 42.6 % (42-52) 05/10/22 04:39 Hgb O2 Saturation 96.8 % (95-100) 05/10/22 04:39 Carboxyhemoglobin 1.3 %THgb (0.4-20.1) 05/10/22 04:39 Methemoglobin 1.0 % (0.4-1.5) 05/10/22 04:39 Total Hemoglobin 13.9 g/dL (14-18) L 05/10/22 04:39 Sodium 137.0 mmol/L (131-143) 05/10/22 04:39 Potassium 4.3 mmol/L (3.5-5.0) 05/10/22 04:39 Glucose 188.0 mg/dL (70-115) H 05/10/22 04:39 Ionized Calcium 1.1 mmol/L (1.1-1.4) 05/10/22 04:39 O2 Delivery Device Vent 05/10/22 04:39 FiO2 30.0 % 05/10/22 04:39 PEEP 10.0 cmH20 05/10/22 04:39 Lining Machine Operator ID [email or web address] 05/10/22 04:39 Sodium 137 mmol/L (136-145) 05/10/22 03:29 Potassium 3.9 mmol/L (3.5-5.1) 05/10/22 03:29 Chloride 92 mmol/L (98-107) L 05/10/22 03:29 Carbon Dioxide 19 mmol/L (22-29) L 05/10/22 03:29 Anion Gap 29.9 (5-19) H 05/10/22 03:29 BUN 23 mg/dL (8-23) 05/10/22 03:29 Creatinine 1.8 mg/dL (0.7-1.2) H 05/10/22 03:29 GFR Calculation 37.7 mL/min (90-130) L 05/10/22 03:29 Glucose 163 mg/dL (65-115) H 05/10/22 03:29 Estimat Average Glucose 71 05/10/22 03:29 Hemoglobin A1c 4.1 % (4.0-6.0) 05/10/22 03:29 Calculated Osmolality 291 mOsm/kg (285-295) 05/10/22 03:29 Calcium 9.2 mg/dL (8.5-10.5) 05/10/22 03:29 Magnesium 0.2 mg/dL (1.7-2.3) L* 05/10/22 03:29 Total Bilirubin 1.5 mg/dL (0.15-1.2) H 05/10/22 03:29 AST 80 U/L (0-40) H 05/10/22 03:29 ALT 47 U/L (0-41) H 05/10/22 03:29 Alkaline Phosphatase 100 U/L (40-130) 05/10/22 03:29 Ammonia 14 umol/L (16-60) L 05/09/22 18:25 Total Protein 7.7 g/dL (6.6-8.7) 05/10/22 03:29 Albumin 4.4 g/dL (3.5-5.2) 05/10/22 03:29 Globulin 3.3 g/dL (1.3-4.6) 05/10/22 03:29 Lipase 20 U/L (13-60) 05/09/22 18:25 TSH 4.20 uIU/mL (0.27-4.20) 05/10/22 03:29 Urine Color Yellow (Yellow) 05/09/22 20: Urine Appearance Clear (CLEAR) 05/09/22 20: Urine pH 6 (5-7) 05/09/22 20: Ur Specific [place] 1.015 (1.005-1.030) 05/09/22 20: Urine Protein 2+ (Negative) H 05/09/22 20: Urine Glucose (UA) 2+ (Normal) H 05/09/22 20: Urine Ketones 1+ (Negative) H 05/09/22 20: Urine Blood 3+ (Negative) H 05/09/22 20: Urine Nitrate Negative (Negative) 05/09/22: Urine Bilirubin Neg (Negative) 05/09/22 20: Urine Urobilinogen Norm mg/dL (Negative) 05/09/22 20: Ur Leukocyte Esterase Negative (Negative) 05/09/22 20: Urine RBC 5-10 /hpf (0-2) H 05/09/22 20: Urine WBC 0-4 /hpf (0-5) H 05/09/22 20:23 Ur Squamous Epith Cells 0-4 /hpf (0-5) H 05/09/22 20: Amorphous Sediment Not Reportable 05/09/22 20: Urine Bacteria Trace /hpf (NONE) 05/09/22 20: Urine Mucus Trace /hpf 05/09/22 20: Acetaminophen < 5.0 ug/mL (10-30) L 05/09/22 18:25 Ethyl Alcohol 19 mg/dL (0-10) H 05/09/22 18:25 Discharge Plan Discharge Patient Disposition: Placed in Observation Admit Provider: Woodrow Syed Clinical Impression: Alcohol withdrawal, Acute kidney injury, Metabolic acidosis, increased anion gap Sign Out Sign Out Data: Patient Sign Out occurred on 05/09/22 at 18:39. Patient's care was discussed, and care was transferred from to Eliot Nguyen MD. Coding Level of Care Code ED Toolmaker Grade Three for uziel Daily
[2022-05-09 18:12] LABS: Partial Thromboplastin Time 25.3 SECONDS (23.9-36.7)
[2022-05-09 18:17] LABS: Alanine Aminotransferase 44 U/L (0-41); Albumin Level 4.5 g/dL (3.5-5.2); Alkaline Phosphatase 96 U/L (40-130); Anion Gap 30.9 (5-19); Aspartate Amino Transferase 77 U/L (0-40); Blood Urea Nitrogen 25 mg/dL (8-23); Calcium 9.6 mg/dL (8.5-10.5); Carbon Dioxide 18 mmol/L (22-29); Chloride 93 mmol/L (98-107); Glomerular Filtration Rate 43.2 mL/min (90-130); Glucose 73 mg/dL (65-115); Osmolality Calculated 289 mOsm/kg (285-295); Potassium 3.9 mmol/L (3.5-5.1); Sodium 138 mmol/L (136-145); Total Bilirubin 1.3 mg/dL (0.15-1.2); Total Protein 7.5 g/dL (6.6-8.7)
--- NOTE | 2022-05-09 18:17 | CTR_ITS ---
PROCEDURE INFORMATION: Exam: CT Thoracic Spine Without Contrast Exam date and time: 05/09/2022 6:38 PM Age: 67 years old Clinical indication: Injury or trauma; Fall; Blunt trauma (contusions or hematomas); Patient HX: Fell out of bed yesterday. Today C/O of left sided weakness with tremors to both upper extremities. History of multiple spinal surgeries. PT unable to specify. TECHNIQUE: Imaging protocol: Computed tomography of the thoracic spine without contrast. Radiation optimization: All CT scans at this facility use at least one of these dose optimization techniques: automated exposure control; mA and/or kV adjustment per patient size (includes targeted exams where dose is matched to clinical indication); or iterative reconstruction. REPORTING DATA: Count of CT and Cardiac NM exams in prior 12 months: This patient has received 7 known CTs and 0 known cardiac nuclear medicine studies in the 12 months prior to the current study. COMPARISON: CT cervical spin wo con* [id number] 05/09/2022 6:35 PM RADIATION DOSE METRICS: Total DLP (mGy-cm): 1208.81 FINDINGS: Bones/joints: L1 vertebral body compression fracture without retropulsion of bony fragments. Multilevel productive degenerative endplate changes [id number] disc space narrowing throughout the cervical spine. T1-T2: No significant disc bulge or herniation. No severe spinal canal stenosis. No significant neural foraminal narrowing. T2-T3: No significant disc bulge or herniation. No severe spinal canal stenosis. No significant neural foraminal narrowing. T3-T4: No significant disc bulge or herniation. No severe spinal canal stenosis. No significant neural foraminal narrowing. T4-T5: No significant disc bulge or herniation. No severe spinal canal stenosis. No significant neural foraminal narrowing. T5-T6: No significant disc bulge or herniation. No severe spinal canal stenosis. No significant neural foraminal narrowing. T6-T7: No significant disc bulge or herniation. No severe spinal canal stenosis. No significant neural foraminal narrowing. T7-T8: No significant disc bulge or herniation. No severe spinal canal stenosis. No significant neural foraminal narrowing. T8-T9: No significant disc bulge or herniation. No severe spinal canal stenosis. No significant neural foraminal narrowing. T9-T10: No significant disc bulge or herniation. No severe spinal canal stenosis. No significant neural foraminal narrowing. T10-T11: No significant disc bulge or herniation. No severe spinal canal stenosis. No significant neural foraminal narrowing. T11-T12: No significant disc bulge or herniation. No severe spinal canal stenosis. No significant neural foraminal narrowing. T12-L1: No significant disc bulge or herniation. No severe spinal canal stenosis. No significant neural foraminal narrowing. Heart: Cardiomegaly. Other findings: Coronary artery atherosclerotic calcifications. Bilateral punctate nonobstructing renal calyceal stones. CT/CT thoracic spin wo con* [id number] IMPRESSION: 1. L1 vertebral body compression fracture without retropulsion of bony fragments. 2. Coronary artery atherosclerotic calcifications. 3. Cardiomegaly. 4. Bilateral punctate nonobstructing renal calyceal stones. 5. Multilevel productive degenerative endplate changes [id number] disc space narrowing throughout the cervical spine.
--- NOTE | 2022-05-09 18:17 | CTR_ITS ---
PROCEDURE INFORMATION: Exam: CT Cervical Spine Without Contrast Exam date and time: 05/09/2022 6:35 PM Age: 67 years old Clinical indication: Injury or trauma; Fall; Numbness; Blunt trauma; Patient HX: Fell out of bed yesterday. Today C/O of left sided weakness with tremors to both upper extremities. History of multiple spinal surgeries. PT unable to specify. ; Additional info: Upper extremity sympotms TECHNIQUE: Imaging protocol: Computed tomography of the cervical spine without contrast. Radiation optimization: All CT scans at this facility use at least one of these dose optimization techniques: automated exposure control; mA and/or kV adjustment per patient size (includes targeted exams where dose is matched to clinical indication); or iterative reconstruction. REPORTING DATA: Count of CT and Cardiac NM exams in prior 12 months: This patient has received 7 known CTs and 0 known cardiac nuclear medicine studies in the 12 months prior to the current study. COMPARISON: CT cervical spin wo con* [id number] 05/19/2021 3:15 PM RADIATION DOSE METRICS: Total DLP (mGy-cm): 395.77 FINDINGS: Bones/joints: No acute fracture. Normal alignment. No severe spinal canal stenosis. Lungs: Lung apices are normal. Soft tissues: Unremarkable. CT/CT cervical spin wo con* [id number] IMPRESSION: No acute findings.
--- NOTE | 2022-05-09 18:17 | CTR_ITS ---
PROCEDURE INFORMATION: Exam: CT Lumbar Spine Without Contrast Exam date and time: 05/09/2022 6:41 PM Age: 67 years old Clinical indication: Injury or trauma; Fall; Blunt trauma (contusions or hematomas); Patient HX: Fell out of bed yesterday. Today C/O of left sided weakness with tremors to both upper extremities. History of multiple spinal surgeries. PT unable to specify. TECHNIQUE: Imaging protocol: Computed tomography of the lumbar spine without contrast. Radiation optimization: All CT scans at this facility use at least one of these dose optimization techniques: automated exposure control; mA and/or kV adjustment per patient size (includes targeted exams where dose is matched to clinical indication); or iterative reconstruction. REPORTING DATA: Count of CT and Cardiac NM exams in prior 12 months: This patient has received 7 known CTs and 0 known cardiac nuclear medicine studies in the 12 months prior to the current study. COMPARISON: CT thoracic spin wo con* [id number] 05/09/2022 6:38 PM RADIATION DOSE METRICS: Total DLP (mGy-cm): 812.91 FINDINGS: Bones/joints: L1 vertebral body superior endplate compression fracture without retropulsion of bony fragments, age indeterminate. L5/S1 broad-based posterior disc bulge with mild spinal canal and severe bilateral foraminal narrowing. L1-L2: No significant disc bulge or herniation. No severe spinal canal stenosis. No significant neural foraminal narrowing. L2-L3: L2-L3 broad-based disc bulge with moderate spinal canal and mild bilateral foraminal narrowing. L3-L4: L3-L4 broad-based disc bulge with moderate spinal canal and moderate bilateral foraminal narrowing. L4-L5: L4-L5 broad-based posterior disc bulge with productive degenerative changes with mild spinal canal and severe bilateral foraminal narrowing. L5-S1: See Bones/joints finding. Soft tissues: Unremarkable. Other findings: Bilateral punctate non-obstructing calyceal stones. Hepatic steatosis. CT/CT lumbar spine wo con* [id number] IMPRESSION: 1. L1 vertebral body superior endplate compression fracture without retropulsion of bony fragments, age indeterminate. 2. Bilateral punctate non-obstructing calyceal stones. 3. L2-L3 broad-based disc bulge with moderate spinal canal and mild bilateral foraminal narrowing. 4. L3-L4 broad-based disc bulge with moderate spinal canal and moderate bilateral foraminal narrowing. 5. L4-L5 broad-based posterior disc bulge with productive degenerative changes with mild spinal canal and severe bilateral foraminal narrowing. 6. L5/S1 broad-based posterior disc bulge with mild spinal canal and severe bilateral foraminal narrowing. 7. Hepatic steatosis.
[2022-05-09] MEDS: sodium chloride 0.9% 1,000 ML 999 ML IV (18:26)
[2022-05-09 18:55] LABS: Alcohol Level 19 mg/dL (0-10); Ammonia 14 umol/L (16-60); Lipase 20 U/L (13-60)
[2022-05-09 18:56] LABS: Acetaminophen < 5.0 ug/mL (10-30)
--- NOTE | 2022-05-09 19:39 | PC.NURSE ---
Pt reports to ED c/o stroke-like symptoms after sustaining a fall out of bed Monday morning. Pt reports striking lower back upon fall. NIH scale reveals abnormal weakness in all four extremities, but no unilateral weakness. Pt states that he has had tremors for many years but they have become much worse since fall yesterday. Bilateral lower extremity sensation dulled. Upon assessment it was noted that R pupil was pinpoint while L pupil was normal, but pt states this has been normal for many years due to an accident in the . Pt resting in bed.
[2022-05-09] MEDS: folic acid 1 mg Tablet PO (20:16)
[2022-05-09] MEDS: dextrose 5%-sod chloride 0.9% 1,000 ML 150 ML IV (20:17)
[2022-05-09 20:40] LABS: Urine Appearance Clear (CLEAR); Urine Color Yellow (Yellow)
[2022-05-09 20:41] LABS: Add Urine Microscopic? YES; Bilirubin Urine Neg (Negative); Blood Urine 3+ (Negative); Glucose Urine UA 2+ (Normal); Ketones Urine 1+ (Negative); Leukocyte Esterase Urine Negative (Negative); Nitrate Urine Negative (Negative); Protein Urine 2+ (Negative); Specific Gravity, Urine 1.015 (1.005-1.030); Urobilinogen Urine Norm (Negative); pH Urine 6 (5-7)
[2022-05-09 20:44] LABS: Squamous Epithelial Cell Urine 0-4 /hpf (0-5); WBC Urine 0-4 /hpf (0-5)
[2022-05-09 20:47] LABS: Bacteria Urine TRACE /hpf
[2022-05-09 20:48] LABS: Mucus Urine TRACE /hpf
[2022-05-09] MEDS: methocarbamol 750 mg Tablet PO (21:00)
[2022-05-09] MEDS: acetaminophen 325 mg Tablet 650 MG PO (21:00)
[2022-05-09 21:08] LABS: Anion Gap 27.9 (5-19); Blood Urea Nitrogen 22 mg/dL (8-23); Calcium 9.1 mg/dL (8.5-10.5); Carbon Dioxide 19 mmol/L (22-29); Chloride 94 mmol/L (98-107); Glomerular Filtration Rate 43.2 mL/min (90-130); Glucose 89 mg/dL (65-115); Osmolality Calculated 287 mOsm/kg (285-295); Potassium 3.9 mmol/L (3.5-5.1); Sodium 137 mmol/L (136-145)
--- NOTE | 2022-05-09 21:36 | XRR_ITS ---
PROCEDURE INFORMATION: Exam: XR Chest Exam date and time: 05/09/2022 9:41 PM Age: 67 years old Clinical indication: Other: Tachycardia TECHNIQUE: Imaging protocol: Radiologic exam of the chest. Views: 1 view. COMPARISON: CT chest abdpel w/*[id number] 05/19/2021 3:20 PM FINDINGS: Lungs: Unremarkable. No consolidation. Pleural spaces: Unremarkable. No pleural effusion. No pneumothorax. Heart/Mediastinum: Cardiomegaly. Bones/joints: Unremarkable. XR/XR chest 1V portable [id number] IMPRESSION: Cardiomegaly, negative for infiltrate
--- NOTE | 2022-05-09 22:27 | P.HP_ITS ---
Providers/Chief Complaint Admitting Physician: Woodrow Syed Chief Complaint: FALL, RT SIDED FACIAL DROOP History of Present Illness 67-year-old gentleman came in for assessment due to tremulousness, weakness, initially concern for lateral weakness, but assessment for CVA did not reveal focal neurologic deficits. He slid down off his bed at home. CT of the head on presentation with old lacunar infarcts in basal ganglia. No acute abnormality. Blood glucose 89. Not a candidate for tPA. Additional work-up with noted metabolic acidosis, anion gap 27.9, noted urine ketones. He has no history of diabetes, A1c in November 18 was 4.6. Does have history of EtOH use disorder, history of wine intake, he reports that he has not drank anything over the last year, however, EtOH positive in ER with 19 mg/dL. T. bili 1.3, AST 77, ALT 44. Alk phos normal. Lipase 20. Asking him about EtOH intake he denies, discussing with him positive lab test, he states Oh and gets quiet. Then states I used to drink extensively and did quite a bit of damage . SAVANNA Cr noted 1.6. UA with 5-10 RBC, 0-4 WBC. 1+ ketone. Trace bacteria, trace mucus. CXR with cardiomegaly, negative for infiltrate. He denies any other new symptoms. Medications/Allergies Home Medications Medication Instructions Recorded Confirmed Last Taken Type potassium chloride 10 mEq 10 meq PO DAILY 07/06/20 12/25/21 1 Week Ago History capsule,extended release ~11/10/21 acamprosate 333 mg tablet,delayed 666 mg PO TID 11/17/21 12/25/21 11/16/21 History release folic acid 1 mg tablet 1 mg PO QAM 11/17/21 12/25/21 11/16/21 History gabapentin 100 mg capsule 200 mg PO TID 11/17/21 12/25/21 11/16/21 History levetiracetam 500 mg tablet 500 mg PO QAM 11/17/21 12/25/21 11/16/21 History omeprazole 20 mg capsule,delayed 20 mg PO BID PRN Heartburn 11/17/21 12/25/21 Unknown History release sertraline 25 mg tablet 25 mg PO QAM 11/17/21 12/25/21 11/16/21 History acetaminophen 325 mg tablet 650 mg PO Q6H PRN Mild/Mod Pain Or 11/22/21 12/25/21 Unknown Rx Temp >/= 101 #14 tabs lisinopril 5 mg tablet 5 mg PO DAILY #30 tabs 11/22/21 12/25/21 Unknown Rx psyllium husk (with sugar) 3.4 1 packet PO BID #180 ea 11/22/21 12/25/21 Unknown Rx gram oral powder packet (Metamucil (with sugar)) thiamine HCl (vitamin B1) 100 mg 100 mg PO DAILY #90 tabs 11/22/21 12/25/21 Unknown Rx tablet Allergies Allergy/AdvReac Type Severity Reaction Status Date / Time No Known Allergies Allergy Verified 05/09/22 17:45 PFSH Acute PFSH: Medical History (Updated 05/09/22 @ 22:36 by Woodrow Syed MD) Alcohol use disorder Anemia Atrial fibrillation Bowel obstruction GERD (gastroesophageal reflux disease) History of umbilical hernia open, without mesh placed Hypertension Hypokalemia Hypomagnesemia Neuropathy Happened after my back surgery New onset seizure Seizure Thrombocytopenia Surgical History (Updated 05/09/22 @ 22:34 by Woodrow Syed MD) History of carpal tunnel surgery Bilateral History of laparoscopy With small bowel resection with functional side to side anastomosis History of spinal surgery x 2 Hx of cataract surgery Bilateral Hx of colonoscopy with polypectomy Family History Other CAD (coronary artery disease) Cancer Social History Smoking and tobacco status: never smoked Alcohol intake: former Year of sobriety/quit date alcohol: 2020 Former alcohol use details: Has drank wine for years, quit between 1990 - 1996, quit 2020 Substance/Drug Use: never Lives independently: Yes Household members: significant other Marital status: Life Partner Vitals/I&O/Wt Last Vital Signs Temp 98.3 F 05/09/22 17:43 Pulse 122 H 05/09/22 20:26 Resp 16 05/09/22 20:26 BP 164/101 05/09/22 20:26 Pulse Ox 98 05/09/22 20:26 O2 Del Method 05/09/22 20:26 05/09/22 05/09/22 05/09/22 06:59 14:59 22:59 Intake Total 1350 / 1350 Balance 1350 / 1350 Weight last 48 hrs Weight 77.111 kg Physical Exam Narrative: Tremulous Const: COMMON NORMALS: patient oriented x3 and alert GENERAL APPEARANCE: cooperative ORIENTATION/CONSCIOUSNESS: Yes awake HENMT: COMMON NORMALS: oropharynx normal Neck/C-Spine: COMMON NORMALS: no JVD Resp: COMMON NORMALS: normal respiratory effort and clear to auscultation bilaterally AUSCULTATION: clear to auscultation bilaterally Cardio: COMMON NORMALS: no JVD, regular rhythm, S1 normal heart sound present, S2 normal heart sound present and No murmurs present (Cardio) RHYTHM: regular rhythm HEART SOUNDS: S1 normal heart sound present and S2 normal heart sound present GI: COMMON NORMALS: Normal to inspection, nondistended, normoactive bowel sounds present, Soft to palpation and non-tender PALPATION: Yes Soft to palpation Extremity: COMMON NORMALS: no joint enlargement and no pedal edema Neuro: COMMON NORMALS: patient oriented x3 and moves all extremities SENSORIUM/ORIENTATION: Yes alert Skin: COMMON NORMALS: no rashes or lesions noted GENERAL SKIN EXAM: no rashes or lesions noted Data 05/09/22 17:48 05/09/22 20:40 A&P Assessment and plan (1) Alcohol withdrawal: He is not admitting to EtOH use, but is not denying it either. Discussed with him concern for alcohol withdrawal with his presentation and further assessment treatment for such with CIWA protocol, he is agreeable. Discussed with him again regarding alcohol abstinence and he is agreeable. Consider further options for rehabilitation to help him quit. In the meantime monitor on telemetry, CIWA protocol with benzodiazepines with c lose monitoring. Thiamine, folic acid, multivitamin. Monitor any mental status changes. Seizure precautions, although denies seizure in the past. He is quite tremulous, generally weak, with sinus tachycardia. Discussed with ER physician. ER documentation reviewed. (2) General weakness: As above. Additionally check TSH. Possible contribution from metabolic acidosis, SAVANNA. Patient also have starvation ketosis. P.o. intake as tolerating. Lipase noted negative. Add nutritional shakes. We will get PT, OT assessment. Case management evaluation. (3) SAVANNA (acute kidney injury): Creatinine noted 1.6. Hold lisinopril. Receiving fluid challenge. May be prerenal with poor oral intake and noted starvation ketosis. (4) Microscopic hematuria: Follow-up with PCP for resolution. Consider repeat UA if urinary symptoms. (5) Metabolic acidosis: Appears to have starvation ketosis, no history of diabetes. Will check A1c. Check VBG. Component of acidosis may be secondary to SAVANNA as well. Received fluid challenge. P.o. intake as tolerating. Follow-up anion gap, bicarb. Follow-up CMP requested. (6) Ketonuria: Suspected starvation ketosis. No history of diabetes. Will check A1c. VBG. Oral intake as tolerating. Nutritional shakes. Follow-up chemistry for a cidosis. Plan History of EtOH use disorder, appears may be in relapse. Currently he is not admitting to relapse. Please revisit with him. On presentation initially concern for possibility of focal deficits, this was not noted on evaluation, please reassess. TIA possible. Cannot exclude small CVA. Certainly noted old lacunar infarcts on CT. Noted hypertension. Will additionally assess carotid duplex, bubble study TTE. PT, OT evaluation. Pe rmissive HTN. Check lipid profile. A1c. Will need optimization of blood pressure long-term. Follow-up with neurology. Aspirin, statin. Anemia A-fib History of bowel obstruction GERD History of umbilical hernia repair HTN Neuropathy History of seizure History of thrombocytopenia Attestations Medical Necessity Statement*: Place in observation for additional assessment of management of generalized weakness, alcohol withdrawal, SAVANNA, metabolic acidosis, possible TIA, noted prior lacunar CVA. Diagnoses Alcohol withdrawal F10.939 General weakness R53.1 SAVANNA (acute kidney injury) N17.9 Microscopic hematuria R31.29 Metabolic acidosis E87.20 Ketonuria R82.4
--- NOTE | 2022-05-09 22:41 | USCV_ITS ---
David Paulino Age: 67 Gender: M : 1955 Exam Date: 05/09/2022 01:08 Ordering Phys: Woodrow Syed MD Technologist: JONATHAN [place] [facility] [place] F[place], right facial droop. No DM. Never smoked. Risk Factors: FALL, right facial droop. No DM. Never smoked. Previous Vascular Surgery: None Right Brachial BP: 178 / 109 Left Brachial BP: / Right Left Velocity (cm/s) Spectral Plaque Velocity (cm/s) Spectral Plaque Syst/Diast Broadening Syst/Diast Broadening 71.70/ 11.00 Min Homo Prox CCA 55.50 / 12.80 Min Homo 60.60/ 19.40 Min Homo Mid CCA 57.30 / 13.70 Min Homo 41.20/ 10.10 Mod Hetro Distal CCA 51.30 / 15.40 Mod Hetro 50.20/ 12.30 Mod Feng Prox ICA 24.60 / 8.00 Mod Feng 36.30/ 13.90 Min Hetro Mid ICA 51.00 / 19.30 Min Hetro 49.10/ 15.50 Min Homo Distal ICA 57.10 / 20.80 Min Hetro 55.90 Min Feng ECA 56.40 Min Feng 0.70 ICA/CCA 1.00 Antegrade Vertebral Antegrade 26.20/ 5.90 cm/s 33.30/ 8.50 cm/s Tri Subclavian Tri 82.00 97.40 CONCLUSIONS Right ICA stenosis <50%. Moderate calcified atheromatous plaque right carotid bulb/ICA. Left ICA stenosis <50%. Moderate calcified atheromatous plaque left carotid bulb/ICA. Normal antegrade Doppler flow noted in the left vertebral artery. Normal antegrade Doppler flow noted in the right vertebral artery. Manuel Christensen MD (Electronically Signed) Final Date: 10 May 2022 14:33 S
--- NOTE | 2022-05-09 22:41 | USCV_ITS ---
David Paulino Age: 67 Gender: M : 1955 Exam Date: 05/09/2022 01:36 Ordering Phys: Woodrow Syed MD Technologist: JONATHAN [place] [facility] [place]: Fall. Right facial droop. No DM. Never smoked. No history of cardiac intervention per patient. BP: 178 / 109 HR: 99 Rhythm: Sinus Technical Quality: Adequate MEASUREMENTS (Male / Female) Normal Values 2D ECHO LV Diastolic Diameter PLAX 3.5 cm 4.2 - 5.9 / 3.9 - 5.3 cm LV Systolic Diameter PLAX 2.2 cm IVS Diastolic Thickness 1.8 cm 0.6 - 1.0 / 0.6 - 0.9 cm IVS Systolic Thickness 1.9 cm LVPW Diastolic Thickness 1.4 cm 0.6 - 1.0 / 0.6 - 0.9 cm LVPW Systolic Thickness 2.1 cm LVOT Diameter 1.9 cm LV Ejection Fraction 2D Teich 66.1 % LV Ejection Fraction MOD 2C 55.7 % LV Ejection Fraction 2C AL 57.9 % LA Diameter 3.8 cm LA Width 4.0 cm LA Height 5.8 cm RA Width 3.5 cm RA Height 5.1 cm Aorta at Sinotubular Diameter 3.3 cm M-MODE Aortic Annulus Diameter 3.3 cm LA Ao Ratio MM 1.1 MV E Point Septal Separation 0.6 cm DOPPLER AV Peak Velocity 324.7 cm/s LVOT Peak Velocity 114.0 cm/s AV Area Cont Eq vti 1.0 cm squared AV Area Cont Eq pk 1.0 cm squared MV Peak Velocity 196.0 cm/s MV Area PHT 2.1 cm squared Mitral E to A Ratio 0.5 MV E' Velocity 47.5 cm/s Mitral E to MV E' Ratio 17.4 Mitral E to LV E' Lateral Ratio 18.1 Mitral E to LV E' Septal Ratio 16.7 TR Peak Velocity 292.3 cm/s TR Peak Gradient 34.2 mmHg TV Peak E Velocity 44.0 cm/s Right Atrial Pressure 5.0 mmHg Pulmonary Artery Systolic Pressu 39.2 mmHg PV Peak Velocity 144.0 cm/s RV Acceleration Time 0.1 s RV Ejection Time 0.4 s RV AcT/ET 0.3 FINDINGS Left Ventricle Normal left ventricular cavity size. Normal left ventricular systolic function. No regional wall motion abnormalities. Left ventricular ejection fraction is estimated at 65 %. Right Ventricle The right ventricle is normal in size and function. Right Atrium The right atrium is normal in size. Left Atrium Moderately increased left atrial size. No PFO or ASD noted by color-flow Doppler or agitated saline contrast Mitral Valve Severely thickened mitral valve. Severe mitral annular calcification. No mitral valve stenosis. Trace mitral valve regurgitation. Aortic Valve Severe aortic valve calcification. Severe aortic valve stenosis. Trace aortic valve regurgitation. Aortic valve area by continuity equation is 0.99 cm squared peak and mean gradient across the aortic valve is 45 and 16mmhg, velocity across the aortic valve 3.38 m/s Tricuspid Valve Trace tricuspid valve regurgitation. Pulmonic Valve Trace pulmonary valve regurgitation. Pericardium Normal pericardium without effusion. Aorta Normal ascending aorta dimension. IVC The inferior vena cava appears normal. CONCLUSIONS 1-Normal left ventricular cavity size. Normal left ventricular systolic function. No regional wall motion abnormalities. Left ventricular ejection fraction is estimated at 65 %. 2-Severe aortic valve calcification. Severe aortic valve stenosis. Trace aortic valve regurgitation. Aortic valve area by continuity equation is 0.99 cm squared peak and mean gradient across the aortic valve is 45 and 16mmhg, velocity across the aortic valve 3.38 m/s 3-There is no pericardial effusion. 4-Right atrial pressure is around 5 mm of mercury. Meme Saldana MD (Electronically Signed) Final Date: 10 May 2022 12:37 S
[2022-05-10] VITALS (25 sets, daily range): BP systolic 79–169; BP diastolic 59–102; PULSE 60–145; RESP 16–22; TEMP 36.9–37.1; O2SAT 98–100
[2022-05-10] MEDS: LORazepam 2 mg/mL INJ 1 mL IVP ×3 (02:55→04:03)
--- NOTE | 2022-05-10 03:16 | ECG_ITS ---
[facility] Test Date: 2022-05-10 Pat Name: David Paulino Department: Room: 275 Gender: Male Trend Investigator: : 1955 Requested By: Woodrow Syed Order Number: [id number] Reading MD: MICHAELA CHONG Measurements Intervals [place] Rate: 142 P: 12 ID: [id number] QRS: -70 QRSD: 143 T: 25 QT: 308 QTc: 474 Interpretive Statements SINUS TACHYCARDIA, POSSIBLE ATRIAL FLUTTER RIGHT BUNDLE BRANCH BLOCK [120+ ms QRS DURATION, UPRIGHT V1, 40+ ms S IN I/aVL/V4/V5/V6] LEFT ANTERIOR FASCICULAR BLOCK [QRS AXIS <= -45, QR IN I, RS IN II] Compared to ECG 05/09/2022 17:37:18 No significant changes Electronically Signed On 05-10-2022 17:40:46 CDT by MICHAELA CHONG [email or web address]
[2022-05-10 03:40] LABS: Hematocrit 42.2 % (42.0-52.0); Hemoglobin 14.3 g/dL (11.7-16.6); Mean Corpuscular HGB Conc 33.9 g/dL (30.0-36.0); Mean Corpuscular Volume 109.3 fl (80-94); Mean Platelet Volume 10.1 fL (7.4-10.4); Platelet Count 209 10^3/cmm (130-400); Red Blood Count 3.86 10^6/uL (4.1-5.3); Red Cell Distribution Width 13.3 % (12.1-15.1); White Blood Count 17.1 10^3/uL (4.0-10.0)
--- NOTE | 2022-05-10 04:06 | PC.NURSE ---
Seizure: Pt had witnessed seizure X2. The first one at 0252 with head and arm movements - Ativan 2mg IV given, oxygen applied and pt secretions suctioned, was incontinent. Second seizure noted at 0340 and this time just mouth and eye movements noted - Ativan 2mg IV given. Report called to ICU and pt transferred.
[2022-05-10 04:11] LABS: Alanine Aminotransferase 47 U/L (0-41); Albumin Level 4.4 g/dL (3.5-5.2); Alkaline Phosphatase 100 U/L (40-130); Anion Gap 29.9 (5-19); Aspartate Amino Transferase 80 U/L (0-40); Blood Urea Nitrogen 23 mg/dL (8-23); Calcium 9.2 mg/dL (8.5-10.5); Carbon Dioxide 19 mmol/L (22-29); Chloride 92 mmol/L (98-107); Globulin 3.3 g/dL (1.3-4.6); Glomerular Filtration Rate 37.7 mL/min (90-130); Glucose 163 mg/dL (65-115); Osmolality Calculated 291 mOsm/kg (285-295); Potassium 3.9 mmol/L (3.5-5.1); Sodium 137 mmol/L (136-145); Total Bilirubin 1.5 mg/dL (0.15-1.2); Total Protein 7.7 g/dL (6.6-8.7)
[2022-05-10 04:13] LABS: Absolute Segmented Neutrophil 8.9 10/cmm (1.6-7.1); Band Neutrophils Absolute 0.2 10^3/cmm (0.0-1.2); Segmented Neutrophils 52 %; Total Cells Counted 100 (0-100)
[2022-05-10 04:14] LABS: Lymphocytes 34 %
[2022-05-10 04:15] LABS: Eosinophils 0 %
[2022-05-10 04:17] LABS: Lymphocytes Absolute 6.5 10^3/cmm (1.2-3.4)
[2022-05-10 04:18] LABS: Absolute Neutrophil 9.1 10^3/cmm (1.4-6.5); Platelet Estimate Normal (Normal)
[2022-05-10 04:22] LABS: Estmated Average Glucose 71; Hemoglobin A1C 4.1 % (4.0-6.0)
[2022-05-10 04:26] LABS: Magnesium 0.2 mg/dL (1.7-2.3)
[2022-05-10] MEDS: etomidate 2 mg/mL INJ SDV 10 mL 16 MG IVP (04:29)
[2022-05-10] MEDS: succinylcholine 20 mg/mL SDV 10mL 80 MG IV (04:29)
--- NOTE | 2022-05-10 04:38 | XRR_ITS ---
PROCEDURE INFORMATION: Exam: XR Chest Exam date and time: 05/10/2022 3:22 AM Age: 67 years old Clinical indication: Device placement; Ett placement (vent status); Patient HX: Check S/P et and og placement. TECHNIQUE: Imaging protocol: Radiologic exam of the chest. Views: 1 view. COMPARISON: CR (CHEST, ) 05/09/2022 9:41 PM FINDINGS: Tubes, catheters and devices: Endotracheal tube is seen with tip 4.2 cm from the virgil. Orogastric tube is seen with distal aspect in the left upper abdominal region. The tip is not visualized on the exam. Lungs: Mildly decreased lung volumes with mild accentuation of the perihilar pulmonary vascularity. No airspace opacities in the lungs. Pleural spaces: No pleural effusion. No pneumothorax. Heart/Mediastinum: Normal heart size. Unchanged tortuous thoracic aorta. Midline trachea. Bones/joints: No acute osseous abnormalities seen. Medium to large sized degenerative osteophytes and moderate degenerative disc disease changes are seen mid to lower thoracic spine. Right shoulder degenerative changes are seen. Soft tissues: Multiple external densities are seen overlying the chest, limiting assessment. XR/XR chest 1V portable [id number] IMPRESSION: 1. Endotracheal tube and orogastric tube, as noted above. 2. Mildly decreased lung volumes with mild accentuation of the perihilar pulmonary vascularity. No airspace opacities in the lungs.
--- NOTE | 2022-05-10 04:44 | PM.ACPR ---
Acute Procedures Intubation: Time out performed: Yes Sedative: etomidate Mg given: 16 Paralytic: succinylcholine Mg given: 80 Laryngoscope: Marina (4) ET tube size: 8 Tube secured depth (cm): 23 Tube secured location: lips Tube placement confirmation: visualized tube passing through cords, equal breath sounds bilaterally, no breath sounds over epigastrium and color change noted Patient tolerated procedure: well and no complications Additional comments: Initially 23cm, advanced to 27cm
[2022-05-10 04:45] LABS: ABG PCO2 43.7 mmHg (35-45); ABG PH Result 7.34 (7.35-7.45); Alveolar-Arterial Oxygen Gradi 4.8 mmHg (5-10); Arterial Blood Gas Hematocrit 42.6 % (42-52); Base Excess ABG -2.1 mmol/L (-2.0-2.0); Blood Gas Allen Test Pos; Blood Gas Sample Site Radial, right; Blood Gas Sample Type Arterial; Carboxyhemoglobin 1.3 %THgb (0.4-20.1); HCO3 ABG 23.7 mmol/L (22-26); HGB O2 Sat 96.8 % (95-100); Ionized Calcium Level - ABG 1.1 mmol/L (1.1-1.4); Oxygen Device VENT; Oxygen Saturation ABG 99.1; Potassium Level - ABG 4.3 mmol/L (3.5-5.0); Total Hemoglobin 13.9 g/dL (14-18)
[2022-05-10] MEDS: magnesium sulfate premix 4 GM/100 ML PREMIX IV (04:48)
[2022-05-10] MEDS: piperacillin-tazobactam 3.375 GM in sodium chloride 0.9% (plus) 50 ML IV ×3 (04:48→23:41)
[2022-05-10] MEDS: propofol 1,000 MG/100 ML INJ 9.53 MG IV (04:49)
--- NOTE | 2022-05-10 04:59 | CTR_ITS ---
PROCEDURE INFORMATION: Exam: CTA Head With Contrast, Arteriography Exam date and time: 05/10/2022 5:57 AM Age: 67 years old Clinical indication: Convulsions / seizures and visual disturbance; Patient HX: Continued seizures with anisocoria. Intubated. ; Additional info: Seizures, anisocoria TECHNIQUE: Imaging protocol: Computed tomographic angiography of the head with contrast. Exam focused on the arteries. 3D rendering (Not supervised by radiologist): MIP and/or 3D reconstructed images were created by the technologist. Radiation optimization: All CT scans at this facility use at least one of these dose optimization techniques: automated exposure control; mA and/or kV adjustment per patient size (includes targeted exams where dose is matched to clinical indication); or iterative reconstruction. Contrast material: OMNI 350; Contrast volume: 100 ml; Contrast route: INTRAVENOUS (IV); REPORTING DATA: Count of CT and Cardiac NM exams in prior 12 months: This patient has received 8 known CTs and 0 known cardiac nuclear medicine studies in the 12 months prior to the current study. COMPARISON: CT head thrombolytic [id number] 05/09/2022 5:27 PM RADIATION DOSE METRICS: Total DLP (mGy-cm): 570.77 FINDINGS: ANTERIOR CIRCULATION: Right internal carotid artery: Intracranial segment is patent with no significant stenosis. No aneurysm. Right middle cerebral artery: No occlusion or significant stenosis. No aneurysm. Right anterior cerebral artery: No occlusion or significant stenosis. No aneurysm. Left internal carotid artery: Intracranial segment is patent with no significant stenosis. No aneurysm. Left middle cerebral artery: No occlusion or significant stenosis. No aneurysm. Left anterior cerebral artery: No occlusion or significant stenosis. No aneurysm. POSTERIOR CIRCULATION: Right vertebral artery: Small caliber. No occlusion or significant stenosis. No aneurysm. Left vertebral artery: Small caliber. No occlusion or significant stenosis. No aneurysm. Basilar artery: Small caliber. No occlusion or significant stenosis. No aneurysm. Right posterior cerebral artery: origin posterior cerebral artery with enlarged posterior communicating artery. Hypoplastic P1 segment. No occlusion or significant stenosis. No aneurysm. Left posterior cerebral artery: origin posterior cerebral artery with enlarged posterior communicating artery. Hypoplastic P1 segment. No occlusion or significant stenosis. No aneurysm. Brain: No definite mass, mass effect, or midline shift. Unchanged sulcal prominence, suggestive of atrophic change. Unchanged bilateral basal ganglion small lacunar infarcts. Cerebral ventricles: No ventriculomegaly. Paranasal sinuses: Increased moderate right maxillary sinus mucosal thickening is seen, consistent with sinus disease. Minimal rightward deviation of the midline nasal septum is seen. Bones/joints: Unremarkable. No acute fracture. Soft tissues: Unremarkable. PROCEDURE INFORMATION: Exam: CTA Neck With Contrast Exam date and time: 05/10/2022 5:57 AM Age: 67 years old Clinical indication: Convulsions / seizures and visual disturbance; Patient HX: Continued seizures with anisocoria. Intubated. ; Additional info: Seizures, anisocoria TECHNIQUE: Imaging protocol: Computed tomographic angiography of the neck with contrast. 3D rendering (Not supervised by radiologist): MIP and/or 3D reconstructed images were created by the technologist. Radiation optimization: All CT scans at this facility use at least one of these dose optimization techniques: automated exposure control; mA and/or kV adjustment per patient size (includes targeted exams where dose is matched to clinical indication); or iterative reconstruction. Contrast material: OMNI 350; Contrast volume: 100 ml; Contrast route: INTRAVENOUS (IV); REPORTING DATA: Count of CT and Cardiac NM exams in prior 12 months: This patient has received 8 known CTs and 0 known cardiac nuclear medicine studies in the 12 months prior to the current study. COMPARISON: CT cervical spin wo con* [id number] 05/09/2022 6:35 PM RADIATION DOSE METRICS: Total DLP (mGy-cm): 570.77 FINDINGS: Tubes, catheters and devices: Endotracheal tube is seen with tip in the lower trachea. Nasogastric tube is seen with distal aspect not visualized on the exam. Right common carotid artery: No stenosis. No dissection or occlusion. Right internal carotid artery: No stenosis of the extracranial segment. No dissection or occlusion. Right external carotid artery: No occlusion or stenosis of the origin. Left common carotid artery: No stenosis. No dissection or occlusion. Left internal carotid artery: No stenosis of the extracranial segment. No dissection or occlusion. Left external carotid artery: No occlusion or stenosis of the origin. Right vertebral artery: Small caliber. No stenosis. No dissection or occlusion. Left vertebral artery: Small caliber. No stenosis. No dissection or occlusion. Soft tissues: Normal. No significant soft tissue swelling. Bones/joints: No acute fracture. CT/CT angio headneck* [id number] IMPRESSION: 1. No large vessel stenosis or occlusion. 2. Small bilateral vertebral arteries and basilar artery. origin bilateral posterior cerebral arteries. IMPRESSION: No stenosis or occlusion. REFERENCES: NASCET CRITERIA. The degree of stenosis in the cervical segment of the internal carotid artery is based on NASCET criteria. Normal is no stenosis. Mild is less than 50% stenosis. Moderate is 50-69% stenosis. Severe is 70% to 99% stenosis. Total occlusion is no detectable patent lumen.
[2022-05-10] MEDS: iohexol 350 mg/mL 500 mL Btl (per mL) IV (06:05)
[2022-05-10 06:13] LABS: Magnesium 3.1 mg/dL (1.7-2.3)
--- NOTE | 2022-05-10 07:38 | PC.OT ---
OT EVALUATION HELD DUE TO TRANSFER TO ICU AND INTUBATED. WILL ATTEMPT AGAIN TOMORROW.
[2022-05-10] MEDS: gabapentin 100 mg Capsule 200 MG PO ×2 (09:00→15:03)
[2022-05-10] MEDS: thiamine 100 mg Tablet PO (09:01)
[2022-05-10] MEDS: multivitamin therapeutic Tablet 1 TAB PO (09:01)
[2022-05-10] MEDS: folic acid 1 mg Tablet PO (09:01)
[2022-05-10] MEDS: pantoprazole DR 40 mg Tablet PO (09:01)
[2022-05-10] MEDS: sertraline 50 mg Tablet 25 MG PO (09:02)
--- NOTE | 2022-05-10 09:14 | PC.PHAR ---
PT UNABLE TO VERIFY MEDICATIONS DUE TO BEING INTUBATED-[facility] [phone] STATES THE PT TAKES A BP MED-NEUROPATHY PILL-AND A MOOD PILL-[facility] STATES LAST FILLED KCL 10MEQ DAILY FILLED 02/01/22 30D/S HAS 5 REFILLS-XARELTO 20MG PO DAILY FILLED 01/17/22 30D/S WITH 5 REFILLS-AND ACAMPROSATE 333MG TAKE 2CAP TID FILLED 02/01/22 30D.S WITH 5 REFILLS-LEVETIRACETAM 500MG DAILY LAST FILLED 03/10/21 30D/S WITH 5 REFILLS-
--- NOTE | 2022-05-10 11:24 | PM.PN ---
Subjective Subjective: Overnight events noted Low blood pressure Change sedatives to fentanyl and Versed Might add Precedex Monitor for any signs of bradycardia Might try sedation medication by tomorrow put him on phenobarbital Change PEEP to 5 FiO2 25% Vitals/I&O/Wt Last Vital Signs Temp 98.8 F 05/10/22 08:00 Pulse 82 05/10/22 10:00 Resp 18 05/10/22 10:32 BP 87/59 05/10/22 10:00 Pulse Ox 100 05/10/22 10:32 O2 Del Method 05/10/22 10:00 FiO2 25 05/10/22 10:32 05/09/22 05/10/22 05/10/22 22:59 06:59 14:59 Intake Total 1350 / 1350 110 / 1460 Output Total 350 / 350 Balance 1350 / 1350 -240 / 1110 Weight last 48 hrs Weight 79.379 kg Weight 77.111 kg Physical Exam Narrative: Patient is arousable to verbal stimuli Not completely sedated Restless in bed Low blood pressure Propofol and Versed running at the bedside Versed at 2, propofol being weaned off Abdomen soft Multiple skin tattoos Euvolemic Abdomen soft Bilateral breath sounds Lower extremity no edema Urinary Catheter Management: Malave: Cath Placed During This Visit: yes Reason for Continuing Indwelling Catheter: Accurate Measurement of Urinary Output in Critically Ill Patients Urinary Catheter Date of Insertion: 05/10/22 Urinary Catheter Time of Insertion: 04:30 Data 05/10/22 03:29 05/10/22 03:29 A&P Assessment and plan (1) Alcohol withdrawal: (2) Acute kidney injury: (3) Metabolic acidosis, increased anion gap: (4) Ketonuria: (5) Metabolic acidosis: (6) Microscopic hematuria: (7) SAVANNA (acute kidney injury): (8) General weakness: (9) Alcohol withdrawal: (10) Atrial fibrillation: (11) Weakness: (12) Alcohol use disorder: Plan Alcohol withdrawal related seizures Respiratory failure requiring mechanical ventilation Patient intubated for airway protection Patient intubated 05/10 I will keep him intubated and sedated with fentanyl and Versed and use Precedex Wean off propofol SAVANNA related to dehydration Start IV fluids monitor urine output Metabolic acidosis due to starvation ketosis, high anion gap Possible aspiration pneumonia continue IV antibiotic Sedation vacation tomorrow, start phenobarbital Precedex in the ICU No need of continuation of Keppra CT head unremarkable CTA head and neck unremarkable He has history of hypertension he was taking lisinopril hydrochlorothiazide at home which is on hold due to low blood pressure. Full code N.p.o. Malave catheter in place Attestations Medical Necessity Statement*: Continue ICU management Diagnoses Alcohol withdrawal F10.939 Acute kidney injury N17.9 Metabolic acidosis, increased anion gap E87.29 Ketonuria R82.4 Metabolic acidosis E87.20 Microscopic hematuria R31.29 SAVANNA (acute kidney injury) N17.9 General weakness R53.1 Alcohol withdrawal F10.939 Atrial fibrillation I48.91 Weakness R53.1 Alcohol use disorder F10.90
[2022-05-10] MEDS: sodium chloride 0.9% 1,000 ML 999 ML IV (12:12)
[2022-05-10] MEDS: sodium chloride 0.9% 1,000 ML 100 ML IV ×2 (12:14→23:42)
[2022-05-11] VITALS (22 sets, daily range): BP systolic 82–174; BP diastolic 54–110; PULSE 55–113; RESP 14–21; TEMP 36.5–37.7; O2SAT 94–100
[2022-05-11] MEDS: piperacillin-tazobactam 3.375 GM in sodium chloride 0.9% (plus) 50 ML IV (04:36)
[2022-05-11 05:06] LABS: Basophils % 0.3 %; Eosinophils % 0.3 %; Hematocrit 34.3 % (42.0-52.0); Hemoglobin 11.6 g/dL (11.7-16.6); Lymphocytes # 1.3 10^3/uL (0.8-4.8); Lymphocytes % 20.9 %; Mean Corpuscular HGB Conc 33.8 g/dL (30.0-36.0); Mean Corpuscular Hemoglobin 36.6 pg (28.0-34.0); Mean Corpuscular Volume 108.2 fl (80-94); Mean Platelet Volume 11.2 fL (7.4-10.4); Monocytes # 0.6 10^3/uL (0.2-0.9); Monocytes % 9.5 %; Neutrophils % 68.5 %; Nucleated Red Blood Cells % 0 %; Platelet Count 114 10^3/cmm (130-400); Red Blood Count 3.17 10^6/uL (4.1-5.3); Red Cell Distribution Width 13.6 % (12.1-15.1); White Blood Count 6.1 10^3/uL (4.0-10.0)
[2022-05-11 05:06] LABS: ABG PCO2 30.2 mmHg (35-45); Arterial Blood Gas Hematocrit 45.1 % (42-52); Base Excess ABG 1.2 mmol/L (-2.0-2.0); Blood Gas Allen Test Pos; Blood Gas Operator Identificat JB; Blood Gas Sample Site Brachial, right; Blood Gas Sample Type Arterial; Blood Gas Tidal Volume 0.52; HCO3 ABG 23.4 mmol/L (22-26); Oxygen Device VENT; PO2 ABG 96.6 mmHg (80.0-100.0)
[2022-05-11 05:22] LABS: Alanine Aminotransferase 30 U/L (0-41); Albumin Level 3.5 g/dL (3.5-5.2); Alkaline Phosphatase 64 U/L (40-130); Blood Urea Nitrogen 32 mg/dL (8-23); Calcium 8.3 mg/dL (8.5-10.5); Carbon Dioxide 22 mmol/L (22-29); Chloride 98 mmol/L (98-107); Globulin 2.7 g/dL (1.3-4.6); Glomerular Filtration Rate 43.2 mL/min (90-130); Glucose 76 mg/dL (65-115); Magnesium 2.2 mg/dL (1.7-2.3); Osmolality Calculated 290 mOsm/kg (285-295); Sodium 137 mmol/L (136-145); Total Bilirubin 1.3 mg/dL (0.15-1.2); Total Protein 6.2 g/dL (6.6-8.7)
[2022-05-11 05:26] LABS: Anion Gap 21.1 (5-19); Aspartate Amino Transferase 54 U/L (0-40); Potassium 4.1 mmol/L (3.5-5.1)
--- NOTE | 2022-05-11 08:06 | PC.OT ---
OT EVALUATION HELD PATIENT IS STILL INTUBATED AND SEDATED. WILL ATTEMPT AGAIN TOMORROW.
[2022-05-11] MEDS: multivitamin therapeutic Tablet 1 TAB PO (08:54)
[2022-05-11] MEDS: gabapentin 100 mg Capsule 200 MG PO ×3 (08:54→19:59)
[2022-05-11] MEDS: pantoprazole DR 40 mg Tablet PO (08:54)
[2022-05-11] MEDS: sertraline 50 mg Tablet 25 MG PO (08:54)
[2022-05-11] MEDS: sodium chloride 0.9% 1,000 ML 100 ML IV (08:54)
[2022-05-11] MEDS: folic acid 1 mg Tablet PO (08:54)
--- NOTE | 2022-05-11 12:05 | P.PN_ITS ---
Subjective Subjective: We were in the midst of weaning trial when patient self extubated Hypertensive No respiratory distress Vitals/I&O/Wt Last Vital Signs Temp 98 F 05/11/22 06:00 Pulse 108 H 05/11/22 10:00 Resp 15 05/11/22 10:00 BP 163/106 05/11/22 10:00 Pulse Ox 100 05/11/22 10:00 O2 Del Method 05/10/22 10:00 FiO2 25 05/11/22 08:34 05/10/22 05/11/22 05/11/22 22:59 06:59 14:59 Intake Total 170.500 / 2161.867 920 / 920 Output Total 0 / 0 0 / 0 Balance 367 170.500 / 2161.867 920 / 920 Weight last 48 hrs Weight 79.379 kg Weight 77.111 kg Physical Exam Narrative: Resting tremors Awake and alert Anxious Hypertensive Dehydrated Abdomen soft No signs of edema Currently on nasal cannula Urinary Catheter Management: Malave: Cath Placed During This Visit: yes Reason for Continuing Indwelling Catheter: Accurate Measurement of Urinary Output in Critically Ill Patients Urinary Catheter Date of Insertion: 05/10/22 Urinary Catheter Time of Insertion: 04:30 Data 05/11/22 03:58 05/11/22 03:58 A&P Assessment and plan (1) Alcohol withdrawal: (2) Acute kidney injury: (3) Metabolic acidosis, increased anion gap: (4) Ketonuria: (5) Metabolic acidosis: (6) SAVANNA (acute kidney injury): (7) Microscopic hematuria: (8) General weakness: (9) Alcohol withdrawal: (10) Atrial fibrillation: Plan Patient self extubated Currently well on nasal cannula No respiratory distress We will use phenobarbital and discontinue benzodiazepine Continue Precedex Patient is hypertensive Optimize antihypertensive regimen Discontinue fluids Speech eval at the bedside Mechanical soft diet for now Plan to transfer out of ICU if remains stable today I will transition him to Augmentin Discontinue IV antibiotics Attestations Medical Necessity Statement*: Continue management Diagnoses Alcohol withdrawal F10.939 Acute kidney injury N17.9 Metabolic acidosis, increased anion gap E87.29 Ketonuria R82.4 Metabolic acidosis E87.20 SAVANNA (acute kidney injury) N17.9 Microscopic hematuria R31.29 General weakness R53.1 Alcohol withdrawal F10.939 Atrial fibrillation I48.91
[2022-05-11] MEDS: amlodipine 10 mg Tablet PO (13:16)
[2022-05-11] MEDS: hyDRALAzine 25 mg Tablet PO ×2 (14:01→19:59)
[2022-05-11] MEDS: amoxicillin-clav 875-125 mg Tablet 1 TAB PO (17:59)
[2022-05-11] MEDS: PHENobarbital 32.4 mg Tablet 97.2 MG PO ×2 (18:10→22:26)
[2022-05-11] MEDS: metoprolol tartrate 25 mg Tablet PO (19:59)
--- NOTE | 2022-05-11 22:05 | PC.NURSE ---
Patient pulled reid out.
[2022-05-12] VITALS (8 sets, daily range): BP systolic 105–152; BP diastolic 62–82; PULSE 63–86; RESP 15–19; TEMP 36.8–37.8; O2SAT 96–99
[2022-05-12] MEDS: PHENobarbital 32.4 mg Tablet 97.2 MG PO ×3 (02:31→13:50)
[2022-05-12 05:52] LABS: Basophils # 0.1 10^3/uL (0.0-0.1); Basophils % 0.7 %; Eosinophils # 0.1 10^3/uL (0.0-0.8); Eosinophils % 0.7 %; Hematocrit 35.5 % (42.0-52.0); Hemoglobin 12.4 g/dL (11.7-16.6); Lymphocytes # 1.8 10^3/uL (0.8-4.8); Lymphocytes % 19.5 %; Mean Corpuscular HGB Conc 34.9 g/dL (30.0-36.0); Mean Corpuscular Hemoglobin 36.8 pg (28.0-34.0); Mean Corpuscular Volume 105.3 fl (80-94); Mean Platelet Volume 9.8 fL (7.4-10.4); Neutrophils # 6.12 10^3/uL (1.8-7.7); Neutrophils % 67.5 %; Nucleated Red Blood Cells % 0 %; Platelet Count 140 10^3/cmm (130-400); Red Blood Count 3.37 10^6/uL (4.1-5.3); Red Cell Distribution Width 12.9 % (12.1-15.1)
[2022-05-12 06:09] LABS: Alanine Aminotransferase 41 U/L (0-41); Alkaline Phosphatase 72 U/L (40-130); Anion Gap 25.6 (5-19); Aspartate Amino Transferase 66 U/L (0-40); Blood Urea Nitrogen 26 mg/dL (8-23); Calcium 8.7 mg/dL (8.5-10.5); Carbon Dioxide 18 mmol/L (22-29); Chloride 92 mmol/L (98-107); Globulin 3.1 g/dL (1.3-4.6); Glomerular Filtration Rate 54.9 mL/min (90-130); Glucose 52 mg/dL (65-115); Osmolality Calculated 276 mOsm/kg (285-295); Potassium 3.6 mmol/L (3.5-5.1); Sodium 132 mmol/L (136-145); Total Bilirubin 1.4 mg/dL (0.15-1.2); Total Protein 7.1 g/dL (6.6-8.7)
--- NOTE | 2022-05-12 06:25 | P.DS_ITS ---
Discharge Providers Date of Admission: 05/10/22 04:43 Date of Discharge: May 12, 2022 Attending Provider at Admission: Woodrow Syed Attending Provider at Discharge: Meme Puckett MD Diagnoses at Discharge Discharge Diagnosis (1) Alcohol withdrawal: Status: Acute (2) Acute kidney injury: Status: Acute (3) Metabolic acidosis, increased anion gap: Status: Acute (4) Ketonuria: Status: Acute (5) Metabolic acidosis: Status: Acute (6) SAVANNA (acute kidney injury): Status: Acute (7) Microscopic hematuria: Status: Acute (8) General weakness: Status: Acute (9) Alcohol withdrawal: Status: Acute (10) Atrial fibrillation: Status: Acute Reason for Visit Reason for Visit: FALL, RT SIDED FACIAL DROOP Hospital Course Hospital Course 67-year male who was admitted to the hospital for chief complaint of alcohol intoxication, generalized weakness and encephalopathy, after spending few hours on MedSurg she started showing signs of alcohol withdrawal related seizures, with second episode decision was made to intubate him to protect his airway, patient was extubated after 30 hours, we were in the midst of weaning trial when patient self extubated, patient did well on room air, tolerating diet, he remained afebrile, he received thiamine and folic acid throughout hospitalization and Zosyn for possible aspiration pneumonia. Extensive trauma scan was conducted, L1 compression fracture with multiple degenerative changes on multiple levels of spine, no sign of cauda equina, he may continue Augmentin, thiamine and folic acid. Echo showing severe aortic valve stenosis for which I will give him cardiology outpatient referral no signs of pulm edema chest pain or shortness of breath during this evaluation. Physical Exam Narrative: Euvolemic Muscle mass loss GCS 15 Systolic murmur S1, S2 Currently on room air Pleasant and cooperative Urinary Catheter Management: Malave: Cath Placed During This Visit: yes, but has since been removed by the nurse Reason for Continuing Indwelling Catheter: Accurate Measurement of Urinary Output in Critically Ill Patients Urinary Catheter Date of Insertion: 05/10/22 Urinary Catheter Time of Insertion: 04:30 Date Urinary Catheter Removed: 05/11/22 Time Urinary Catheter Discontinued: 22:05 Discharge Data Studies Completed and Pending Completed Studies During Hospitalization Category Date Time Status CT cervical spin wo con* [id number] Stat Cat Scan 05/09/22 18:[address] head thrombolytic [id number] Stat Cat Scan 05/09/22 17:[address] lumbar spine wo con* [id number] Stat Cat Scan 05/09/22 18:[address] thoracic spin wo con* [id number] Stat Cat Scan 05/09/22 18:17 Completed CTA head neck [CT angio headneck* [id number]] Routine Cat Scan 05/10/22 04:59 Completed XR chest 1V portable [id number] Stat Exams 05/09/22 21:36 Completed XR chest 1V portable [id number] Stat Exams 05/10/22 04:38 Completed CV carotid duplex BI* [id number] Routine Ultrasound 05/09/22 22:41 Completed CV. echo w/w bubble cont [id number] Routine Ultrasound 05/09/22 22:41 Completed Pending at discharge Category Date Time Status Sputum Culture and Gram Stain Routine Lab 05/10/22 14:05 Uncollected VBG [Venous Blood Gas] Routine Lab 05/09/22 22:41 Ordered Radiology Impressions Head CT 05/09/22 17:31 IMPRESSION: 1. No acute intracranial abnormality. 2. Old lacunar infarcts noted in the basal ganglia. ASSESSMENT: ASPECTS ([place] Stroke Program Early CT Score) is 10. Cervical Spine CT 05/09/22 18:17 IMPRESSION: No acute findings. Lumbar Spine CT 05/09/22 18:17 IMPRESSION: 1. L1 vertebral body superior endplate compression fracture without retropulsion of bony fragments, age indeterminate. 2. Bilateral punctate non-obstructing calyceal stones. 3. L2-L3 broad-based disc bulge with moderate spinal canal and mild bilateral foraminal narrowing. 4. L3-L4 broad-based disc bulge with moderate spinal canal and moderate bilateral foraminal narrowing. 5. L4-L5 broad-based posterior disc bulge with productive degenerative changes with mild spinal canal and severe bilateral foraminal narrowing. 6. L5/S1 broad-based posterior disc bulge with mild spinal canal and severe bilateral foraminal narrowing. 7. Hepatic steatosis. Thoracic Spine CT 05/09/22 18:17 IMPRESSION: 1. L1 vertebral body compression fracture without retropulsion of bony fragments. 2. Coronary artery atherosclerotic calcifications. 3. Cardiomegaly. 4. Bilateral punctate nonobstructing renal calyceal stones. 5. Multilevel productive degenerative endplate changes [id number] disc space narrowing throughout the cervical spine. Chest X-Ray 05/10/22 04:38 IMPRESSION: 1. Endotracheal tube and orogastric tube, as noted above. 2. Mildly decreased lung volumes with mild accentuation of the perihilar pulmonary vascularity. No airspace opacities in the lungs. Head/Neck CTA 05/10/22 04:59 IMPRESSION: 1. No large vessel stenosis or occlusion. 2. Small bilateral vertebral arteries and basilar artery. origin bilateral posterior cerebral arteries. IMPRESSION: No stenosis or occlusion. REFERENCES: NASCET CRITERIA. The degree of stenosis in the cervical segment of the internal carotid artery is based on NASCET criteria. Normal is no stenosis. Mild is less than 50% stenosis. Moderate is 50-69% stenosis. Severe is 70% to 99% stenosis. Total occlusion is no detectable patent lumen. Laboratory Results WBC 9.0 10^3/uL (4.0-10.0) 05/12/22 05:35 RBC 3.37 10^6/uL (4.1-5.3) L 05/12/22 05:35 Hgb 12.4 g/dL (11.7-16.6) 05/12/22 05:35 Hct 35.5 % (42.0-52.0) L 05/12/22 05:35 MCV 105.3 fl (80-94) H 05/12/22 05:35 MCH 36.8 pg (28.0-34.0) H 05/12/22 05:35 MCHC 34.9 g/dL (30.0-36.0) 05/12/22 05:35 RDW 12.9 % (12.1-15.1) 05/12/22 05:35 Plt Count 140 10^3/cmm (130-400) 05/12/22 05:35 MPV 9.8 fL (7.4-10.4) 05/12/22 05:35 Neut % (Auto) 67.5 % 05/12/22 05:35 Lymph % (Auto) 19.5 % 05/12/22 05:35 [place] % (Auto) 11.0 % 05/12/22 05:35 Eos % (Auto) 0.7 % 05/12/22 05:35 Baso % (Auto) 0.7 % 05/12/22 05:35 Neut # (Auto) 6.12 10^3/uL (1.8-7.7) 05/12/22 05:35 Lymph # (Auto) 1.8 10^3/uL (0.8-4.8) 05/12/22 05:35 [place] # (Auto) 1.0 10^3/uL (0.2-0.9) H 05/12/22 05:35 Eos # (Auto) 0.1 10^3/uL (0.0-0.8) 05/12/22 05:35 Baso # (Auto) 0.1 10^3/uL (0.0-0.1) 05/12/22 05:35 Nucleated RBC % (auto) 0 % 05/12/22 05:35 Total Counted 100 (0-100) 05/10/22 03:29 Atypical Lymphs % 4.0 % (0-5) 05/10/22 03:29 Absolute Neutrophils 9.1 10^3/cmm (1.4-6.5) H 05/10/22 03:29 Segmented Neutrophils 52 % 05/10/22 03:29 Abs Segm Neuts (Man) 8.9 10/cmm (1.6-7.1) H 05/10/22 03:29 Band Neutrophils 1.0 % 05/10/22 03:29 Abs Band Neuts (Man) 0.2 10^3/cmm (0.0-1.2) 05/10/22 03:29 Absolute Lymphocytes 6.5 10^3/cmm (1.2-3.4) H 05/10/22 03:29 Lymphocytes (Manual) 34 % 05/10/22 03:29 Monocytes (Manual) 6.0 % 05/10/22 03:29 Absolute Monocytes 1.0 10^3/cmm (0.1-0.6) H 05/10/22 03:29 Eosinophils (Manual) 0 % 05/10/22 03:29 Absolute Eosinophils 0.0 10^3/cmm (0.0-0.7) 05/10/22 03:29 Basophils (Manual) 0.0 % 05/10/22 03:29 Absolute Basophils 0.0 10^3/cmm (0.0-0.2) 05/10/22 03:29 Metamyelocytes 3.0 % 05/10/22 03:29 Nucleated RBCs # 0.0 /100WBC 05/12/22 05:35 Platelet Estimate Normal (Normal) 05/10/22 03:29 PT 12.40 SECONDS (12.1-14.9) 05/09/22 17:48 INR 0.90 (0.8-1.2) 05/09/22 17:48 APTT 25.3 SECONDS (23.9-36.7) 05/09/22 17:48 Specimen Type Arterial 05/11/22 04:48 Sample Site Brachial, right 05/11/22 04:48 ABG pH 7.50 (7.35-7.45) H 05/11/22 04:48 ABG pCO2 30.2 mmHg (35-45) L 05/11/22 04:48 ABG pO2 96.6 mmHg (80.0-100.0) 05/11/22 04:48 ABG HCO3 23.4 mmol/L (22-26) 05/11/22 04:48 ABG O2 Saturation 99.1 05/10/22 04:39 ABG Base Excess 1.2 mmol/L (-2.0-2.0) 05/11/22 04:48 Dev Test Pos 05/11/22 04:48 A-a O2 Gradient 4.8 mmHg (5-10) L 05/10/22 04:39 Hematocrit 45.1 % (42-52) 05/11/22 04:48 Hgb O2 Saturation 96.8 % (95-100) 05/10/22 04:39 Carboxyhemoglobin 1.3 %THgb (0.4-20.1) 05/10/22 04:39 Methemoglobin 1.0 % (0.4-1.5) 05/10/22 04:39 Total Hemoglobin 13.9 g/dL (14-18) L 05/10/22 04:39 Sodium 137.0 mmol/L (131-143) 05/10/22 04:39 Potassium 4.3 mmol/L (3.5-5.0) 05/10/22 04:39 Glucose 188.0 mg/dL (70-115) H 05/10/22 04:39 Ionized Calcium 1.1 mmol/L (1.1-1.4) 05/10/22 04:39 O2 Delivery Device Vent 05/11/22 04:48 FiO2 25.0 % 05/11/22 04:48 Tidal Volume 0.52 05/11/22 04:48 PEEP 5.0 cmH20 05/11/22 04:48 Operating Room Technologist ID Ajit 05/11/22 04:48 Sodium 132 mmol/L (136-145) L 05/12/22 05:35 Potassium 3.6 mmol/L (3.5-5.1) 05/12/22 05:35 Chloride 92 mmol/L (98-107) L 05/12/22 05:35 Carbon Dioxide 18 mmol/L (22-29) L 05/12/22 05:35 Anion Gap 25.6 (5-19) H 05/12/22 05:35 BUN 26 mg/dL (8-23) H 05/12/22 05:35 Creatinine 1.3 mg/dL (0.7-1.2) H 05/12/22 05:35 GFR Calculation 54.9 mL/min (90-130) L 05/12/22 05:35 Glucose 52 mg/dL (65-115) L 05/12/22 05:35 Estimat Average Glucose 71 05/10/22 03:29 Hemoglobin A1c 4.1 % (4.0-6.0) 05/10/22 03:29 Calculated Osmolality 276 mOsm/kg (285-295) L 05/12/22 05:35 Calcium 8.7 mg/dL (8.5-10.5) 05/12/22 05:35 Magnesium 2.2 mg/dL (1.7-2.3) 05/11/22 03:58 Total Bilirubin 1.4 mg/dL (0.15-1.2) H 05/12/22 05:35 AST 66 U/L (0-40) H 05/12/22 05:35 ALT 41 U/L (0-41) 05/12/22 05:35 Alkaline Phosphatase 72 U/L (40-130) 05/12/22 05:35 Ammonia 14 umol/L (16-60) L 05/09/22 18:25 Total Protein 7.1 g/dL (6.6-8.7) 05/12/22 05:35 Albumin 4.0 g/dL (3.5-5.2) 05/12/22 05:35 Globulin 3.1 g/dL (1.3-4.6) 05/12/22 05:35 Lipase 20 U/L (13-60) 05/09/22 18:25 TSH 4.20 uIU/mL (0.27-4.20) 05/10/22 03:29 Urine Color Yellow (Yellow) 05/09/22 20: Urine Appearance Clear (CLEAR) 05/09/22 20: Urine pH 6 (5-7) 05/09/22 20: Ur Specific [place] 1.015 (1.005-1.030) 05/09/22 20: Urine Protein 2+ (Negative) H 05/09/22: Urine Glucose (UA) 2+ (Normal) H 05/09/22 20: Urine Ketones 1+ (Negative) H 05/09/22 20: Urine Blood 3+ (Negative) H 05/09/22 20: Urine Nitrate Negative (Negative) 05/09/22: Urine Bilirubin Neg (Negative) 05/09/22 20: Urine Urobilinogen Norm mg/dL (Negative) 05/09/22 20: Ur Leukocyte Esterase Negative (Negative) 05/09/22 20: Urine RBC 5-10 /hpf (0-2) H 05/09/22 20: Urine WBC 0-4 /hpf (0-5) H 05/09/22 20:23 Ur Squamous Epith Cells 0-4 /hpf (0-5) H 05/09/22 20: Amorphous Sediment Not Reportable 05/09/22 20: Urine Bacteria Trace /hpf (NONE) 05/09/22 20: Urine Mucus Trace /hpf 05/09/22 20: Acetaminophen < 5.0 ug/mL (10-30) L 05/09/22 18:25 Ethyl Alcohol 19 mg/dL (0-10) H 05/09/22 18:25 Vitals Last Vital Signs Temp 98.7 F 05/12/22 04:00 Pulse 74 05/12/22 04:00 Resp 17 05/12/22 04:00 BP 138/82 05/12/22 04:00 Pulse Ox 98 05/12/22 04:00 O2 Del Method 05/12/22 04:00 FiO2 25 05/11/22 08:34 Discharge Plan Discharge Patient Disposition: Home Condition: Stable Prescriptions: No Action levetiracetam 500 mg tablet 500 mg PO QAM omeprazole 20 mg capsule,delayed release(DR/EC) 20 mg PO BID PRN (Reason: Heartburn) gabapentin 100 mg capsule 200 mg PO BID Tylenol Ex Str Rapid Release 500 mg Tablet 500 - 1,000 mg PO Q6H PRN (Reason: Pain) lisinopril-hydrochlorothiazide 20-25 mg tablet 1 tab PO DAILY sertraline 50 mg tablet 50 mg PO BEDTIME Referrals: Pallavi Mendez MD [Physician] - 1 month (Severe aortic valve stenosis) Patient Instructions: Opioid Safety Discharge Attestations Status at Discharge: Cognitive status at discharge: cognitively intact , Behavioral status at discharge: cooperative , Coding Level of Care Code Acute Code for Chg Fwd Diagnoses Alcohol withdrawal F10.939 Acute kidney injury N17.9 Metabolic acidosis, increased anion gap E87.29 Ketonuria R82.4 Metabolic acidosis E87.20 SAVANNA (acute kidney injury) N17.9 Microscopic hematuria R31.29 General weakness R53.1 Alcohol withdrawal F10.939 Atrial fibrillation I48.91
[2022-05-12] MEDS: amoxicillin-clav 875-125 mg Tablet 1 TAB PO ×2 (08:36→18:01)
[2022-05-12] MEDS: gabapentin 100 mg Capsule 200 MG PO ×3 (08:36→22:18)
[2022-05-12] MEDS: folic acid 1 mg Tablet PO (08:37)
[2022-05-12] MEDS: amlodipine 10 mg Tablet PO (08:37)
[2022-05-12] MEDS: multivitamin therapeutic Tablet 1 TAB PO (08:37)
[2022-05-12] MEDS: hyDRALAzine 25 mg Tablet PO ×3 (08:37→22:19)
[2022-05-12] MEDS: thiamine 100 mg Tablet PO (08:37)
[2022-05-12] MEDS: sertraline 50 mg Tablet 25 MG PO (08:37)
[2022-05-12] MEDS: metoprolol tartrate 25 mg Tablet PO ×2 (08:37→22:18)
[2022-05-12] MEDS: pantoprazole DR 40 mg Tablet PO (08:37)
--- NOTE | 2022-05-12 12:01 | PM.PN ---
Subjective Subjective: Patient removed his Malave catheter Traumatic Malave cath removal causing hematuria However he is able to void Very dizzy and unsteady on his feet Most likely will need SNF Endorsing anorexia Vitals/I&O/Wt Last Vital Signs Temp 98.7 F 05/12/22 04:00 Pulse 78 05/12/22 08:58 Resp 15 05/12/22 08:58 BP 148/81 05/12/22 08:58 Pulse Ox 99 05/12/22 08:58 O2 Del Method 05/12/22 11:22 FiO2 25 05/11/22 08:34 05/11/22 05/12/22 05/12/22 22:59 06:59 14:59 Intake Total 120 / 1220 Output Total 1000 / 2000 350 / 2350 400 / 400 Balance -880 / -780 -350 / -1130 -400 / -400 Physical Exam Narrative: Blood noted around urethral meatus Dehydrated S1, S2 Currently on room air Awake and alert Lethargic and fatigued Unsteady gait Non focal neuro exam Urinary Catheter Management: Malave: Cath Placed During This Visit: yes, but has since been removed by the nurse Reason for Continuing Indwelling Catheter: Accurate Measurement of Urinary Output in Critically Ill Patients Urinary Catheter Date of Insertion: 05/10/22 Urinary Catheter Time of Insertion: 04:30 Date Urinary Catheter Removed: 05/11/22 Time Urinary Catheter Discontinued: 22:05 Data 05/12/22 05:35 05/12/22 05:35 A&P Assessment and plan (1) Alcohol withdrawal: (2) Acute kidney injury: (3) Metabolic acidosis, increased anion gap: (4) Ketonuria: (5) Metabolic acidosis: (6) Microscopic hematuria: (7) General weakness: (8) Atrial fibrillation: (9) Hypertension: Plan 67-year male who was admitted to the hospital for chief complaint of alcohol intoxication, generalized weakness and encephalopathy, after spending few hours on MedSurg she started showing signs of alcohol withdrawal related seizures, with second episode decision was made to intubate him to protect his airway, patient was extubated after 30 hours, we were in the midst of weaning trial when patient self extubated, patient did well on room air, tolerating diet, he remained afebrile, he received thiamine and folic acid throughout hospitalization and Zosyn for possible aspiration pneumonia. Extensive trauma scan was conducted, L1 compression fracture with multiple degenerative changes on multiple levels of spine, no sign of cauda equina, he may continue Augmentin, thiamine and folic acid. Echo showing severe aortic valve stenosis for which I will give him cardiology outpatient referral no signs of pulm edema chest pain or shortness of breath during this evaluation. Respiratory failure secondary to alcohol withdrawal seizure, patient self extubated 05/11 Alcohol-related neuropathy Unsteady gait continue thiamine and folic acid Most likely will need SNF Patient is stating his last alcoholic drink was few months ago he has quit already Severe aortic valve stenosis incidental finding, no active decompensation Will need outpatient cardiology referral History of A-fib, not an ideal candidate for anticoagulation considering recurrent falls and unsteady gait, re-consider anticoagulating agent at the time of discharge Electrolyte imbalance: Repleted Goals of care discussed with the patient is full code Social dynamics: Lives with a girlfriend, Disposition: SNF Noncompliant, will place IV, not eating very well, will place Malave catheter experiencing traumatic hematuria Attestations Medical Necessity Statement*: Awaiting placement Diagnoses Alcohol withdrawal F10.939 Acute kidney injury N17.9 Metabolic acidosis, increased anion gap E87.29 Ketonuria R82.4 Metabolic acidosis E87.20 Microscopic hematuria R31.29 General weakness R53.1 Atrial fibrillation I48.91 Hypertension I10
[2022-05-12] MEDS: sodium chloride 0.9% 1,000 ML 30 ML IV (12:55)
[2022-05-12] MEDS: LORazepam 2 mg/mL INJ 1 mL IM ×2 (20:58→21:49)
--- NOTE | 2022-05-12 21:23 | P.EN_ITS ---
Event Note Event Note: Received phone call from RN patient agitated, yelling, demanding to be discharged. Not willing to take oral medications. No IV access. Received number below earlier, but this does not appear to be working well for him. Earlier CIWA score noted 19. On my assessment he thinks he is in eminence. Tremulous, irritable. Not aware that he had severe withdrawal with seizures. Discussed with him. Currently not able to make a safe decision regarding discharge. Could inadvertently do potential harm to self. Given a dose of 2 mg IM Ativan. Resumed with close monitoring with CIWA protocol. Hold additional phenobarbital as he was earlier on benzodiazepine as well while intubated, avoid continued coadministration to avoid risk of oversedation. Continuous pulse ox. Consider Librium once he resumes oral intake. Discussing with him regarding still ongoing issues, reassured him, he is gradua lly improving but his condition requires more time. He is agreeable to stay and continue monitoring and treatment. One-to-one. Increased elopement risk. High MDM includes number and complexity of problems actively addressed during encounter and described risk of complication, morbidity or mortality of management as documented
--- NOTE | 2022-05-12 22:54 | PC.NURSE ---
At 2044 Dr. Syed was called for patient becoming anxious, agitated, and combative towards staff. Patient yelling profanities towards staff and trying to get out of bed. Security was present. Physician ordered 2mg Im ativan. 2129 patient stated becoming combative agitated again. Patient was screaming and trying to get out of bed. Staff attempted to verbally redirect patient. Physician ordered repeat does of 2mg IM ativan. Patient was de-escalated. 1:1 sitter present.
[2022-05-13] VITALS (14 sets, daily range): BP systolic 86–116; BP diastolic 52–71; PULSE 51–72; RESP 13–21; TEMP 36.6–36.8; O2SAT 99–100
[2022-05-13 05:10] LABS: Basophils # 0.1 10^3/uL (0.0-0.1); Basophils % 0.8 %; Eosinophils # 0.1 10^3/uL (0.0-0.8); Eosinophils % 1.9 %; Hematocrit 31.5 % (42.0-52.0); Hemoglobin 10.7 g/dL (11.7-16.6); Lymphocytes # 2.1 10^3/uL (0.8-4.8); Lymphocytes % 28.9 %; Mean Corpuscular Hemoglobin 36.5 pg (28.0-34.0); Mean Corpuscular Volume 107.5 fl (80-94); Mean Platelet Volume 9.8 fL (7.4-10.4); Monocytes % 13.4 %; Neutrophils # 3.94 10^3/uL (1.8-7.7); Neutrophils % 54.4 %; Nucleated Red Blood Cells % 0 %; Platelet Count 147 10^3/cmm (130-400); Red Blood Count 2.93 10^6/uL (4.1-5.3); Red Cell Distribution Width 12.6 % (12.1-15.1); White Blood Count 7.2 10^3/uL (4.0-10.0)
[2022-05-13 05:36] LABS: Anion Gap 23.5 (5-19); Blood Urea Nitrogen 35 mg/dL (8-23); Calcium 8.7 mg/dL (8.5-10.5); Carbon Dioxide 19 mmol/L (22-29); Chloride 94 mmol/L (98-107); Glomerular Filtration Rate 50.4 mL/min (90-130); Glucose 65 mg/dL (65-115); Osmolality Calculated 282 mOsm/kg (285-295); Potassium 3.5 mmol/L (3.5-5.1); Sodium 133 mmol/L (136-145)
--- NOTE | 2022-05-13 10:17 | XR_ITS ---
WS: [id number] CHEST XRAY TECHNIQUE: Portable chest. CLINICAL INFORMATION: SOB COMPARISON: May 10, 2022 FINDINGS: Heart: Cardiomegaly. Aortic calcification. Lungs: Lungs are clear. No consolidation or pleural effusion. No acute-appearing pulmonary infiltrate s. Bones: Mild thoracic curve. Hypertrophic changes thoracic spine. XR/XR chest 1V portable [id number] IMPRESSION: 1. Stable cardiomegaly. 2. Lungs appear well aerated. No focal consolidation or significant pleural fl uid.
--- NOTE | 2022-05-13 10:17 | XR_ITS ---
WS: [id number] XR KUB portable [id number] REASON FOR EXAM: ABDOMINAL DISCOM FINDINGS: No free air or retroperitoneal air. Unremarkable bowel gas pattern. Right intrarenal calculus. (Demonstrated on CT scanning lumbar spine of 05/09/2022.). XR/XR KUB portable [id number] IMPRESSION: No acute abnormality.
[2022-05-13] MEDS: sertraline 50 mg Tablet 25 MG PO (11:01)
[2022-05-13] MEDS: thiamine 100 mg Tablet PO (11:01)
[2022-05-13] MEDS: OLANZapine 10 mg VIAL IM (11:01)
[2022-05-13] MEDS: folic acid 1 mg Tablet PO (11:01)
[2022-05-13] MEDS: multivitamin therapeutic Tablet 1 TAB PO (11:02)
[2022-05-13] MEDS: gabapentin 100 mg Capsule 200 MG PO ×2 (11:02→21:07)
[2022-05-13] MEDS: amoxicillin-clav 875-125 mg Tablet 1 TAB PO (11:02)
[2022-05-13] MEDS: pantoprazole DR 40 mg Tablet PO (11:02)
[2022-05-13 11:21] LABS: Troponin(5th) Baseline 24 ng/L (0-15)
[2022-05-13 11:22] LABS: Ammonia 15 umol/L (16-60); C Reactive Protein 37.5 mg/L (0.0-4.9); Magnesium 1.8 mg/dL (1.7-2.3); Phosphorus 2.8 mg/dL (2.5-4.5)
[2022-05-13 11:29] LABS: Procalcitonin 1.32 ng/mL (0-0.5)
[2022-05-13] MEDS: lactated ringers 1,000 ML 999 ML IV (11:41)
[2022-05-13] MEDS: cefTRIAXone 1,000 MG in sodium chloride 0.9% (plus) 50 ML 100 MG IV (11:53)
--- NOTE | 2022-05-13 12:19 | ECG_ITS ---
[facility] Test Date: 2022-05-13 Pat Name: David Paulino Department: Room: 278 Gender: Male [employer]ing [employer]: : 1955 Requested By: Monster Espinoza Order Number: [id number] Reading MD: MICHAELA CHONG Measurements Intervals [place] Rate: 53 P: -2 WV: 146 QRS: -44 QRSD: 162 T: -18 QT: 486 QTc: 456 Interpretive Statements SINUS BRADYCARDIA LEFT AXIS DEVIATION [QRS AXIS < -30] RIGHT BUNDLE BRANCH BLOCK [120+ ms QRS DURATION, UPRIGHT V1, 40+ ms S IN I/aVL/V4/V5/V6] Compared to ECG 05/10/2022 03:22:01 Left-axis deviation now present Left anterior fascicular block no longer present Electronically Signed On 05-14-2022 23:44:27 CDT by MICHAELA CHONG [email or web address]
[2022-05-13] MEDS: sodium chloride 0.9% 1,000 ML 100 ML IV (13:04)
--- NOTE | 2022-05-13 13:21 | PC.SOCIAL ---
IMM Update pg 2 of IMM updated and reviewed w/ patients life partner Dot as patient is confused. Copy left @ bedside. Copy dated, initialed and placed in chart.
[2022-05-13 13:27] LABS: Add Urine Microscopic? YES; Bilirubin Urine Neg (Negative); Blood Urine 3+ (Negative); Glucose Urine UA 1+ (Normal); Ketones Urine 2+ (Negative); Leukocyte Esterase Urine Negative (Negative); Nitrate Urine Negative (Negative); Protein Urine Trace (Negative); Urine Appearance Hazy (CLEAR); Urine Color Yellow (Yellow); Urobilinogen Urine Neg (Negative); pH Urine 5 (5-7)
[2022-05-13 13:28] LABS: Add Urine Culture? Yes; RBC Urine 15-25 /hpf (0-2)
[2022-05-13 13:40] LABS: Troponin 5 2HR 22.53 ng/L (0-15)
[2022-05-13 13:41] LABS: Troponin 5 2HR Delta -1.47 ABS# (0-10)
--- NOTE | 2022-05-13 16:19 | ECG_ITS ---
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
--- NOTE | 2022-05-13 16:55 | PM.PN ---
Subjective Subjective: Patient had episodes of agitation throughout the night, he required sedating medications, this morning he was seen, he opens his eyes, he can follow commands such as squeezing my fingers, but he has diffuse tremors bilateral upper extremities, but he falls back asleep, he knows his name, date but does not know where he he is, Vitals/I&O/Wt Last Vital Signs Temp 97.8 F 05/13/22 04:00 Pulse 71 05/13/22 16:27 Resp 16 05/13/22 11:50 BP 116/71 05/13/22 16:27 Pulse Ox 100 05/13/22 16:27 O2 Del Method 05/13/22 06:19 FiO2 25 05/11/22 08:34 05/13/22 05/13/22 05/13/22 06:59 14:59 22:59 Intake Total 100 / 412.5 1050 / 1050 Output Total 475 / 1350 Balance -375 / -937.5 1050 / 1050 Physical Exam Const: COMMON NORMALS: no acute distress EXAM LIMITATIONS: altered mental status ORIENTATION/CONSCIOUSNESS: Yes awake, Yes oriented to person and Yes confused; not oriented to place and not oriented to time Resp: COMMON NORMALS: normal respiratory effort, No retractions, No use of accessory muscles and clear to auscultation bilaterally AUSCULTATION: clear to auscultation bilaterally Cardio: COMMON NORMALS: regular rate, regular rhythm, S1 normal heart sound present and S2 normal heart sound present RATE: regular rate RHYTHM: regular rhythm HEART SOUNDS: S1 normal heart sound present and S2 normal heart sound present GI: COMMON NORMALS: Normal to inspection, nondistended, normoactive bowel sounds present and non-tender Extremity: COMMON NORMALS: no pedal edema Neuro: SENSORIUM/ORIENTATION: Yes oriented to person, No oriented to place and No oriented to time OTHER: Diffuse tremors upper extremity Urinary Catheter Management: Malave: Cath Placed During This Visit: yes, but has since been removed by the nurse Reason for Continuing Indwelling Catheter: Accurate Measurement of Urinary Output in Critically Ill Patients Urinary Catheter Date of Insertion: 05/10/22 Urinary Catheter Time of Insertion: 04:30 Date Urinary Catheter Removed: 05/11/22 Time Urinary Catheter Discontinued: 22:05 Data 05/13/22 04:59 05/13/22 04:59 Micro: Microbiology 05/13/22 10:42 Blood Culture - Preliminary Blood SPECIMEN COLLECTED 05/13/22 10:40 Blood Culture - Preliminary Blood SPECIMEN COLLECTED A&P Assessment and plan (1) Alcohol withdrawal: (2) Acute kidney injury: (3) Metabolic acidosis, increased anion gap: (4) Ketonuria: (5) Metabolic acidosis: (6) Microscopic hematuria: (7) General weakness: (8) Atrial fibrillation: (9) Hypertension: (10) Wernicke encephalopathy: Plan 67-year male who was admitted to the hospital for chief complaint of alcohol intoxication, generalized weakness and encephalopathy, after spending few hours on MedSurg she started showing signs of alcohol withdrawal related seizures, with second episode decision was made to intubate him to protect his airway, patient was extubated after 30 hours, we were in the midst of weaning trial when patient self extubated, patient did well on room air, tolerating diet, he remained afebrile, he received thiamine and folic acid throughout hospitalization and Zosyn for possible aspiration pneumonia. Extensive trauma scan was conducted, L1 compression fracture with multiple degenerative changes on multiple levels of spine, no sign of cauda equina, he may continue Augmentin, thiamine and folic acid. Echo showing severe aortic valve stenosis for which I will give him cardiology outpatient referral no signs of pulm edema chest pain or shortness of breath during this evaluation. 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 -Continue vitamin B12, folate -We will add high-dose thiamine -aspiration precautions -CIWA score -Neurochecks Alcohol withdrawal -Out of alcohol withdrawal window -Has received phenobarbital Has received Precedex Alcohol-related neuropathy Unsteady gait continue thiamine and folic acid Most likely will need SNF Agitation -Start Zyprexa 5 mg at bedtime Patient is stating his last alcoholic drink was few months ago he has quit already Severe aortic valve stenosis incidental finding, no active decompensation Will need outpatient cardiology referral History of A-fib, not an ideal candidate for anticoagulation considering recurrent falls and unsteady gait Electrolyte imbalance: Repleted Goals of care discussed with the patient is full code Social dynamics: Lives with a girlfriend, Disposition: SNF Repeat blood work, B12, folate, thiamine level, repeat CT of the head Attestations Medical Necessity Statement*: Patient requires hospitalization for persistent encephalopathy likely Warnicke's encephalopathy Diagnoses Alcohol withdrawal F10.939 Acute kidney injury N17.9 Metabolic acidosis, increased anion gap E87.29 Ketonuria R82.4 Metabolic acidosis E87.20 Microscopic hematuria R31.29 General weakness R53.1 Atrial fibrillation I48.91 Hypertension I10 Wernicke encephalopathy E51.2
--- NOTE | 2022-05-13 17:04 | CTR_ITS ---
PROCEDURE INFORMATION: Exam: CT Head Without Contrast Exam date and time: 05/13/2022 5:23 PM Age: 67 years old Clinical indication: Altered mental status/memory loss; Prior surgery; Surgery type: Cataract; Additional info: AMS TECHNIQUE: Imaging protocol: Computed tomography of the head without contrast. Radiation optimization: All CT scans at this facility use at least one of these dose optimization techniques: automated exposure control; mA and/or kV adjustment per patient size (includes targeted exams where dose is matched to clinical indication); or iterative reconstruction. REPORTING DATA: Count of CT and Cardiac NM exams in prior 12 months: This patient has received 9 known CTs and 0 known cardiac nuclear medicine studies in the 12 months prior to the current study. COMPARISON: CT head thrombolytic [id number] 05/09/2022 5:27 PM RADIATION DOSE METRICS: Total DLP (mGy-cm): 1127.48 FINDINGS: Brain: No hemorrhage. No edema. Moderate diffuse cerebral atrophy and mild sequela of chronic small vessel ischemic disease. Old lacunar infarcts noted in the basal ganglia. No mass effect. Cerebral ventricles: No ventriculomegaly. Paranasal sinuses: Visualized sinuses are unremarkable. No fluid levels. Mastoid air cells: Visualized mastoid air cells are well aerated. Bones/joints: Unremarkable. No acute fracture. Soft tissues: Unremarkable. CT/CT head wo con* [id number] IMPRESSION: 1. No acute intracranial abnormality. 2. Moderate diffuse cerebral atrophy and mild sequela of chronic small vessel ischemic disease. 3. Old lacunar infarcts noted in the basal ganglia.
[2022-05-13] MEDS: heparin 5,000 unit/mL INJ 1 mL 5000 UNIT SUBCUT (17:48)
[2022-05-13] MEDS: dextrose 5%-sod chloride 0.9% 1,000 ML 75 ML IV (17:48)
[2022-05-13 17:58] LABS: Troponin 5 6HR 22.12 ng/L (0-15)
[2022-05-13 18:01] LABS: Troponin 5 6HR Delta -1.88 ng/L (0-12)
[2022-05-13 18:05] LABS: Vitamin B12 557 pg/mL (232-1245)
[2022-05-13 19:41] LABS: Folate Level > 20.0 ng/mL (4.5-32.2)
[2022-05-13] MEDS: OLANZapine 5 mg TABLET PO (21:07)
[2022-05-14] VITALS (7 sets, daily range): BP systolic 110–136; BP diastolic 63–83; PULSE 64–89; RESP 12–21; TEMP 36.7–37.2; O2SAT 97–100
[2022-05-14] MEDS: heparin 5,000 unit/mL INJ 1 mL 5000 UNIT SUBCUT ×2 (03:42→17:20)
[2022-05-14] MEDS: dextrose 5%-sod chloride 0.9% 1,000 ML 75 ML IV ×3 (04:08→22:53)
[2022-05-14 04:23] LABS: Basophils % 0.7 %; Eosinophils # 0.1 10^3/uL (0.0-0.8); Eosinophils % 1.6 %; Hematocrit 33.6 % (42.0-52.0); Hemoglobin 11.8 g/dL (11.7-16.6); Lymphocytes # 1.4 10^3/uL (0.8-4.8); Lymphocytes % 24.6 %; Mean Corpuscular HGB Conc 35.1 g/dL (30.0-36.0); Mean Corpuscular Hemoglobin 37.7 pg (28.0-34.0); Mean Corpuscular Volume 107.3 fl (80-94); Mean Platelet Volume 9.9 fL (7.4-10.4); Monocytes # 0.7 10^3/uL (0.2-0.9); Neutrophils # 3.39 10^3/uL (1.8-7.7); Neutrophils % 59.7 %; Nucleated Red Blood Cells % 0 %; Platelet Count 148 10^3/cmm (130-400); Red Blood Count 3.13 10^6/uL (4.1-5.3); Red Cell Distribution Width 12.8 % (12.1-15.1); White Blood Count 5.7 10^3/uL (4.0-10.0)
[2022-05-14 04:38] LABS: INR 0.98 (0.8-1.2)
[2022-05-14 04:45] LABS: Lactate (Lactic Acid level) 1.1 mmol/L (0.5-2.2)
[2022-05-14 04:52] LABS: NT Pro B Type Natriuretic Pept 694 pg/mL (0-125); Procalcitonin 0.85 ng/mL (0-0.5)
[2022-05-14 05:05] LABS: Alanine Aminotransferase 30 U/L (0-41); Alkaline Phosphatase 75 U/L (40-130); Anion Gap 18.4 (5-19); Aspartate Amino Transferase 43 U/L (0-40); Blood Urea Nitrogen 25 mg/dL (8-23); Carbon Dioxide 23 mmol/L (22-29); Chloride 96 mmol/L (98-107); Creatine Phosphokinase 292 U/L (39-308); Globulin 2.7 g/dL (1.3-4.6); Glomerular Filtration Rate 60.2 mL/min (90-130); Glucose 78 mg/dL (65-115); Magnesium 1.6 mg/dL (1.7-2.3); Osmolality Calculated 281 mOsm/kg (285-295); Phosphorus 2.4 mg/dL (2.5-4.5); Potassium 3.4 mmol/L (3.5-5.1); Sodium 134 mmol/L (136-145); Total Bilirubin 0.7 mg/dL (0.15-1.2); Total Protein 6.7 g/dL (6.6-8.7)
[2022-05-14] MEDS: multivitamin therapeutic Tablet 1 TAB PO (08:12)
[2022-05-14] MEDS: folic acid 1 mg Tablet PO (08:12)
[2022-05-14] MEDS: gabapentin 100 mg Capsule 200 MG PO ×3 (08:12→21:18)
[2022-05-14] MEDS: pantoprazole DR 40 mg Tablet PO (08:12)
[2022-05-14] MEDS: sertraline 50 mg Tablet 25 MG PO (08:12)
[2022-05-14] MEDS: cyanocobalamin 1,000 mcg Tablet 1000 MCG PO (08:12)
[2022-05-14] MEDS: magnesium sulfate premix 2 GM/50 ML PIGGYBACK IV (08:13)
[2022-05-14] MEDS: potassium phosphate (mEq K) 40 MEQ in sodium chloride 0.9% (100 ml) 100 ML 27.25 MEQ IV (10:08)
--- NOTE | 2022-05-14 10:30 | P.PN_ITS ---
Subjective Subjective: Patient was seen this morning, he is much more alert and awake, sitting up in bed, he is alert to person, not to place, not to time, he keeps talking about events, that do not make sense, it seems like he is confabulating Vitals/I&O/Wt Last Vital Signs Temp 98.1 F 05/14/22 08:49 Pulse 77 05/14/22 08:49 Resp 18 05/14/22 08:49 BP 136/83 05/14/22 08:49 Pulse Ox 99 05/14/22 08:49 O2 Del Method 05/14/22 08:49 FiO2 25 05/11/22 08:34 05/13/22 05/14/22 05/14/22 22:59 06:59 14:59 Intake Total 1155 / 2205 1075 / 3280 315 / 315 Balance 1155 / 2205 1075 / 3280 315 / 315 Physical Exam Const: COMMON NORMALS: no acute distress ORIENTATION/CONSCIOUSNESS: Yes awake, Yes oriented to person and Yes confused; not oriented to place and not oriented to time Resp: COMMON NORMALS: normal respiratory effort, No retractions, No use of accessory muscles and clear to auscultation bilaterally AUSCULTATION: clear to auscultation bilaterally Cardio: COMMON NORMALS: regular rate, regular rhythm, S1 normal heart sound present and S2 normal heart sound present RATE: regular rate RHYTHM: regular rhythm HEART SOUNDS: S1 normal heart sound present and S2 normal heart sound present GI: COMMON NORMALS: Normal to inspection, nondistended, normoactive bowel s ounds present and non-tender Extremity: COMMON NORMALS: no pedal edema Neuro: SENSORIUM/ORIENTATION: Yes oriented to person, No oriented to place and No oriented to time Urinary Catheter Management: Malave: Cath Placed During This Visit: yes, but has since been removed by the nurse Reason for Continuing Indwelling Catheter: Accurate Measurement of Urinary Output in Critically Ill Patients Urinary Catheter Date of Insertion: 05/10/22 Urinary Catheter Time of Insertion: 04:30 Date Urinary Catheter Removed: 05/11/22 Time Urinary Catheter Discontinued: 22:05 Data 05/14/22 04:10 05/14/22 04:10 Micro: Microbiology 05/13/22 10:42 Blood Culture - Preliminary Blood SPECIMEN COLLECTED 05/13/22 10:40 Blood Culture - Preliminary Blood SPECIMEN COLLECTED A&P Assessment and plan (1) Alcohol withdrawal: (2) Acute kidney injury: (3) Metabolic acidosis, increased anion gap: (4) Ketonuria: (5) Metabolic acidosis: (6) Microscopic hematuria: (7) General weakness: (8) Atrial fibrillation: (9) Hypertension: (10) Wernicke encephalopathy: (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 Extensive trauma scan was conducted, L1 compression fracture with multiple degenerative changes on multiple levels of spine, no sign of cauda equina, he may continue Augmentin, thiamine and folic acid. Echo showing severe aortic valve stenosis for which I will give him cardiology outpatient referral no signs of pulm edema chest pain or shortness of breath during this evaluation. 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 -Continue vitamin B12, folate -Continue high-dose thiamine -aspiration precautions -CIWA score -Neurochecks -Advance diet as tolerated Alcohol withdrawal -Out of alcohol withdrawal window -Has received phenobarbital Has received Precedex Alcohol-related neuropathy Unsteady gait continue thiamine and folic acid Most likely will need SNF Agitation -Start Zyprexa 5 mg at bedtime Patient is stating his last alcoholic drink was few months ago he has quit already Severe aortic valve stenosis incidental finding, no active decompensation Will need outpatient cardiology referral History of A-fib, not an ideal candidate for anticoagulation considering recurrent falls and unsteady gait Hypokalemia Hypophosphatemia Hypomagnesemia -Will replace electrolytes Goals of care discussed with the patient is full code Social dynamics: Lives with a girlfriend, Disposition: SNF Attestations Medical Necessity Statement*: Patient requires hospitalization due to Warnicke's Korsakoff syndrome, electrolyte abnormalities Diagnoses Alcohol withdrawal F10.939 Acute kidney injury N17.9 Metabolic acidosis, increased anion gap E87.29 Ketonuria R82.4 Metabolic acidosis E87.20 Microscopic hematuria R31.29 General weakness R53.1 Atrial fibrillation I48.91 Hypertension I10 Wernicke encephalopathy E51.2 Korsakoff syndrome F04
[2022-05-14] MEDS: cefTRIAXone 1,000 MG in sodium chloride 0.9% (plus) 50 ML 100 MG IV (14:36)
[2022-05-14] MEDS: LORazepam 2 mg/mL INJ 1 mL IVP (20:39)
[2022-05-14] MEDS: OLANZapine 5 mg TABLET PO (21:18)
[2022-05-15] VITALS: BP 152/86; PULSE 94; RESP 17; TEMP 37.5; O2SAT 91
[2022-05-15 03:33] LABS: Basophils % 0.9 %; Eosinophils # 0.1 10^3/uL (0.0-0.8); Eosinophils % 1.3 %; Hematocrit 31.2 % (42.0-52.0); Hemoglobin 10.9 g/dL (11.7-16.6); Lymphocytes # 1.4 10^3/uL (0.8-4.8); Lymphocytes % 29.3 %; Mean Corpuscular HGB Conc 34.9 g/dL (30.0-36.0); Mean Corpuscular Hemoglobin 37.1 pg (28.0-34.0); Mean Corpuscular Volume 106.1 fl (80-94); Mean Platelet Volume 9.8 fL (7.4-10.4); Monocytes # 0.7 10^3/uL (0.2-0.9); Monocytes % 15.2 %; Neutrophils # 2.44 10^3/uL (1.8-7.7); Neutrophils % 52.2 %; Nucleated Red Blood Cells % 0 %; Platelet Count 134 10^3/cmm (130-400); Red Blood Count 2.94 10^6/uL (4.1-5.3); Red Cell Distribution Width 12.6 % (12.1-15.1); White Blood Count 4.7 10^3/uL (4.0-10.0)
[2022-05-15 03:59] LABS: Alanine Aminotransferase 24 U/L (0-41); Albumin Level 3.7 g/dL (3.5-5.2); Alkaline Phosphatase 65 U/L (40-130); Anion Gap 14.5 (5-19); Aspartate Amino Transferase 29 U/L (0-40); Blood Urea Nitrogen 12 mg/dL (8-23); Calcium 8.8 mg/dL (8.5-10.5); Carbon Dioxide 25 mmol/L (22-29); Chloride 105 mmol/L (98-107); Globulin 2.5 g/dL (1.3-4.6); Glomerular Filtration Rate 83.9 mL/min (90-130); Glucose 92 mg/dL (65-115); Magnesium 1.7 mg/dL (1.7-2.3); Osmolality Calculated 291 mOsm/kg (285-295); Potassium 3.5 mmol/L (3.5-5.1); Sodium 141 mmol/L (136-145); Total Bilirubin 0.7 mg/dL (0.15-1.2); Total Protein 6.2 g/dL (6.6-8.7)
[2022-05-15 04:00] VITALS: BP 152/86; BP 153/84; PULSE 90; PULSE 94; RESP 17; RESP 18; TEMP 37.2; TEMP 37.5; O2SAT 98
[2022-05-15 04:01] LABS: Procalcitonin 0.42 ng/mL (0-0.5)
[2022-05-15] MEDS: heparin 5,000 unit/mL INJ 1 mL 5000 UNIT SUBCUT ×2 (04:57→17:33)
[2022-05-15 08:00] VITALS: BP 134/79; PULSE 76; RESP 16; O2SAT 99
[2022-05-15] MEDS: cyanocobalamin 1,000 mcg Tablet 1000 MCG PO (08:32)
[2022-05-15] MEDS: gabapentin 100 mg Capsule 200 MG PO ×3 (08:32→20:50)
[2022-05-15] MEDS: sertraline 50 mg Tablet 25 MG PO (08:32)
[2022-05-15] MEDS: pantoprazole DR 40 mg Tablet PO (08:33)
[2022-05-15] MEDS: multivitamin therapeutic Tablet 1 TAB PO (08:33)
[2022-05-15] MEDS: folic acid 1 mg Tablet PO (08:33)
[2022-05-15] MEDS: cefTRIAXone 1,000 MG in sodium chloride 0.9% (plus) 50 ML 100 MG IV (11:42)
[2022-05-15 11:46] VITALS: BP 91/60; PULSE 90; RESP 16; O2SAT 99
--- NOTE | 2022-05-15 12:05 | P.PN_ITS ---
Subjective Subjective: Was seen this morning, he is actually sitting up into a chair, he is alert to person, not to place, not to time, he follows commands, I asked him why he is in the hospital he tells me that he had his colon removed for his diverticulitis, he has had back surgery that is the reason why he is here, Vitals/I&O/Wt Last Vital Signs Temp 99 F 05/15/22 04:00 Pulse 90 05/15/22 11:46 Resp 16 05/15/22 11:46 BP 91/60 05/15/22 11:46 Pulse Ox 99 05/15/22 11:46 O2 Del Method 05/14/22 17:00 FiO2 25 05/11/22 08:34 05/14/22 05/15/22 05/15/22 22:59 06:59 14:59 Intake Total 1515 / 2229.0909 1147.5 / 1147.5 Output Total 350 / 350 300 / 300 Balance 1515 / 2229.0909 -350 / 1879.0909 847.5 / 847.5 Physical Exam Const: COMMON NORMALS: no acute distress ORIENTATION/CONSCIOUSNESS: Yes awake and Yes oriented to person; not oriented to place and not oriented to time Resp: COMMON NORMALS: normal respiratory effort, No retractions, No use of accessory muscles and clear to auscultation bilaterally AUSCULTATION: clear to auscultation bilaterally Cardio: COMMON NORMALS: regular rate, regular rhythm, S1 normal heart sound present and S2 normal heart sound present RATE: regular rate RHYTHM: regular rhythm HEART SOUNDS: S1 normal heart sound present and S2 normal heart sound present GI: COMMON NORMALS: Normal to inspection, nondistended, normoactive bowel sounds present and non-tender Extremity: COMMON NORMALS: no pedal edema Neuro: SENSORIUM/ORIENTATION: Yes oriented to person, No oriented to place and No oriented to time Urinary Catheter Management: Malave: Cath Placed During This Visit: yes, but has since been removed by the nurse Reason for Continuing Indwelling Catheter: Accurate Measurement of Urinary Output in Critically Ill Patients Urinary Catheter Date of Insertion: 05/10/22 Urinary Catheter Time of Insertion: 04:30 Date Urinary Catheter Removed: 05/11/22 Time Urinary Catheter Discontinued: 22:05 Data 05/15/22 03:23 05/15/22 03:23 Micro: Microbiology 05/13/22 13:10 Urine Culture - Final Urine,Clean Catch 05/13/22 10:42 Blood Culture - Preliminary Blood NEGATIVE TO DATE 05/13/22 10:40 Blood Culture - Preliminary Blood NEGATIVE TO DATE A&P Assessment and plan (1) Alcohol withdrawal: (2) Acute kidney injury: (3) Metabolic acidosis, increased anion gap: (4) Ketonuria: (5) Metabolic acidosis: (6) Microscopic hematuria: (7) General weakness: (8) Atrial fibrillation: (9) Hypertension: (10) Wernicke encephalopathy: (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 Extensive trauma s can was conducted, L1 compression fracture with multiple degenerative changes on multiple levels of spine, no sign of cauda equina, he may continue Augmentin, thiamine and folic acid. Echo showing severe aortic valve stenosis for which I will give him cardiology outpatient referral no signs of pulm edema chest pain or shortness of breath during this evaluation. 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 -Continue vitamin B12, folate -Continue high-dose thiamine -aspiration precautions -CIWA score -Neurochecks -Advance diet as tolerated Alcohol withdrawal -Out of alcohol withdrawal window -Has received phenobarbital Has received Precedex Alcohol-related neuropathy Unsteady gait continue thiamine and folic acid Most likely will need SNF Agitation -Continue Zyprexa 5 mg at bedtime Patient is stating his last alcoholic drink was few months ago he has quit already Severe aortic valve stenosis incidental finding, no active decompensation Will need outpatient cardiology referral History of A-fib, not an ideal candidate for anticoagulation considering recurrent falls and unsteady gait -Currently no evidence of A-fib with RVR -We will start him on low-dose amiodarone Hypokalemia Hypophosphatemia Hypomagnesemia -Will replace electrolytes Goals of care discussed with the patient is full code Social dynamics: Lives with a girlfriend, Disposition: SNF Attestations Medical Necessity Statement*: Patient requires hospitalization for Warnicke's encephalopathy, Korsakoff syndrome Coding Level of Care Code Acute Code for Chg Fwd Diagnoses Alcohol withdrawal F10.939 Acute kidney injury N17.9 Metabolic acidosis, increased anion gap E87.29 Ketonuria R82.4 Metabolic acidosis E87.20 Microscopic hematuria R31.29 General weakness R53.1 Atrial fibrillation I48.91 Hypertension I10 Wernicke encephalopathy E51.2 Korsakoff syndrome F04
[2022-05-15] MEDS: magnesium lactate 84 mg Tablet PO (12:23)
--- NOTE | 2022-05-15 14:34 | PC.SOCIAL ---
IMM Update Updated pt's life partner on IMM. No questions voiced. Provided pt a copy. Initialed, dated, & timed copy in chart.
[2022-05-15] MEDS: LORazepam 2 mg/mL INJ 1 mL 0.5 MG IM (14:35)
[2022-05-15 16:00] VITALS: BP 100/65; PULSE 79; RESP 18; TEMP 36.6; O2SAT 97
[2022-05-15] MEDS: levETIRAcetam 500 mg Tablet PO (17:33)
[2022-05-15 20:00] VITALS: BP 152/84; PULSE 80; RESP 17; TEMP 37; O2SAT 98
[2022-05-15] MEDS: OLANZapine 5 mg TABLET PO (20:50)
[2022-05-16] VITALS: BP 111/62; PULSE 72; RESP 16; TEMP 36.6; O2SAT 97
[2022-05-16 03:28] VITALS: BP 135/71; PULSE 54; RESP 16; TEMP 36.7; O2SAT 98
[2022-05-16] MEDS: heparin 5,000 unit/mL INJ 1 mL 5000 UNIT SUBCUT ×2 (05:00→17:15)
[2022-05-16 05:16] LABS: Basophils # 0.1 10^3/uL (0.0-0.1); Basophils % 1.1 %; Eosinophils # 0.1 10^3/uL (0.0-0.8); Eosinophils % 3.1 %; Hematocrit 29.9 % (42.0-52.0); Hemoglobin 10.1 g/dL (11.7-16.6); Lymphocytes # 1.5 10^3/uL (0.8-4.8); Lymphocytes % 32.9 %; Mean Corpuscular HGB Conc 33.8 g/dL (30.0-36.0); Mean Corpuscular Hemoglobin 36.5 pg (28.0-34.0); Mean Corpuscular Volume 107.9 fl (80-94); Mean Platelet Volume 10.1 fL (7.4-10.4); Monocytes # 0.6 10^3/uL (0.2-0.9); Monocytes % 13.5 %; Neutrophils # 2.24 10^3/uL (1.8-7.7); Neutrophils % 48.7 %; Nucleated Red Blood Cells % 0 %; Platelet Count 169 10^3/cmm (130-400); Red Blood Count 2.77 10^6/uL (4.1-5.3); Red Cell Distribution Width 12.8 % (12.1-15.1); White Blood Count 4.6 10^3/uL (4.0-10.0)
[2022-05-16 05:43] LABS: Procalcitonin 0.25 ng/mL (0-0.5)
[2022-05-16 05:56] LABS: Alanine Aminotransferase 20 U/L (0-41); Albumin Level 3.1 g/dL (3.5-5.2); Alkaline Phosphatase 42 U/L (40-130); Anion Gap 13.4 (5-19); Aspartate Amino Transferase 23 U/L (0-40); Blood Urea Nitrogen 11 mg/dL (8-23); Calcium 8.5 mg/dL (8.5-10.5); Carbon Dioxide 24 mmol/L (22-29); Chloride 106 mmol/L (98-107); Globulin 2.6 g/dL (1.3-4.6); Glomerular Filtration Rate 66.6 mL/min (90-130); Glucose 73 mg/dL (65-115); Magnesium 1.8 mg/dL (1.7-2.3); Osmolality Calculated 288 mOsm/kg (285-295); Phosphorus 3.2 mg/dL (2.5-4.5); Potassium 3.4 mmol/L (3.5-5.1); Sodium 140 mmol/L (136-145); Total Bilirubin 0.5 mg/dL (0.15-1.2); Total Protein 5.7 g/dL (6.6-8.7)
[2022-05-16 08:00] VITALS: BP 136/76; PULSE 72; RESP 16; TEMP 36.9; O2SAT 99
[2022-05-16] MEDS: amiodarone 200 mg Tablet PO (09:25)
[2022-05-16] MEDS: gabapentin 100 mg Capsule 200 MG PO ×3 (09:26→20:01)
[2022-05-16] MEDS: cyanocobalamin 1,000 mcg Tablet 1000 MCG PO (09:26)
[2022-05-16] MEDS: magnesium lactate 84 mg Tablet PO (09:26)
[2022-05-16] MEDS: folic acid 1 mg Tablet PO (09:26)
[2022-05-16] MEDS: sertraline 50 mg Tablet 25 MG PO (09:27)
[2022-05-16] MEDS: multivitamin therapeutic Tablet 1 TAB PO (09:27)
[2022-05-16] MEDS: pantoprazole DR 40 mg Tablet PO (09:27)
[2022-05-16] MEDS: potassium chloride ER 20 mEq Tablet 40 MEQ PO (10:12)
[2022-05-16 12:00] VITALS: BP 100/62; PULSE 105; RESP 18; TEMP 36.6; O2SAT 100
--- NOTE | 2022-05-16 12:55 | P.PN_ITS ---
Subjective Subjective: - I had a discussion with patient's next of kin, Dot, she tells her that she cannot take care of him, and will likely require nursing of placement, I had a discussion about his alcoholism, his Warnicke's Korsakoff syndrome, she tells me that he was off alcohol for several months, but started using it again, and was quite secretive about it, he actually had a part-time job so was functional until his alcoholism got out of control and he ended up in the hospital -Patient was seen this morning is alert to person, not to place, not to time, he does follow commands, Vitals/I&O/Wt Last Vital Signs Temp 97.8 F 05/16/22 12:00 Pulse 105 H 05/16/22 12:00 Resp 18 05/16/22 12:00 BP 100/62 05/16/22 12:00 Pulse Ox 100 05/16/22 12:00 O2 Del Method 05/16/22 12:00 FiO2 25 05/11/22 08:34 05/15/22 05/16/22 05/16/22 22:59 06:59 14:59 Intake Total 120 / 1317.5 240 / 240 Balance 120 / 1017.5 240 / 240 Physical Exam Const: COMMON NORMALS: no acute distress EXAM LIMITATIONS: altered mental status ORIENTATION/CONSCIOUSNESS: Yes awake, Yes oriented to person and Yes confused; not oriented to place and not oriented to time Resp: COMMON NORMALS: normal respiratory effort, No retractions, No use of accessory muscles and clear to auscultation bilaterally AUSCULTATION: clear to auscultation bilaterally Cardio: COMMON NORMALS: regular rate, regular rhythm, S1 normal heart sound present and S2 normal heart sound present RATE: regular rate RHYTHM: regular rhythm HEART SOUNDS: S1 normal heart sound present and S2 normal heart sound present GI: COMMON NORMALS: Normal to inspection, nondistended, normoactive bowel sounds present and non-tender Extremity: COMMON NORMALS: no pedal edema Neuro: SENSORIUM/ORIENTATION: Yes oriented to person, No oriented to place and No oriented to time Urinary Catheter Management: Malave: Cath Placed During This Visit: yes, but has since been removed by the nurse Reason for Continuing Indwelling Catheter: Accurate Measurement of Urinary Output in Critically Ill Patients Urinary Catheter Date of Insertion: 03/14/23 Urinary Catheter Time of Insertion: 04:30 Date Urinary Catheter Removed: 05/11/22 Time Urinary Catheter Discontinued: 22:05 Data 05/16/22 05:06 05/16/22 05:06 Micro: Microbiology 05/13/22 13:10 Urine Culture - Final Urine,Clean Catch A&P Assessment and plan (1) Alcohol withdrawal: (2) Acute kidney injury: (3) Metabolic acidosis, increased anion gap: (4) Ketonuria: (5) Metabolic acidosis: (6) Microscopic hematuria: (7) General weakness: (8) Atrial fibrillation: (9) Hypertension: (10) Wernicke encephalopathy: (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 Extensive trauma scan was conducted, L1 compression fracture with multiple degenerative changes on multiple levels of spine, no sign of cauda equina, he may continue Augmentin, thiamine and folic acid. Echo showing severe aortic valve stenosis for which I will give him cardiology outpatient referral no signs of pulm edema chest pain or shortness of breath during this evaluation. 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 -Continue vitamin B12, folate -Switch to IM thiamine -aspiration precautions -CIWA score -Neurochecks -Advance diet as tolerated Alcohol withdrawal -Out of alcohol withdrawal window -Has received phenobarbital Has received Precedex Alcohol-related neuropathy Unsteady gait continue thiamine and folic acid Most likely will need SNF Agitation -Continue Zyprexa 5 mg at bedtime Patient is stating his last alcoholic drink was few months ago he has quit already Severe aortic valve stenosis incidental finding, no active decompensation Will need outpatient cardiology referral History of A-fib, not an ideal candidate for anticoagulation considering recurrent falls and unsteady gait -Currently no evidence of A-fib with RVR -We will start him on low-dose amiodarone Hypokalemia Hypophosphatemia Hypomagnesemia -Will replace electrolytes Goals of care discussed with the patient is full code Social dynamics: Lives with a girlfriend, Disposition: SNF Attestations Medical Necessity Statement*: Patient requires hospitalization for Wernicke's Korsakoff syndrome Coding Level of Care Code 63827 Moderate MDM includes number and complexity of problems actively addressed during encounter, amount and/or complexity of data reviewed/ordered and described risk of complication, morbidity or mortality of management as docum ented Diagnoses Alcohol withdrawal F10.939 Acute kidney injury N17.9 Metabolic acidosis, increased anion gap E87.29 Ketonuria R82.4 Metabolic acidosis E87.20 Microscopic hematuria R31.29 General weakness R53.1 Atrial fibrillation I48.91 Hypertension I10 Wernicke encephalopathy E51.2 Korsakoff syndrome F04
[2022-05-16 16:00] VITALS: BP 105/66; PULSE 86; RESP 16; TEMP 36.7; O2SAT 100
[2022-05-16] MEDS: levETIRAcetam 500 mg Tablet PO (17:15)
[2022-05-16 20:00] VITALS: BP 116/74; PULSE 81; RESP 17; TEMP 37.2; O2SAT 99
[2022-05-16] MEDS: acetaminophen 325 mg Tablet 650 MG PO (20:01)
[2022-05-16] MEDS: OLANZapine 5 mg TABLET PO (20:01)
[2022-05-17] VITALS: BP 124/77; PULSE 68; RESP 16; TEMP 36.7; O2SAT 98
[2022-05-17 04:00] VITALS: BP 99/67; PULSE 64; RESP 17; TEMP 36.7; O2SAT 98
[2022-05-17] MEDS: heparin 5,000 unit/mL INJ 1 mL 5000 UNIT SUBCUT (04:55)
[2022-05-17 05:49] LABS: Basophils % 0.7 %; Eosinophils # 0.1 10^3/uL (0.0-0.8); Eosinophils % 2.3 %; Hematocrit 33.7 % (42.0-52.0); Hemoglobin 11.4 g/dL (11.7-16.6); Lymphocytes # 1.8 10^3/uL (0.8-4.8); Lymphocytes % 32.2 %; Mean Corpuscular HGB Conc 33.8 g/dL (30.0-36.0); Mean Corpuscular Hemoglobin 36.4 pg (28.0-34.0); Mean Corpuscular Volume 107.7 fl (80-94); Mean Platelet Volume 10.5 fL (7.4-10.4); Monocytes # 0.7 10^3/uL (0.2-0.9); Monocytes % 12.7 %; Neutrophils # 2.93 10^3/uL (1.8-7.7); Neutrophils % 51.4 %; Nucleated Red Blood Cells % 0 %; Platelet Count 219 10^3/cmm (130-400); Red Blood Count 3.13 10^6/uL (4.1-5.3); Red Cell Distribution Width 12.7 % (12.1-15.1); White Blood Count 5.7 10^3/uL (4.0-10.0)
[2022-05-17 06:09] LABS: Alanine Aminotransferase 17 U/L (0-41); Albumin Level 3.3 g/dL (3.5-5.2); Alkaline Phosphatase 62 U/L (40-130); Anion Gap 11.5 (5-19); Aspartate Amino Transferase 18 U/L (0-40); Blood Urea Nitrogen 15 mg/dL (8-23); Calcium 8.9 mg/dL (8.5-10.5); Carbon Dioxide 27 mmol/L (22-29); Chloride 103 mmol/L (98-107); Globulin 2.8 g/dL (1.3-4.6); Glomerular Filtration Rate 66.6 mL/min (90-130); Glucose 96 mg/dL (65-115); Magnesium 1.8 mg/dL (1.7-2.3); Osmolality Calculated 287 mOsm/kg (285-295); Phosphorus 2.5 mg/dL (2.5-4.5); Potassium 3.5 mmol/L (3.5-5.1); Sodium 138 mmol/L (136-145); Total Bilirubin 0.5 mg/dL (0.15-1.2); Total Protein 6.1 g/dL (6.6-8.7)
[2022-05-17 08:00] VITALS: BP 133/72; PULSE 58; RESP 15; TEMP 36.6; O2SAT 98
[2022-05-17 08:43] LABS: SARS Covid-2 Antigen negative (Negative)
[2022-05-17] MEDS: folic acid 1 mg Tablet PO (08:58)
[2022-05-17] MEDS: multivitamin therapeutic Tablet 1 TAB PO (08:59)
[2022-05-17] MEDS: gabapentin 100 mg Capsule 200 MG PO (08:59)
[2022-05-17] MEDS: amiodarone 200 mg Tablet PO (08:59)
[2022-05-17] MEDS: pantoprazole DR 40 mg Tablet PO (08:59)
[2022-05-17] MEDS: cyanocobalamin 1,000 mcg Tablet 1000 MCG PO (08:59)
[2022-05-17] MEDS: magnesium lactate 84 mg Tablet PO (08:59)
[2022-05-17] MEDS: sertraline 50 mg Tablet 25 MG PO (08:59)
--- NOTE | 2022-05-17 10:01 | PC.SOCIAL ---
Imm update Imm updated with patient at bedside. Copy of page 2 provided. Patient verbalized understanding. Copy in chart initialed, dated and timed.
[2022-05-17 12:00] VITALS: BP 99/68; PULSE 53; RESP 14; TEMP 36.8; O2SAT 99
--- NOTE | 2022-05-17 12:11 | P.DS_ITS ---
Discharge Providers Date of Admission: 05/10/22 04:43 Date of Discharge: May 17, 2022 Attending Provider at Admission: Woodrow Syed Attending Provider at Discharge: Monster Espinoza MD Diagnoses at Discharge Discharge Diagnosis (1) Alcohol withdrawal: Status: Acute (2) Acute kidney injury: Status: Acute (3) Metabolic acidosis, increased anion gap: Status: Acute (4) Ketonuria: Status: Acute (5) Metabolic acidosis: Status: Acute (6) Microscopic hematuria: Status: Acute (7) General weakness: Status: Acute (8) Atrial fibrillation: Status: Acute (9) Hypertension: Status: Acute (10) Wernicke encephalopathy: Status: Acute (11) Korsakoff syndrome: Status: Acute Reason for Visit Reason for Visit: FALL, RT SIDED FACIAL DROOP Hospital Course Hospital Course 67-year male who was admitted to the hospital for chief complaint of alcohol intoxication, generalized weakness and encephalopathy, after spending few hours on MedSurg she started showing signs of alcohol withdrawal related seizures, with second episode decision was made to intubate him to protect his airway, patient was extubated after 30 hours, we were in the midst of weaning trial when patient self extubated, patient did well on room air, tolerating diet, he remained afebrile, he received thiamine and folic acid throughout hospitalization and Zosyn for possible aspiration pneumonia. Extensive trauma scan was conducted, L1 compression fracture with multiple degenerative changes on multiple levels of spine, no sign of cauda equina, he may continue Augmentin, thiamine and folic acid. Echo showing severe aortic valve stenosis for which I will give him cardiology outpatient referral no signs of pulm edema chest pain or shortness of breath during this evaluation. This is a 57-year-old male, who is admitted to [facility] for alcohol withdrawal Patient has severe alcohol withdrawal seizures, requiring intubation, was managed in ICU self extubated himself on the 05/11, was monitored, overall did well moved to general medical floors -In terms of his respiratory status, doing well, on room air -In terms of the alcohol withdrawal, patient required several doses of phenobarbital, Precedex, however continued to have episodes of agitation, managed with Zyprexa 5 mg at bedtime -Patient persistently had confusion -Warnicke's Korsakoff syndrome, managed with high-dose thiamine, his mentation did significantly improve, memory significantly improved, but continues to have episodes of confabulation -Discharge to custodial facility -In terms of his atrial fibrillation, managed with amiodarone -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, he has neuropathy of both his feet, high risk of falls -In terms of anticoagulation, patient is a high risk of falls, currently a poor candidate of anticoagulation, I had a discussion with patient and patient's life partner about morbidity and mortality associated with his falls and anticoagulation, risk of bleeding, she voiced her understanding, all questions answered, agreed to hold anticoagulation for now, I will have him follow-up with cardiology in a month for decision to start anticoagulation -We will have patient follow-up neurology -On discharge alert to person, to place, not to time, he can follow commands, continues to have confabulation Physical Exam Const: COMMON NORMALS: no acute distress Resp: COMMON NORMALS: normal respiratory effort, No retractions, No use of accessory muscles and clear to auscultation bilaterally AUSCULTATION: clear to auscultation bilaterally Cardio: COMMON NORMALS: regular rate, regular rhythm, S1 normal heart sound present and S2 normal heart sound present RATE: regular rate RHYTHM: regular rhythm HEART SOUNDS: S1 normal heart sound present and S2 normal he art sound present GI: COMMON NORMALS: Normal to inspection, nondistended, normoactive bowel sounds present and non-tender Extremity: COMMON NORMALS: no pedal edema Psych: COMMON NORMALS: mental status grossly normal Urinary Catheter Management: Malave: Cath Placed During This Visit: yes, but has since been removed by the nurse Reason for Continuing Indwelling Catheter: Accurate Measurement of Urinary Output in Critically Ill Patients Urinary Catheter Date of Insertion: 05/10/22 Urinary Catheter Time of Insertion: 04:30 Date Urinary Catheter Removed: 05/11/22 Time Urinary Catheter Discontinued: 22:05 Discharge Data Studies Completed and Pending Completed Studies During Hospitalization Category Date Time Status CT cervical spin wo con* [id number] Stat Cat Scan 05/09/22 18:[address] head thrombolytic 46476 Stat Cat Scan 05/09/22 17:[address] head wo con* [id number] Stat Cat Scan 05/13/22 17:[address] lumbar spine wo con* [id number] Stat Cat Scan 05/09/22 18:[address] thoracic spin wo con* [id number] Stat Cat Scan 05/09/22 18:17 Completed CTA head neck [CT angio headneck* [id number]] Routine Cat Scan 05/10/22 04:59 Completed XR KUB portable [id number] Routine Exams 05/13/22 10:17 Completed XR chest 1V portable [id number] Routine Exams 05/13/22 10:17 Completed XR chest 1V portable [id number] Stat Exams 05/09/22 21:36 Completed XR chest 1V portable [id number] Stat Exams 05/10/22 04:38 Completed CV carotid duplex BI* [id number] Routine Ultrasound 05/09/22 22:41 Completed CV. echo w/w bubble cont [id number] Routine Ultrasound 05/09/22 22:41 Completed Pending at discharge Category Date Time Status Blood Culture Stat Lab 05/13/22 10:42 Results Complete Blood Count w/Auto AM LABS Lab 05/18/22 04:00 Ordered Complete Blood Count w/Auto AM LABS Lab 05/19/22 04:00 Ordered Comprehensive Metabolic Panel AM LABS Lab 05/18/22 04:00 Ordered Comprehensive Metabolic Panel AM LABS Lab 05/19/22 04:00 Ordered Magnesium AM LABS Lab 05/18/22 04:00 Ordered Magnesium AM LABS Lab 05/19/22 04:00 Ordered Phosphorus AM LABS Lab 05/18/22 04:00 Ordered Phosphorus AM LABS Lab 05/19/22 04:00 Ordered Sputum Culture and Gram Stain Routine Lab 05/10/22 14:05 Uncollected Vitamin B1 (Thiamine),Blood Routine Lab 05/13/22 16:58 Received Radiology Impressions Cervical Spine CT 05/09/22 18:17 IMPRESSION: No acute findings. Lumbar Spine CT 05/09/22 18:17 IMPRESSION: 1. L1 vertebral body superior endplate compression fracture without retropulsion of bony fragments, age indeterminate. 2. Bilateral punctate non-obstructing calyceal stones. 3. L2-L3 broad-based disc bulge with moderate spinal canal and mild bilateral foraminal narrowing. 4. L3-L4 broad-based disc bulge with moderate spinal canal and moderate bilateral foraminal narrowing. 5. L4-L5 broad-based posterior disc bulge with productive degenerative changes with mild spinal canal and severe bilateral foraminal narrowing. 6. L5/S1 broad-based posterior disc bulge with mild spinal canal and severe bilateral foraminal narrowing. 7. Hepatic steatosis. Thoracic Spine CT 05/09/22 18:17 IMPRESSION: 1. L1 vertebral body compression fracture without retropulsion of bony fragments. 2. Coronary artery atherosclerotic calcifications. 3. Cardiomegaly. 4. Bilateral punctate nonobstructing renal calyceal stones. 5. Multilevel productive degenerative endplate changes [id number] disc space narrowing throughout the cervical spine. Head/Neck CTA 05/10/22 04:59 IMPRESSION: 1. No large vessel stenosis or occlusion. 2. Small bilateral vertebral arteries and basilar artery. origin bilateral posterior cerebral arteries. IMPRESSION: No stenosis or occlusion. REFERENCES: NASCET CRITERIA. The degree of stenosis in the cervical segment of the internal carotid artery is based on NASCET criteria. Normal is no stenosis. Mild is less than 50% stenosis. Moderate is 50-69% stenosis. Severe is 70% to 99% stenosis. Total occlusion is no detectable patent lumen. Chest X-Ray 05/13/22 10:17 IMPRESSION: 1. Stable cardiomegaly. 2. Lungs appear well aerated. No focal consolidation or significant pleural fluid. KUB X-Ray 05/13/22 10:17 IMPRESSION: No acute abnormality. Head CT 05/13/22 17:04 IMPRESSION: 1. No acute intracranial abnormality. 2. Moderate diffuse cerebral atrophy and mild sequela of chronic small vessel ischemic disease. 3. Old lacunar infarcts noted in the basal ganglia. Laboratory Results WBC 5.7 10^3/uL (4.0-10.0) 05/17/22 05:04 RBC 3.13 10^6/uL (4.1-5.3) L 05/17/22 05:04 Hgb 11.4 g/dL (11.7-16.6) L 05/17/22 05:04 Hct 33.7 % (42.0-52.0) L 05/17/22 05:04 MCV 107.7 fl (80-94) H 05/17/22 05:04 MCH 36.4 pg (28.0-34.0) H 05/17/22 05:04 MCHC 33.8 g/dL (30.0-36.0) 05/17/22 05:04 RDW 12.7 % (12.1-15.1) 05/17/22 05:04 Plt Count 219 10^3/cmm (130-400) 05/17/22 05:04 MPV 10.5 fL (7.4-10.4) H 05/17/22 05:04 Neut % (Auto) 51.4 % 05/17/22 05:04 Lymph % (Auto) 32.2 % 05/17/22 05:04 [place] % (Auto) 12.7 % 05/17/22 05:04 Eos % (Auto) 2.3 % 05/17/22 05:04 Baso % (Auto) 0.7 % 05/17/22 05:04 Neut # (Auto) 2.93 10^3/uL (1.8-7.7) 05/17/22 05:04 Lymph # (Auto) 1.8 10^3/uL (0.8-4.8) 05/17/22 05:04 [place] # (Auto) 0.7 10^3/uL (0.2-0.9) 05/17/22 05:04 Eos # (Auto) 0.1 10^3/uL (0.0-0.8) 05/17/22 05:04 Baso # (Auto) 0.0 10^3/uL (0.0-0.1) 05/17/22 05:04 Nucleated RBC % (auto) 0 % 05/17/22 05:04 Total Counted 100 (0-100) 05/10/22 03:29 Atypical Lymphs % 4.0 % (0-5) 05/10/22 03:29 Absolute Neutrophils 9.1 10^3/cmm (1.4-6.5) H 05/10/22 03:29 Segmented Neutrophils 52 % 05/10/22 03:29 Abs Segm Neuts (Man) 8.9 10/cmm (1.6-7.1) H 05/10/22 03:29 Band Neutrophils 1.0 % 05/10/22 03:29 Abs Band Neuts (Man) 0.2 10^3/cmm (0.0-1.2) 05/10/22 03:29 Absolute Lymphocytes 6.5 10^3/cmm (1.2-3.4) H 05/10/22 03:29 Lymphocytes (Manual) 34 % 05/10/22 03:29 Monocytes (Manual) 6.0 % 05/10/22 03:29 Absolute Monocytes 1.0 10^3/cmm (0.1-0.6) H 05/10/22 03:29 Eosinophils (Manual) 0 % 05/10/22 03:29 Absolute Eosinophils 0.0 10^3/cmm (0.0-0.7) 05/10/22 03:29 Basophils (Manual) 0.0 % 05/10/22 03:29 Absolute Basophils 0.0 10^3/cmm (0.0-0.2) 05/10/22 03:29 Metamyelocytes 3.0 % 05/10/22 03:29 Nucleated RBCs # 0.0 /100WBC 05/17/22 05:04 Platelet Estimate Normal (Normal) 05/10/22 03:29 PT 13.30 SECONDS (12.1-14.9) 05/14/22 04:10 INR 0.98 (0.8-1.2) 05/14/22 04:10 APTT 25.3 SECONDS (23.9-36.7) 05/09/22 17:48 Specimen Type Arterial 05/11/22 04:48 Sample Site Brachial, right 05/11/22 04:48 ABG pH 7.50 (7.35-7.45) H 05/11/22 04:48 ABG pCO2 30.2 mmHg (35-45) L 05/11/22 04:48 ABG pO2 96.6 mmHg (80.0-100.0) 05/11/22 04:48 ABG HCO3 23.4 mmol/L (22-26) 05/11/22 04:48 ABG O2 Saturation 99.1 05/10/22 04:39 ABG Base Excess 1.2 mmol/L (-2.0-2.0) 05/11/22 04:48 Dev Test Pos 05/11/22 04:48 A-a O2 Gradient 4.8 mmHg (5-10) L 05/10/22 04:39 Hematocrit 45.1 % (42-52) 05/11/22 04:48 Hgb O2 Saturation 96.8 % (95-100) 05/10/22 04:39 Carboxyhemoglobin 1.3 %THgb (0.4-20.1) 05/10/22 04:39 Methemoglobin 1.0 % (0.4-1.5) 05/10/22 04:39 Total Hemoglobin 13.9 g/dL (14-18) L 05/10/22 04:39 Sodium 137.0 mmol/L (131-143) 05/10/22 04:39 Potassium 4.3 mmol/L (3.5-5.0) 05/10/22 04:39 Glucose 188.0 mg/dL (70-115) H 05/10/22 04:39 Ionized Calcium 1.1 mmol/L (1.1-1.4) 05/10/22 04:39 O2 Delivery Device Vent 05/11/22 04:48 FiO2 25.0 % 05/11/22 04:48 Tidal Volume 0.52 05/11/22 04:48 PEEP 5.0 cmH20 05/11/22 04:48 [employer] ID Ajit 05/11/22 04:48 Sodium 138 mmol/L (136-145) 05/17/22 05:04 Potassium 3.5 mmol/L (3.5-5.1) 05/17/22 05:04 Chloride 103 mmol/L (98-107) 05/17/22 05:04 Carbon Dioxide 27 mmol/L (22-29) 05/17/22 05:04 Anion Gap 11.5 (5-19) 05/17/22 05:04 BUN 15 mg/dL (8-23) 05/17/22 05:04 Creatinine 1.1 mg/dL (0.7-1.2) 05/17/22 05:04 GFR Calculation 66.6 mL/min (90-130) L 05/17/22 05:04 Glucose 96 mg/dL (65-115) 05/17/22 05:04 Estimat Average Glucose 71 05/10/22 03:29 Hemoglobin A1c 4.1 % (4.0-6.0) 05/10/22 03:29 Calculated Osmolality 287 mOsm/kg (285-295) 05/17/22 05:04 Lactate 1.1 mmol/L (0.5-2.2) 05/14/22 04:10 Calcium 8.9 mg/dL (8.5-10.5) 05/17/22 05:04 Phosphorus 2.5 mg/dL (2.5-4.5) 05/17/22 05:04 Magnesium 1.8 mg/dL (1.7-2.3) 05/17/22 05:04 Total Bilirubin 0.5 mg/dL (0.15-1.2) 05/17/22 05:04 AST 18 U/L (0-40) 05/17/22 05:04 ALT 17 U/L (0-41) 05/17/22 05:04 Alkaline Phosphatase 62 U/L (40-130) 05/17/22 05:04 Ammonia 15 umol/L (16-60) L 05/13/22 10:42 Creatine Kinase 292 U/L (39-308) 05/14/22 04:10 Troponin T Baseline 24 ng/L (0-15) H 05/13/22 10:42 Troponin T 120 Minute 22.53 ng/L (0-15) H 05/13/22 13:12 Delta Troponin T -1.47 ABS# (0-10) L 05/13/22 13:12 Troponin T Hi Sens 6Hr 22.12 ng/L (0-15) H 05/13/22 16:32 Troponin T Hi Sens 6Hr Delta -1.88 ng/L (0-12) L 05/13/22 16:32 C-Reactive Protein 37.5 mg/L (0.0-4.9) H 05/13/22 10:42 NT-Pro-B Natriuret Pep 694 pg/mL (0-125) H 05/14/22 04:10 Total Protein 6.1 g/dL (6.6-8.7) L 05/17/22 05:04 Albumin 3.3 g/dL (3.5-5.2) L 05/17/22 05:04 Globulin 2.8 g/dL (1.3-4.6) 05/17/22 05:04 Lipase 20 U/L (13-60) 05/09/22 18:25 Vitamin B12 557 pg/mL (232-1245) 05/13/22 10:50 Folate > 20.0 ng/mL (4.5-32.2) 05/13/22 18:08 Procalcitonin 0.25 ng/mL (0-0.5) 05/16/22 05:06 TSH 4.20 uIU/mL (0.27-4.20) 05/10/22 03:29 Urine Color Yellow (Yellow) 05/13/22 13:10 Urine Appearance Hazy (CLEAR) A 05/13/22 13:10 Urine pH 5 (5-7) 05/13/22 13:10 Ur Specific [place] 1.020 (1.005-1.030) 05/13/22 13:10 Urine Protein Trace (Negative) 05/13/22 13:10 Urine Glucose (UA) 1+ (Normal) H 05/13/22 13:10 Urine Ketones 2+ (Negative) H 05/13/22 13:10 Urine Blood 3+ (Negative) H 05/13/22 13:10 Urine Nitrate Negative (Negative) 05/13/22 13:10 Urine Bilirubin Neg (Negative) 05/13/22 13:10 Urine Urobilinogen Neg mg/dL (Negative) 05/13/22 13:10 Ur Leukocyte Esterase Negative (Negative) 05/13/22 13:10 Urine RBC 15-25 /hpf (0-2) H 05/13/22 13:10 Urine WBC 10-15 /hpf (0-5) H 05/13/22 13:10 Ur Squamous Epith Cells None /hpf (0-5) 05/13/22 13:10 Amorphous Sediment Not Reportable 05/13/22 13:10 Urine Bacteria None /hpf (NONE) 05/13/22 13:10 Urine Mucus Trace /hpf 05/09/22 20:23 Acetaminophen < 5.0 ug/mL (10-30) L 05/09/22 18:25 Ethyl Alcohol 19 mg/dL (0-10) H 05/09/22 18:25 SARS-CoV-2 Ag (Rapid) negative (Negative) 05/17/22 07:50 Vitals Last Vital Signs Temp 97.8 F 05/17/22 08:00 Pulse 58 L 05/17/22 08:00 Resp 15 05/17/22 08:00 BP 133/72 05/17/22 08:00 Pulse Ox 98 05/17/22 08:00 O2 Del Method 05/17/22 08:00 FiO2 25 05/11/22 08:34 Discharge Plan Discharge Patient Disposition: Xfer SNF Condition: Stable Prescriptions: New Pacerone 200 mg Tablet 200 mg PO DAILY 30 Days Qty: 30 0RF olanzapine 5 mg Tablet 5 mg PO BEDTIME 30 Days Qty: 30 0RF Vitamin B-12 1,000 mcg Tablet 1,000 mcg PO DAILY 30 Days Qty: 30 0RF folic acid 1 mg Tablet 1 mg PO DAILY 30 Days Qty: 30 0RF gabapentin 100 mg Capsule 200 mg PO TID 30 Days Qty: 180 0RF sertraline 50 mg Tablet 25 mg PO DAILY 30 Days Qty: 30 0RF Magtab 84 mg Tablet Extended Release 84 mg PO DAILY 30 Days Qty: 30 0RF thiamine HCl (vitamin B1) 100 mg tablet 100 mg PO BID 30 Days Qty: 60 0RF Continued levetiracetam 500 mg tablet 500 mg PO QAM omeprazole 20 mg capsule,delayed release(DR/EC) 20 mg PO BID PRN (Reason: Heartburn) acetaminophen 500 mg Tablet 500 - 1,000 mg PO Q6H PRN (Reason: Pain) Discontinued gabapentin 100 mg capsule 200 mg PO BID lisinopril-hydrochlorothiazide 20-25 mg tablet 1 tab PO DAILY sertraline 50 mg tablet 50 mg PO BEDTIME Discharge Orders: Discharge Order (Routine); Ordered 05/17/22 Ordered By: Monster Espinoza Referrals: [facility] [Other] Marjorie Zuniga MD [Physician] - 2 weeks (wernickie-korsakoff) Pallavi Mendez MD [Physician] - 07/06/22 2:15 pm (Severe aortic valve stenosis) Discharge Diet: Cardiac Discharge Activity: Resume usual activity Patient Instructions: Opioid Safety Discharge Attestations Time Spent in Discharge Care*: greater than 30 min Status at Discharge: Cognitive status at discharge: cognitively intact , Behavioral status at discharge: cooperative , Quality Metrics Clinical Quality Measures [ No reported AMI, CVA or VTE this stay] Coding Level of Care Code 28335 Total time (in minutes) for Discharge: 40 Diagnoses Alcohol withdrawal F10.939 Acute kidney injury N17.9 Metabolic acidosis, increased anion gap E87.29 Ketonuria R82.4 Metabolic acidosis E87.20 Microscopic hematuria R31.29 General weakness R53.1 Atrial fibrillation I48.91 Hypertension I10 Wernicke encephalopathy E51.2 Korsakoff syndrome F04
--- NOTE | 2022-05-17 13:45 | PC.NURSE ---
Report: Report called to Yissel at [facility]
[2022-05-21 13:30] LABS: Vitamin B1 (Thiamine),Blood >1200 nmol/L (78-185)
== END 2022-05-17 14:16 | disposition skilled nursing facility (03) | DRG 896 ==
LOC: ER 21:44 → MEDSURG 22:01 → ICU 05-10 04:15 → MEDSURG 05-11 17:06
PROVIDERS: Family Medicine; Internal Medicine; Admitting Provider Internal Medicine; Emergency Provider Emergency Medicine; Visit Provider Family Medicine
DX: F10.229 Alcohol dependence with intoxication, unspecified (principal); J69.0 Pneumonitis due to inhalation of food and vomit; J96.90 Respiratory failure, unspecified, unspecified whether with hypoxia or hypercapnia; G40.89 Other seizures; N17.9 Acute kidney failure, unspecified; E51.2 Wernicke's encephalopathy; E87.20 Acidosis, unspecified; F10.239 Alcohol dependence with withdrawal, unspecified; G62.1 Alcoholic polyneuropathy; Y90.0 Blood alcohol level of less than 20 mg/100 ml; I35.0 Nonrheumatic aortic (valve) stenosis; I48.91 Unspecified atrial fibrillation; K21.9 Gastro-esophageal reflux disease without esophagitis; R31.29 Other microscopic hematuria; Z86.73 Personal history of transient ischemic attack (TIA), and cerebral infarction without residual deficits; R45.1 Restlessness and agitation; E86.0 Dehydration; E83.42 Hypomagnesemia
CPT/HCPCS: 36415; 36600; 51702; 70450; 70496; 70498; 71045; 72125; 72128; 72131; 74018; 80048; 80051; 80053; 80307; 81001; 82140; 82330; 82550; 82607; 82746; 82803; 82805; 83036; 83605; 83690; 83735; 83880; 84100; 84145; 84425; 84443; 84484; 85007; 85025; 85610; 85730; 86140; 87040; 87086; 87426; 92523; 92610; 93005; 93880; 94002; 94003; 94799; 96372; 96374; 96375; 96376; 97110; 97116; 97161; 97167; 97530; 97535; 99285; A4570; C8929; G0378; J0330; J0696; J1644; J1953; J2060; J2250; J2543; J2704; J3010; J3411; J3475; J3490; J7030; J7042; J7120; Q9967

== ENCOUNTER → 2022-09-07 10:13 | Outpatient (BNVA) | payer MEDICARE, MEDICAID, SELFPAY | PROVIDERS: PCP Nurse Practitioner Family; Visit Provider Otolaryngology | DX: R49.0 Dysphonia (principal); K08.9 Disorder of teeth and supporting structures, unspecified; I48.91 Unspecified atrial fibrillation; I10 Essential (primary) hypertension | CPT/HCPCS: 31575; 99204 ==